=== PATIENT | female | born 1950 | race Caucasian/White ===

== ENCOUNTER → 2016-10-16 | Outpatient (CLI) | payer MEDICARE ==
--- NOTE | 2016-10-16 11:59 | XR ---
EXAMINATION TYPE: XR thoracic spine complete DATE OF EXAM ORDERED: 10/16/2016 HISTORY: C50.11 Breast CA. COMPARISON: None. FINDINGS: There is a left internal jugular catheter in place. Its tip is in the right atrium. Vertebral body height and alignment are maintained. No fractures are seen. 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 There is mild spondylosis deformans in the mid dorsal s pine. The pedicles are intact. IMPRESSION: 1. NO ACUTE OSSEOUS LESION. 2. FORESTIER'S DISEASE. 3. SPONDYLOSIS DEFORMANS.
== END | disposition home or self-care (01) ==
LOC: RADXRMAIN 11:26
PROVIDERS: ATTEND Internal Medicine Hematology & Oncology
DX: M47.814 Spondylosis without myelopathy or radiculopathy, thoracic region (principal); M48.14 Ankylosing hyperostosis [Forestier], thoracic region; C50.111 Malignant neoplasm of central portion of right female breast
CPT/HCPCS: 72072

== ENCOUNTER 2017-07-18 00:53 | Inpatient (IN) | payer MEDICARE, OTHER ==
--- NOTE | 2017-07-18 01:22 | ED ---
General Adult HPI - General Chief complaint: Skin/Abscess/Foreign Body Stated complaint: Dental Pain/Facial Swelling Time Seen by Provider: 07/18/17 01:00 Source: patient, EMS, RN notes reviewed Mode of arrival: EMS Limitations: physical limitation - History of Present Illness Initial comments: This is a 66-year-old female who presents emergency Department with metastatic breast cancer. Patient was seen at [facility] earlier this evening and transferred to our facility. Patient came in because she was having some swelling and redness to the submandibular region on the left. Patient stated started about 3 days ago and has gotten progressively worse. According to the ER doctor at [facility] the CT showed infection of the submandibular gland as well as cellulitis with possible small abscess formations. Started the patient on antibiotics had a lactic acid 4.5 and sent the patient to us. Patient comes in febrile still complaining of swelling in the submandibular region however she's having no difficulty swallowing no difficulty breathing. - Related Data Allergies Allergy/AdvReac Type Severity Reaction Status Date / Time morphine AdvReac Unknown Verified 07/18/17 02:04 Review of Systems ROS Statement: Those systems with pertinent positive or pertinent negative responses have been documented in the HPI. ROS Other: All systems not noted in ROS Statement are negative. Past Medical History Past Medical History: Cancer Additional Past Medical History / Comment(s): breast cancer, bone cancer, History of Any Multi-Drug Resistant Organisms: None Reported Past Surgical History: Orthopedic Surgery Past Psychological History: No Psychological Hx Reported, Anxiety, Depression Smoking Status: Never smoker Past Alcohol Use History: Occasional Past Drug Use History: None Reported General Exam - General Exam Comments Initial Comments: GENERAL: Patient is well-developed and well-nourished. Patient is nontoxic and well- hydrated and is in mild distress. ENT: Neck is soft and supple. No significant lymphadenopathy is noted. Oropharynx is clear. Moist mucous membranes. In the left submandibular area is very swollen tender in the skin overlying that area is very erythematous EYES: The sclera were anicteric and conjunctiva were pink and moist. Extraocular movements were intact and pupils were equal round and reactive to light. Eyelids were unremarkable. PULMONARY: Unlabored respirations. Good breath sounds bilaterally. No audible rales rhonchi or wheezing was noted. CARDIOVASCULAR: There is a regular rate and rhythm without any murmurs gallops or rubs. ABDOMEN: Soft and nontender with normal bowel sounds. SKIN: Skin is clear with no lesions or rashes and otherwise unremarkable. NEUROLOGIC: Patient is alert and oriented x3. Cranial nerves II through XII are grossly intact. Motor and sensory are also intact. Normal speech, volume and content. Symmetrical smile. MUSCULOSKELETAL: Normal extremities with adequate strength and full range of motion. LYMPHATICS: No significant lymphadenopathy is noted PSYCHIATRIC: Normal psychiatric evaluation. Limitations: physical limitation Course Vital Signs 07/18/17 07/18/17 00:58 02:36 Temperature 102.2 F H 100.7 F H Pulse Rate 111 H 107 H Respiratory 16 16 Rate Blood Pressure 101/51 95/53 O2 Sat by Pulse 95 95 Oximetry Medical Decision Making - Medical Decision Making EKG shows sinus tachycardia at 111 bpm NE interval is on a 40 QRS is 80 QT interval 348 QTC is 473. EKG shows no ST segment elevation or depression. Patient received 1 L of fluid prior to arrival I gave the patient about 1.5 L at this point time she did receive 30 miles per KG. I spoke with Dr. Gracia and she agrees to admit the patient I wrote admitting orders I consult Dr. kmi I continued antibiotics. - Lab Data Result diagrams: 07/18/17 01:17 07/18/17 01:17 Lab Results 07/18/17 07/18/17 07/18/17 Range/Units 01:17 01:17 01:17 WBC 1.2 L* (3.8-10.6) k/uL RBC 2.67 L (3.80-5.40) m/uL Hgb 8.3 L (11.4-16.0) gm/dL Hct 25.1 L (34.0-46.0) % MCV 93.9 (80.0-100.0) fL MCH 31.1 (25.0-35.0) pg MCHC 33.1 (31.0-37.0) g/dL RDW 16.8 H (11.5-15.5) % Plt Count 139 L (150-450) k/uL Neutrophils % (Manual) 38 % Lymphocytes % (Manual) 35 % Monocytes % (Manual) 27 % Neutrophils # (Manual) 0.46 L (1.3-7.7) k/uL Lymphocytes # (Manual) 0.42 L (1.0-4.8) k/uL Monocytes # (Manual) 0.32 (0-1.0) k/uL Nucleated RBCs 0 (0-0) /100 WBC Manual Slide Review Performed Reactive Lymphocytes Present Poikilocytosis Slight Anisocytosis Slight PT (9.0-12.0) sec INR (<1.2) APTT (22.0-30.0) sec Sodium 135 L (137-145) mmol/L Potassium 3.7 (3.5-5.1) mmol/L Chloride 102 (98-107) mmol/L Carbon Dioxide 25 (22-30) mmol/L Anion Gap 8 mmol/L BUN 17 (7-17) mg/dL Creatinine 0.60 (0.52-1.04) mg/dL Est GFR (MDRD) Af Amer >60 (>60 ml/min/1.73 sqM) Est GFR (MDRD) Non-Af >60 (>60 ml/min/1.73 sqM) Glucose 90 (74-99) mg/dL Plasma Lactic Acid Lorenzo (0.7-2.0) mmol/L Calcium 8.2 L (8.4-10.2) mg/dL Total Bilirubin 0.9 (0.2-1.3) mg/dL AST 24 (14-36) U/L ALT 25 (9-52) U/L Alkaline Phosphatase 68 (38-126) U/L Total Creatine Kinase 73 (30-135) U/L CK-MB (CK-2) 0.4 (0.0-2.4) ng/mL CK-MB (CK-2) Rel Index 0.5 Troponin I <0.012 (0.000-0.034) ng/mL Total Protein 5.8 L (6.3-8.2) g/dL Albumin 2.8 L (3.5-5.0) g/dL 07/18/17 07/18/17 Range/Units 01:17 01:17 WBC (3.8-10.6) k/uL RBC (3.80-5.40) m/uL Hgb (11.4-16.0) gm/dL Hct (34.0-46.0) % MCV (80.0-100.0) fL MCH (25.0-35.0) pg MCHC (31.0-37.0) g/dL RDW (11.5-15.5) % Plt Count (150-450) k/uL Neutrophils % (Manual) % Lymphocytes % (Manual) % Monocytes % (Manual) % Neutrophils # (Manual) (1.3-7.7) k/uL Lymphocytes # (Manual) (1.0-4.8) k/uL Monocytes # (Manual) (0-1.0) k/uL Nucleated RBCs (0-0) /100 WBC Manual Slide Review Reactive Lymphocytes Poikilocytosis Anisocytosis PT 11.6 (9.0-12.0) sec INR 1.2 H (<1.2) APTT 25.2 (22.0-30.0) sec Sodium (137-145) mmol/L Potassium (3.5-5.1) mmol/L Chloride (98-107) mmol/L Carbon Dioxide (22-30) mmol/L Anion Gap mmol/L BUN (7-17) mg/dL Creatinine (0.52-1.04) mg/dL Est GFR (MDRD) Af Amer (>60 ml/min/1.73 sqM) Est GFR (MDRD) Non-Af (>60 ml/min/1.73 sqM) Glucose (74-99) mg/dL Plasma Lactic Acid Lorenzo 1.4 (0.7-2.0) mmol/L Calcium (8.4-10.2) mg/dL Total Bilirubin (0.2-1.3) mg/dL AST (14-36) U/L ALT (9-52) U/L Alkaline Phosphatase (38-126) U/L Total Creatine Kinase (30-135) U/L CK-MB (CK-2) (0.0-2.4) ng/mL CK-MB (CK-2) Rel Index Troponin I (0.000-0.034) ng/mL Total Protein (6.3-8.2) g/dL Albumin (3.5-5.0) g/dL Disposition Clinical Impression: Abscess or cellulitis of submandibular region Disposition: [facility] Referrals: Dino Valadez MD [Primary Care Provider] - 1-2 days Time of Disposition: 02:56
[2017-07-18 01:39] LABS: ALT 25 U/L (9-52); AST 24 U/L (14-36); Albumin 2.8 g/dL (3.5-5.0); Alkaline Phosphatase 68 U/L (38-126); Anion Gap 8 mmol/L; Blood Urea Nitrogen 17 mg/dL (7-17); Calcium 8.2 mg/dL (8.4-10.2); Carbon Dioxide 25 mmol/L (22-30); Chloride 102 mmol/L (98-107); Glucose 90 mg/dL (74-99); INR 1.2 (<1.2); Partial Thromboplastin Time 25.2 sec (22.0-30.0); Potassium 3.7 mmol/L (3.5-5.1); Prothrombin Time 11.6 sec (9.0-12.0); Sodium 135 mmol/L (137-145); Total Bilirubin 0.9 mg/dL (0.2-1.3); Total Protein 5.8 g/dL (6.3-8.2)
[2017-07-18] MEDS ORDERED: SODIUM CHLORIDE 0.9% 500 ML IV ONE (01:40)
[2017-07-18] MEDS ORDERED: IBUPROFEN IV 600 MG in SODIUM CHLORIDE 0.9% 250 ML IV STA (01:40)
[2017-07-18] MEDS ORDERED: SODIUM CHLORIDE 0.9% 1,000 ML IV ONE ×2 (01:40→02:56)
[2017-07-18] MEDS ORDERED: ACETAMINOPHEN IV (For NPO) 1,000 MG in SALINE 100 100ML.BAG IVPB STA (01:40)
[2017-07-18 01:43] LABS: Anisocytosis Slight; HCT 25.1 % (34.0-46.0); HGB 8.3 gm/dL (11.4-16.0); MCH 31.1 pg (25.0-35.0); MCHC 33.1 g/dL (31.0-37.0); MCV 93.9 fL (80.0-100.0); Mean Platelet Volume 7.8; Platelet Count 139 k/uL (150-450); Poikilocytosis Slight; RBC 2.67 m/uL (3.80-5.40); RDW 16.8 % (11.5-15.5)
[2017-07-18 01:52] LABS: Creatine Kinase 73 U/L (30-135)
[2017-07-18 01:56] LABS: WBC 1.2 k/uL (3.8-10.6)
[2017-07-18 02:04] LABS: Lymphocytes # (M) 0.42 k/uL (1.0-4.8); Monocytes # (M) 0.32 k/uL (0-1.0); Neutrophils # (M) 0.46 k/uL (1.3-7.7); Neutrophils % (M) 38 %; Nucleated Red Blood Cells 0 /100 WBC (0-0); Total Cells Counted 100
[2017-07-18 02:05] LABS: Creatine Kinase MB 0.4 ng/mL (0.0-2.4); Troponin I <0.012 ng/mL (0.000-0.034)
[2017-07-18 02:07] LABS: Reactive Lymphocytes Present
[2017-07-18] MEDS ORDERED: AMPICILLIN-SULBACTAM 3 GM in SODIUM CHLORIDE 0.9% 100 ML IVPB SCH (06:00)
[2017-07-18] MEDS ORDERED: VANCOMYCIN IV PER PHARMACY 1 EACH MISC MISCELLANE PRN (08:30)
[2017-07-18] MEDS: VANCOMYCIN 1,500 MG in SODIUM CHLORIDE 0.9% 250 ML IVPB SCH ×2 (10:32→22:16)
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
[2017-07-18] MEDS: PIPERACILLIN-TAZOBACTAM 3.375 GM in DEXTROSE/WATER 1 50ML.BAG IVPB SCH ×2 (13:01→17:46)
[2017-07-18] MEDS: HYDROcodone/APAP 7.5-325MG 1 EACH TAB PO PRN (13:03)
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
[2017-07-18] MEDS: SODIUM CHLORIDE 0.9% 1,000 ML IV SCH (17:45)
[2017-07-18] MEDS: FILGRASTIM-SNDZ 300 MCG/0.5 ML SYRINGE SQ SCH (17:45)
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
[2017-07-18] MEDS: MELOXICAM 7.5 MG TAB PO SCH (21:26)
[2017-07-18] MEDS: MORPHINE SULFATE ER 60 MG TABLET PO SCH (21:26)
[2017-07-18] MEDS: AMITRIPTYLINE HCL 50 MG TAB PO SCH (21:26)
[2017-07-18] MEDS: LATANOPROST 0.005% OPHTH DROPS 2.5 ML BTL BOTH EYES SCH (21:28)
[2017-07-19 01:01] LABS: Amorphous Sediment,Urine Rare /hpf; Appearance,Urine Cloudy (Clear); Bilirubin,Urine Negative (Negative); Blood,Urine Negative (Negative); Color,Urine Yellow; Glucose,Urine (UA) Negative (Negative); Ketones,Urine Negative (Negative); Leukocyte Esterase,Urine Moderate (Negative); Mucus,Urine Rare /hpf; Nitrite,Urine Negative (Negative); PH, Urine 5.5 (5.0-8.0); Protein,Urine 1+ (Negative); RBC,Urine 5 /hpf (0-5); Specific Gravity,Urine 1.025 (1.001-1.035); Squamous Epithelial Cell,Urine 1 /hpf (0-4); Urobilinogen,Urine <2.0 mg/dL (<2.0); WBC,Urine 24 /hpf (0-5)
[2017-07-19] MEDS: PIPERACILLIN-TAZOBACTAM 3.375 GM in DEXTROSE/WATER 1 50ML.BAG IVPB SCH ×4 (01:01→23:29)
[2017-07-19 06:56] LABS: Anisocytosis Slight; HCT 22.7 % (34.0-46.0); HGB 7.1 gm/dL (11.4-16.0); Hypochromasia Moderate; MCH 31.1 pg (25.0-35.0); MCHC 31.4 g/dL (31.0-37.0); MCV 98.8 fL (80.0-100.0); Macrocytosis Slight; Mean Platelet Volume 8.7; Platelet Count 139 k/uL (150-450); Poikilocytosis Slight; RDW 17.2 % (11.5-15.5)
[2017-07-19 06:57] LABS: WBC 1.8 k/uL (3.8-10.6)
[2017-07-19 07:11] LABS: Anion Gap 8 mmol/L; Blood Urea Nitrogen 11 mg/dL (7-17); Calcium 7.6 mg/dL (8.4-10.2); Carbon Dioxide 26 mmol/L (22-30); Chloride 104 mmol/L (98-107); Glucose 92 mg/dL (74-99); Potassium 3.6 mmol/L (3.5-5.1); Sodium 138 mmol/L (137-145)
[2017-07-19] MEDS: MELOXICAM 7.5 MG TAB PO SCH (08:15)
[2017-07-19] MEDS: CITALOPRAM HYDROBROMIDE 10 MG TAB PO SCH (08:15)
[2017-07-19] MEDS: FAMOTIDINE 20 MG TAB PO SCH (08:15)
[2017-07-19] MEDS: LETROZOLE 2.5 MG TAB PO SCH (08:16)
[2017-07-19] MEDS: MORPHINE SULFATE ER 60 MG TABLET PO SCH ×2 (08:22→21:29)
[2017-07-19] MEDS: VANCOMYCIN 1,500 MG in SODIUM CHLORIDE 0.9% 250 ML IVPB SCH ×2 (12:28→21:29)
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
[2017-07-19] MEDS: ACETAMINOPHEN TAB 325 MG TAB PO PRN ×2 (12:31→21:30)
[2017-07-19] MEDS: SODIUM CHLORIDE 0.9% 1,000 ML IV SCH (12:33)
[2017-07-19] MEDS: NON-FORMULARY DRUG (Linaclotide [Linzess] 145 MCG) PO SCH (12:33)
[2017-07-19] MEDS: FILGRASTIM-SNDZ 300 MCG/0.5 ML SYRINGE SQ SCH (17:07)
[2017-07-19] MEDS: AMITRIPTYLINE HCL 50 MG TAB PO SCH (21:30)
[2017-07-19] MEDS: LATANOPROST 0.005% OPHTH DROPS 2.5 ML BTL BOTH EYES SCH (21:31)
[2017-07-19] MEDS: MELATONIN 5 MG TABLET PO SCH (21:33)
--- NOTE | 2017-07-19 22:55 | PN ---
PROGRESS NOTE DATE OF SERVICE: 07/19/2017. REASON FOR FOLLOWUP VISIT: Sepsis with submandibular abscess. INTERVAL HISTORY: The patient is still running a fever of 101.7 this morning. Afebrile afterward. Also having significant swelling of the submandibular area. Denies any difficulty swallowing. No nausea or vomiting. Denies any chest pain, shortness of breath, or cough. PHYSICAL EXAMINATION: Blood pressure is 100/56, pulse of 106, temperature 98.5, she is 91% on 2 L nasal cannula. GENERAL DESCRIPTION: An elderly female lying in bed in no distress. HEENT EXAMINATION: Slight pallor. No scleral icterus. The submandibular area still has significant swelling, though less redness. The area is tender to touch. Fluctuant but no drainage. Lungs unlabored breathing, clear to auscultation anteriorly. HEART: S1, S2. Regular rate and rhythm. ABDOMEN: Soft, no tenderness. LABS: Hemoglobin 7.1, white count 1.8, BUN of 11, creatinine 0.68. Blood culture so far pending. DIAGNOSTIC IMPRESSION AND PLAN: Patient with sepsis, source is submandibular abscess, likely due to her infected teeth. Cultures are showing gram-positive cocci in chains, could be likely Staph. The patient currently covered with Zosyn and vancomycin. These will be continued waiting for the dental surgery evaluation and drainage of this abscess, at which time deep culture should be obtained. All of her questions were answered. MMODL / IJN: [id number] /
[2017-07-20] MEDS: ACETAMINOPHEN TAB 325 MG TAB PO PRN ×2 (04:50→13:54)
[2017-07-20] MEDS: SODIUM CHLORIDE 0.9% 1,000 ML IV SCH ×3 (05:47→15:44)
[2017-07-20] MEDS ORDERED: VANCOMYCIN TROUGH DUE 1 EACH MISC MISCELLANE ONE (08:00)
[2017-07-20] MEDS: PIPERACILLIN-TAZOBACTAM 3.375 GM in DEXTROSE/WATER 1 50ML.BAG IVPB SCH ×2 (08:43→15:40)
[2017-07-20] MEDS: CITALOPRAM HYDROBROMIDE 10 MG TAB PO SCH (08:48)
[2017-07-20] MEDS: FAMOTIDINE 20 MG TAB PO SCH (08:49)
[2017-07-20] MEDS: NON-FORMULARY DRUG (Linaclotide [Linzess] 145 MCG) PO SCH (08:49)
[2017-07-20] MEDS: LETROZOLE 2.5 MG TAB PO SCH (08:49)
[2017-07-20] MEDS: MORPHINE SULFATE ER 60 MG TABLET PO SCH ×2 (08:50→20:23)
[2017-07-20 09:08] LABS: Anisocytosis Slight; HCT 24.2 % (34.0-46.0); HGB 7.3 gm/dL (11.4-16.0); Hypochromasia Moderate; MCH 30.2 pg (25.0-35.0); MCHC 30.2 g/dL (31.0-37.0); Macrocytosis Slight; Mean Platelet Volume 7.8; Platelet Count 155 k/uL (150-450); Poikilocytosis Slight; RBC 2.42 m/uL (3.80-5.40); RDW 17.2 % (11.5-15.5); WBC 3.5 k/uL (3.8-10.6)
[2017-07-20] MEDS: VANCOMYCIN 1,500 MG in SODIUM CHLORIDE 0.9% 250 ML IVPB SCH (09:10)
[2017-07-20] MEDS ORDERED: SODIUM CHLORIDE 0.9% 500 ML IV ONE (12:36)
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
[2017-07-20] MEDS: FILGRASTIM-SNDZ 300 MCG/0.5 ML SYRINGE SQ SCH (15:40)
[2017-07-20] MEDS ORDERED: BISACODYL 5 MG TABLET.DR PO PRN (16:36)
--- NOTE | 2017-07-20 16:36 | P.PN ---
Subjective Progress Note Date: 07/20/17 Principal diagnosis: submandibular abscess Pt seen today in follow up, she is awaiting Dental surgical evaluation, being followed by ID. She had fever in the last 12 hours, she can tolerate oral intake, no nausea, slight cough but denies feeling like she is inhaling food or fluids, no abd pain, she has not had a BM for 3 days. Objective - Vital Signs Vital signs: Vital Signs Temp 99.2 F 07/20/17 07:00 Pulse 94 07/20/17 07:00 Resp 20 07/20/17 07:00 BP 93/58 07/20/17 07:00 Pulse Ox 97 07/20/17 07:00 Intake & Output 07/19/17 07/20/17 07/20/17 18:59 06:59 18:59 Intake Total 350 1200 750 Output Total 100 Balance 250 1200 750 Weight 78 kg Intake: IV 100 750 750 Piperacillin-Tazobactam 3 100 50 .375 gm In Dextrose/Water 1 50ml.bag @ 12.5 mls/hr IVPB Q8HR [facility] Rx#: [id number] Sodium Chloride 0.9% 1, 450 000 ml @ 50 mls/hr IV . Q20H [facility] Rx#:[id number] Sodium Chloride 0.9% 500 500 ml @ 999 mls/hr IV .Q31M [facility] Rx#:[id number] Vancomycin 1,500 mg In 250 250 Sodium Chloride 0.9% 250 ml @ 125 mls/hr IVPB Q12HR [facility] Rx#:[id number] Intake, IV Titration 250 Amount Vancomycin 1,500 mg In 250 Sodium Chloride 0.9% 250 ml @ 125 mls/hr IVPB Q12HR [facility] Rx#:[id number] Oral 450 Output: Urine 100 Other: Voiding Method Bedside Commode Bedside Commode Bedside Commode Diaper Diaper Incontinent Incontinent # Voids 1 2 # Bowel Movements 1 - Constitutional General appearance: Present: no acute distress, obese - EENT EENT Comment(s): left side of the chin has scabbed area, the whole underside of the chin is red, warm, swollen and hard Eyes: Present: poor dentition - Respiratory Respiratory: bilateral: rhonchi (few scattered) - Cardiovascular Heart sounds: normal: S1, S2 - Gastrointestinal General gastrointestinal: Present: normal bowel sounds - Neurologic Neurologic: Present: CNII-XII intact - Musculoskeletal Musculoskeletal: Present: strength equal bilaterally - Psychiatric Psychiatric: Present: A&O x's 3, appropriate affect, intact judgment & insight - Labs CBC & Chem 7: 07/20/17 08:45 07/20/17 08:45 Labs: Abnormal Lab Results - Last 24 Hours (Table) 07/20/17 07/20/17 07/20/17 Range/Units 08:45 08:45 08:45 WBC 3.5 L (3.8-10.6) k/uL RBC 2.42 L (3.80-5.40) m/uL Hgb 7.3 L (11.4-16.0) gm/dL Hct 24.2 L (34.0-46.0) % MCHC 30.2 L (31.0-37.0) g/dL RDW 17.2 H (11.5-15.5) % Creatinine 2.13 H (0.52-1.04) mg/dL Vancomycin Trough 34.9 H* ug/mL Microbiology - Last 24 Hours (Table) 07/19/17 10:49 Blood Culture - Preliminary Blood No Growth after 24 hours 07/18/17 09:19 Blood Culture - Preliminary Blood No Growth after 48 hours 07/19/17 00:50 Urine Culture - Final Urine,Voided 07/18/17 01:17 Blood Culture Gram Stain - Preliminary Blood Blood Culture - Preliminary Alpha Hemolytic Streptococcus 07/19/17 14:35 Gram Stain - Preliminary Mandible - Left Wound Culture - Preliminary 07/19/17 14:45 Anaerobic Culture - Preliminary Mandible - Left Assessment and Plan (1) Metastatic breast cancer Narrative/Plan: Pt has had 3 cycles of eribulin with decent tolerance until this infection. Pt states this infection has been going on for nearly 3 years as she has not had the money to take care of it. Pt treatment will be held until her abscess and dental infection has been treated. She verbalized understanding Current Visit: Yes Status: Acute Priority: High Code(s): C50.919 - MALIGNANT NEOPLASM OF UNSP SITE OF UNSPECIFIED FEMALE BREAST SNOMED Code(s): 601964099
[2017-07-20] MEDS: HYDROcodone/APAP 7.5-325MG 1 EACH TAB PO PRN (18:33)
--- NOTE | 2017-07-20 18:53 | P.CON ---
Consult Note - . Consult date: 07/20/17 Assessment/Plan:: Chief complaint history of present illness. A 66-year-old female patient known to my service presents to the hospital with increased swelling of her jaw. She was admitted placed on IV antibiotics in an effort to control this. She concomitantly has end-stage metastatic breast cancer. The treatment for this is complicating her open wound inside of her mouth.. 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 We had been working with her to hold this medication and an effort to get t the jaw to heal. Plan was now to extract some broken teeth in the area effort to decrease the bacterial load in the jaw. With this increased swelling and spontaneous drainage. This may represent a osteomyelitis of the jaw. Past medical history reviewed. Medications reviewed. ALLERGIES morphine. Limited physical exam. Patient's resting in bed comfortably head of her bed elevated. Noted to have some erythema starting at the mid for border the mandible in her neck down to about the level of the hyoid bone. Some 1-2 cm swelling on the left side is fluctuant with scabbing which may indicate previous area of spontaneous drainage. The remaining swelling the left side with its crosses the midline to the right side is firm but nontender. Patient' s able open her mouth within normal limits and the 1 cm x 2 cm exposed area of bone inside the mouth is noted it's not loose and is nonpurulent. Palpation and manipulation of the right side of the mandible does not cause pain in the left. Multiple broken teeth are noted in the lower jaw but nontender. Vital signs today are 98.4, 94 bpm, 20 respirations per minute, 91% oxygen saturation on room air The CAT scan report was reviewed but the CAT scan itself was not available. Assessment. 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 Her concurrent cancer treatment and metastatic disease is contributing to the inability to fight off this infection. The possibility of metastatic jaw disease cannot be ruled out without biopsy. Plan. Patient does require a debridement and biopsy of the exposed bone and her mouth understanding the risk of medication related osteonecrosis that this may get worse instead of improving the situation. The lower teeth in the area should also be removed due to their nonrestorable status. Any extraoral drainage may also be performed if spontaneous drainage has not occurred at this point.
[2017-07-20] MEDS: AMITRIPTYLINE HCL 50 MG TAB PO SCH (20:24)
[2017-07-20] MEDS: LATANOPROST 0.005% OPHTH DROPS 2.5 ML BTL BOTH EYES SCH (20:24)
[2017-07-20] MEDS: MELATONIN 5 MG TABLET PO SCH (20:24)
--- NOTE | 2017-07-20 23:14 | PN ---
PROGRESS NOTE DATE OF SERVICE: 07/20/2017. REASON FOR FOLLOWUP: Sepsis with submandibular abscess. INTERVAL HISTORY: The patient is afebrile. She did have significant swelling and redness of the neck area. Still waiting for the oral surgery evaluation and drainage of this abscess. Denies having any difficulty swallowing. No abdominal pain, no diarrhea. EXAMINATION: Blood pressure 98/55 with a pulse of 94, temperature 98.4, saturating 91% on room air. GENERAL DESCRIPTION: An elderly female, lying in bed in no distress. RESPIRATORY SYSTEM: Unlabored breathing. Clear to auscultation anteriorly. HEART: S1, S2. Regular rate and rhythm. LABS: Hemoglobin 7.8, white count 3.5, creatinine was up to 2.13. DIAGNOSTIC IMPRESSION AND PLAN: Patient with submandibular abscess, more likely due to her infected teeth, with surgical drainage of this abscess and deep cultures. She will continue Zosyn. Culture showing predominantly yeast, predominantly Staphyloncus species. No MRSA. Vanc will be discontinued. Continue to monitor closely. Continue supportive care. MMODL / IJN: [id number] /
[2017-07-21] MEDS: PIPERACILLIN-TAZOBACTAM 3.375 GM in DEXTROSE/WATER 1 50ML.BAG IVPB SCH ×2 (00:03→07:55)
[2017-07-21] MEDS: HYDROcodone/APAP 7.5-325MG 1 EACH TAB PO PRN (06:05)
[2017-07-21] MEDS: SODIUM CHLORIDE 0.9% 1,000 ML IV SCH ×3 (06:11→21:59)
[2017-07-21 06:49] LABS: Anisocytosis Slight; HCT 23.4 % (34.0-46.0); HGB 7.4 gm/dL (11.4-16.0); Hypochromasia Moderate; MCH 30.7 pg (25.0-35.0); MCHC 31.7 g/dL (31.0-37.0); MCV 96.7 fL (80.0-100.0); Mean Platelet Volume 8.8; Platelet Count 175 k/uL (150-450); Poikilocytosis Slight; RBC 2.42 m/uL (3.80-5.40); WBC 7.5 k/uL (3.8-10.6)
[2017-07-21 07:11] LABS: Calcium 6.8 mg/dL (8.4-10.2); Potassium 3.7 mmol/L (3.5-5.1)
[2017-07-21 07:21] LABS: Glucose,Whole Blood 113 mg/dL (75-99)
[2017-07-21] MEDS: CITALOPRAM HYDROBROMIDE 10 MG TAB PO SCH (07:55)
[2017-07-21] MEDS: FAMOTIDINE 20 MG TAB PO SCH (07:55)
[2017-07-21] MEDS: MORPHINE SULFATE ER 60 MG TABLET PO SCH ×2 (07:56→21:59)
[2017-07-21] MEDS: NON-FORMULARY DRUG (Linaclotide [Linzess] 145 MCG) PO SCH (10:44)
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
--- NOTE | 2017-07-21 14:48 | P.PN ---
Subjective Progress Note Date: 07/21/17 Principal diagnosis: submandibular abscess Currently in treatment for metastatic breast cancer Pt seen in follow up, she is awaiting dental surgical evaluation. She denies fever, her abscess is still painful but she can tolerate oral intake, no nausea or vomiting, she did have a BM. Objective - Vital Signs Vital signs: Vital Signs Temp 99.0 F 07/21/17 07:00 Pulse 97 07/21/17 08:00 Resp 18 07/21/17 07:00 BP 99/56 07/21/17 07:00 Pulse Ox 97 07/21/17 07:00 Intake & Output 07/20/17 07/21/17 07/21/17 18:59 06:59 18:59 Intake Total 750 1825 Balance 750 1825 Intake: IV 750 550 Piperacillin-Tazobactam 3 50 .375 gm In Dextrose/Water 1 50ml.bag @ 12.5 mls/hr IVPB Q8HR [facility] Rx#: [id number] Sodium Chloride 0.9% 1, 500 000 ml @ 50 mls/hr IV . Q20H [facility] Rx#:[id number] Sodium Chloride 0.9% 500 500 ml @ 999 mls/hr IV .Q31M [facility] Rx#:[id number] Vancomycin 1,500 mg In 250 Sodium Chloride 0.9% 250 ml @ 125 mls/hr IVPB Q12HR [facility] Rx#:[id number] Intake, IV Titration 625 Amount Piperacillin-Tazobactam 3 50 .375 gm In Dextrose/Water 1 50ml.bag @ 12.5 mls/hr IVPB Q8HR [facility] Rx#: [id number] Sodium Chloride 0.9% 1, 575 000 ml @ 125 mls/hr IV . Q8H [facility] Rx#:[id number] Oral 650 Other: Voiding Method Bedside Commode Bedside Commode Bedside Commode Diaper Diaper Diaper Incontinent Incontinent Incontinent # Voids 2 - Constitutional General appearance: Present: cooperative, obese - EENT EENT Comment(s): left chin abscess appears larger but the swelling and redness of the entire chin in general seems to be a little better Eyes: Present: anicteric sclerae - Respiratory Respiratory: bilateral: CTA - Cardiovascular Heart sounds: normal: S1, S2 - Gastrointestinal General gastrointestinal: Present: normal bowel sounds, soft - Integumentary Integumentary: Present: pale - Neurologic Neurologic: Present: CNII-XII intact - Musculoskeletal Musculoskeletal: Present: generalized weakness - Psychiatric Psychiatric: Present: A&O x's 3, appropriate affect, intact judgment & insight - Labs CBC & Chem 7: 07/21/17 06:21 07/21/17 06:21 Labs: Abnormal Lab Results - Last 24 Hours (Table) 07/21/17 07/21/17 07/21/17 Range/Units 06:21 06:21 07:14 RBC 2.42 L (3.80-5.40) m/uL Hgb 7.4 L (11.4-16.0) gm/dL Hct 23.4 L (34.0-46.0) % RDW 17.0 H (11.5-15.5) % Carbon Dioxide 21 L (22-30) mmol/L BUN 23 H (7-17) mg/dL Creatinine 3.41 H (0.52-1.04) mg/dL POC Glucose (mg/dL) 113 H (75-99) mg/dL Calcium 6.8 L (8.4-10.2) mg/dL Microbiology - Last 24 Hours (Table) 07/19/17 10:49 Blood Culture - Preliminary Blood No Growth after 48 hours 07/18/17 09:19 Blood Culture - Preliminary Blood No Growth after 72 hours 07/18/17 01:17 Blood Culture Gram Stain - Final Blood Blood Culture - Final Alpha Hemolytic Streptococcus Alpha Hemolytic Streptococcus#2 07/19/17 14:35 Gram Stain - Preliminary Mandible - Left Wound Culture - Preliminary Yeast species 07/19/17 00:50 Urine Culture - Final Urine,Voided Assessment and Plan (1) Metastatic breast cancer Narrative/Plan: Cont to hold chemo treatment until her abscess and dental infection has been treated and resolved. Current Visit: Yes Status: Acute Priority: High Code(s): C50.919 - MALIGNANT NEOPLASM OF UNSP SITE OF UNSPECIFIED FEMALE BREAST SNOMED Code(s): 826559537 (2) Chemotherapy induced neutropenia Narrative/Plan: Pt has been receiving GCSF, her WBC/ANC has recovered so this has been discontinued. Cont to monitor CBC Current Visit: Yes Status: Acute Priority: High Code(s): D70.1 - AGRANULOCYTOSIS SECONDARY TO CANCER CHEMOTHERAPY; T45.1X5A - ADVERSE EFFECT OF ANTINEOPLASTIC AND IMMUNOSUP DRUGS, INIT SNOMED Code(s): 193785858 (3) Antineoplastic chemotherapy induced anemia Narrative/Plan: Exacerbated by infection. Conservative transfusions, CBC daily Current Visit: Yes Status: Acute Priority: High Code(s): D64.81 - ANEMIA DUE TO ANTINEOPLASTIC CHEMOTHERAPY; T45.1X5A - ADVERSE EFFECT OF ANTINEOPLASTIC AND IMMUNOSUP DRUGS, INIT SNOMED Code(s): 158528598 Plan: Doctor attests: I performed a history and physical examination of this patient, discussed with dictator. I agree with dictators note, documented as a scribe.
[2017-07-21] MEDS ORDERED: SUCCINYLCHOLINE CHLORIDE 100 MG/5 ML SYR IV ONE (18:11)
[2017-07-21] MEDS ORDERED: fentaNYL (PF) 50 MCG/ML 2 ML AMP ONE (18:11)
[2017-07-21] MEDS ORDERED: PHENYLEPHRINE-0.9% NACL SYG 1 MG/10 ML SYRINGE ONE (18:11)
[2017-07-21] MEDS ORDERED: PROPOFOL 10 MG/ML 20 ML VIAL IV ONE (18:11)
[2017-07-21] MEDS ORDERED: ROCURONIUM BROMIDE 10 MG/ML 10 ML VIAL IV ONE (18:11)
[2017-07-21] MEDS ORDERED: MIDAZOLAM 2 MG/2 ML VIAL ONE (18:11)
[2017-07-21] MEDS ORDERED: NEOSTIGMINE 1 MG/ML 10 ML VIAL ONE (18:11)
[2017-07-21] MEDS ORDERED: GLYCOPYRROLATE 0.2 MG/ML 2 ML VIAL ONE (18:11)
[2017-07-21] MEDS ORDERED: IV FLUID CONTINUATION 1,000 ML IV ONE (18:11)
[2017-07-21] MEDS ORDERED: LACTATED RINGERS 1,000 ML IV ONE (18:11)
[2017-07-21] MEDS ORDERED: LIDOCAINE 2%-EPI 1:100,000 20 ML VIAL SQ ONE (18:44)
[2017-07-21] MEDS ORDERED: GELATIN SPONGE,ABSORB (SMALL) 1 EACH SPONGE MISCELLANE ONE (18:45)
--- NOTE | 2017-07-21 20:21 | P.OP ---
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 Gross tooth decay Dental abcess Procedure(s) Performed: Extra oral Inscion and drange of the abcess left neck with cultures intraoral debridement of the exposed left jaw with Biopsy surgical extraction of 2,4,5,6,12,13,15,21,22,23,24,25,26 Anesthesia: IRISA Surgeon: Michael Pat Estimated Blood Loss (ml): 10 IV fluids (ml): 800 Urine output (ml): 0 Pathology: other (non viable bone from left jaw submitied to RO CA or Metastisis ) Condition: stable Disposition: floor Indications for Procedure: The hospital with pain and swelling of her left jaw had been present for over 2 months and initially responded to Augmentin. Due to her prolonged exposure to Xgevia she has had exposed bone inside of her mouth for many months. This condition is noticed medication related osteonecrosis is well-known with bisphosphonate style of medications. Conservative treatment had been employed up to this point with this increased swelling of the jaw does not combined with fevers and positive blood cultures decision was made to take the patient to the operating room and in apparent attempt to debride the area and extract offending teeth as well as perform an incisional drainage extraorally. I also feel that the bone should be biopsied an effort to rule out metastasis although I feel this is unlikely. The daughter and the patient were presented with options risks benefits alternatives discussed. It was made clear that this Condition could get worse inside the mouth by attempting to debride the bone. Unfortunately all the bone is infected with the medication and so drilling away bone in an effort to find healthy bone is unlikely. Furthermore extracting more teeth can exacerbate the condition. Patient and daughter understood these risks and agreed to proceed with the procedure. Other risks included but not limited to bleeding pain infection and swelling need for additional procedures. Operative Findings: see note Description of Procedure: Patient was seen in the preoperative holding area both daughters are present again risks benefits alternatives discussed patient taken the operating room intubated orally per the anesthesia record prepped and draped in usual fashion for extraoral incision and drainage and intraoral debridement and extraction of teeth. Prior to entering the oral cavity the incision and drainage was performed with a 1 cm incision below the area of necrosis on the skin of the outer neck blunt dissection carried up into the abscess pocket and 2 cm of Williamson drain were secured with 1-0 silk suture. A medium bite block was placed and 10 mL of 2% lidocaine with epinephrine administered in a both a block and infiltrative manner. All the remaining teeth had severe Decay and decision was made to not just extract the lower teeth but take out all of her teeth all she is under anesthesia. The jaw was manipulated and no fracture noted. Throat pack was placed 1 cm x 2 cm lingual cortex of exposed bone was mobile in the posterior area and easily removed with finger pressure up in the anterior though some of of the bone remained attached and had to be removed with the bur. Small incision was reflected on either side of the necrotic bone in an effort to maintain periosteal contact but to smooth the edges of sharp bone off. Copious irrigation was used and some Vicryl sutures were placed in a sling manner to try and keep the soft tissues approximated. This resulted in a 2-3 mm gap where there was still some exposed smooth bone but the decision to not reflect the periosteum was deemed more Cannon. The extractions were undertaken with gentle luxation and small flaps in an effort to keep good blood supply to the bone. After all the extractions were performed the 30 gut suture was placed in approximately effort to keep the tissues well approximated. The patient had the bite block removed and the oral cavity was free of debris throat pack was removed gauze packs were placed and oral airway was placed. The patient was then extubated taken to the recovery room where she is in stable condition awaiting transfer to the floor.
[2017-07-21] MEDS ORDERED: PIPERACILLIN-TAZOBACTAM 3.375 GM in DEXTROSE/WATER 1 50ML.BAG IVPB SCH (21:00)
--- NOTE | 2017-07-21 21:30 | PN ---
PROGRESS NOTE DATE OF SERVICE: 07/21/2017. REASON FOR FOLLOW UP: Neck abscess. INTERVAL HISTORY: The patient is seen on rounds this afternoon. The patient has been waiting for the drainage of this abscess. The patient's pain currently controlled. No nausea, vomiting or any diarrhea. EXAMINATION: Blood pressure is 124/64 with a pulse of 97, temperature 97.6. He is 97% on 4L nasal cannula. General description is an elderly female lying in bed in no distress. HEENT: Pallor. Neck area with significant swelling and tenderness, an patch on the top. LUNGS: Unlabored breathing clear to auscultation anteriorly. HEART: S1, S2. Regular rate and rhythm. AB D: Soft no tenderness. LABS: Hemoglobin 7.4, white count 7.5. BUN of 23, creatinine 3.41. Wound culture showing a alpha-hemolytic Streptococcus. DIAGNOSTIC IMPRESSION AND PLAN: Patient with a neck abscess with a component of osteomyelitis, status post drainage. Deep culture obtained which will be followed as well has been grown. Antibiotic adjusted to Unasyn 3 g q.12. adjusting it further based on clinical response as well as culture. In view of underlying osteomyelitis, she will need to continue her antibiotics for at least 6 weeks with discharge antibiotic depending upon the culture report. Continue supportive care. MMODL / IJN: [id number] /
[2017-07-21] MEDS: AMPICILLIN-SULBACTAM 3 GM in SODIUM CHLORIDE 0.9% 100 ML IVPB SCH (22:00)
[2017-07-21] MEDS: LATANOPROST 0.005% OPHTH DROPS 2.5 ML BTL BOTH EYES SCH (22:00)
[2017-07-21] MEDS: AMITRIPTYLINE HCL 50 MG TAB PO SCH (22:00)
[2017-07-21] MEDS: MELATONIN 5 MG TABLET PO SCH (22:01)
--- NOTE | 2017-07-21 22:45 | CONS ---
CONSULTATION DATE OF CONSULTATION: 07/21/2017. REASON FOR CONSULT: Renal failure. HISTORY OF PRESENT ILLNESS: Patient is a 66-year-old female who was admitted to the hospital with pain and swelling on her left mandibular area. The patient was found to have an abscess. She had significant cellulitis. Patient has a history of breast cancer with recurrence and currently with bone metastasis, maintained on chemotherapy. Her serum creatinine was 0.68 mg/dL on 07/19. It went up to 2.13 yesterday and today it is at 3.41. Vancomycin level was noted to be 34.9. Wound cultures grew yeast and blood cultures grew alpha-hemolytic Streptococcus. The patient is being followed by ID. There is no history of exposure to IV contrast. Blood pressure has been on the lower side with systolic about 81 mmHg on 07/18/2017. Currently, patient is maintained on IV fluids. PAST MEDICAL HISTORY: Breast cancer with recurrence, currently maintained on chemotherapy; history of bone metastasis, atrial flutter, osteoarthritis. PAST SURGICAL HISTORY: Appendectomy, right knee surgery with plate, partial left hip arthroplasty, tubal ligation, pericardial window, history of bilateral mastectomy. SOCIAL HISTORY: Negative for smoking, drug abuse or alcohol abuse. MEDICATIONS AT HOME: Included: 1. Elavil. 2. Celexa. 3. Meloxicam. 4. MS Contin. 5. Fentanyl. ALLERGIES: Include MORPHINE. EXAMINATION: Patient is currently awake, comfortable. She is not in any acute distress. Blood pressure was 103/59, heart rate 90 per minute. She is afebrile. HEART: S1, S2. LUNGS: Bilateral breath sounds are heard. Abdomen is soft, nontender. Lower extremities shows no significant edema. [employer] is grossly intact. Patient moving all 4 extremities. There is an area of erythema in the left mandibular area along with an eschar noted and dry scaling skin noted as well. LABS: Show hemoglobin 7.4 g/dL. Sodium 138, potassium 3.7, serum creatinine 3.4. ASSESSMENT: 1. Acute kidney injury secondary to hypotension, hypoperfusion as well as vancomycin toxicity, currently nonoliguric. Will check a bladder scan to rule out underlying urine retention. 2. History of breast cancer with bony metastasis and recurrence, currently maintained on chemotherapy. Previous history of bilateral mastectomy and chemotherapy previously as well. 3. Anemia, multifactorial. 4. Leukopenia secondary to chemotherapy. 5. Left submandibular abscess with bacteremia. Blood cultures growing alpha-hemolytic Streptococcus and wound culture growing yeast. The patient will be taken to the OR by oral surgeon. PLAN: Continue IV fluids. Repeat labs in a.m. and avoid to avoid any other nephrotoxic agents. Recommend discontinuation of vancomycin and avoid hypotension. Currently patient is not on any antihypertensive medication. Thank you for this consultation. Will continue to follow the patient with you during her hospitalization. MMODL / IJN: [id number] /
[2017-07-22] MEDS: SODIUM CHLORIDE 0.9% 1,000 ML IV SCH (06:10)
[2017-07-22 08:09] LABS: Anisocytosis Slight; HCT 22.7 % (34.0-46.0); HGB 7.1 gm/dL (11.4-16.0); Hypochromasia Marked; MCH 30.9 pg (25.0-35.0); MCHC 31.4 g/dL (31.0-37.0); MCV 98.7 fL (80.0-100.0); Macrocytosis Slight; Mean Platelet Volume 9.2; Platelet Count 179 k/uL (150-450); Poikilocytosis Slight; RDW 17.3 % (11.5-15.5); WBC 11.1 k/uL (3.8-10.6)
[2017-07-22 08:30] LABS: Potassium 3.9 mmol/L (3.5-5.1)
[2017-07-22 08:39] LABS: Calcium 6.3 mg/dL (8.4-10.2)
[2017-07-22] MEDS: AMPICILLIN-SULBACTAM 3 GM in SODIUM CHLORIDE 0.9% 100 ML IVPB SCH (09:02)
[2017-07-22] MEDS: MORPHINE SULFATE ER 60 MG TABLET PO SCH (09:03)
[2017-07-22] MEDS: FAMOTIDINE 20 MG TAB PO SCH (09:03)
[2017-07-22] MEDS: CITALOPRAM HYDROBROMIDE 10 MG TAB PO SCH (09:03)
[2017-07-22] MEDS: NON-FORMULARY DRUG (Linaclotide [Linzess] 145 MCG) PO SCH (09:18)
[2017-07-22] MEDS ORDERED: CALCIUM GLUCONATE 1,000 MG in SODIUM CHLORIDE 0.9% 100 ML IVPB ONE (10:07)
[2017-07-22] MEDS ORDERED: DEXTROSE 5%-0.9% NACL 1,000 ML IV SCH (12:15)
--- NOTE | 2017-07-22 14:43 | P.PN ---
Subjective Progress Note Date: 07/22/17 Principal diagnosis: Medication related osteonecrosis of the Jaw Patient had operation and yesterday afternoon to debride her intraoral wound, remove her remaining teeth and do an incision and drainage of her abscess of the neck. Tolerated the procedure well and has been comfortable overnight. Tolerating oral diet Objective - Vital Signs Vital signs: Vital Signs Temp 99.3 F 07/22/17 07:00 Pulse 102 H 07/22/17 07:00 Resp 18 07/22/17 07:00 BP 100/56 07/22/17 07:00 Pulse Ox 91 L 07/22/17 07:00 Intake & Output 07/21/17 07/22/17 07/22/17 18:59 06:59 18:59 Intake Total 800 1450 Output Total 10 Balance 790 1450 Weight 78 kg Intake: IV 800 50 Intake, IV Titration 1400 Amount Ampicillin-Sulbactam 3 gm 200 In Sodium Chloride 0.9% 100 ml @ 100 mls/hr IVPB Q12HR [facility] Rx#:[id number] Sodium Chloride 0.9% 1, 1200 000 ml @ 125 mls/hr IV . Q8H [facility] Rx#:[id number] Output: Estimated Blood Loss 10 Other: Voiding Method Bedside Commode Bedside Commode Bedside Commode Diaper Diaper Diaper Incontinent Incontinent Incontinent # Voids 1 3 - Exam Patient is asleep in bed easily arousable but not oriented. Extraoral drainage is minimal intraorally no active bleeding. The exposed bone is smooth and sling sutures are in place. Bilateral rales are audible. And patient reports no pain. - Constitutional General appearance: Present: disheveled, no acute distress - Labs CBC & Chem 7: 07/22/17 07:36 07/22/17 07:36 Labs: Abnormal Lab Results - Last 24 Hours (Table) 07/22/17 07/22/17 Range/Units 07:36 07:36 WBC 11.1 H (3.8-10.6) k/uL RBC 2.30 L (3.80-5.40) m/uL Hgb 7.1 L (11.4-16.0) gm/dL Hct 22.7 L (34.0-46.0) % RDW 17.3 H (11.5-15.5) % Carbon Dioxide 18 L (22-30) mmol/L BUN 28 H (7-17) mg/dL Creatinine 4.37 H (0.52-1.04) mg/dL Calcium 6.3 L* (8.4-10.2) mg/dL Microbiology - Last 24 Hours (Table) 07/19/17 10:49 Blood Culture - Preliminary Blood No Growth after 72 hours 07/18/17 09:19 Blood Culture - Preliminary Blood No Growth after 96 hours 07/21/17 19:26 Gram Stain - Preliminary Neck Wound Culture - Preliminary 07/21/17 19:26 Gram Stain - Preliminary Mandible - Left Wound Culture - Preliminary 07/21/17 19:26 Anaerobic Culture - Preliminary Mandible - Left 07/21/17 19:26 Anaerobic Culture - Preliminary Neck 07/19/17 14:35 Gram Stain - Final Mandible - Left Wound Culture - Final Keyana albicans 07/19/17 14:45 Anaerobic Culture - Preliminary Mandible - Left Assessment and Plan Assessment: The intraoral wounds are healing well and the drain will continue to slowly put out fluid. Patient's neck swelling and induration has improved. She seems more disoriented today than yesterday. Bilateral rales most likely represent postop atelectasis. Plan: Recommend continued soft diet. Dressing changes to drain every shift. Evaluate patient's medications and reduce narcotic pain medicine. I ordered a incentive spirometer and an effort to reduce atelectasis. Time with Patient: Less than 30
--- NOTE | 2017-07-22 15:15 | PN ---
PROGRESS NOTE Patient is seen for followup for acute kidney injury secondary to vancomycin toxicity and hypotension. Her serum creatinine continues to rise. Patient is nonoliguric. She has had urine output. She does not have any evidence of urine retention. Patient is maintained on IV fluids at 125 mL an hour. She had surgery yesterday by Dr. Pat and she had incision and drainage of the abscess and extraction of some of her teeth. A biopsy was also obtained of the left jaw. This morning patient is comfortable, awake, not in any acute distress. Blood pressure is 100/56, heart rate 102 per minute. She is afebrile. Examination of the heart, S1, S2. Examination of the lungs, decreased breath sounds at the bases. Abdomen is soft, nontender, obese. Examination of lower extremities shows no significant edema. SECURITY SME exam is grossly intact. LABS: Show sodium of 140, potassium 3.9, CO2 is 18, BUN 28, serum creatinine 4.37, calcium is 6.3, phosphorus 3.6. ASSESSMENT: 1. Acute kidney injury secondary to vancomycin toxicity and hypoperfusion. Continue to maintain patient off of vancomycin. She is not oliguric, but renal function continues to worsen. Will continue with the IV fluids for now. 2. Hypocalcemia. Will maintain patient on calcium supplements. Check 25 hydroxy vitamin D level as well. 3. Abscess in the left submandibular area, status post surgery, maintain on antibiotics with wound culture growing Keyana AND blood cultures initially grew alpha hemolytic strep. Currently, patient is maintained on Unasyn. PLAN: Continue IV fluids and check 25 hydroxy vitamin D and maintain patient on TUMS. Repeat labs in a.m. Continue to avoid nephrotoxic agents. MMODL / IJN: [id number] /
--- NOTE | 2017-07-22 15:23 | XR ---
EXAMINATION TYPE: XR chest 1V portable DATE OF EXAM: 07/22/2017 COMPARISON: NONE INDICATION: Short of breath TECHNIQUE: Single frontal view of the chest is obtained. FINDINGS: The heart size is normal. The pulmonary vasculature is normal. The lungs are clear. Port is present with tip in right atrium. Stomach is on the left appears distended. IMPRESSION: 1. No acute pulmonary process.
[2017-07-22] MEDS: IPRATROPIUM-ALBUTEROL 3 ML NEB INHALATION SCH ×2 (15:43→19:32)
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
[2017-07-22] MEDS: ACETAMINOPHEN TAB 325 MG TAB PO PRN (17:29)
[2017-07-22] MEDS: CALCIUM CARBONATE 500 MG CHEWABLE PO SCH ×2 (17:30→21:37)
[2017-07-22 19:51] LABS: Glucose,Whole Blood 115 mg/dL (75-99)
[2017-07-22 20:22] LABS: Anisocytosis Slight; Basophils % (A) 0 %; Eosinophils % (A) 0 %; HGB 7.3 gm/dL (11.4-16.0); Hypochromasia Marked; Lymphocytes # (A) 0.7 k/uL (1.0-4.8); Lymphocytes % (A) 6 %; MCHC 30.4 g/dL (31.0-37.0); MCV 98.7 fL (80.0-100.0); Macrocytosis Slight; Mean Platelet Volume 8.6; Monocytes # (A) 0.8 k/uL (0-1.0); Monocytes % (A) 7 %; Neutrophils # (A) 9.7 k/uL (1.3-7.7); Neutrophils % (A) 85 %; Platelet Count 185 k/uL (150-450); Poikilocytosis Slight; RBC 2.43 m/uL (3.80-5.40); RDW 17.2 % (11.5-15.5); WBC 11.5 k/uL (3.8-10.6)
[2017-07-22 20:27] LABS: Ionized Calcium 3.8 mg/dL (4.5-5.3)
[2017-07-22 20:42] LABS: Potassium 3.9 mmol/L (3.5-5.1)
[2017-07-22 20:47] LABS: Calcium 6.3 mg/dL (8.4-10.2)
--- NOTE | 2017-07-22 21:32 | CT ---
EXAMINATION TYPE: CT brain wo con DATE OF EXAM: 07/22/2017 HISTORY: Altered mental status. CT DLP: 770.1 mGycm. Automated Exposure Control for Dose Reduction was Utilized. TECHNIQUE: CT scan of the head is performed without contrast. COMPARISON: None. FINDINGS: There is no acute intracranial hemorrhage or midline shift identified. Ventricles and sul ci are within normal limits in size. There is low-attenuation in the periventricular white matter co nsistent with chronic small vessel ischemic change. The globes are intact and the visualized sinuses are clear. IMPRESSION: No acute intracranial hemorrhage or midline shift. There is mild chronic small vessel i schemic change noted.
[2017-07-22] MEDS: MELATONIN 5 MG TABLET PO SCH (21:37)
[2017-07-22] MEDS: LATANOPROST 0.005% OPHTH DROPS 2.5 ML BTL BOTH EYES SCH (21:38)
[2017-07-22] MEDS ORDERED: levETIRAcetam IV 1,000 MG in SALINE 1 100ML.BAG IVPB STA (21:49)
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
--- NOTE | 2017-07-22 22:37 | PN ---
PROGRESS NOTE DATE OF SERVICE: 07/22/2017 REASON FOR FOLLOWUP: Submandibular abscess. INTERVAL HISTORY: The patient is afebrile. She is breathing comfortably. Denies difficulty swallowing. Pain to the neck surgical site is currently controlled with pain medication. No nausea, no vomiting. No abdominal pain, no diarrhea. EXAMINATION: Blood pressure is 111/56 with a pulse of 104, temperature of 98. She is 99% on 2 L nasal cannula. General description is an elderly female lying in bed in no distress. HEENT EXAMINATION: Neck wound is currently dressed. No significant drainage on the dressing. LUNGS: Unlabored breathing, decreased breath sounds at the bases. No wheeze. HEART: S1, S2. Regular rate and rhythm. ABDOMEN: Soft, no tenderness. LABS: Hemoglobin 7.3, white count of 11.5. BUN of 32, creatinine 4.0. The OR cultures currently pending. DIAGNOSTIC IMPRESSION AND PLAN: The patient with a submandibular abscess from her infected teeth, status post extensive surgery and drainage of this abscess. We are waiting for the OR cultures to finalize. Keep the patient on Unasyn. Dose has been adjusted by the pharmacist watching her kidney function closely. In view of extensive infection, she will continue on IV antibiotic in the outpatient setting with upon the culture report. Continue supportive care. MMODL / IJN: [id number] /
[2017-07-22] MEDS: DEXTROSE 5%-0.45% NACL 1,000 ML IV SCH (23:15)
[2017-07-23] MEDS: IPRATROPIUM-ALBUTEROL 3 ML NEB INHALATION SCH ×4 (07:24→19:58)
[2017-07-23 09:02] LABS: Anisocytosis Slight; HCT 23.6 % (34.0-46.0); HGB 7.2 gm/dL (11.4-16.0); Hypochromasia Marked; MCH 30.1 pg (25.0-35.0); MCHC 30.4 g/dL (31.0-37.0); MCV 98.8 fL (80.0-100.0); Macrocytosis Slight; Mean Platelet Volume 8.2; Platelet Count 200 k/uL (150-450); Poikilocytosis Moderate; RBC 2.39 m/uL (3.80-5.40); RDW 17.2 % (11.5-15.5); WBC 12.7 k/uL (3.8-10.6)
[2017-07-23] MEDS ORDERED: FUROSEMIDE 10 MG/ML 10 ML VIAL IV STA (09:18)
[2017-07-23 09:21] LABS: Potassium 4.1 mmol/L (3.5-5.1)
[2017-07-23] MEDS: CITALOPRAM HYDROBROMIDE 10 MG TAB PO SCH (09:23)
[2017-07-23] MEDS: levETIRAcetam IV 500 MG in SODIUM CHLORIDE 0.9% 100 ML IVPB SCH ×2 (09:23→20:06)
[2017-07-23] MEDS: CALCIUM CARBONATE 500 MG CHEWABLE PO SCH ×3 (09:23→20:08)
[2017-07-23] MEDS: FAMOTIDINE 20 MG TAB PO SCH (09:24)
[2017-07-23] MEDS: DEXTROSE 5%-0.45% NACL 1,000 ML IV SCH (09:28)
[2017-07-23 09:37] LABS: Calcium 6.1 mg/dL (8.4-10.2)
--- NOTE | 2017-07-23 09:53 | XR ---
EXAMINATION TYPE: XR chest 1V portable DATE OF EXAM: 07/23/2017 COMPARISON: Prior chest 07/22/2017 HISTORY: Abnormal chest x-ray, possible congestive heart failure TECHNIQUE: Single frontal view of the chest is obtained. FINDINGS: Patient is rotated. Port is present in the left pectoral region, catheter tip at the cavoa trial junction level. Lung volumes are low and the patient is rotated. Suspect old left-sided rib fra ctures. No evident airspace disease, pneumothorax, or pleural effusion. Heart size is stable. Pulmona ry vascularity and marquis not significantly changed. IMPRESSION: Postprocedural findings. Expiratory rotated exam. Follow-up as indicated.
[2017-07-23] MEDS: AMPICILLIN-SULBACTAM 3 GM in SODIUM CHLORIDE 0.9% 100 ML IVPB SCH (10:45)
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
[2017-07-23] MEDS ORDERED: SODIUM CHLORIDE 0.9% 250 ML IV ONE (14:53)
[2017-07-23] MEDS ORDERED: LIDOCAINE 2% INJ 20 MG/ML SQ ONE ×2 (14:53→15:26)
[2017-07-23] MEDS: IODIXANOL 320 MG/ML 100 ML INTRAARTER ONE ×2 (15:35→15:40)
--- NOTE | 2017-07-23 15:44 | PN ---
PROGRESS NOTE Patient is seen for followup for acute kidney injury secondary to vancomycin toxicity and hypotension. She continues to have urine output; however, serum creatinine is significantly elevated today at 5.2. Overnight patient has also been more confused according to her daughter and nursing staff. This morning, patient was also mildly short of breath. She has any IV fluids at 125 mL an hours. EXAMINATION: Blood pressure is 103/65. This morning, heart rate 111 per minute. She is afebrile. The patient is awake, though she is confused. Examination of the heart: S1, S2. Examination lungs: Decreased breath sounds at the bases. Bilateral basal crackles are heard. Abdomen is soft, distended, nontender, obese. Examination lower extremities shows trace edema bilaterally. Site of surgery on the left submandibular area is intact. Eschar is noted. LABS SHOW: Sodium 140, potassium 4.1, chloride 110, CO2 is 18, BUN 34, creatinine 5.4, hemoglobin 7.2 g/dL. Calcium was 6.1. ASSESSMENT: 1. Acute kidney injury, oliguric secondary to vancomycin toxicity and hypotension and hypoperfusion along with the sepsis in view of altered mentation and evidence of volume overload. I will proceed with renal replacement therapy. Her daughters are present at bedside and they are agreeable. 2. Left submandibular abscess status post surgery. 3. Anemia. No active bleeding noted. 4. Sepsis with bacteremia associated with abscess in the submandibular area with wound cultures growing Keyana and blood cultures which grew alpha hemolytic strep initially. The patient is maintained on Unasyn. She is hemodynamically stable. 5. History of breast cancer with bone metastasis with recurrence, maintained on chemotherapy, status post bilateral mastectomies. PLAN: Consult vascular surgery. Proceed with dialysis catheter placement and will arrange for hemodialysis today. Discontinue IV fluids. MMODL / IJN: [id number] /
--- NOTE | 2017-07-23 17:35 | PN ---
PROGRESS NOTE DATE OF SERVICE: 07/23/2017. REASON FOR FOLLOWUP: Submandibular abscess. INTERVAL HISTORY: The patient is afebrile. She is hemodynamically stable. She is noticed to have worsening mental status changes and possible seizure activity. No nausea or vomiting has been noticed or significant diarrhea with worsening of her kidney function as well. EXAMINATION: Blood pressure 103/55 with a pulse of 94, temperature of 98.1. She is 99% on room air. General description is an elderly female lying in bed in no distress. HEENT EXAMINATION: Slight pallor. The neck swelling and redness decreased. No drainage. LUNGS: Unlabored breathing, clear to auscultation anteriorly. HEART: S1, S2. Regular rate and rhythm. ABDOMEN: Soft. No tenderness. LABS: BUN of 34, creatinine 5.4, hemoglobin is 7.2, white count 12.7. DIAGNOSTIC IMPRESSION AND PLAN: Patient with a neck abscess, status post surgical drainage, now with worsening of her mental status, being monitored by the admitting team. Keep the patient on Unasyn at this point. Daughter was present at bedside. Her questions and concerns were answered. MMODL / IJN: [id number] /
[2017-07-23] MEDS: LATANOPROST 0.005% OPHTH DROPS 2.5 ML BTL BOTH EYES SCH (20:07)
[2017-07-23] MEDS: MELATONIN 5 MG TABLET PO SCH (20:08)
--- NOTE | 2017-07-23 22:07 | P.PN ---
Subjective Progress Note Date: 07/23/17 This patient is a 66-year-old female who has a history of stage IV breast cancer with metastatic spread to the bones. The patient was admitted for further treatment of left submandibular abscess. She underwent surgery for this condition and subsequently was noted to show increased confusion and disorientation yesterday. Neurology was consulted. CAT scan of the brain was done which came back negative for any acute changes. She was having frequent myoclonic jerks and was started on Keppra yesterday evening. Patient was able to complete routine EEG today which was reviewed. EEG is revealing moderate slowing with no epileptiform discharges. The patient is noted to have worsening kidney function today. Creatinine is 5.2. Nephrology recommended that she undergo dialysis for further treatment. She had dialysis today and is scheduled to have a repeat dialysis tomorrow. We did review the results of the EEG and CAT scan once again with the patient's daughter who was at bedside. At this time we will continue her on Keppra. Keppra blood level is still pending today. She remains somewhat lethargic today and is being followed closely by infectious disease. We will await their further recommendations. Patient's condition remains very guarded. Primary care physician did discuss possibility of hospice. Family will wait for 24 hours and consider further treatment options at that time. Patient's overall prognosis at this time remains very guarded. Objective - Vital Signs Vital signs: Vital Signs Temp 97.7 F 07/23/17 15:00 Pulse 84 07/23/17 20:04 Resp 18 07/23/17 15:00 BP 113/59 07/23/17 15:00 Pulse Ox 99 07/23/17 07:00 Intake & Output 07/23/17 07/23/17 07/24/17 06:59 18:59 06:59 Intake Total 0 575 Output Total 0 Balance 0 575 Weight 78 kg Intake: IV 50 Intake, IV Titration 525 Amount Ampicillin-Sulbactam 3 gm 100 In Sodium Chloride 0.9% 100 ml @ 100 mls/hr IVPB Q24H [facility] Rx#:[id number] Dextrose 5%-0.45% NaCl 1, 325 000 ml @ 75 mls/hr IV . [id number] [facility] Rx#:[id number] levETIRAcetam IV 500 mg 100 In Sodium Chloride 0.9% 100 ml @ 400 mls/hr IVPB Q12HR [facility] Rx#:[id number] Oral 0 Output: Drainage 0 Left Jaw 0 Other: Voiding Method Diaper Diaper # Voids 0 - Exam Physical examination: PHYSICAL EXAMINATION: Patient is resting comfortably in bed. VITAL SIGNS: Blood pressure is [114/59]. Heart rate is [100]. Respiration is [18 ]. Temperature is [97.7]. HEENT: Head is atraumatic, neck is supple, there were no carotid bruits. CHEST: Lungs are clear to auscultation and percussion. CARDIAC: S1, S2 normal rate and rhythm. There is no murmur. ABDOMEN: Soft and nontender. Bowel sounds are present. EXTREMITIES: There is no pedal edema. Peripheral pulses are present. Neurological examination: Patient is lethargic but arousable. She does not appear to be in any acute pain at this time. She is following only minimal commands. No evidence of any focal motor deficit on exam at this time. Deep tendon reflexes are 1+ and symmetric. Plantar responses flexor bilaterally. - Labs CBC & Chem 7: 07/23/17 08:06 07/23/17 08:06 Labs: Abnormal Lab Results - Last 24 Hours (Table) 07/22/17 07/23/17 07/23/17 Range/Units 07:36 08:06 08:06 WBC 12.7 H (3.8-10.6) k/uL RBC 2.39 L (3.80-5.40) m/uL Hgb 7.2 L (11.4-16.0) gm/dL Hct 23.6 L (34.0-46.0) % MCHC 30.4 L (31.0-37.0) g/dL RDW 17.2 H (11.5-15.5) % Chloride 110 H (98-107) mmol/L Carbon Dioxide 18 L (22-30) mmol/L BUN 34 H (7-17) mg/dL Creatinine 5.24 H* (0.52-1.04) mg/dL Glucose 112 H (74-99) mg/dL Calcium 6.1 L* (8.4-10.2) mg/dL Vitamin D 25-Hydroxy 27.0 L (30.0-100.0) ng/mL Microbiology - Last 24 Hours (Table) 07/21/17 19:26 Gram Stain - Final Mandible - Left Wound Culture - Final Keyana albicans 07/19/17 10:49 Blood Culture - Preliminary Blood No Growth after 96 hours 07/18/17 09:19 Blood Culture - Preliminary Blood No Growth after 120 hours 07/21/17 19:26 Gram Stain - Preliminary Neck Wound Culture - Preliminary Assessment and Plan (1) Acute encephalopathy Current Visit: Yes Status: Acute Code(s): G93.40 - ENCEPHALOPATHY, UNSPECIFIED SNOMED Code(s): 94520734 (2) Myoclonic seizures Current Visit: Yes Status: Acute Code(s): G40.409 - OTH GENERALIZED EPILEPSY , NOT INTRACTABLE, W/O STAT EPI SNOMED Code(s): 42407832 (3) Abscess or cellulitis of submandibular region Current Visit: Yes Status: Acute Code(s): ZRU2365 - SNOMED Code(s): 366587918 (4) Metastatic breast cancer Current Visit: Yes Status: Acute Priority: High Code(s): C50.919 - MALIGNANT NEOPLASM OF UNSP SITE OF UNSPECIFIED FEMALE BREAST SNOMED Code(s): 778169920 (5) Chemotherapy induced neutropenia Current Visit: Yes Status: Acute Priority: High Code(s): D70.1 - AGRANULOCYTOSIS SECONDARY TO CANCER CHEMOTHERAPY; T45.1X5A - ADVERSE EFFECT OF ANTINEOPLASTIC AND IMMUNOSUP DRUGS, INIT SNOMED Code(s): 632727087 Plan: This patient is a 66-year-old female with stage IV breast cancer with metastatic disease. She was evaluated yesterday for myoclonic jerks. She was started on Keppra in any routine EEG was obtained today. Her EEG reveals moderate slowing with no epileptiform discharges. She underwent hemodialysis today due to worsening renal function. Her creatinine was 5.2 today. She did undergo computed tomography scan of the brain yesterday which was negative for any acute changes. We will await further recommendations from multiple specialists who are following this patient. Her overall prognosis at this time remains very guarded. Case was discussed at length with the patient's daughter at bedside. All of her questions were answered. She is aware of her mother's very guarded condition. We will continue close neurological follow-up for this patient.
--- NOTE | 2017-07-23 23:02 | EEG ---
ELECTROENCEPHALOGRAM REPORT DATE OF EE07/23/2017 REFERRING PHYSICIAN: Dr. Gracia. CONSULTING/INTERPRETING PHYSICIAN: Dr. Lorna Flowers. ELECTROENCEPHALOGRAPHIC EXAMINATION REPORT: INDICATION FOR EXAMINATION: This patient has a history of stage IV metastatic breast cancer. The patient now being evaluated for myoclonic jerks and possible seizure disorder following recent surgery. AGE: [age]. EEG FINDINGS: A routine 21 channel awake digital EEG recording was accomplished utilizing the 10-20 international system with bipolar and referential montages. The background activity in the most alert resting state consists of a low to medium amplitude, poorly developed and poorly sustained 4-5 Hz activity over the posterior head regions. This posterior rhythm attenuates minimally to eye opening. There is a small amount of low amplitude 18-20 Hz beta activity seen maximally over the anterior head regions. Muscle and movement artifact was observed on a few occasions during the tracing. Hyperventilation was not performed. Photic stimulation at flash frequencies of 2-30 Hz produced a minimal occipital driving response. No epileptiform discharges were seen. IMPRESSION: This EEG gives evidence of a severe widespread diffuse disturbance in cerebral function. The EEG failed to reveal any focal, lateralized, or epileptiform abnormalities. If clinically indicated, a followup EEG is recommended. Clinical correlation is recommended. MMODL / IJN: [id number] /
[2017-07-24] MEDS ORDERED: LORazepam 2 MG/ML INJ IV STA (05:39)
[2017-07-24] MEDS: IPRATROPIUM-ALBUTEROL 3 ML NEB INHALATION SCH ×4 (07:22→19:33)
[2017-07-24] MEDS: levETIRAcetam IV 500 MG in SODIUM CHLORIDE 0.9% 100 ML IVPB SCH ×2 (07:26→21:03)
[2017-07-24 08:10] LABS: Anisocytosis Slight; HCT 21.2 % (34.0-46.0); Hypochromasia Moderate; MCH 30.4 pg (25.0-35.0); MCHC 31.4 g/dL (31.0-37.0); MCV 96.7 fL (80.0-100.0); Mean Platelet Volume 8.8; Platelet Count 171 k/uL (150-450); Poikilocytosis Moderate; RBC 2.19 m/uL (3.80-5.40); RDW 17.2 % (11.5-15.5); WBC 10.7 k/uL (3.8-10.6)
[2017-07-24 08:20] LABS: HGB 6.7 gm/dL (11.4-16.0)
[2017-07-24] MEDS: AMPICILLIN-SULBACTAM 3 GM in SODIUM CHLORIDE 0.9% 100 ML IVPB SCH (08:20)
[2017-07-24] MEDS: CALCIUM CARBONATE 500 MG CHEWABLE PO SCH ×3 (08:20→22:27)
[2017-07-24] MEDS: FAMOTIDINE 20 MG TAB PO SCH (08:20)
[2017-07-24] MEDS: CITALOPRAM HYDROBROMIDE 10 MG TAB PO SCH (08:20)
--- NOTE | 2017-07-24 08:38 | PN ---
PROGRESS NOTE SUBJECTIVE: The patient is postop day 3 from incision and drainage of abscess on the left neck, debridement of bone and intraorally and extraction of all remaining teeth. The patient has recently deteriorated with diminished mental status and has recently had a dialysis shunt placed and has undergo undergone dialysis. The family feels that this has helped. They reported that she was awake last night but got agitated and required sedation. This morning, the patient is responsive to pain, not responsive to verbal commands, but arousable with verbal commands. The daughter reported that she was able to drink some grape juice last night. The daughter also reports that the neck drain has not been putting out any fluid. OBJECTIVE: Neck drain is in place with bloody crust around it. There is no dressing over it and there is a paper towel under it that appears to have scant amount of serosanguineous discharge. I believe the family has been changing this regularly, but I do not see any drainage today. The erythematous margins around the swelling in the neck have disappeared as the neck swelling is softened and now just has a 0.5 cm margin of swelling around the drain. The drain appears ready to be removed. Intraoral exam was difficult as the patient was noncooperative/anxious with the exam, able to see the anterior tooth sockets, but unable to view the posterior areas with the exposed bone. From what I could see, the mouth is clean with no discharge noted and no active bleeding. ASSESSMENT: The patient's wounds postsurgically are healing very well. The infection appears to be responding to current treatment and the drain requires removal. PLAN: Continue current therapy. The drain was removed at bedside with a suture removal kit with no agitation to the patient. Betadine was ordered to be placed on the wounds. The family is taking an active role in her nursing care and it is fine if the Betadine can be left at the bedside for the daughters to apply p.r.n. With removal of the drain, oral surgery will continue to round periodically while the patient is in the hospital and she is then to follow up in one week upon discharge. This is a progress note for today and the patient was seen today. MMODL / IJN: [id number] /
[2017-07-24 08:46] LABS: Potassium 3.5 mmol/L (3.5-5.1)
[2017-07-24 09:17] LABS: Calcium 6.1 mg/dL (8.4-10.2)
[2017-07-24] MEDS: BACITRACIN 500 UNIT/GM OINT 28.4 GM TUBE TOPICAL SCH ×2 (09:41→21:03)
--- NOTE | 2017-07-24 10:17 | CONS ---
DATE OF CONSULTATION: 07/24/2017 This is a 66-year-old, female. Patient has developed acute chronic renal failure. I was consulted for placement of the dialysis catheter. Patient had breast cancer and patient had chemotherapy. MEDICAL HISTORY: Patient has history of atrial flutter, history of breast cancer, which was diagnosed in . Patient has stage IV with bone mets. PHYSICAL EXAMINATION: On examination, patient was seen. NECK: Supple. No bruit appreciated. Chest is clear to auscultation. ABDOMEN: Soft. Femoral pulses are palpable. PLAN: Placement of the dialysis catheter. MMODL / IJN: [id number] / MTDD
--- NOTE | 2017-07-24 10:48 | PCN ---
PROCEDURE NOTE PREOPERATIVE DIAGNOSIS: Acute chronic renal failure. PROCEDURE: Placement of dialysis catheter, attempted right jugular vein. Then we placed to the right femoral vein. This patient was brought to the [facility]. Her neck was prepped and draped in a sterile manner. Ultrasound-guided micropuncture into the right jugular vein. Micropuncture guide was passed which was checked on the C-Arm, it has good position. After that. 4- Dominican dilator advanced on top of the guidewire. After that, we passed a regular guidewire, which was parked in the inferior vena cava. Then incision was made to the chest and and brought to the neck site where patient had a small incision. When we passed hematoma, we noticed there was some bleeding noted mostly from external jugular vein. Pressure was held and this vein was suture ligated. At this point, we decided to go to the right groin. Incision was closed with 5-0 nylon. The guidewire was removed from the right IJ; 1% lidocaine infiltrated to the right groin, micropuncture introduced to the right common femoral vein and micropuncture guide was passed which was checked with the C-arm which with good position. A 4 Dominican dilator was passed and then we passed a regular guidewire, then dilator was advanced on the top of the guidewire. Then we placed a 30 cm long dialysis catheter on the top of the guidewire. Flushed with heparin saline and hep-locked, secured with 3-0 Vicryl and nylon dressing applied. Patient tolerated the procedure well. MMODL / IJN: [id number] /
--- NOTE | 2017-07-24 11:45 | IR ---
Fluoroscopy HISTORY: Central venous catheter placement 2.3 minutes fluoroscopy time supplied to the referring clinician. 765 intraoperative C-arm images do cument the procedure. See dictated report from vascular surgery.
--- NOTE | 2017-07-24 12:47 | XR ---
EXAMINATION TYPE: XR chest 1V DATE OF EXAM: 07/24/2017 COMPARISON: 07/23/2017 HISTORY: Hypoxia TECHNIQUE: Single frontal view of the chest is obtained. FINDINGS: Left-sided central venous catheter has its distal tip in the right atrium, unchanged from the prior. New multifocal left-sided patchy opacities and right basilar linear opacity are seen in co mbination with low lung volumes. Cardiac size is enlarged. Osseous structures are grossly intact with moderate degenerative changes of the left glenohumeral joint, chromic clavicular joint and thoracic spine. Lobulated density in the left upper lung could represent overlapping structures or pulmonary n odule this patient with a history of breast cancer. IMPRESSION: New multifocal bilateral patchy opacities that could represent multifocal atelectasis or pneumonia given the patient's new hypoxia. Additional lobulated left upper lung density may represen t an overlying rib shadow, however surveillance is recommended in this patient with a history of [address] carcinoma
--- NOTE | 2017-07-24 15:15 | PN ---
PROGRESS NOTE Patient is seen for followup for acute kidney injury secondary to vancomycin toxicity and hypotension and hypoperfusion. Patient was started on dialysis yesterday secondary to worsening renal failure and altered mentation and fluid overload. She did better after dialysis. However, this morning she was confused again. The patient is scheduled for her second treatment of hemodialysis today. She does have underlying breast cancer with metastasis and recurrence, maintained on chemotherapy. This admission was for a submandibular abscess which is status post surgery and maintained on antibiotics. On examination today, patient is sleeping. She is comfortable. She has periods of sleep apnea, but that is not new according to her daughter. Blood pressure is 121/69, heart rate 104 per minute. She is afebrile. EXAMINATION OF THE HEART: S1, S2. EXAMINATION OF LUNGS: Decreased breath sounds at the bases. ABDOMEN: Soft, distended, obese, non-tender. Examination of lower extremities shows edema 1+ bilaterally. Her left mandibular area is currently dressed. Labs show sodium 140, potassium 3.5, chloride 105, BUN 27, serum creatinine 4.5, hemoglobin 6.7 g/dL. Calcium was 6.1. ASSESSMENT: 1. Acute kidney injury secondary to vancomycin toxicity and hypotension and hypoperfusion, currently nonoliguric with indwelling Kelly catheter. Patient will receive her second treatment of hemodialysis today. We will possibly dialyze her again tomorrow as well. 2. Altered mentation, most likely from uremia, improved post dialysis yesterday. Expect further improvement with continued renal replacement therapy. 3. Anemia. No active bleeding noted. Patient will be transfused one unit packed RBCs today for hemoglobin of 6.7. 4. Fluid overload, currently off of IV fluids. I will maintain patient on IV Lasix as well. 5. Submandibular abscess, status post surgery, debridement and extraction of teeth. PLAN: Start IV Lasix. Hemodialysis today as well as in a.m. Continue with the antibiotics. Continue off of vancomycin. MMODL / IJN: [id number] /
--- NOTE | 2017-07-24 16:21 | PN ---
PROGRESS NOTE DATE OF SERVICE: 07/24/2017. REASON FOR FOLLOWUP: Submandibular abscess. INTERVAL HISTORY: The patient is afebrile. She remains to be having mental status changes, not responsive or providing any history. Hemodynamically stable not on pressor support. She did get a right groin Viral catheter for dialysis. No nausea, vomiting, or any diarrhea reported. EXAMINATION: Blood pressure is 124/72 with a pulse of 94, temperature of 98.3. General description is an elderly female lying in bed in no distress. HEENT EXAMINATION: The neck area swelling has improved in spine/neck area but no drainage. LUNGS: Unlabored breathing. Clear to auscultation anteriorly. HEART: S1, S2. Regular rate and rhythm. ABDOMEN: Soft, no tenderness. LABS: Hemoglobin 6.7, white count 10.7 with a BUN of 27, creatinine 4.50. The cultures done in the OR showing a Keyana albicans. DIAGNOSTIC IMPRESSION AND PLAN: Patient with submandibular abscess with sinus infection of the floor of the oral cavity, status post debridement with culture showing Keyana albicans. We will add antifungal coverage. The Diflucan could not be added because of the Celexa the patient is on on. Micafungin will be added and continue patient on Unasyn and watch the kidney function and clinical course closely. Continue supportive care. MMODL / IJN: [id number] /
[2017-07-24] MEDS: MICAFUNGIN 100 MG in SODIUM CHLORIDE 0.9% 100 ML IVPB SCH (16:42)
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
[2017-07-24] MEDS: LORazepam 2 MG/ML INJ IV PRN (19:11)
[2017-07-24] MEDS: LATANOPROST 0.005% OPHTH DROPS 2.5 ML BTL BOTH EYES SCH ×2 (21:03→21:16)
[2017-07-24] MEDS: FUROSEMIDE 10 MG/ML 10 ML VIAL IV SCH (21:03)
[2017-07-24] MEDS: MELATONIN 5 MG TABLET PO SCH (21:16)
--- NOTE | 2017-07-24 21:52 | P.PN ---
Subjective Progress Note Date: 07/24/17 This patient is a 66-year-old female who has a history of stage IV breast cancer with metastatic spread to the bones. The patient was admitted for further treatment of left submandibular abscess. She underwent surgery for this condition and subsequently was noted to show increased confusion and disorientation yesterday. Neurology was consulted. CAT scan of the brain was done which came back negative for any acute changes. She was having frequent myoclonic jerks and was started on Keppra yesterday evening. Patient was able to complete routine EEG today which was reviewed. EEG is revealing moderate slowing with no epileptiform discharges. The patient is noted to have worsening kidney function today. Creatinine is 5.2. Nephrology recommended that she undergo dialysis for further treatment. She had dialysis today and is scheduled to have a repeat dialysis tomorrow. We did review the results of the EEG and CAT scan once again with the patient's daughter who was at bedside. At this time we will continue her on Keppra. Keppra level was completed today and came back therapeutic at 17.1. She remains somewhat lethargic today and is being followed closely by infectious disease. We will await their further recommendations. Patient did undergo hemodialysis today and her creatinine still remains very elevated at 4.50. She has evidence of a metabolic encephalopathy secondary to uremia. She may require further hemodialysis given her poor response thus far. She also showed a drop in her hemoglobin today to 6.7. She did require one unit of blood transfusion. Patient remains very lethargic this evening and is arousable but not following commands. According to her daughter who was at bedside she was much better this morning soon after her dialysis. Patient's condition remains very guarded. Primary care physician did discuss possibility of hospice. Family will wait for 24 hours and consider further treatment options at that time. Patient's overall prognosis at this time remains very guarded. Objective - Vital Signs Vital signs: Vital Signs Temp 98.1 F 07/24/17 15:05 Pulse 90 07/24/17 15:24 Resp 16 07/24/17 15:24 BP 125/68 07/24/17 15:05 Pulse Ox 98 07/24/17 14:51 Intake & Output 07/23/17 07/24/17 07/24/17 18:59 06:59 18:59 Intake Total 575 460 510 Output Total 0 401 0 Balance 575 59 510 Weight 78 kg 78 kg Intake: IV 50 Intake, IV Titration 525 100 200 Amount Ampicillin-Sulbactam 3 gm 100 100 In Sodium Chloride 0.9% 100 ml @ 100 mls/hr IVPB Q24H [facility] Rx#:[id number] Dextrose 5%-0.45% NaCl 1, 325 000 ml @ 75 mls/hr IV . [id number] [facility] Rx#:[id number] levETIRAcetam IV 500 mg 100 100 100 In Sodium Chloride 0.9% 100 ml @ 400 mls/hr IVPB Q12HR [facility] Rx#:[id number] Oral 360 Blood Product 310 Rc Pheresis 2 As3 Unit 310 [id number] Output: Drainage 0 1 0 Left Jaw 0 1 0 Urine 400 Other: Voiding Method Diaper Indwelling Catheter Indwelling Catheter - Exam Physical examination: PHYSICAL EXAMINATION: Patient is resting comfortably in bed. VITAL SIGNS: Blood pressure is [125/68]. Heart rate is [104]. Respiration is [12 ]. Temperature is [98.1]. HEENT: Head is atraumatic, neck is supple, there were no carotid bruits. CHEST: Lungs are clear to auscultation and percussion. CARDIAC: S1, S2 normal rate and rhythm. There is no murmur. ABDOMEN: Soft and nontender. Bowel sounds are present. EXTREMITIES: There is no pedal edema. Peripheral pulses are present. Neurological examination: Patient is lethargic but arousable. She does not appear to be in any acute pain at this time. She is following only minimal commands. No evidence of any focal motor deficit on exam at this time. Deep tendon reflexes are 1+ and symmetric. Plantar responses flexor bilaterally. Patient did undergo hemodialysis earlier today. - Labs CBC & Chem 7: 07/24/17 07:30 07/24/17 06:00 Labs: Abnormal Lab Results - Last 24 Hours (Table) 07/24/17 07/24/17 07/24/17 Range/Units 06:00 07:30 09:50 WBC 10.7 H (3.8-10.6) k/uL RBC 2.19 L (3.80-5.40) m/uL Hgb 6.7 L* (11.4-16.0) gm/dL Hct 21.2 L (34.0-46.0) % RDW 17.2 H (11.5-15.5) % BUN 27 H (7-17) mg/dL Creatinine 4.50 H (0.52-1.04) mg/dL Glucose 105 H (74-99) mg/dL Calcium 6.1 L* (8.4-10.2) mg/dL Crossmatch See Detail Microbiology - Last 24 Hours (Table) 07/19/17 10:49 Blood Culture - Preliminary Blood No Growth after 120 hours 07/18/17 09:19 Blood Culture - Final Blood No Growth after 144 hours 07/21/17 19:26 Anaerobic Culture - Preliminary Mandible - Left 07/21/17 19:26 Gram Stain - Final Neck Wound Culture - Final Keyana albicans 07/19/17 14:45 Anaerobic Culture - Final Mandible - Left 07/21/17 19:26 Gram Stain - Final Mandible - Left Wound Culture - Final Keyana albicans Assessment and Plan (1) Acute encephalopathy Current Visit: Yes Status: Acute Code(s): G93.40 - ENCEPHALOPATHY, UNSPECIFIED SNOMED Code(s): 24098545 (2) Myoclonic seizures Current Visit: Yes Status: Acute Code(s): G40.409 - OTH GENERALIZED EPILEPSY , NOT INTRACTABLE, W/O STAT EPI SNOMED Code(s): 46911673 (3) Abscess or cellulitis of submandibular region Current Visit: Yes Status: Acute Code(s): LTP8849 - SNOMED Code(s): 083760572 (4) Metastatic breast cancer Current Visit: Yes Status: Acute Priority: High Code(s): C50.919 - MALIGNANT NEOPLASM OF UNSP SITE OF UNSPECIFIED FEMALE BREAST SNOMED Code(s): 323229277 (5) Chemotherapy induced neutropenia Current Visit: Yes Status: Acute Priority: High Code(s): D70.1 - AGRANULOCYTOSIS SECONDARY TO CANCER CHEMOTHERAPY; T45.1X5A - ADVERSE EFFECT OF ANTINEOPLASTIC AND IMMUNOSUP DRUGS, INIT SNOMED Code(s): 975446318 Plan: This patient is a 66-year-old female with stage IV breast cancer with metastatic disease. She was evaluated for myoclonic jerks. She was started on Keppra in any routine EEG was obtained today. Her EEG reveals moderate slowing with no epileptiform discharges. She underwent hemodialysis today due to worsening renal function. Her creatinine was 5.2 yesterday. She underwent hemodialysis today and her creatinine is 4.50. Patient remains very much encephalopathic. She did undergo computed tomography scan of the brain yesterday which was negative for any acute changes. We will await further recommendations from multiple specialists who are following this patient. Her overall prognosis at this time remains very guarded. Case was discussed at length with the patient's daughter at bedside. All of her questions were answered. She is aware of her mother's very guarded condition. Patient's overall prognosis at this time is very poor. We will await further recommendations from nephrology as to whether she will require ongoing hemodialysis. She has evidence of a metabolic encephalopathy which is showing very little improvement. Dr. Gracia as discussed these findings with the patient's family. The family may consider comfort care versus hospice for further management. We will continue close neurological follow-up for this patient. As noted her prognosis remains very guarded.
[2017-07-25] MEDS: levETIRAcetam IV 500 MG in SODIUM CHLORIDE 0.9% 100 ML IVPB SCH ×2 (07:44→21:29)
[2017-07-25] MEDS: CALCIUM CARBONATE 500 MG CHEWABLE PO SCH ×3 (07:45→23:07)
[2017-07-25] MEDS: FUROSEMIDE 10 MG/ML 10 ML VIAL IV SCH ×2 (07:45→21:29)
[2017-07-25] MEDS: CITALOPRAM HYDROBROMIDE 10 MG TAB PO SCH (07:45)
[2017-07-25] MEDS: BACITRACIN 500 UNIT/GM OINT 28.4 GM TUBE TOPICAL SCH ×2 (07:45→21:29)
[2017-07-25] MEDS: FAMOTIDINE 20 MG TAB PO SCH (07:45)
[2017-07-25] MEDS: IPRATROPIUM-ALBUTEROL 3 ML NEB INHALATION SCH ×5 (07:54→19:47)
[2017-07-25] MEDS: AMPICILLIN-SULBACTAM 3 GM in SODIUM CHLORIDE 0.9% 100 ML IVPB SCH (08:25)
[2017-07-25] MEDS: MICAFUNGIN 100 MG in SODIUM CHLORIDE 0.9% 100 ML IVPB SCH (09:43)
[2017-07-25 10:30] LABS: Anisocytosis Slight; Basophils % (A) 0 %; Eosinophils % (A) 0 %; HGB 7.9 gm/dL (11.4-16.0); Hypochromasia Slight; Lymphocytes # (A) 0.6 k/uL (1.0-4.8); Lymphocytes % (A) 6 %; MCH 30.5 pg (25.0-35.0); MCHC 32.8 g/dL (31.0-37.0); Mean Platelet Volume 9.1; Monocytes # (A) 0.6 k/uL (0-1.0); Monocytes % (A) 5 %; Neutrophils # (A) 8.9 k/uL (1.3-7.7); Neutrophils % (A) 87 %; Platelet Count 140 k/uL (150-450); Poikilocytosis Moderate; RBC 2.58 m/uL (3.80-5.40); RDW 17.3 % (11.5-15.5); WBC 10.2 k/uL (3.8-10.6)
[2017-07-25 10:51] LABS: Potassium 3.1 mmol/L (3.5-5.1)
[2017-07-25 10:59] LABS: Calcium 6.4 mg/dL (8.4-10.2)
--- NOTE | 2017-07-25 11:34 | P.PN ---
Subjective Progress Note Date: 07/25/17 Seen and examined for the follow-up of acute kidney injury. Lying comfortable in the bed awaiting dialysis. Objective - Vital Signs Vital signs: Vital Signs Temp 98.9 F 07/25/17 07:00 Pulse 98 07/25/17 07:00 Resp 18 07/25/17 07:00 BP 121/71 07/25/17 07:00 Pulse Ox 99 07/25/17 07:00 Intake & Output 07/24/17 07/25/17 07/25/17 18:59 06:59 18:59 Intake Total 510 100 Output Total 0 700 Balance 510 -600 Weight 78 kg Intake: Intake, IV Titration 200 100 Amount Ampicillin-Sulbactam 3 gm 100 In Sodium Chloride 0.9% 100 ml @ 100 mls/hr IVPB Q24H [facility] Rx#:[id number] levETIRAcetam IV 500 mg 100 100 In Sodium Chloride 0.9% 100 ml @ 400 mls/hr IVPB Q12HR [facility] Rx#:[id number] Blood Product 310 Rc Pheresis 2 As3 Unit 310 [id number] Output: Drainage 0 Left Jaw 0 Urine 700 Other: Voiding Method Indwelling Catheter Indwelling Catheter Indwelling Catheter - Exam No acute distress S1-S2 heard Lungs clear Kelly catheter draining urine Trace edema, right groin Viral catheter - Labs CBC & Chem 7: 07/25/17 10:15 07/25/17 10:15 Labs: Abnormal Lab Results - Last 24 Hours (Table) 07/24/17 07/25/17 07/25/17 Range/Units 09:50 10:15 10:15 RBC 2.58 L (3.80-5.40) m/uL Hgb 7.9 L (11.4-16.0) gm/dL Hct 24.0 L (34.0-46.0) % RDW 17.3 H (11.5-15.5) % Plt Count 140 L (150-450) k/uL Neutrophils # 8.9 H (1.3-7.7) k/uL Lymphocytes # 0.6 L (1.0-4.8) k/uL Potassium 3.1 L (3.5-5.1) mmol/L BUN 20 H (7-17) mg/dL Creatinine 3.44 H (0.52-1.04) mg/dL Glucose 115 H (74-99) mg/dL Calcium 6.4 L* (8.4-10.2) mg/dL Crossmatch See Detail Microbiology - Last 24 Hours (Table) 07/21/17 19:26 Anaerobic Culture - Preliminary Neck Streptococcus species 07/19/17 10:49 Blood Culture - Preliminary Blood No Growth after 120 hours 07/18/17 09:19 Blood Culture - Final Blood No Growth after 144 hours Assessment and Plan Assessment: Impression: #1 nonoliguric acute kidney injury secondary to toxic ATN from vancomycin currently HD dependent #2 uremic encephalopathy improved status post dialysis #3 anemia #4 volume overload #5 submandibular abscess status post surgery on antibiotics. #5 hypocalcemia with hypokalemia Recommendations: #1 hemodialysis today. Plan next treatment on Thursday. #2 monitor for renal recovery. #3 continue with Lasix for now. #4 Tums for hypocalcemia.
[2017-07-25] MEDS: ONDANSETRON 4 MG/2 ML VIAL IVP PRN (12:14)
--- NOTE | 2017-07-25 15:39 | P.PN ---
Subjective Progress Note Date: 07/25/17 This patient is a 66-year-old female who has a history of stage IV breast cancer with metastatic spread to the bones. The patient was admitted for further treatment of left submandibular abscess. She underwent surgery for this condition and subsequently was noted to show increased confusion and disorientation following this surgery. Neurology was consulted. CAT scan of the brain was done which came back negative for any acute changes. She was having frequent myoclonic jerks and was started on Keppra yesterday evening. Patient was able to complete routine EEG today which was reviewed. EEG is revealing moderate slowing with no epileptiform discharges. The patient is noted to have worsening kidney function today. Nephrology recommended that she undergo dialysis for further treatment. She had dialysis today and is scheduled to have a repeat dialysis tomorrow. We did review the results of the EEG and CAT scan once again with the patient's daughter who was at bedside. At this time we will continue her on Keppra. Keppra level was completed today and came back therapeutic at 17.1. She remains somewhat lethargic today and is being followed closely by infectious disease. We will await their further recommendations. Patient did undergo hemodialysis today and her creatinine still remains very elevated at 3.44. She has evidence of a metabolic encephalopathy secondary to uremia. She may require further hemodialysis given her poor response thus far. She also showed a drop in her hemoglobin today to 6.7. She did require one unit of blood transfusion. Patient remains very lethargic last evening and was arousable but not following commands. According to her daughter who was at bedside she was much better yesterday soon after her dialysis. Today the patient is more awake and alert. As noted her creatinine is come down to 3.44 today. Daughter is at bedside and she is also noted improvement. She has not demonstrated any further myoclonus or tremors and she is to continue on her current dose of Keppra. Patient's condition remains very guarded. Primary care physician did discuss possibility of hospice. Family will wait for 24 hours and consider further treatment options at that time. Patient's overall prognosis at this time remains very guarded. Objective - Vital Signs Vital signs: Vital Signs Temp 98 F 07/25/17 15:00 Pulse 89 07/25/17 15:00 Resp 20 07/25/17 15:00 BP 128/76 07/25/17 15:00 Pulse Ox 99 07/25/17 15:00 Intake & Output 07/24/17 07/25/17 07/25/17 18:59 06:59 18:59 Intake Total 510 100 Output Total 0 700 Balance 510 -600 Weight 78 kg Intake: Intake, IV Titration 200 100 Amount Ampicillin-Sulbactam 3 gm 100 In Sodium Chloride 0.9% 100 ml @ 100 mls/hr IVPB Q24H [facility] Rx#:[id number] levETIRAcetam IV 500 mg 100 100 In Sodium Chloride 0.9% 100 ml @ 400 mls/hr IVPB Q12HR [facility] Rx#:[id number] Blood Product 310 Rc Pheresis 2 As3 Unit 310 [id number] Output: Drainage 0 Left Jaw 0 Urine 700 Other: Voiding Method Indwelling Catheter Indwelling Catheter Indwelling Catheter # Bowel Movements 3 - Exam Physical examination: PHYSICAL EXAMINATION: Patient is resting comfortably in bed. VITAL SIGNS: Blood pressure is [121/71]. Heart rate is [98]. Respiration is [18] . Temperature is [98.9]. HEENT: Head is atraumatic, neck is supple, there were no carotid bruits. CHEST: Lungs are clear to auscultation and percussion. CARDIAC: S1, S2 normal rate and rhythm. There is no murmur. ABDOMEN: Soft and nontender. Bowel sounds are present. EXTREMITIES: There is no pedal edema. Peripheral pulses are present. Neurological examination: Patient is awake and alert and is laying in bed comfortably. She does not appear to be in any acute pain at this time. She is following some commands. No evidence of any focal motor deficit on exam at this time. Deep tendon reflexes are 1+ and symmetric. Plantar responses flexor bilaterally. Patient did undergo hemodialysis earlier today. - Labs CBC & Chem 7: 07/25/17 10:15 07/25/17 10:15 Labs: Abnormal Lab Results - Last 24 Hours (Table) 07/24/17 07/25/17 07/25/17 Range/Units 09:50 10:15 10:15 RBC 2.58 L (3.80-5.40) m/uL Hgb 7.9 L (11.4-16.0) gm/dL Hct 24.0 L (34.0-46.0) % RDW 17.3 H (11.5-15.5) % Plt Count 140 L (150-450) k/uL Neutrophils # 8.9 H (1.3-7.7) k/uL Lymphocytes # 0.6 L (1.0-4.8) k/uL Potassium 3.1 L (3.5-5.1) mmol/L BUN 20 H (7-17) mg/dL Creatinine 3.44 H (0.52-1.04) mg/dL Glucose 115 H (74-99) mg/dL Calcium 6.4 L* (8.4-10.2) mg/dL Crossmatch See Detail Microbiology - Last 24 Hours (Table) 07/19/17 10:49 Blood Culture - Final Blood No Growth after 144 hours 07/21/17 19:26 Anaerobic Culture - Preliminary Neck Streptococcus species 07/18/17 09:19 Blood Culture - Final Blood No Growth after 144 hours Assessment and Plan (1) Acute encephalopathy Current Visit: Yes Status: Acute Code(s): G93.40 - ENCEPHALOPATHY, UNSPECIFIED SNOMED Code(s): 73078255 (2) Myoclonic seizures Current Visit: Yes Status: Acute Code(s): G40.409 - OTH GENERALIZED EPILEPSY , NOT INTRACTABLE, W/O STAT EPI SNOMED Code(s): 78644469 (3) Abscess or cellulitis of submandibular region Current Visit: Yes Status: Acute Code(s): ZOI1145 - SNOMED Code(s): 261358922 (4) Metastatic breast cancer Current Visit: Yes Status: Acute Priority: High Code(s): C50.919 - MALIGNANT NEOPLASM OF UNSP SITE OF UNSPECIFIED FEMALE BREAST SNOMED Code(s): 547331900 (5) Chemotherapy induced neutropenia Current Visit: Yes Status: Acute Priority: High Code(s): D70.1 - AGRANULOCYTOSIS SECONDARY TO CANCER CHEMOTHERAPY; T45.1X5A - ADVERSE EFFECT OF ANTINEOPLASTIC AND IMMUNOSUP DRUGS, INIT SNOMED Code(s): 957578200 Plan: This patient is a 66-year-old female with stage IV breast cancer with metastatic disease. She was evaluated for myoclonic jerks. She was started on Keppra in any routine EEG was obtained today. Her EEG reveals moderate slowing with no epileptiform discharges. She underwent hemodialysis today due to worsening renal function. Her creatinine was 4.50 yesterday. She underwent hemodialysis today and her creatinine is 3.44. Patient remains very much encephalopathic. She did undergo computed tomography scan of the brain yesterday which was negative for any acute changes. We will await further recommendations from multiple specialists who are following this patient. Her overall prognosis at this time remains very guarded. Case was discussed at length with the patient's daughter at bedside. All of her questions were answered. She is aware of her mother's very guarded condition. Patient's overall prognosis at this time is very guarded. We will await further recommendations from nephrology as to whether she will require ongoing hemodialysis. She has evidence of a metabolic encephalopathy which is showing very little improvement. Patient is more awake and alert today. According to the daughter she has noted some improvement in her condition as compared to the last few days. As noted her kidney function is improving with the hemodialysis. Will await further recommendations from nephrology. Dr. Gracia as discussed these findings with the patient's family. The family may consider comfort care versus hospice for further management. We will continue close neurological follow-up for this patient. As noted her prognosis remains very guarded.
[2017-07-25 17:15] LABS: Iron Saturation 15.43 (12.00-45.00)
[2017-07-25] MEDS: LORazepam 2 MG/ML INJ IV PRN (17:48)
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
[2017-07-25] MEDS: LATANOPROST 0.005% OPHTH DROPS 2.5 ML BTL BOTH EYES SCH (21:30)
[2017-07-25] MEDS: MELATONIN 5 MG TABLET PO SCH (21:41)
[2017-07-26] MEDS: ONDANSETRON 4 MG/2 ML VIAL IVP PRN (01:28)
[2017-07-26] MEDS: HYDROcodone/APAP 5-325MG 1 EACH TAB PO PRN ×3 (04:01→20:59)
[2017-07-26 07:35] LABS: Anisocytosis Slight; Basophils % (A) 0 %; Eosinophils % (A) 0 %; HCT 24.1 % (34.0-46.0); HGB 7.7 gm/dL (11.4-16.0); Hypochromasia Slight; Lymphocytes # (A) 0.5 k/uL (1.0-4.8); Lymphocytes % (A) 5 %; MCH 29.8 pg (25.0-35.0); MCHC 32.1 g/dL (31.0-37.0); MCV 92.8 fL (80.0-100.0); Mean Platelet Volume 9.9; Monocytes # (A) 0.6 k/uL (0-1.0); Monocytes % (A) 6 %; Neutrophils # (A) 8.5 k/uL (1.3-7.7); Neutrophils % (A) 87 %; Platelet Count 151 k/uL (150-450); Poikilocytosis Slight; RBC 2.59 m/uL (3.80-5.40); RDW 17.5 % (11.5-15.5); WBC 9.9 k/uL (3.8-10.6)
[2017-07-26 08:02] LABS: Albumin 2.4 g/dL (3.5-5.0); Bilirubin, Delta 0.4 mg/dL (0.0-0.2); Calcium 7.3 mg/dL (8.4-10.2); Total Bilirubin 0.4 mg/dL (0.2-1.3); Total Protein 5.2 g/dL (6.3-8.2)
[2017-07-26 08:10] LABS: Potassium 2.8 mmol/L (3.5-5.1)
[2017-07-26] MEDS: CITALOPRAM HYDROBROMIDE 10 MG TAB PO SCH (08:40)
[2017-07-26] MEDS: IPRATROPIUM-ALBUTEROL 3 ML NEB INHALATION SCH ×4 (08:40→21:39)
[2017-07-26] MEDS: FAMOTIDINE 20 MG TAB PO SCH (08:40)
[2017-07-26] MEDS: levETIRAcetam IV 500 MG in SODIUM CHLORIDE 0.9% 100 ML IVPB SCH ×2 (08:40→21:00)
[2017-07-26] MEDS: ACETAMINOPHEN TAB 325 MG TAB PO SCH ×3 (08:41→23:46)
[2017-07-26] MEDS: CALCIUM CARBONATE 500 MG CHEWABLE PO SCH ×3 (08:41→21:00)
[2017-07-26] MEDS: BACITRACIN 500 UNIT/GM OINT 28.4 GM TUBE TOPICAL SCH ×2 (08:41→21:01)
[2017-07-26] MEDS: AMPICILLIN-SULBACTAM 3 GM in SODIUM CHLORIDE 0.9% 100 ML IVPB SCH (09:10)
[2017-07-26] MEDS: FUROSEMIDE 10 MG/ML 10 ML VIAL IV SCH ×2 (09:10→21:00)
[2017-07-26] MEDS ORDERED: POTASSIUM CHLORIDE ER 20 MEQ TAB.ER PO STA (10:28)
[2017-07-26] MEDS: MICAFUNGIN 100 MG in SODIUM CHLORIDE 0.9% 100 ML IVPB SCH (10:52)
--- NOTE | 2017-07-26 11:09 | P.PN ---
Subjective Progress Note Date: 07/26/17 Seen and examined for the follow-up of acute kidney injury. Lying comfortable in the bed family at bedside. Objective - Vital Signs Vital signs: Vital Signs Temp 99.3 F 07/26/17 07:00 Pulse 88 07/26/17 08:53 Resp 18 07/26/17 07:00 BP 129/74 07/26/17 07:00 Pulse Ox 95 07/26/17 07:00 Intake & Output 07/25/17 07/26/17 07/26/17 17:59 06:59 18:59 Intake Total Output Total Balance Intake: Intake, IV Titration Amount levETIRAcetam IV 500 mg In Sodium Chloride 0.9% 100 ml @ 400 mls/hr IVPB Q12HR [facility] Rx#:[id number] Output: Urine Other: Voiding Method Indwelling Catheter # Voids # Bowel Movements 1 - Exam No acute distress S1-S2 heard Lungs clear Kelly catheter draining urine Trace edema, right groin Viral catheter - Labs CBC & Chem 7: 07/26/17 07:30 07/26/17 07:30 Labs: Abnormal Lab Results - Last 24 Hours (Table) 07/24/17 07/25/17 07/25/17 Range/Units 09:50 10:15 10:15 RBC (3.80-5.40) m/uL Hgb (11.4-16.0) gm/dL Hct (34.0-46.0) % RDW (11.5-15.5) % Plt Count (150-450) k/uL Neutrophils # (1.3-7.7) k/uL Lymphocytes # (1.0-4.8) k/uL Potassium (3.5-5.1) mmol/L Carbon Dioxide (22-30) mmol/L BUN (7-17) mg/dL Creatinine (0.52-1.04) mg/dL Glucose (74-99) mg/dL Calcium (8.4-10.2) mg/dL Iron 27 L (50-170) ug/dL TIBC 175 L (228-460) ug/dL Delta Bilirubin (0.0-0.2) mg/dL Total Protein (6.3-8.2) g/dL Albumin (3.5-5.0) g/dL Vitamin B12 3546.0 H (200.0-944.0) pg/mL Crossmatch See Detail 07/25/17 07/25/17 07/26/17 Range/Units 10:15 10:15 07:30 RBC 2.58 L 2.59 L (3.80-5.40) m/uL Hgb 7.9 L 7.7 L (11.4-16.0) gm/dL Hct 24.0 L 24.1 L (34.0-46.0) % RDW 17.3 H 17.5 H (11.5-15.5) % Plt Count 140 L (150-450) k/uL Neutrophils # 8.9 H 8.5 H (1.3-7.7) k/uL Lymphocytes # 0.6 L 0.5 L (1.0-4.8) k/uL Potassium 3.1 L (3.5-5.1) mmol/L Carbon Dioxide (22-30) mmol/L BUN 20 H (7-17) mg/dL Creatinine 3.44 H (0.52-1.04) mg/dL Glucose 115 H (74-99) mg/dL Calcium 6.4 L* (8.4-10.2) mg/dL Iron (50-170) ug/dL TIBC (228-460) ug/dL Delta Bilirubin (0.0-0.2) mg/dL Total Protein (6.3-8.2) g/dL Albumin (3.5-5.0) g/dL Vitamin B12 (200.0-944.0) pg/mL Crossmatch 07/26/17 Range/Units 07:30 RBC (3.80-5.40) m/uL Hgb (11.4-16.0) gm/dL Hct (34.0-46.0) % RDW (11.5-15.5) % Plt Count (150-450) k/uL Neutrophils # (1.3-7.7) k/uL Lymphocytes # (1.0-4.8) k/uL Potassium 2.8 L* (3.5-5.1) mmol/L Carbon Dioxide 31 H (22-30) mmol/L BUN (7-17) mg/dL Creatinine 2.56 H (0.52-1.04) mg/dL Glucose (74-99) mg/dL Calcium 7.3 L (8.4-10.2) mg/dL Iron (50-170) ug/dL TIBC (228-460) ug/dL Delta Bilirubin 0.4 H (0.0-0.2) mg/dL Total Protein 5.2 L (6.3-8.2) g/dL Albumin 2.4 L (3.5-5.0) g/dL Vitamin B12 (200.0-944.0) pg/mL Crossmatch Microbiology - Last 24 Hours (Table) 07/21/17 19:26 Anaerobic Culture - Final Mandible - Left 07/21/17 19:26 Anaerobic Culture - Preliminary Neck Alpha Hemolytic Streptococcus 07/19/17 10:49 Blood Culture - Final Blood No Growth after 144 hours Assessment and Plan Assessment: Impression: #1 nonoliguric acute kidney injury secondary to toxic ATN from vancomycin currently HD dependent #2 uremic encephalopathy improved status post dialysis #3 anemia #4 volume overload #5 submandibular abscess status post surgery on antibiotics. #5 hypocalcemia with hypokalemia Recommendations: #1 hemodialysis was yesterday. Plan next treatment on Thursday based on renal function. #2 monitor for renal recovery. #3 continue with Lasix for now. #4 Tums for hypocalcemia.
[2017-07-26] MEDS ORDERED: HYDROcodone/APAP 5-325MG 1 EACH TAB PO ONE (14:24)
--- NOTE | 2017-07-26 14:41 | P.PN ---
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 Patient had a debridement of her mandible and incision and drainage of her neck on Thursday. She has continued to improve from an infection standpoint and the swelling and discharge in the neck as gone down. Tolerating oral diet. Patient is alert and oriented. Lying in bed with 2 daughters present mental status is markedly improved from my last rounding. Objective - Vital Signs Vital signs: Vital Signs Temp 99.3 F 07/26/17 07:00 Pulse 88 07/26/17 08:53 Resp 18 07/26/17 07:00 BP 129/74 07/26/17 07:00 Pulse Ox 95 07/26/17 07:00 Intake & Output 07/25/17 07/26/17 07/26/17 17:59 06:59 18:59 Intake Total Output Total Balance Intake: Intake, IV Titration Amount levETIRAcetam IV 500 mg In Sodium Chloride 0.9% 100 ml @ 400 mls/hr IVPB Q12HR [facility] Rx#:[id number] Output: Urine Other: Voiding Method Indwelling Catheter # Voids # Bowel Movements 1 - Constitutional General appearance: Present: no acute distress - EENT EENT Comment(s): The OpSite dressing over the neck was removed and her neck wound has very little erythema left with 2 spontaneously draining holes in the area of the old abscess. This had been dressed with bacitracin and appeared to be healing well. The inscion from the drain site was closing.. Intraorally the exposed bone and the jaw appears unchanged with 1/2 cm by fours millimeter approximate size. Sling sutures are intact. Extraction sites healing well - Labs CBC & Chem 7: 07/26/17 07:30 07/26/17 07:30 Labs: Abnormal Lab Results - Last 24 Hours (Table) 07/25/17 07/25/17 07/26/17 Range/Units 10:15 10:15 07:30 RBC 2.59 L (3.80-5.40) m/uL Hgb 7.7 L (11.4-16.0) gm/dL Hct 24.1 L (34.0-46.0) % RDW 17.5 H (11.5-15.5) % Neutrophils # 8.5 H (1.3-7.7) k/uL Lymphocytes # 0.5 L (1.0-4.8) k/uL Potassium (3.5-5.1) mmol/L Carbon Dioxide (22-30) mmol/L Creatinine (0.52-1.04) mg/dL Calcium (8.4-10.2) mg/dL Iron 27 L (50-170) ug/dL TIBC 175 L (228-460) ug/dL Delta Bilirubin (0.0-0.2) mg/dL Total Protein (6.3-8.2) g/dL Albumin (3.5-5.0) g/dL Vitamin B12 3546.0 H (200.0-944.0) pg/mL 07/26/17 Range/Units 07:30 RBC (3.80-5.40) m/uL Hgb (11.4-16.0) gm/dL Hct (34.0-46.0) % RDW (11.5-15.5) % Neutrophils # (1.3-7.7) k/uL Lymphocytes # (1.0-4.8) k/uL Potassium 2.8 L* (3.5-5.1) mmol/L Carbon Dioxide 31 H (22-30) mmol/L Creatinine 2.56 H (0.52-1.04) mg/dL Calcium 7.3 L (8.4-10.2) mg/dL Iron (50-170) ug/dL TIBC (228-460) ug/dL Delta Bilirubin 0.4 H (0.0-0.2) mg/dL Total Protein 5.2 L (6.3-8.2) g/dL Albumin 2.4 L (3.5-5.0) g/dL Vitamin B12 (200.0-944.0) pg/mL Microbiology - Last 24 Hours (Table) 07/21/17 19:26 Anaerobic Culture - Final Mandible - Left 07/21/17 19:26 Anaerobic Culture - Preliminary Neck Alpha Hemolytic Streptococcus 07/19/17 10:49 Blood Culture - Final Blood No Growth after 144 hours Assessment and Plan Assessment: The intraoral wounds are healing well and the drain will continue to slowly put out fluid. Patient's neck swelling and induration has improved. Disorientation is much improved and the patient appears to be back at her baseline. The rails are no longer are audiable without stethoscope. Plan: Recommend continued soft diet. Dressing changes to drain every shift. Continue current antibiotic therapy. Peridex oral mouthwash 4 times a day an effort to keep exposed bone and extraction sites in the mouth healing well. If the patient is discharged recommend a 1 week follow-up from the time of discharge in my office. Time with Patient: Less than 30
[2017-07-26] MEDS: CHLORHEXIDINE GLUCONATE 15 ML CUP MUCOUS MEM SCH ×3 (16:35→21:00)
[2017-07-26] MEDS: MELATONIN 5 MG TABLET PO SCH (21:01)
[2017-07-26] MEDS: LATANOPROST 0.005% OPHTH DROPS 2.5 ML BTL BOTH EYES SCH (21:01)
[2017-07-26] MEDS: POTASSIUM CHLORIDE ER 20 MEQ TAB.ER PO SCH (21:01)
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
[2017-07-27] MEDS: HYDROcodone/APAP 5-325MG 1 EACH TAB PO PRN ×3 (02:39→17:34)
--- NOTE | 2017-07-27 05:29 | PN ---
PROGRESS NOTE DATE OF SURGERY: 07/26/2017. REASON FOR FOLLOW UP: Submandibular abscess. INTERVAL HISTORY: The patient is afebrile. She is more awake and alert today. Breathing comfortably. Denies having any worsening pain in the neck area. No nausea, no vomiting. No difficulty swallowing. No diarrhea. EXAMINATION: Blood pressure 122/71 with a pulse of 83, temperature of 98.2. She is 97% on room air. General description is a middle-aged female lying in bed in no distress. HEENT examination: The neck area swelling and redness improved. LUNGS: Unlabored breathing. Clear to auscultation anteriorly. Heart S1, S2. Regular rate and rhythm. Abdomen soft, no tenderness. LABS: Hemoglobin 7.7, white count 10.8 with a BUN of 13, creatinine 2.56. The neck culture positive for Streptococcus viridans and Keyana albicans. DIAGNOSTIC IMPRESSION AND PLAN: Patient with submandibular abscess related to jaw, status post surgical drainage. Patient continue Unasyn dose to be adjusted to her kidney function along with inability to use the because of she is on. Daughter was present at bedside. Their questions and concerns were answered. MMODL / IJN: [id number] /
[2017-07-27] MEDS: IPRATROPIUM-ALBUTEROL 3 ML NEB INHALATION SCH ×4 (07:16→21:25)
[2017-07-27 08:23] LABS: Anisocytosis Slight; Basophils # (A) 0.1 k/uL (0-0.2); Basophils % (A) 0 %; Eosinophils % (A) 0 %; HCT 24.9 % (34.0-46.0); HGB 8.3 gm/dL (11.4-16.0); Hypochromasia Slight; Lymphocytes # (A) 0.9 k/uL (1.0-4.8); Lymphocytes % (A) 8 %; MCH 30.7 pg (25.0-35.0); MCHC 33.2 g/dL (31.0-37.0); MCV 92.7 fL (80.0-100.0); Mean Platelet Volume 8.7; Monocytes # (A) 0.5 k/uL (0-1.0); Monocytes % (A) 5 %; Neutrophils # (A) 9.1 k/uL (1.3-7.7); Neutrophils % (A) 85 %; Platelet Count 155 k/uL (150-450); Poikilocytosis Moderate; RBC 2.69 m/uL (3.80-5.40); RDW 17.1 % (11.5-15.5); WBC 10.6 k/uL (3.8-10.6)
[2017-07-27] MEDS: FAMOTIDINE 20 MG TAB PO SCH (08:24)
[2017-07-27] MEDS: CITALOPRAM HYDROBROMIDE 10 MG TAB PO SCH (08:24)
[2017-07-27] MEDS: levETIRAcetam IV 500 MG in SODIUM CHLORIDE 0.9% 100 ML IVPB SCH ×2 (08:24→20:05)
[2017-07-27] MEDS: FUROSEMIDE 10 MG/ML 10 ML VIAL IV SCH (08:25)
[2017-07-27] MEDS: CALCIUM CARBONATE 500 MG CHEWABLE PO SCH ×3 (08:25→20:06)
[2017-07-27] MEDS: BACITRACIN 500 UNIT/GM OINT 28.4 GM TUBE TOPICAL SCH ×2 (08:25→20:07)
[2017-07-27] MEDS: ACETAMINOPHEN TAB 325 MG TAB PO SCH ×3 (08:25→23:48)
[2017-07-27] MEDS: CHLORHEXIDINE GLUCONATE 15 ML CUP MUCOUS MEM SCH ×4 (08:25→20:07)
[2017-07-27 08:30] LABS: Calcium 7.3 mg/dL (8.4-10.2); Potassium 3.3 mmol/L (3.5-5.1)
[2017-07-27] MEDS: AMPICILLIN-SULBACTAM 3 GM in SODIUM CHLORIDE 0.9% 100 ML IVPB SCH (08:57)
[2017-07-27] MEDS: POTASSIUM CHLORIDE ER 20 MEQ TAB.ER PO SCH ×2 (08:59→20:06)
[2017-07-27] MEDS: MICAFUNGIN 100 MG in SODIUM CHLORIDE 0.9% 100 ML IVPB SCH (10:06)
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
[2017-07-27] MEDS: MELATONIN 5 MG TABLET PO SCH (20:06)
[2017-07-27] MEDS: LATANOPROST 0.005% OPHTH DROPS 2.5 ML BTL BOTH EYES SCH (20:06)
[2017-07-27] MEDS: ONDANSETRON 4 MG/2 ML VIAL IVP PRN (20:08)
--- NOTE | 2017-07-27 22:54 | PN ---
PROGRESS NOTE Patient is seen for followup for acute kidney injury. She is currently nonoliguric with good urine output. Patient has an indwelling Kelly catheter. Her mentation is back to normal. Serum creatinine is at 3.4 today. She was at 2.56 yesterday. Hemodialysis is on hold for today. Her last dialysis was on 07/25/2017. EXAMINATION: Blood pressure is 122/68, heart rate 90 per minute. Patient is afebrile. Examination of the heart S1, S2. Examination of the lungs bilateral breath sounds are heard. Abdomen is soft, non-tender, obese. Examination of the lower extremities shows no significant edema. LAB: Show sodium 142, potassium 3.3, chloride 104, BUN 22, serum creatinine 3.4, hemoglobin 8.3 g/dL. ASSESSMENT: 1. Acute kidney injury, acute tubular necrosis secondary to hypotension as well as secondary to vancomycin toxicity, status post 3 treatments of hemodialysis. Currently, dialysis is on hold. I will decrease the diuretics and repeat labs in a.m. 2. Hypokalemia secondary to diuretics. Will replace. 3. Metastatic breast cancer, maintained on chemotherapy. 4. Anemia, multifactorial. 5. Submandibular abscess status post surgery. PLAN: Hold hemodialysis for today and tomorrow. Hold Lasix. Repeat labs in a.m. continue the Kelly catheter for now to assess urine output without IV Lasix. Will most likely discontinue the Kelly catheter tomorrow. MMODL / IJN: [id number] /
--- NOTE | 2017-07-27 23:04 | P.PN ---
Subjective Progress Note Date: 07/27/17 This patient is a 66-year-old female who has a history of stage IV breast cancer with metastatic spread to the bones. The patient was admitted for further treatment of left submandibular abscess. She underwent surgery for this condition and subsequently was noted to show increased confusion and disorientation following this surgery. Neurology was consulted. CAT scan of the brain was done which came back negative for any acute changes. She was having frequent myoclonic jerks and was started on Keppra yesterday evening. Patient was able to complete routine EEG today which was reviewed. EEG is revealing moderate slowing with no epileptiform discharges. The patient is noted to have worsening kidney function today. Nephrology recommended that she undergo dialysis for further treatment. She had dialysis today and is scheduled to have a repeat dialysis tomorrow. We did review the results of the EEG and CAT scan once again with the patient's daughter who was at bedside. At this time we will continue her on Keppra. Keppra level was completed today and came back therapeutic at 17.1. She remains somewhat lethargic today and is being followed closely by infectious disease. We will await their further recommendations. Patient did undergo hemodialysis today and her creatinine still remains very elevated at 3.44. She has evidence of a metabolic encephalopathy secondary to uremia. She may require further hemodialysis given her poor response thus far. She also showed a drop in her hemoglobin today to 6.7. She did require one unit of blood transfusion. Patient remains very lethargic last evening and was arousable but not following commands. According to her daughter who was at bedside she was much better yesterday soon after her dialysis. Today the patient is more awake and alert. As noted her creatinine is come down to 3.44 today. Daughter is at bedside and she is also noted improvement. She has not demonstrated any further myoclonus or tremors and she is to continue on her current dose of Keppra. Patient is much more awake and alert today. She was being considered for repeat hemodialysis today but this was placed on hold as there was improvement in her labs and in her creatinine. Patient is being considered for possible discharge home tomorrow. Patient and family had declined ECF for rehab at this time. We will continue close neurological follow-up for the patient during this admission. Objective - Vital Signs Vital signs: Vital Signs Temp 98.2 F 07/27/17 15:00 Pulse 70 07/27/17 21:35 Resp 16 07/27/17 15:00 BP 122/68 07/27/17 15:00 Pulse Ox 99 07/27/17 17:23 Intake & Output 07/27/17 07/27/17 07/28/17 06:59 18:59 06:59 Intake Total 100 350 Output Total 900 1850 Balance -800 -1850 350 Weight 78 kg Intake: Intake, IV Titration 100 100 Amount levETIRAcetam IV 500 mg 100 100 In Sodium Chloride 0.9% 100 ml @ 400 mls/hr IVPB Q12HR [facility] Rx#:[id number] Oral 250 Output: Urine 900 1850 Uretheral (Kelly) 900 1850 Other: Voiding Method Indwelling Catheter Indwelling Catheter # Voids 0 - Exam Physical examination: PHYSICAL EXAMINATION: Patient is resting comfortably in bed. VITAL SIGNS: Blood pressure is [122/68]. Heart rate is [90]. Respiration is [16] . Temperature is [98.2]. HEENT: Head is atraumatic, neck is supple, there were no carotid bruits. CHEST: Lungs are clear to auscultation and percussion. CARDIAC: S1, S2 normal rate and rhythm. There is no murmur. ABDOMEN: Soft and nontender. Bowel sounds are present. EXTREMITIES: There is no pedal edema. Peripheral pulses are present. Neurological examination: Patient is awake and alert and is laying in bed comfortably. Her mental status is much improved today. She does not appear to be in any acute pain at this time. She is following some commands. No evidence of any focal motor deficit on exam at this time. Deep tendon reflexes are 1+ and symmetric. Plantar responses flexor bilaterally. Patient did undergo hemodialysis earlier today. - Labs CBC & Chem 7: 07/27/17 07:45 07/27/17 07:45 Labs: Abnormal Lab Results - Last 24 Hours (Table) 07/24/17 07/27/17 07/27/17 Range/Units 09:50 07:45 07:45 RBC 2.69 L (3.80-5.40) m/uL Hgb 8.3 L (11.4-16.0) gm/dL Hct 24.9 L (34.0-46.0) % RDW 17.1 H (11.5-15.5) % Neutrophils # 9.1 H (1.3-7.7) k/uL Lymphocytes # 0.9 L (1.0-4.8) k/uL Potassium 3.3 L (3.5-5.1) mmol/L BUN 22 H (7-17) mg/dL Creatinine 3.44 H (0.52-1.04) mg/dL Calcium 7.3 L (8.4-10.2) mg/dL Crossmatch See Detail Microbiology - Last 24 Hours (Table) 07/21/17 19:26 Anaerobic Culture - Final Neck Viridans streptococcus group Assessment and Plan (1) Acute encephalopathy Current Visit: Yes Status: Acute Code(s): G93.40 - ENCEPHALOPATHY, UNSPECIFIED SNOMED Code(s): 27878618 (2) Myoclonic seizures Current Visit: Yes Status: Acute Code(s): G40.409 - OTH GENERALIZED EPILEPSY , NOT INTRACTABLE, W/O STAT EPI SNOMED Code(s): 62241990 (3) Abscess or cellulitis of submandibular region Current Visit: Yes Status: Acute Code(s): UVA6492 - SNOMED Code(s): 028365952 (4) Metastatic breast cancer Current Visit: Yes Status: Acute Priority: High Code(s): C50.919 - MALIGNANT NEOPLASM OF UNSP SITE OF UNSPECIFIED FEMALE BREAST SNOMED Code(s): 988071639 (5) Chemotherapy induced neutropenia Current Visit: Yes Status: Acute Priority: High Code(s): D70.1 - AGRANULOCYTOSIS SECONDARY TO CANCER CHEMOTHERAPY; T45.1X5A - ADVERSE EFFECT OF ANTINEOPLASTIC AND IMMUNOSUP DRUGS, INIT SNOMED Code(s): 132781789 Plan: This patient is a 66-year-old female who is being evaluated for altered mental status and myoclonus. Patient is been doing much better today in terms of her renal function. She did not require dialysis today. She has been placed on Keppra for further management of her mild clonus and her levels have been therapeutic. Patient is being considered for possible discharge home tomorrow. Neurologically she shows significant improvement in her mental status today. This is likely improve due to the improved renal function. We will continue close neurological follow-up for the patient. Overall prognosis at this time remains guarded.
--- NOTE | 2017-07-27 23:24 | PN ---
PROGRESS NOTE DATE OF SERVICE: 07/27/2017 REASON FOR FOLLOWUP: with likely osteomyelitis and submandibular abscess. INTERVAL HISTORY: The patient is afebrile. She is awake and alert. She is breathing comfortably. Denies any difficulty swallowing. Denies having any chest pain. Breathing has improved. No abdominal pain and no diarrhea. PHYSICAL EXAMINATION: Blood pressure is 122/68 with a pulse of 90, temperature of 98.2. She is 98% on room air. General description is an elderly female lying in bed in no distress. HEENT EXAMINATION: Overall swelling and redness of the neck area have improved. LUNGS: Unlabored breathing. Clear to auscultation anteriorly. HEART: S1, S2. Regular rate and rhythm. ABDOMEN: Soft. No tenderness. LABS: Hemoglobin 8.3, white count 10.6 with a BUN of 22, creatinine 3.44. The culture with Streptococcus viridans group and Keyana albicans. 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 Culture positive for Strep viridans that is Unasyn-sensitive in addition to Keyana albicans. The patient is currently on Unasyn. That will be continued. In view of the underlying osteomyelitis, a total of 6 weeks of antibiotic will be recommended that she can get through her Mediport and continue with the micafungin because of the Keyana albicans and inability to use Diflucan because of urinary tract infection and cellulitis. Her daughter was present at bedside. Questions were answered. MMODL / IJN: [id number] /
[2017-07-28] MEDS: HYDROcodone/APAP 5-325MG 1 EACH TAB PO PRN ×2 (01:04→13:26)
[2017-07-28] MEDS: ONDANSETRON 4 MG/2 ML VIAL IVP PRN ×2 (07:29→22:11)
[2017-07-28] MEDS: MICAFUNGIN 100 MG in SODIUM CHLORIDE 0.9% 100 ML IVPB SCH (08:15)
[2017-07-28] MEDS: ACETAMINOPHEN TAB 325 MG TAB PO SCH ×3 (08:18→22:24)
[2017-07-28] MEDS: CALCIUM CARBONATE 500 MG CHEWABLE PO SCH ×3 (08:19→22:12)
[2017-07-28] MEDS: CITALOPRAM HYDROBROMIDE 10 MG TAB PO SCH (08:20)
[2017-07-28] MEDS: FAMOTIDINE 20 MG TAB PO SCH (08:20)
[2017-07-28] MEDS: POTASSIUM CHLORIDE ER 20 MEQ TAB.ER PO SCH ×2 (08:22→22:13)
[2017-07-28] MEDS: BACITRACIN 500 UNIT/GM OINT 28.4 GM TUBE TOPICAL SCH ×2 (08:23→22:13)
[2017-07-28] MEDS: CHLORHEXIDINE GLUCONATE 15 ML CUP MUCOUS MEM SCH ×4 (08:24→22:11)
[2017-07-28] MEDS: AMPICILLIN-SULBACTAM 3 GM in SODIUM CHLORIDE 0.9% 100 ML IVPB SCH (08:26)
[2017-07-28 08:34] LABS: Calcium 7.1 mg/dL (8.4-10.2); Potassium 3.3 mmol/L (3.5-5.1)
[2017-07-28] MEDS: IPRATROPIUM-ALBUTEROL 3 ML NEB INHALATION SCH ×4 (09:05→19:56)
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
[2017-07-28] MEDS: levETIRAcetam IV 500 MG in SODIUM CHLORIDE 0.9% 100 ML IVPB SCH ×2 (12:23→22:11)
--- NOTE | 2017-07-28 12:24 | P.PN ---
Subjective Progress Note Date: 07/28/17 Principal diagnosis: submandibular abscess Currently in treatment for metastatic breast cancer Pt seen today in f/u, she looks much better, she is tolerating some oral intake , she denies drainage from the mouth, her mouth is not terribly sore, he neck feels less swollen, no dysphagia or odynophagia, nausea, she has had loose stool , no incontinence. Objective - Vital Signs Vital signs: Vital Signs Temp 98.9 F 07/28/17 07:00 Pulse 72 07/28/17 10:00 Resp 16 07/28/17 10:00 BP 152/81 07/28/17 07:00 Pulse Ox 97 07/28/17 07:00 Intake & Output 07/27/17 07/28/17 07/28/17 18:59 06:59 18:59 Intake Total 800 Output Total 1850 1000 Balance -1850 800 -1000 Weight 78 kg Intake: Intake, IV Titration 200 Amount levETIRAcetam IV 500 mg 200 In Sodium Chloride 0.9% 100 ml @ 400 mls/hr IVPB Q12HR [facility] Rx#:[id number] Oral 600 Output: Urine 1850 1000 Uretheral (Kelly) 1850 Other: Voiding Method Indwelling Catheter Indwelling Catheter Indwelling Catheter # Bowel Movements 2 - Constitutional General appearance: Present: cooperative, no acute distress, obese - EENT Eyes: Present: anicteric sclerae, edentulous ENT: Present: normal oropharynx - Neck Details: neck is significantly less red, swollen, not warm to touch, only one small dressing on the lower left chin and it is C/D/I. - Respiratory Details: respirations are even and unlabored, no audible breath sounds - Integumentary Integumentary: Present: pale - Neurologic Neurologic: Present: CNII-XII intact - Musculoskeletal Musculoskeletal: Present: generalized weakness - Psychiatric Psychiatric Comment(s): mproved Psychiatric: Present: A&O x's 3 - Labs CBC & Chem 7: 07/27/17 07:45 07/28/17 07:56 Labs: Abnormal Lab Results - Last 24 Hours (Table) 07/28/17 Range/Units 07:56 Potassium 3.3 L (3.5-5.1) mmol/L BUN 31 H (7-17) mg/dL Creatinine 3.80 H (0.52-1.04) mg/dL Calcium 7.1 L (8.4-10.2) mg/dL Assessment and Plan (1) Metastatic breast cancer Narrative/Plan: Pt is recovering nicely from massive oral infection. We reviewed the path report from procedure and that is was negative for malignancy. I assured her that her breast cancer treatment is just being delayed at this time. Once she fully recovers from infection she will physically be in a much better position to tolerate her treatment. Current Visit: Yes Status: Acute Priority: High Code(s): C50.919 - MALIGNANT NEOPLASM OF UNSP SITE OF UNSPECIFIED FEMALE BREAST SNOMED Code(s): 953873953 (2) Chemotherapy induced neutropenia Current Visit: Yes Status: Resolved Priority: High Code(s): D70.1 - AGRANULOCYTOSIS SECONDARY TO CANCER CHEMOTHERAPY; T45.1X5A - ADVERSE EFFECT OF ANTINEOPLASTIC AND IMMUNOSUP DRUGS, INIT SNOMED Code(s): 590971384 (3) Antineoplastic chemotherapy induced anemia Narrative/Plan: Hgb has stabilized Current Visit: Yes Status: Acute Priority: High Code(s): D64.81 - ANEMIA DUE TO ANTINEOPLASTIC CHEMOTHERAPY; T45.1X5A - ADVERSE EFFECT OF ANTINEOPLASTIC AND IMMUNOSUP DRUGS, INIT SNOMED Code(s): 358151298 Plan: Pt is currently on RECEPTIONIST DOCTOR'S OFFICE
[2017-07-28 13:28] LABS: Anisocytosis Slight; Basophils % (A) 0 %; Eosinophils % (A) 0 %; Hypochromasia Moderate; Lymphocytes # (A) 0.5 k/uL (1.0-4.8); Lymphocytes % (A) 5 %; MCH 29.7 pg (25.0-35.0); MCHC 30.9 g/dL (31.0-37.0); MCV 96.1 fL (80.0-100.0); Macrocytosis Slight; Monocytes # (A) 0.5 k/uL (0-1.0); Monocytes % (A) 5 %; Neutrophils # (A) 8.4 k/uL (1.3-7.7); Neutrophils % (A) 88 %; Platelet Count 160 k/uL (150-450); Poikilocytosis Slight; RDW 17.7 % (11.5-15.5); WBC 9.6 k/uL (3.8-10.6)
--- NOTE | 2017-07-28 15:49 | PN ---
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 INTERVAL HISTORY: The patient is afebrile. Apparently she is slightly upset that she did not get a good night's sleep last night but denies having any difficulty swallowing or any pain in her neck area. No chest pain, shortness of breath or cough. PHYSICAL EXAMINATION: Her blood pressure is 152/81 with a pulse of 72, temperature of 98.9. She is 97% on room air. General description is an elderly female, lying in bed in no distress. HEENT EXAMINATION: The neck area swelling and redness have improved. LUNGS: Unlabored breathing. Clear to auscultation anteriorly. HEART: S1, S2. Regular rate and rhythm. ABDOMEN: Soft. No tenderness. LABS: Hemoglobin 8, white count 9.6, BUN of 31, creatinine of 3.80. 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 Culture with Strep viridans and [place] albicans. She is currently on Unasyn and micafungin. That will be continued. She will continue with antibiotics for at least 6 weeks total to finish a course of therapy. Family were present at the bedside. Their questions were answered. MMODL / IJN: [id number] /
--- NOTE | 2017-07-28 21:01 | PN ---
PROGRESS NOTE The patient is seen for followup for followup for acute kidney injury. The Lasix has been on hold. Patient continues to have good urine output. She has indwelling Kelly catheter. This morning, patient is awake. She is comfortable, not in any acute distress. Blood pressure is 120/69, heart rate is 72 per minute. Patient is afebrile. Examination of the heart S1, S2. Examination of the lungs bilateral breath sounds are heard. Abdomen is soft, obese, nontender. Examination of the lower extremity shows no significant edema. 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 LAB: Show sodium 140, potassium 3.3, serum creatinine 3.8, BUN 31, hemoglobin 8.0 g/dL. ASSESSMENT: 1. Acute kidney injury, acute tubular necrosis and secondary to vancomycin toxicity, currently nonoliguric. Dialysis has been on hold. Diuretics are on hold as well. We can discontinue the Kelly catheter and repeat labs in a.m. The patient is encouraged to increase her oral intake. 2. Hyperkalemia currently improved. 3. Left submandibular abscess status post surgery with Streptococcus very dense mandibular osteomyelitis and osteonecrosis. 4. Metastatic breast cancer. 5. Volume overload, currently improved. 6. Hypokalemia. We will replace. PLAN: Continue to hold off on diuretics. May DC Kelly catheter today. Repeat labs in a.m. and continue to hold off on dialysis and diuretics. MMODL / IJN: [id number] /
[2017-07-28] MEDS: MELATONIN 5 MG TABLET PO SCH (22:12)
[2017-07-28] MEDS: LATANOPROST 0.005% OPHTH DROPS 2.5 ML BTL BOTH EYES SCH (22:13)
--- NOTE | 2017-07-28 22:20 | P.PN ---
Subjective Progress Note Date: 07/28/17 This patient is a 66-year-old female who has a history of stage IV breast cancer with metastatic spread to the bones. The patient was admitted for further treatment of left submandibular abscess. She underwent surgery for this condition and subsequently was noted to show increased confusion and disorientation following this surgery. Neurology was consulted. CAT scan of the brain was done which came back negative for any acute changes. She was having frequent myoclonic jerks and was started on Keppra yesterday evening. Patient was able to complete routine EEG today which was reviewed. EEG is revealing moderate slowing with no epileptiform discharges. The patient is noted to have worsening kidney function today. Nephrology recommended that she undergo dialysis for further treatment. She had dialysis today and is scheduled to have a repeat dialysis tomorrow. We did review the results of the EEG and CAT scan once again with the patient's daughter who was at bedside. At this time we will continue her on Keppra. Keppra level was completed today and came back therapeutic at 17.1. She remains somewhat lethargic today and is being followed closely by infectious disease. We will await their further recommendations. Patient did undergo hemodialysis today and her creatinine still remains very elevated at 3.44. She has evidence of a metabolic encephalopathy secondary to uremia. She may require further hemodialysis given her poor response thus far. She also showed a drop in her hemoglobin today to 6.7. She did require one unit of blood transfusion. Patient remains very lethargic last evening and was arousable but not following commands. According to her daughter who was at bedside she was much better yesterday soon after her dialysis. Today the patient is more awake and alert. As noted her creatinine is come down to 3.44 today. Daughter is at bedside and she is also noted improvement. She has not demonstrated any further myoclonus or tremors and she is to continue on her current dose of Keppra. Patient is much more awake and alert today. She was being considered for repeat hemodialysis today but this was placed on hold as there was improvement in her labs and in her creatinine. We're waiting clearance from nephrology for possible discharge for the patient tomorrow. Neurologically she remains very stable and is shown no further seizure-like activity since being treated. Patient and family had declined ECF for rehab at this time. We will continue close neurological follow-up for the patient during this admission. Objective - Vital Signs Vital signs: Vital Signs Temp 99.1 F 07/28/17 15:00 Pulse 72 07/28/17 15:23 Resp 16 07/28/17 15:02 BP 120/69 07/28/17 15:00 Pulse Ox 96 07/28/17 15:00 Intake & Output 07/27/17 07/28/17 07/28/17 18:59 06:59 18:59 Intake Total 800 240 Output Total 1850 4000 Balance -1850 800 -3760 Weight 78 kg Intake: Intake, IV Titration 200 Amount levETIRAcetam IV 500 mg 200 In Sodium Chloride 0.9% 100 ml @ 400 mls/hr IVPB Q12HR [facility] Rx#:[id number] Oral 600 240 Output: Urine 1850 4000 Uretheral (Kelly) 1850 3000 Other: Voiding Method Indwelling Catheter Indwelling Catheter Indwelling Catheter # Bowel Movements 2 - Exam Physical examination: PHYSICAL EXAMINATION: Patient is resting comfortably in bed. VITAL SIGNS: Blood pressure is [120/69]. Heart rate is [89]. Respiration is [18] . Temperature is [99.1]. HEENT: Head is atraumatic, neck is supple, there were no carotid bruits. CHEST: Lungs are clear to auscultation and percussion. CARDIAC: S1, S2 normal rate and rhythm. There is no murmur. ABDOMEN: Soft and nontender. Bowel sounds are present. EXTREMITIES: There is no pedal edema. Peripheral pulses are present. Neurological examination: Patient is awake and alert and is laying in bed comfortably. Her mental status is much improved today. She does not appear to be in any acute pain at this time. She is following some commands. No evidence of any focal motor deficit on exam at this time. Deep tendon reflexes are 1+ and symmetric. Plantar responses flexor bilaterally. - Labs CBC & Chem 7: 07/28/17 07:56 07/28/17 07:56 Labs: Abnormal Lab Results - Last 24 Hours (Table) 07/28/17 07/28/17 Range/Units 07:56 07:56 RBC 2.70 L (3.80-5.40) m/uL Hgb 8.0 L (11.4-16.0) gm/dL Hct 26.0 L (34.0-46.0) % MCHC 30.9 L (31.0-37.0) g/dL RDW 17.7 H (11.5-15.5) % Neutrophils # 8.4 H (1.3-7.7) k/uL Lymphocytes # 0.5 L (1.0-4.8) k/uL Potassium 3.3 L (3.5-5.1) mmol/L BUN 31 H (7-17) mg/dL Creatinine 3.80 H (0.52-1.04) mg/dL Calcium 7.1 L (8.4-10.2) mg/dL Assessment and Plan (1) Acute encephalopathy Current Visit: Yes Status: Acute Code(s): G93.40 - ENCEPHALOPATHY, UNSPECIFIED SNOMED Code(s): 10297642 (2) Myoclonic seizures Current Visit: Yes Status: Acute Code(s): G40.409 - OTH GENERALIZED EPILEPSY , NOT INTRACTABLE, W/O STAT EPI SNOMED Code(s): 05496647 (3) Abscess or cellulitis of submandibular region Current Visit: Yes Status: Acute Code(s): ULH6566 - SNOMED Code(s): 581039721 (4) Metastatic breast cancer Current Visit: Yes Status: Acute Priority: High Code(s): C50.919 - MALIGNANT NEOPLASM OF UNSP SITE OF UNSPECIFIED FEMALE BREAST SNOMED Code(s): 905382804 (5) Chemotherapy induced neutropenia Current Visit: Yes Status: Resolved Priority: High Code(s): D70.1 - AGRANULOCYTOSIS SECONDARY TO CANCER CHEMOTHERAPY; T45.1X5A - ADVERSE EFFECT OF ANTINEOPLASTIC AND IMMUNOSUP DRUGS, INIT SNOMED Code(s): 688724993 Plan: This patient is a 66-year-old female who was admitted to hospital for mandibular osteomyelitis and abscess treatment. She developed increased confusion and lethargy followed by seizure-like events. She was started on Keppra for possibility of seizure disorder. Her routine EEG which was reviewed previously. She has been doing much better and has had no further myoclonic or seizure-like movements. She is being considered for possible discharge one she has been cleared by nephrology. She did require hemodialysis recently and question is whether she will require outpatient hemodialysis as well. Neurologically she is showing much improvement in her mental status. She is following all commands today. She has no focal weakness on neuro exam. We would recommend continue current treatment and to maintain her on her current dose of Keppra. We will continue to follow her progress closely during this admission.
[2017-07-29] MEDS: ACETAMINOPHEN TAB 325 MG TAB PO SCH ×3 (08:32→23:34)
[2017-07-29] MEDS: AMPICILLIN-SULBACTAM 3 GM in SODIUM CHLORIDE 0.9% 100 ML IVPB SCH (08:33)
[2017-07-29] MEDS: CHLORHEXIDINE GLUCONATE 15 ML CUP MUCOUS MEM SCH ×4 (09:24→23:35)
[2017-07-29] MEDS: FAMOTIDINE 20 MG TAB PO SCH (09:24)
[2017-07-29] MEDS: CITALOPRAM HYDROBROMIDE 10 MG TAB PO SCH (09:24)
[2017-07-29] MEDS: CALCIUM CARBONATE 500 MG CHEWABLE PO SCH ×3 (09:24→23:35)
[2017-07-29] MEDS: BACITRACIN 500 UNIT/GM OINT 28.4 GM TUBE TOPICAL SCH ×2 (09:24→23:36)
[2017-07-29] MEDS: MICAFUNGIN 100 MG in SODIUM CHLORIDE 0.9% 100 ML IVPB SCH (09:25)
[2017-07-29] MEDS: POTASSIUM CHLORIDE ER 20 MEQ TAB.ER PO SCH ×2 (09:36→23:35)
[2017-07-29] MEDS: IPRATROPIUM-ALBUTEROL 3 ML NEB INHALATION SCH ×4 (11:14→21:44)
[2017-07-29 11:57] LABS: Calcium 6.9 mg/dL (8.4-10.2); Potassium 3.8 mmol/L (3.5-5.1)
[2017-07-29 12:02] LABS: Anisocytosis Slight; Basophils # (A) 0.1 k/uL (0-0.2); Basophils % (A) 0 %; Eosinophils % (A) 0 %; HCT 26.3 % (34.0-46.0); HGB 8.5 gm/dL (11.4-16.0); Hypochromasia Slight; Lymphocytes # (A) 0.7 k/uL (1.0-4.8); Lymphocytes % (A) 6 %; MCH 30.3 pg (25.0-35.0); MCHC 32.3 g/dL (31.0-37.0); MCV 93.7 fL (80.0-100.0); Mean Platelet Volume 8.2; Monocytes # (A) 0.5 k/uL (0-1.0); Monocytes % (A) 4 %; Neutrophils # (A) 10.3 k/uL (1.3-7.7); Neutrophils % (A) 88 %; Platelet Count 194 k/uL (150-450); Poikilocytosis Slight; RDW 17.5 % (11.5-15.5); WBC 11.8 k/uL (3.8-10.6)
[2017-07-29] MEDS: levETIRAcetam IV 500 MG in SODIUM CHLORIDE 0.9% 100 ML IVPB SCH ×2 (13:19→23:38)
[2017-07-29] MEDS: HYDROcodone/APAP 5-325MG 1 EACH TAB PO PRN (19:31)
--- NOTE | 2017-07-29 21:23 | PN ---
PROGRESS NOTE Patient is seen for followup for the acute kidney injury. Currently, she is sitting up in a bedside chair. Patient is comfortable. She denies any significant complaints. She is alert and oriented x3. On examination blood pressure is 160/74, heart rate 71 per minute. She is afebrile. Examination of the heart S1, S2. Examination of the lungs bilateral breath sounds are heard. Abdomen is soft, nontender. Examination of the lower extremities shows no evidence of edema. SURFACE [employer] exam is grossly intact. Patient moving all 4 extremities. The site of surgery at the left submandibular abscess area is quite healed with a scab noted. LABS: Sodium 142, potassium 3.8, BUN 36, serum creatinine 3.7, hemoglobin 8.5 g/dL. ASSESSMENT: 1. Acute kidney injury secondary to hypotension hypoperfusion and vancomycin toxicity. Currently off of dialysis with good urine output. Continue to monitor without any diuretics. Encourage increased oral intake and continue to avoid any nephrotoxic and agents. 2. Left submandibular abscess with osteonecrosis, status post I and D and extraction of teeth, maintained on antibiotics. 3. Hypokalemia, status post replacement. 4. Bacteremia with alpha hemolytic strep and wound culture growing very dense Streptococcus, being followed by ID. 5. Volume overload currently significantly improved. PLAN: We will discontinue the femoral catheter tomorrow. The patient does not need any further hemodialysis and she could be discharged tomorrow from Nephrology standpoint with close monitoring as outpatient. MMODL / IJN: [id number] /
--- NOTE | 2017-07-29 21:41 | PN ---
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 INTERVAL HISTORY: The patient is afebrile. She is breathing comfortably. Denies having any chest pain or cough. No difficulty swallowing. No abdominal pain. No diarrhea. PHYSICAL EXAMINATION: Blood pressure is 160/74 with a pulse of 71, temperature 98.5. She is 98% on room air. General description is an elderly female lying in bed in no distress. HEENT EXAMINATION: Overall swelling and redness have improved. No drainage. LUNGS: Unlabored breathing. Clear to auscultation anteriorly. HEART: S1, S2. Regular rate and rhythm. ABDOMEN: Soft. No tenderness. LABS: Hemoglobin 8.5, white count 11.8. Creatinine 3.70. DIAGNOSTIC IMPRESSION AND PLAN: Patient with submandibular abscess with osteoporosis and possible osteomyelitis of the jaw, status post extended debridement. Patient at this time will continue on Unasyn in view of the headache, concerns about significant deep infection and concern about underlying osteomyelitis. She will continue with Unasyn with the dose suitable for her kidney function for a total of 6 weeks. Continue with the micafungin at this point. Daughters were present at bedside. Their questions were answered. MMODL / IJN: [id number] /
[2017-07-29] MEDS: LATANOPROST 0.005% OPHTH DROPS 2.5 ML BTL BOTH EYES SCH (23:35)
[2017-07-29] MEDS: MELATONIN 5 MG TABLET PO SCH (23:35)
[2017-07-30] MEDS: HYDROcodone/APAP 5-325MG 1 EACH TAB PO PRN ×2 (06:00→23:16)
[2017-07-30] MEDS: IPRATROPIUM-ALBUTEROL 3 ML NEB INHALATION SCH ×4 (07:00→19:29)
[2017-07-30] MEDS: ACETAMINOPHEN TAB 325 MG TAB PO SCH ×2 (10:04→16:32)
[2017-07-30] MEDS: AMPICILLIN-SULBACTAM 3 GM in SODIUM CHLORIDE 0.9% 100 ML IVPB SCH (10:04)
[2017-07-30] MEDS: CALCIUM CARBONATE 500 MG CHEWABLE PO SCH ×3 (10:05→21:36)
[2017-07-30] MEDS: CHLORHEXIDINE GLUCONATE 15 ML CUP MUCOUS MEM SCH ×4 (10:05→21:36)
[2017-07-30] MEDS: CITALOPRAM HYDROBROMIDE 10 MG TAB PO SCH (10:05)
[2017-07-30] MEDS: POTASSIUM CHLORIDE ER 20 MEQ TAB.ER PO SCH ×2 (10:06→21:36)
[2017-07-30] MEDS: FAMOTIDINE 20 MG TAB PO SCH (10:06)
[2017-07-30] MEDS: BACITRACIN 500 UNIT/GM OINT 28.4 GM TUBE TOPICAL SCH ×2 (10:09→21:36)
[2017-07-30] MEDS: MICAFUNGIN 100 MG in SODIUM CHLORIDE 0.9% 100 ML IVPB SCH (11:21)
[2017-07-30 11:45] VITALS: BMI 29.7
[2017-07-30] MEDS: levETIRAcetam IV 500 MG in SODIUM CHLORIDE 0.9% 100 ML IVPB SCH (12:46)
[2017-07-30 14:54] LABS: Anisocytosis Slight; HCT 26.1 % (34.0-46.0); HGB 8.3 gm/dL (11.4-16.0); Hypochromasia Slight; MCH 30.4 pg (25.0-35.0); Mean Platelet Volume 8.6; Platelet Count 179 k/uL (150-450); RBC 2.74 m/uL (3.80-5.40); RDW 17.8 % (11.5-15.5)
[2017-07-30 15:02] LABS: Calcium 7.1 mg/dL (8.4-10.2); Potassium 3.8 mmol/L (3.5-5.1)
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
--- NOTE | 2017-07-30 16:45 | PN ---
PROGRESS NOTE The patient is seen for followup for acute kidney injury secondary to vancomycin toxicity, hypotension, hypoperfusion. Renal function has improved to some degree. However, creatinine is about the same since yesterday. The patient is currently off of diuretics. Her Kelly catheter was removed as well and she has not required any further dialysis. She is awaiting discharge and final decision regarding renal replacement therapy. At this time, it does not look like the patient will need to continue dialysis. We can DC the dialysis catheter and she can be discharged with close followup as outpatient. EXAMINATION: Blood pressure is 108/66, heart rate 68 per minute. She is afebrile. Examination of the heart: S1, S2. Examination lungs: Bilateral breath sounds are heard. Abdomen is soft, nontender. Examination lower extremities shows no evidence of edema. [employer] exam is grossly intact. LABS SHOW: Sodium 142, potassium 3.8, BUN 36, serum creatinine 3.4, hemoglobin 8.3 g/dL. ASSESSMENT: 1. Acute kidney injury secondary to vancomycin toxicity and ischemic acute tubular necrosis, currently improving. Will remove dialysis catheter and patient can be discharged from nephrology standpoint with close followup as outpatient. 2. Left mandibular submandibular abscess status post surgery with debridement. The patient also had osteonecrosis. 3. Metastatic breast cancer, on chemotherapy. PLAN: The patient is stable for discharge, DC femoral Viral catheter and follow up as outpatient in about 4-5 days time. RAYMONDL / IJN: [id number] /
--- NOTE | 2017-07-30 19:33 | PN ---
PROGRESS NOTE DATE OF SERVICE: 07/30/2017 REASON FOR FOLLOWUP: Submandibular abscess with mandible osteomyelitis. INTERVAL HISTORY: The patient is afebrile. She is breathing comfortably. Denies having any chest pain, shortness of breath or cough. No difficulty swallowing. No abdominal pain or diarrhea. PHYSICAL EXAMINATION: Blood pressure is 138/70 with a pulse of 80, temperature of 98. She is 96% on room air. General description is an elderly female up in the bed in no distress. HEENT EXAMINATION: Overall neck area swelling and redness have decreased. No drainage was noticed. LUNGS: Unlabored breathing. Clear to auscultation anteriorly. HEART: S1, S2. Regular rate and rhythm. ABDOMEN: Soft. No tenderness. LABS: Hemoglobin 8.3, white count 8.0, BUN of 36, creatinine 3.40. DIAGNOSTIC IMPRESSION AND PLAN: Patient with a submandibular abscess with osteonecrosis of the jaw and possible osteomyelitis of the mandible. Culture has been positive for Strep viridans sensitive to penicillin. Recommending keeping the patient on Unasyn 3 grams q.6 for a total of 6 weeks. The dose should be adjusted up once her kidney function has improved. Weekly CBC and BMP and sed rate. Family present at the bedside. Their questions were answered. MMODL / IJN: [id number] /
--- NOTE | 2017-07-30 20:22 | P.PN ---
Subjective Progress Note Date: 07/30/17 This patient is a 66-year-old female who has a history of stage IV breast cancer with metastatic spread to the bones. The patient was admitted for further treatment of left submandibular abscess. She underwent surgery for this condition and subsequently was noted to show increased confusion and disorientation following this surgery. Neurology was consulted. CAT scan of the brain was done which came back negative for any acute changes. She was having frequent myoclonic jerks and was started on Keppra yesterday evening. Patient was able to complete routine EEG today which was reviewed. EEG is revealing moderate slowing with no epileptiform discharges. The patient is noted to have worsening kidney function today. Nephrology recommended that she undergo dialysis for further treatment. She had dialysis today and is scheduled to have a repeat dialysis tomorrow. We did review the results of the EEG and CAT scan once again with the patient's daughter who was at bedside. At this time we will continue her on Keppra. Keppra level was completed today and came back therapeutic at 17.1. She remains somewhat lethargic today and is being followed closely by infectious disease. We will await their further recommendations. Patient did undergo hemodialysis today and her creatinine still remains very elevated at 3.44. She has evidence of a metabolic encephalopathy secondary to uremia. She may require further hemodialysis given her poor response thus far. She also showed a drop in her hemoglobin today to 6.7. She did require one unit of blood transfusion. Patient remains very lethargic last evening and was arousable but not following commands. According to her daughter who was at bedside she was much better yesterday soon after her dialysis. Today the patient is more awake and alert. As noted her creatinine is come down to 3.44 today. Daughter is at bedside and she is also noted improvement. She has not demonstrated any further myoclonus or tremors and she is to continue on her current dose of Keppra. Patient is much more awake and alert today. She was being considered for repeat hemodialysis today but this was placed on hold as there was improvement in her labs and in her creatinine. We're waiting clearance from nephrology for possible discharge for the patient tomorrow. Nephrology has cleared the patient for discharge home tomorrow. Her dialysis catheter will be removed tomorrow morning. We recommend the patient to be switched to oral dose of Keppra 500 mg by mouth twice a day. She may follow-up in the outpatient neurology clinic in 3-4 weeks. Neurologically she remains very stable and is shown no further seizure-like activity since being treated. Patient and family had declined ECF for rehab at this time. We will continue close neurological follow-up for the patient during this admission. Objective - Vital Signs Vital signs: Vital Signs Temp 98 F 07/30/17 15:00 Pulse 84 07/30/17 19:38 Resp 18 07/30/17 15:00 BP 138/70 07/30/17 15:00 Pulse Ox 96 07/30/17 15:00 Intake & Output 07/30/17 07/30/17 07/31/17 06:59 18:59 06:59 Intake Total 790 300 Output Total 300 Balance 490 300 Weight 81 kg 81 kg Intake: Intake, IV Titration 300 Amount Ampicillin-Sulbactam 3 gm 100 In Sodium Chloride 0.9% 100 ml @ 100 mls/hr IVPB Q24H [facility] Rx#:[id number] Micafungin 100 mg In 100 Sodium Chloride 0.9% 100 ml @ 100 mls/hr IVPB DAILY [facility] Rx#:[id number] levETIRAcetam IV 500 mg 100 In Sodium Chloride 0.9% 100 ml @ 400 mls/hr IVPB Q12HR [facility] Rx#:[id number] Oral 790 Output: Urine 300 Other: Voiding Method Bedpan Bedside Commode # Voids 2 - Exam Physical examination: PHYSICAL EXAMINATION: Patient is resting comfortably in bed. VITAL SIGNS: Blood pressure is [138/70]. Heart rate is [85]. Respiration is [18] . Temperature is [98.0]. HEENT: Head is atraumatic, neck is supple, there were no carotid bruits. CHEST: Lungs are clear to auscultation and percussion. CARDIAC: S1, S2 normal rate and rhythm. There is no murmur. ABDOMEN: Soft and nontender. Bowel sounds are present. EXTREMITIES: There is no pedal edema. Peripheral pulses are present. Neurological examination: Patient is awake and alert and is laying in bed comfortably. Her mental status is much improved today. She does not appear to be in any acute pain at this time. She is following some commands. No evidence of any focal motor deficit on exam at this time. Deep tendon reflexes are 1+ and symmetric. Plantar responses flexor bilaterally. - Labs CBC & Chem 7: 07/30/17 14:40 07/30/17 14:40 Labs: Abnormal Lab Results - Last 24 Hours (Table) 07/30/17 07/30/17 Range/Units 14:40 14:40 RBC 2.74 L (3.80-5.40) m/uL Hgb 8.3 L (11.4-16.0) gm/dL Hct 26.1 L (34.0-46.0) % RDW 17.8 H (11.5-15.5) % BUN 36 H (7-17) mg/dL Creatinine 3.40 H (0.52-1.04) mg/dL Calcium 7.1 L (8.4-10.2) mg/dL Assessment and Plan (1) Acute encephalopathy Current Visit: Yes Status: Acute Code(s): G93.40 - ENCEPHALOPATHY, UNSPECIFIED SNOMED Code(s): 75595973 (2) Myoclonic seizures Current Visit: Yes Status: Acute Code(s): G40.409 - OTH GENERALIZED EPILEPSY , NOT INTRACTABLE, W/O STAT EPI SNOMED Code(s): 78137223 (3) Abscess or cellulitis of submandibular region Current Visit: Yes Status: Acute Code(s): VIY9712 - SNOMED Code(s): 170113338 (4) Metastatic breast cancer Current Visit: Yes Status: Acute Priority: High Code(s): C50.919 - MALIGNANT NEOPLASM OF UNSP SITE OF UNSPECIFIED FEMALE BREAST SNOMED Code(s): 265291524 (5) Chemotherapy induced neutropenia Current Visit: Yes Status: Resolved Priority: High Code(s): D70.1 - AGRANULOCYTOSIS SECONDARY TO CANCER CHEMOTHERAPY; T45.1X5A - ADVERSE EFFECT OF ANTINEOPLASTIC AND IMMUNOSUP DRUGS, INIT SNOMED Code(s): 213075249 Plan: This patient is a 66-year-old female who was initially evaluated for myoclonus and seizure-like activity following abscess surgery of the mandible. She was treated with levetiracetam for seizure prophylaxis and has done very well. Patient did require dialysis but has now been cleared by nephrology for discharge home tomorrow. Her dialysis catheter will be removed tomorrow morning. We are recommending to switch the patient today to oral dose of Keppra 500 mg by mouth twice a day. She may schedule follow-up in the outpatient neurology clinic in 3-4 weeks. Her overall prognosis at this time remains guarded. Case was discussed at length with the patient and her daughter at bedside. All of their questions were answered. We will continue close neurological follow-up for the patient during this admission.
[2017-07-30] MEDS: MELATONIN 5 MG TABLET PO SCH (21:36)
[2017-07-30] MEDS: levETIRAcetam 500 MG TAB PO SCH (21:36)
[2017-07-30] MEDS: LATANOPROST 0.005% OPHTH DROPS 2.5 ML BTL BOTH EYES SCH (21:37)
[2017-07-30] MEDS: ONDANSETRON 4 MG/2 ML VIAL IVP PRN (22:05)
[2017-07-31] MEDS: ACETAMINOPHEN TAB 325 MG TAB PO SCH ×3 (02:39→16:55)
[2017-07-31] MEDS: HYDROcodone/APAP 5-325MG 1 EACH TAB PO PRN ×2 (06:37→11:08)
[2017-07-31 07:23] LABS: Anisocytosis Slight; HCT 25.9 % (34.0-46.0); HGB 8.6 gm/dL (11.4-16.0); MCH 30.9 pg (25.0-35.0); MCV 93.4 fL (80.0-100.0); Mean Platelet Volume 8.2; Platelet Count 190 k/uL (150-450); Poikilocytosis Slight; RBC 2.78 m/uL (3.80-5.40); RDW 17.6 % (11.5-15.5); WBC 7.6 k/uL (3.8-10.6)
[2017-07-31 07:45] LABS: Calcium 6.9 mg/dL (8.4-10.2); Potassium 3.8 mmol/L (3.5-5.1)
[2017-07-31 08:29] VITALS: BP 138/77; PULSE 63; RESP 18; TEMP 99.2
[2017-07-31] MEDS: AMPICILLIN-SULBACTAM 3 GM in SODIUM CHLORIDE 0.9% 100 ML IVPB SCH (08:31)
[2017-07-31 08:33] LABS: C Reactive Protein 24.3 mg/L (<10.0)
[2017-07-31] MEDS: CHLORHEXIDINE GLUCONATE 15 ML CUP MUCOUS MEM SCH ×2 (08:34→13:36)
[2017-07-31] MEDS: CALCIUM CARBONATE 500 MG CHEWABLE PO SCH (08:34)
[2017-07-31] MEDS: BACITRACIN 500 UNIT/GM OINT 28.4 GM TUBE TOPICAL SCH (08:34)
[2017-07-31] MEDS: POTASSIUM CHLORIDE ER 20 MEQ TAB.ER PO SCH (08:34)
[2017-07-31] MEDS: ONDANSETRON 4 MG/2 ML VIAL IVP PRN ×2 (08:41→13:35)
[2017-07-31] MEDS: IPRATROPIUM-ALBUTEROL 3 ML NEB INHALATION SCH ×3 (09:20→16:49)
[2017-07-31 09:55] LABS: Erythrocyte Sedimentation Rate 94 mm/hr (0-20)
[2017-07-31] MEDS: levETIRAcetam 500 MG TAB PO SCH (11:12)
[2017-07-31] MEDS: FAMOTIDINE 20 MG TAB PO SCH (11:12)
[2017-07-31] MEDS: CITALOPRAM HYDROBROMIDE 10 MG TAB PO SCH (11:12)
[2017-07-31] MEDS: MICAFUNGIN 100 MG in SODIUM CHLORIDE 0.9% 100 ML IVPB SCH (13:11)
--- NOTE | 2017-07-31 13:52 | PN ---
PROGRESS NOTE DATE OF SERVICE: 07/31/2017 REASON FOR FOLLOWUP: Submandibular abscess with jaw osteomyelitis. INTERVAL HISTORY: The patient is afebrile. She is breathing comfortably. Denies having any chest pain, cough. No difficulty swallowing. No abdominal pain, no diarrhea. PHYSICAL EXAMINATION: Blood pressure 138/77 with a pulse of 63, temperature 99.2. She is 98% on room air. General description is an elderly female, lying in bed, in no distress. HEENT EXAMINATION: The submandibular swelling and redness is much improved, no drainage. LUNGS: Unlabored breathing, clear to auscultation anteriorly. HEART: S1, S2. Regular rate and rhythm. ABDOMEN: Soft, no tenderness. LABS: Hemoglobin 8.6, white count 7.6. BUN of 36, creatinine 3.06. DIAGNOSTIC IMPRESSION AND PLAN: Patient with a submandibular abscess and jaw osteomyelitis, status post extensive debridement. Culture positive which grew Streptococcus, penicillin sensitive. She is currently on Unasyn 3 g, dose has been adjusted up to q.12 per the pharmacy and the dose should be adjusted . Patient discharged as well with weekly monitoring of CBC, BMP and sed rate and continue supportive care. MMODL / IJN: [id number] /
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
--- NOTE | 2017-07-31 19:28 | PN ---
PROGRESS NOTE Patient is seen for followup for acute kidney injury. She is currently doing very well. There are plans for discharge. Patient's renal function continues to improve. She has had good urine output. On examination, blood pressure is 138/77, heart rate 63 per minute. Patient is afebrile. EXAMINATION OF THE HEART: S1, S2. EXAMINATION OF LUNGS: Bilateral breath sounds are heard. ABDOMEN: Soft, non-tender. Examination of lower extremities shows no evidence of edema. HEARING AID ASSISTANT exam is grossly intact. Patient is moving all 4 extremities. Labs show sodium 143, potassium 3.8, chloride 102, BUN 36, serum creatinine 3.06, hemoglobin 8.6 g/dL. ASSESSMENT: 1. Acute kidney injury, acute tubular necrosis, secondary to hypotension and hypoperfusion as well as secondary to vancomycin toxicity, currently significantly improved. Patient did receive about 3 to 4 treatments of hemodialysis. She is currently off of dialysis and doing very well. The dialysis catheter was discontinued yesterday. 2. Left submandibular abscess, status post surgery, maintained on antibiotics. 3. Encephalopathy, mainly uremic, currently resolved. 4. Anemia with iron deficiency, status post IV iron and packed RBC transfusion. PLAN: Patient is stable for discharge from nephrology standpoint. She will need to follow up as outpatient in about one week's time. She is advised to avoid all kinds of nonsteroidal anti-inflammatory agents post discharge. MMODL / IJN: [id number] /
[2017-07-31] MEDS ORDERED: AMPICILLIN-SULBACTAM 3 GM in SODIUM CHLORIDE 0.9% 100 ML IVPB SCH (21:00)
== END 2017-07-31 17:30 | disposition home health service (06) | DRG 853 ==
LOC: EC 00:53 → 5ONC 02:57
PROVIDERS: ADMIT Internal Medicine; ATTEND Internal Medicine
PROC: 0CT Mouth and Throat, Resection (ICD-10-PCS; 2017-07-21)
PROC: 0CT Mouth and Throat, Resection (ICD-10-PCS; 2017-07-21)
PROC: 0W9500Z Drainage of Lower Jaw with Drainage Device, Open Approach (ICD-10-PCS; principal; 2017-07-21 11:45)
PROC: 0ND Head and Facial Bones, Extraction (ICD-10-PCS; 2017-07-21 11:45)
PROC: 0JHL3XZ Insertion of Tunneled Vascular Access Device into Right Upper Leg Subcutaneous Tissue and Fascia, Percutaneous Approach (ICD-10-PCS; 2017-07-23)
PROC: 06HM33Z Insertion of Infusion Device into Right Femoral Vein, Percutaneous Approach (ICD-10-PCS; 2017-07-23)
PROC: 5A1D70Z Performance of Urinary Filtration, Intermittent, Less than 6 Hours Per Day (ICD-10-PCS; 2017-07-23)
PROC: 30233N1 Transfusion of Nonautologous Red Blood Cells into Peripheral Vein, Percutaneous Approach (ICD-10-PCS; 2017-07-24)
PROC: 5A1D70Z Performance of Urinary Filtration, Intermittent, Less than 6 Hours Per Day (ICD-10-PCS; 2017-07-24)
PROC: 5A1D70Z Performance of Urinary Filtration, Intermittent, Less than 6 Hours Per Day (ICD-10-PCS; 2017-07-25)
DX: A41.9 Sepsis, unspecified organism (principal); N17.0 Acute kidney failure with tubular necrosis; G93.41 Metabolic encephalopathy; B37.89 Other sites of candidiasis; D70.1 Agranulocytosis secondary to cancer chemotherapy; C79.51 Secondary malignant neoplasm of bone; D69.59 Other secondary thrombocytopenia; I48.0 Paroxysmal atrial fibrillation; N18.4 Chronic kidney disease, stage 4 (severe); M84.58XA Pathological fracture in neoplastic disease, other specified site, initial encounter for fracture; K12.2 Cellulitis and abscess of mouth; F33.9 Major depressive disorder, recurrent, unspecified; M87.180 Osteonecrosis due to drugs, jaw; L02.11 Cutaneous abscess of neck; J98.11 Atelectasis; N39.0 Urinary tract infection, site not specified; D70.3 Neutropenia due to infection; E83.51 Hypocalcemia; Z66 Do not resuscitate; B95.4 Other streptococcus as the cause of diseases classified elsewhere; G89.3 Neoplasm related pain (acute) (chronic); E87.70 Fluid overload, unspecified; M27.2 Inflammatory conditions of jaws; G40.909 Epilepsy, unspecified, not intractable, without status epilepticus; T45.8X5A Adverse effect of other primarily systemic and hematological agents, initial encounter; T45.1X5A Adverse effect of antineoplastic and immunosuppressive drugs, initial encounter; M21.372 Foot drop, left foot; F41.9 Anxiety disorder, unspecified; K59.09 Other constipation; K04.7 Periapical abscess without sinus; K02.9 Dental caries, unspecified; G47.30 Sleep apnea, unspecified; E87.6 Hypokalemia; D50.9 Iron deficiency anemia, unspecified; M81.0 Age-related osteoporosis without current pathological fracture; T36.8X5A Adverse effect of other systemic antibiotics, initial encounter; T50.2X5A Adverse effect of carbonic-anhydrase inhibitors, benzothiadiazides and other diuretics, initial encounter; Z99.2 Dependence on renal dialysis; S02.5XXA Fracture of tooth (traumatic), initial encounter for closed fracture; R50.81 Fever presenting with conditions classified elsewhere; M19.91 Primary osteoarthritis, unspecified site; Z79.1 Long term (current) use of non-steroidal anti-inflammatories (NSAID); Z79.82 Long term (current) use of aspirin; Z79.891 Long term (current) use of opiate analgesic; Z79.899 Other long term (current) drug therapy; Z85.3 Personal history of malignant neoplasm of breast; Z86.79 Personal history of other diseases of the circulatory system; Z96.642 Presence of left artificial hip joint; Z90.13 Acquired absence of bilateral breasts and nipples; Z90.49 Acquired absence of other specified parts of digestive tract; Z88.5 Allergy status to narcotic agent
CPT/HCPCS: 36415; 36556; 70450; 71045; 76937; 77001; 80048; 80053; 80076; 80177; 80202; 81001; 82306; 82330; 82550; 82553; 82565; 82607; 82728; 83540; 83550; 83605; 84100; 84484; 85025; 85027; 85610; 85652; 85730; 86140; 86850; 86900; 86901; 86920; 87040; 87070; 87075; 87077; 87086; 87186; 87205; 87340; 88307; 88311; 88312; 90935; 93005; 94640; 94760; 95819; 96365; 96368; 99285

== ENCOUNTER → 2018-04-22 | Outpatient (CLI) | payer MEDICARE, OTHER ==
--- NOTE | 2018-04-22 11:30 | US ---
EXAMINATION TYPE: US venous doppler duplex LE BI DATE OF EXAM: 04/22/2018 11:08 AM COMPARISON: NONE CLINICAL HISTORY: 67-year-old female M81 Osteoporosis without current pathological fracture. SIDE PERFORMED: Bilateral TECHNIQUE: The lower extremity deep venous system is examined utilizing real time linear array sonog jigar with graded compression, doppler sonography and color-flow sonography. VESSELS IMAGED: External Iliac Vein (EIV) Common Femoral Vein Deep Femoral Vein Greater Saphenous Vein * Femoral Vein Popliteal Vein Small Saphenous Vein * Proximal Calf Veins (* superficial vessels) Right Leg: Negative for DVT Left Leg: Negative for DVT Preliminary results left with Darcy CRAWFORD; patient sent home. IMPRESSION: No evidence for DVT within the bilateral lower extremities imaged from the groin to the knees.
== END | disposition home or self-care (01) ==
LOC: RADUSWWP 10:09 → EEVIPCON 10:09
PROVIDERS: ATTEND Internal Medicine Hematology & Oncology
DX: M79.662 Pain in left lower leg (principal); M79.661 Pain in right lower leg; L81.4 Other melanin hyperpigmentation
CPT/HCPCS: 93970

== ENCOUNTER → 2018-04-23 | Outpatient (CLI) | payer MEDICARE, OTHER ==
--- NOTE | 2018-04-28 10:19 | P.ARTDOP ---
Arterial Doppler LOWER EXTREMITY ARTERIAL DOPPLER: DATE OF SERVICE: 04/23/2018 Reason for study: Bilateral leg pain. Doppler waveforms: Multiphasic bilaterally throughout. Pulse volume recording: Normal configuration. Pressure gradients: None. Ankle-brachial indices: Greater than 1 bilaterally. Toe pressures: [] on the right, [] on the left Impression: Normal study.
== END | disposition home or self-care (01) ==
LOC: RADUSWWP 12:26
PROVIDERS: ATTEND Internal Medicine Hematology & Oncology
DX: C79.81 Secondary malignant neoplasm of breast (principal); C79.89 Secondary malignant neoplasm of other specified sites; M79.662 Pain in left lower leg
CPT/HCPCS: 93923

== ENCOUNTER 2018-08-31 07:36 | Inpatient (IN) | payer MEDICARE, OTHER ==
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
[2018-08-31 08:42] LABS: Anisocytosis Slight; Basophils % (A) 0 %; Eosinophils # (A) 0.1 k/uL (0-0.7); Eosinophils % (A) 3 %; HCT 25.2 % (34.0-46.0); HGB 8.1 gm/dL (11.4-16.0); Hypochromasia Slight; Lymphocytes # (A) 0.5 k/uL (1.0-4.8); Lymphocytes % (A) 12 %; MCH 29.5 pg (25.0-35.0); MCHC 32.1 g/dL (31.0-37.0); Mean Platelet Volume 7.2; Monocytes # (A) 0.2 k/uL (0-1.0); Monocytes % (A) 5 %; Neutrophils # (A) 3.6 k/uL (1.3-7.7); Neutrophils % (A) 79 %; Platelet Count 193 k/uL (150-450); Poikilocytosis Slight; RBC 2.74 m/uL (3.80-5.40); WBC 4.5 k/uL (3.8-10.6)
[2018-08-31] MEDS ORDERED: AMPICILLIN-SULBACTAM 3 GM in SODIUM CHLORIDE 0.9% 100 ML IVPB STA (08:46)
[2018-08-31 08:51] LABS: Albumin 3.8 g/dL (3.5-5.0); Calcium 9.6 mg/dL (8.4-10.2); Potassium 3.9 mmol/L (3.5-5.1); Total Bilirubin 0.4 mg/dL (0.2-1.3); Total Protein 6.9 g/dL (6.3-8.2)
[2018-08-31] MEDS ORDERED: SODIUM CHLORIDE 0.9% 1,000 ML IV ONE (08:57)
[2018-08-31 09:07] LABS: INR 0.9 (<1.2); Prothrombin Time 10.1 sec (9.0-12.0)
[2018-08-31 09:10] LABS: Partial Thromboplastin Time 21.6 sec (22.0-30.0)
--- NOTE | 2018-08-31 09:52 | CT ---
EXAMINATION TYPE: CT soft tissue neck w con DATE OF EXAM: 08/31/2018 HISTORY: Left lower jaw swelling/mass COMPARISON: NONE CT DLP: 211.6 mGycm. Automated Exposure Control for Dose Reduction was Utilized. TECHNIQUE: CT scan of the neck is performed with IV Contrast, patient injected with 100 ml mL of Iso henna 300, axial images are obtained, coronal and sagittal reformatted images are reviewed. FINDINGS: There is left mandibular cortical thickening up to 5 mm at the buccal surface with periosteal reactio n of the oral surface marked on image 36. This predominates at the angle of mandible. Superficial to this there is deep fat plane and superficial fat plane subcutaneous fat stranding such as on image 31 . These findings are just above the palpable marker. No discrete portal breakthrough or abscess is se en. Within the remainder of the osseous structures there is diffuse osteoblastic metastasis. This inc ludes the visualized calvarium, cervical spine, clavicles, thoracic spine, ribs, and shoulders. Lung apices are unremarkable. Carotid and vertebral arteries appear patent within the neck. IMPRESSION: Marked left mandibular cortical thickening and periosteal reaction without cortical breakthrough. Con sidering the diffuse osseous metastasis throughout the visualized osseous structures differential inc ludes metastasis, repair phase of osteonecrosis, and osteomyelitis. Superimposed cellulitis is seen w ithout well-formed abscess.
[2018-08-31] MEDS ORDERED: HYDROmorphone 0.5 MG/0.5 ML SYRINGE IVP STA (10:03)
[2018-08-31] MEDS ORDERED: ONDANSETRON 4 MG/2 ML VIAL IVP STA (10:03)
[2018-08-31] MEDS ORDERED: NALOXONE 0.4 MG/ML 1 ML VIAL IV PRN (10:12)
[2018-08-31] MEDS ORDERED: ACETAMINOPHEN TAB 325 MG TAB PO PRN (10:12)
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
[2018-08-31] MEDS: SODIUM CHLORIDE 0.9% 1,000 ML IV SCH (13:14)
[2018-08-31] MEDS: HYDROmorphone 0.5 MG/0.5 ML SYRINGE IVP PRN ×2 (13:16→19:50)
[2018-08-31] MEDS ORDERED: AMPICILLIN-SULBACTAM 3 GM in SODIUM CHLORIDE 0.9% 100 ML IVPB SCH (16:00)
[2018-08-31] MEDS: HYDROcodone/APAP 7.5-325MG 1 EACH TAB PO PRN ×2 (16:35→23:34)
--- NOTE | 2018-08-31 16:54 | XR ---
PROCEDURE: XR mandible complete - 5V DATE AND TIME: 08/31/2018 4:23 PM CLINICAL INDICATION: PHH; left jaw cellulitis; large lump under chin TECHNIQUE: Department protocol COMPARISON: None FINDINGS: There is no fracture or malalignment, and no focal skeletal findings. The soft tissues are unremarkable. IMPRESSION: Negative examination.
[2018-08-31] MEDS: ALPRAZolam 0.25 MG TAB PO SCH (21:39)
[2018-08-31] MEDS: HEPARIN SODIUM,PORCINE 5,000 UNIT/ML 1 ML VIAL SQ SCH (21:39)
[2018-08-31] MEDS: AMITRIPTYLINE HCL 50 MG TAB PO SCH (21:39)
[2018-08-31] MEDS: LATANOPROST 0.005% OPHTH DROPS 2.5 ML BTL BOTH EYES SCH (21:39)
[2018-08-31] MEDS: MELATONIN 3 MG TABLET PO SCH (21:40)
[2018-08-31] MEDS: METOPROLOL TARTRATE 25 MG TAB PO SCH (21:40)
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
[2018-09-01] MEDS: AMPICILLIN-SULBACTAM 3 GM in SODIUM CHLORIDE 0.9% 100 ML IVPB SCH ×5 (00:45→23:24)
[2018-09-01] MEDS: SODIUM CHLORIDE 0.9% 1,000 ML IV SCH ×2 (00:46→13:19)
[2018-09-01] MEDS: HYDROmorphone 0.5 MG/0.5 ML SYRINGE IVP PRN ×3 (02:42→23:24)
[2018-09-01 05:16] VITALS: RESP 16
[2018-09-01] MEDS: CALCIUM CARB-VIT D 500MG-200UN 1 EACH TAB PO SCH (07:21)
[2018-09-01] MEDS: ALPRAZolam 0.25 MG TAB PO SCH ×2 (07:21→20:06)
[2018-09-01] MEDS: CITALOPRAM HYDROBROMIDE 10 MG TAB PO SCH (07:21)
[2018-09-01] MEDS: HEPARIN SODIUM,PORCINE 5,000 UNIT/ML 1 ML VIAL SQ SCH ×2 (07:21→20:06)
[2018-09-01] MEDS: FAMOTIDINE 20 MG TAB PO SCH (07:21)
[2018-09-01] MEDS: METOPROLOL TARTRATE 25 MG TAB PO SCH ×2 (07:21→20:06)
[2018-09-01] MEDS: HYDROcodone/APAP 7.5-325MG 1 EACH TAB PO PRN ×2 (08:24→17:13)
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
[2018-09-01] MEDS: ONDANSETRON 4 MG/2 ML VIAL IVP PRN (17:20)
--- NOTE | 2018-09-01 17:49 | PN ---
PROGRESS NOTE DATE OF SERVICE: 09/01/2018. REASON FOR FOLLOW UP: Left neck cellulitis and a question of osteomyelitis. INTERVAL HISTORY: The patient is currently afebrile. Patient denies significant pain into her left side of the neck area. The patient denies having any chest pain. No shortness of breath or cough. No abdominal pain. No diarrhea. PHYSICAL EXAMINATION: Her blood pressure is 105/67 with a pulse of 81, temperature 98. She is 93% on room air. General description is an elderly female lying in bed in no distress. HEENT examination: Left side of neck area with minimal induration and erythema and redness has decreased. There is no drainage. On examination blood pressure is 107/59 with a pulse of 100, temperature of 98. She is 93% on room air. General description is an elderly female lying in bed in no distress. HEENT examination: No pallor or scleral icterus. Oral mucosa membranes are moist. Left side of the neck with a slight area of swelling. The redness has decreased. No fluctuation or induration. LUNGS: Unlabored breathing. Clear to auscultation. Heart S1, S2. Regular rate and rhythm. Abdomen soft. No tenderness. LABS: No new labs have been obtained today. Blood cultures have been negative so far. DIAGNOSTIC IMPRESSION AND PLAN: Patient with left-sided neck cellulitis with possible left submandibular clinical doubt abscess or any evidence of the joint osteomyelitis, possible osteonecrosis. Patient is currently covered with Unasyn to continue for now while waiting for the culture to finalize. Continue supportive care. MMODL / IJN: [id number] /
[2018-09-01] MEDS: MELATONIN 3 MG TABLET PO SCH (20:06)
[2018-09-01] MEDS: AMITRIPTYLINE HCL 50 MG TAB PO SCH (20:06)
[2018-09-01] MEDS: LATANOPROST 0.005% OPHTH DROPS 2.5 ML BTL BOTH EYES SCH (20:06)
[2018-09-02] MEDS: SODIUM CHLORIDE 0.9% 1,000 ML IV SCH (02:28)
[2018-09-02] MEDS: AMPICILLIN-SULBACTAM 3 GM in SODIUM CHLORIDE 0.9% 100 ML IVPB SCH ×2 (05:42→11:27)
[2018-09-02 08:18] LABS: Anisocytosis Slight; Basophils % (A) 0 %; Eosinophils # (A) 0.2 k/uL (0-0.7); Eosinophils % (A) 7 %; HCT 20.8 % (34.0-46.0); HGB 7.1 gm/dL (11.4-16.0); Hypochromasia Moderate; Lymphocytes # (A) 0.7 k/uL (1.0-4.8); Lymphocytes % (A) 21 %; MCH 31.3 pg (25.0-35.0); MCHC 34.1 g/dL (31.0-37.0); MCV 91.9 fL (80.0-100.0); Mean Platelet Volume 7.9; Monocytes # (A) 0.3 k/uL (0-1.0); Monocytes % (A) 9 %; Neutrophils # (A) 1.8 k/uL (1.3-7.7); Neutrophils % (A) 59 %; Platelet Count 178 k/uL (150-450); Poikilocytosis Moderate; RBC 2.27 m/uL (3.80-5.40); RDW 18.2 % (11.5-15.5)
[2018-09-02 08:20] VITALS: BP 109/55; PULSE 77; TEMP 98.6
[2018-09-02] MEDS: ONDANSETRON 4 MG/2 ML VIAL IVP PRN (08:26)
[2018-09-02] MEDS: HEPARIN SODIUM,PORCINE 5,000 UNIT/ML 1 ML VIAL SQ SCH (08:28)
[2018-09-02] MEDS: FAMOTIDINE 20 MG TAB PO SCH (08:28)
[2018-09-02] MEDS: CITALOPRAM HYDROBROMIDE 10 MG TAB PO SCH (08:28)
[2018-09-02] MEDS: ALPRAZolam 0.25 MG TAB PO SCH (08:28)
[2018-09-02] MEDS: METOPROLOL TARTRATE 25 MG TAB PO SCH (08:28)
[2018-09-02] MEDS: CALCIUM CARB-VIT D 500MG-200UN 1 EACH TAB PO SCH (08:28)
[2018-09-02] MEDS: HYDROcodone/APAP 7.5-325MG 1 EACH TAB PO PRN (10:10)
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
== END 2018-09-02 10:50 | disposition home or self-care (01) | DRG 158 ==
LOC: EC 07:36 → 3NMEDONC 11:11
PROVIDERS: ADMIT Internal Medicine; ATTEND Internal Medicine
DX: K12.2 Cellulitis and abscess of mouth (principal); C79.51 Secondary malignant neoplasm of bone; F33.9 Major depressive disorder, recurrent, unspecified; L03.211 Cellulitis of face; N18.4 Chronic kidney disease, stage 4 (severe); M86.9 Osteomyelitis, unspecified; D63.8 Anemia in other chronic diseases classified elsewhere; D64.81 Anemia due to antineoplastic chemotherapy; F41.9 Anxiety disorder, unspecified; G62.9 Polyneuropathy, unspecified; G89.3 Neoplasm related pain (acute) (chronic); G89.4 Chronic pain syndrome; I48.0 Paroxysmal atrial fibrillation; M21.372 Foot drop, left foot; T45.1X5A Adverse effect of antineoplastic and immunosuppressive drugs, initial encounter; Z17.0 Estrogen receptor positive status [ER+]; Z79.810 Long term (current) use of selective estrogen receptor modulators (SERMs); Z79.811 Long term (current) use of aromatase inhibitors; Z79.82 Long term (current) use of aspirin; Z79.899 Other long term (current) drug therapy; Z82.49 Family history of ischemic heart disease and other diseases of the circulatory system; Z85.3 Personal history of malignant neoplasm of breast; Z90.13 Acquired absence of bilateral breasts and nipples; Z92.3 Personal history of irradiation; Z96.642 Presence of left artificial hip joint; Z88.5 Allergy status to narcotic agent
CPT/HCPCS: 36415; 70110; 70491; 80053; 83605; 85025; 85610; 85730; 87040; 96361; 96365; 96375; 96376; 99284

== ENCOUNTER → 2018-11-11 | Outpatient (CLI) | payer MEDICARE, OTHER | LOC: PROCWHC3 10:00 | PROVIDERS: ATTEND Internal Medicine Hematology & Oncology | DX: D64.81 Anemia due to antineoplastic chemotherapy (principal) | CPT/HCPCS: 86850; 86900; 86901; 86920 ==

== ENCOUNTER 2018-11-12 13:53 | Inpatient (IN) | payer MEDICARE, OTHER ==
[2018-11-12] MEDS: SODIUM CHLORIDE 0.9% 500 ML 500 ML in EMPTY BAG 1 BAG IV PRN (11:09)
[2018-11-12] MEDS ORDERED: SODIUM CHLORIDE 0.9% 1,000 ML IV STA ×2 (14:52)
[2018-11-12] MEDS ORDERED: ONDANSETRON 4 MG/2 ML VIAL IVP STA (14:52)
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
[2018-11-12 15:09] LABS: Glucose,Whole Blood 139 mg/dL (75-99)
--- NOTE | 2018-11-12 15:30 | CT ---
EXAMINATION TYPE: CT brain wo con DATE OF EXAM: 11/12/2018 COMPARISON: 07/22/2017 HISTORY: Neurologic deficits. Unenhanced CT of the brain was performed. The ventricles, basal cisterns and sulci overlying the cerebral convexities demonstrate mild enlargem ent. There is no evidence for intracranial hemorrhage or sulcal effacement. There is decreased attenuation about the periventricular white matter and deep white matter of both c erebral hemispheres, compatible with chronic small vessel ischemia. Differential diagnosis does inclu de demyelination. No mass effects are seen.No midline shift. Osseous calvarium is intact. If symptoms persist consider MRI. IMPRESSION: 1. Age related atrophic and chronic small vessel ischemic change without acute intracranial process s een at this time.
[2018-11-12] MEDS ORDERED: HYDROmorphone 0.5 MG/0.5 ML SYRINGE IVP STA ×2 (15:40→20:13)
--- NOTE | 2018-11-12 15:40 | XR ---
EXAMINATION TYPE: XR chest 2V DATE OF EXAM: 11/12/2018 COMPARISON: 07/24/2014 HISTORY: 68-year-old female confusion, altered mental status TECHNIQUE: AP and lateral views FINDINGS: Left anterior chest wall injection port catheter tip in the right atrium. Low lung volumes with crowd ed vascular markings. Heart normal size. There is patchy left basilar opacity. Peripheral left basila r nodular density was present on 07/24/2017 and may relate to bony density. IMPRESSION: Hypoventilatory changes. Left basilar atelectasis and/or infiltrate. Stable nodular density periphera l left upper lobe could be bony in etiology relating to the rib end.
[2018-11-12 16:41] LABS: Anisocytosis Slight; Basophils % (A) 0 %; Eosinophils % (A) 0 %; HCT 32.3 % (34.0-46.0); HGB 10.6 gm/dL (11.4-16.0); Lymphocytes # (A) 0.5 k/uL (1.0-4.8); Lymphocytes % (A) 8 %; MCH 30.1 pg (25.0-35.0); MCHC 32.8 g/dL (31.0-37.0); MCV 91.9 fL (80.0-100.0); Mean Platelet Volume 7.5; Monocytes # (A) 0.3 k/uL (0-1.0); Monocytes % (A) 4 %; Neutrophils % (A) 86 %; Platelet Count 148 k/uL (150-450); Poikilocytosis Slight; RBC 3.51 m/uL (3.80-5.40); RDW 17.7 % (11.5-15.5); WBC 5.9 k/uL (3.8-10.6)
[2018-11-12 16:49] LABS: Partial Thromboplastin Time 31.5 sec (22.0-30.0); Prothrombin Time 10.6 sec (9.0-12.0)
[2018-11-12 16:51] LABS: Albumin 3.8 g/dL (3.5-5.0); Calcium 9.2 mg/dL (8.4-10.2); Potassium 3.7 mmol/L (3.5-5.1); Total Bilirubin 0.9 mg/dL (0.2-1.3); Total Protein 6.7 g/dL (6.3-8.2)
[2018-11-12] MEDS ORDERED: diphenhydrAMINE 50 MG/ML 1 ML VIAL IVP STA (17:01)
[2018-11-12] MEDS ORDERED: METOCLOPRAMIDE 5 MG/ML 2 ML VIAL IVP STA (17:01)
--- NOTE | 2018-11-12 19:49 | CT ---
EXAMINATION TYPE: CT abdomen pelvis w con DATE OF EXAM: 11/12/2018 COMPARISON: None HISTORY: Nausea and vomiting. History of bone mets. CT DLP: 962.6 mGycm Automated exposure control for dose reduction was used. TECHNIQUE: Helical acquisition of images was performed from the lung bases through the pelvis. CONTRAST: Performed without Oral Contrast and with IV Contrast, patient injected with 80ml mL of Isovue 300. FINDINGS: LUNG BASES: No acute findings, but mild pleural thickening and right lung base 2 cm subpleural rounde d soft tissue density, having the appearance of rounded atelectasis. Further characterization of this finding and the remainder of the chest can be provided with nonurgent chest CT with contrast if kiara cated clinically. Coronary calcifications documented. LIVER/GB: No significant abnormality is appreciated. PANCREAS: No significant abnormality is seen. SPLEEN: No significant abnormality is seen. ADRENALS: No significant abnormality is seen. KIDNEYS: No significant abnormality is seen. FREE AIR: No free air is visualized. RETROPERITONEAL ADENOPATHY: None visualized REPRODUCTIVE ORGANS: No significant abnormality is seen URINARY BLADDER: No significant abnormality is seen. PELVIC ADENOPATHY: None visualized. OSSEOUS STRUCTURES: The entire skeletal system shows a marked pattern of severe heterogeneity with i nnumerable sclerotic ill-defined foci and with lytic foci also noted. The pattern is consistent with the clinically submitted history of bone metastatic disease. There is no fracture or malalignment. BOWEL: The bowel gas pattern is abnormal, with dilated fluid-filled loops of ileum and jejunum down to the distal ileum where the transition point fails to demonstrate an etiology. Therefore, the etiol ogy is most likely adhesions. There is no bowel wall thickening or mesenteric edematous change. No pn eumatosis or pneumoperitoneum. The colon is not dilated. OTHER: No acute vascular findings. IMPRESSION: 1. MODERATE SMALL BOWEL OBSTRUCTION. 2. Widespread skeletal metastatic disease. 3. Incidental supradiaphragmatic findings.
[2018-11-12] MEDS ORDERED: DIAZEPAM 5 MG/ML 2 ML INJ IVP STA (20:13)
[2018-11-12] MEDS ORDERED: NALOXONE 0.4 MG/ML 1 ML VIAL IV PRN (20:22)
[2018-11-12] MEDS ORDERED: MORPHINE SULFATE 4 MG/ML SYRINGE IV PRN (20:22)
[2018-11-12 22:29] LABS: Appearance,Urine Clear (Clear); Bilirubin,Urine Negative (Negative); Blood,Urine Negative (Negative); Color,Urine Yellow; Glucose,Urine (UA) Negative (Negative); Ketones,Urine Negative (Negative); Leukocyte Esterase,Urine Negative (Negative); Nitrite,Urine Negative (Negative); PH, Urine 5.5 (5.0-8.0); Protein,Urine Trace (Negative); Urobilinogen,Urine <2.0 mg/dL (<2.0)
[2018-11-12 22:32] LABS: Specific Gravity,Urine >1.050 (1.001-1.035)
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
[2018-11-13] MEDS: HYDROmorphone 0.5 MG/0.5 ML SYRINGE IVP PRN ×3 (08:48→16:49)
[2018-11-13] MEDS: ONDANSETRON 4 MG/2 ML VIAL IVP PRN (08:48)
[2018-11-13] MEDS: SODIUM CHLORIDE 0.9% 500 ML 500 ML in EMPTY BAG 1 BAG IV PRN (10:08)
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
[2018-11-13] MEDS: PANTOPRAZOLE 40 MG/10 ML VIAL IVP SCH (17:40)
[2018-11-13] MEDS: MELATONIN 3 MG TABLET PO SCH (20:40)
[2018-11-13] MEDS: LATANOPROST 0.005% OPHTH DROPS 2.5 ML BTL BOTH EYES SCH (20:40)
[2018-11-13] MEDS: METOPROLOL TARTRATE 25 MG TAB PO SCH (20:40)
[2018-11-13] MEDS: NEOMYCIN-BACITRACIN-POLY OINT 14 GM TUBE TOPICAL SCH (20:40)
[2018-11-13] MEDS: HEPARIN SODIUM,PORCINE 5,000 UNIT/ML 1 ML VIAL SQ SCH (20:40)
[2018-11-13] MEDS ORDERED: ALPRAZolam 0.25 MG TAB PO PRN (21:00)
[2018-11-14] MEDS: HYDROmorphone 0.5 MG/0.5 ML SYRINGE IVP PRN ×4 (00:16→16:34)
[2018-11-14] MEDS: METOPROLOL TARTRATE 25 MG TAB PO SCH ×2 (07:59→21:09)
[2018-11-14] MEDS: HEPARIN SODIUM,PORCINE 5,000 UNIT/ML 1 ML VIAL SQ SCH ×2 (07:59→21:09)
[2018-11-14] MEDS: PANTOPRAZOLE 40 MG/10 ML VIAL IVP SCH (07:59)
[2018-11-14] MEDS: CITALOPRAM HYDROBROMIDE 10 MG TAB PO SCH (07:59)
[2018-11-14] MEDS: NEOMYCIN-BACITRACIN-POLY OINT 14 GM TUBE TOPICAL SCH ×2 (08:01→21:10)
[2018-11-14 08:06] LABS: Albumin 3.5 g/dL (3.5-5.0); Calcium 8.3 mg/dL (8.4-10.2); Potassium 3.3 mmol/L (3.5-5.1); Total Bilirubin 0.7 mg/dL (0.2-1.3); Total Protein 6.5 g/dL (6.3-8.2)
[2018-11-14] MEDS ORDERED: Potassium Replacement Protocol 1 EACH MISC MISCELLANE PRN (08:13)
[2018-11-14 08:20] LABS: Anisocytosis Slight; Basophils % (A) 0 %; Eosinophils # (A) 0.1 k/uL (0-0.7); Eosinophils % (A) 1 %; HCT 28.3 % (34.0-46.0); HGB 9.7 gm/dL (11.4-16.0); Hypochromasia Slight; Lymphocytes # (A) 0.8 k/uL (1.0-4.8); Lymphocytes % (A) 21 %; MCH 30.8 pg (25.0-35.0); MCHC 34.2 g/dL (31.0-37.0); MCV 90.1 fL (80.0-100.0); Mean Platelet Volume 8.7; Monocytes # (A) 0.3 k/uL (0-1.0); Monocytes % (A) 7 %; Neutrophils # (A) 2.7 k/uL (1.3-7.7); Neutrophils % (A) 70 %; Platelet Count 114 k/uL (150-450); Poikilocytosis Moderate; RBC 3.15 m/uL (3.80-5.40); RDW 18.8 % (11.5-15.5); WBC 3.9 k/uL (3.8-10.6)
[2018-11-14] MEDS: POTASSIUM CHLORIDE ER 20 MEQ TAB.ER PO SCH ×2 (09:21→10:59)
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
--- NOTE | 2018-11-14 10:44 | P.PN ---
Subjective Progress Note Date: 11/14/18 CHIEF COMPLAINT: Abdominal pain HISTORY OF PRESENT ILLNESS: The patient is a 68 year old with history of metastatic breast cancer to the bones. She presented with small bowel obstruction now resolved. She reports moderate passage of flatus. She denies any bowel movements yesterday although documented in her chart. Family at bedside also confirms last bowel movement was 2 days ago that they witnessed. She reports resolution of abdominal pain. PHYSICAL EXAM: VITALS: Reviewed CONSTITUTIONAL: Well developed and in no acute distress. EYES: Conjuctivae without sclera icterus. Pupils are equally round and reactive to light. Extraocular movements grossly intact. HEAD, EARS, NOSE, THROAT: Moist buccal mucosa. Head is atraumatic, normocephalic. Hears conversational speech. No nasal drainage. NECK: Supple. No JV distention. No thyroidomegaly. RESPIRATORY: Non-labored respirations and equal bilateral excursions. No gross wheezes. CARDIOVASCULAR: Regular rate and rhythm. Palpable 2+ radial pulses. ABDOMEN: Soft, nontender, obese. No peritonitis. Minimal distention MUSCULOSKELETAL: Nail and fingers with good capillary refill. SKIN: Warm and well perfused with good skin turgor. NEUROLOGIC: Cranial nerves I through XII grossly intact. Sensation upper and extremities intact. No focal or lateralizing signs. PSYCH: Appropriate affect. Alert and oriented to person, place and time. Di splays appropriate insight. CLINCAL LABS: Reviewed. WBC count normal ASSESSMENT: 1. Small bowel obstruction, acute 2. History of metastatic breast cancer to bone. 3. Chemotherapy with anemia PLAN: 1. May advance diet as tolerated. 2. No surgical intervention needed. Objective - Vital Signs Vital signs: Vital Signs Temp 97.5 F L 11/14/18 05:25 Pulse 72 11/14/18 05:25 Resp 16 11/14/18 05:25 BP 103/55 11/14/18 05:25 Pulse Ox 98 11/14/18 05:25 Intake & Output 11/13/18 11/14/18 11/14/18 18:59 06:59 18:59 Intake Total 1219.667 360 Balance 1219.667 360 Intake: IV 240 ns@20 240 Intake, IV Titration 459.667 Amount Sodium Chloride 0.9% 500 459.667 ml 500 ml In Empty Bag 1 bag @ 20 mls/hr IV .Q24H PRN Rx#:[id number] Oral 760 120 Other: Voiding Method Diaper Diaper Toilet Incontinent # Voids 2 2 # Bowel Movements 1 - Labs CBC & Chem 7: 11/14/18 06:40 11/14/18 06:40 Labs: Abnormal Lab Results - Last 24 Hours (Table) 11/14/18 11/14/18 Range/Units 06:40 06:40 RBC 3.15 L (3.80-5.40) m/uL Hgb 9.7 L (11.4-16.0) gm/dL Hct 28.3 L (34.0-46.0) % RDW 18.8 H (11.5-15.5) % Plt Count 114 L (150-450) k/uL Lymphocytes # 0.8 L (1.0-4.8) k/uL Potassium 3.3 L (3.5-5.1) mmol/L Chloride 109 H (98-107) mmol/L Carbon Dioxide 20 L (22-30) mmol/L Calcium 8.3 L (8.4-10.2) mg/dL Assessment and Plan (1) History of appendectomy Current Visit: Yes Status: Acute Code(s): Z90.49 - ACQUIRED ABSENCE OF OTHER SPECIFIED PARTS OF DIGESTIVE TRACT SNOMED Code(s): 183605925 (2) Bowel obstruction Current Visit: Yes Status: Acute Code(s): K56.609 - UNSP INTESTNL OBST, UNSP TO PARTIAL VERSUS COMPLETE OBST SNOMED Code(s): 72928775 (3) Dehydration Current Visit: Yes Status: Acute Code(s): E86.0 - DEHYDRATION SNOMED Code(s): 76489998 (4) Metastatic breast cancer Current Visit: Yes Status: Acute Priority: High Code(s): C50.919 - MALIGNANT NEOPLASM OF UNSP SITE OF UNSPECIFIED FEMALE BREAST SNOMED Code(s): 116150712 (5) Antineoplastic chemotherapy induced anemia Current Visit: No Status: Acute Priority: High Code(s): D64.81 - ANEMIA DUE TO ANTINEOPLASTIC CHEMOTHERAPY; T45.1X5A - ADVERSE EFFECT OF ANTINEOPLASTIC AND IMMUNOSUP DRUGS, INIT SNOMED Code(s): 822966336
[2018-11-14] MEDS ORDERED: POTASSIUM CHLORIDE ER 20 MEQ TAB.ER PO STA (16:50)
--- NOTE | 2018-11-14 16:57 | P.PN ---
Subjective Progress Note Date: 11/14/18 this is a [id number] old lady patient of Dr. Valadez. She has underlying history of breast cancer, with metastases to the bone, receiving chemotherapy, was diagnosed to have breast cancer in 1984. She also has history of atrial fibrillation, chronic constipation, and is not on any anticoagulation long-term. Presented to the ER secondary to increasing abdominal distention, with nausea and vomiting 3 days to 4 days prior to admission. she is on chronic or pH, and is on Taxol for breast cancer, no brain metastases. Patient has liquid stools, without any fever and chills. Patient's abdominal distention has gotten worse, and was subsequently seen in the emergency room in the emergency room, CAT scan of the abdomen and pelvis was done,lung bases shows mild pleural thickening, atelectasis,coronary calcifications, bowel gas pattern is abnormal with dilated fluid filled loops of ileum and jejunum down to the distal ileum, were the transition point fails to demonstrate any etiology. Therefore etiology most likely are related to adhesions, no bowel wall thickening or mesenteric adenomatous change, no pneumatosis or pneumoperitoneum, colon is not dilated. Small bowel obstruction in moderate degree, is suspected with widespread skeletal metastatic disease, consult was made with general surgery, Dr. Butt. Patient is not on any NG tube, clear liquid diet has been initiated, no laxatives were ordered from general surgery, medical management is expected, no surgical plans at this time 11/14, patient still has abdominal distention, and abnormal masses in the abdomen, no flatus yet, patient has abdominal pain, I attest been increased, the soft diet, however patient would not tolerate these as the patient has more abdominal pain, we'll going to still stay on full liquid diet, patient would have repeat x-ray abdomen today. Request ambulation, unable to restart linzess secondary to obstructive processes, mainly in the small bowel area x-ray requested today cardiac function tests normal potassium replacement today Objective - Vital Signs Vital signs: Vital Signs Temp 97.6 F 11/14/18 12:58 Pulse 60 11/14/18 14:40 Resp 17 11/14/18 14:40 BP 112/56 11/14/18 12:58 Pulse Ox 96 11/14/18 12:58 Intake & Output 11/13/18 11/14/18 11/14/18 18:59 06:59 18:59 Intake Total 1219.964 542 2758 Balance 1219.712 899 1470 Intake: IV 240 ns@20 240 Intake, IV Titration 459.667 Amount Sodium Chloride 0.9% 500 459.667 ml 500 ml In Empty Bag 1 bag @ 20 mls/hr IV .Q24H PRN Rx#:[id number] Oral [id number] [id number] Other: Voiding Method Diaper Diaper Toilet Incontinent # Voids 2 2 # Bowel Movements 1 - Constitutional General appearance: Present: cooperative, no acute distress - EENT Eyes: Present: anicteric sclerae, EOMI, PERRLA, dentition normal, normal appearance ENT: Present: NA/AT, normal oropharynx - Neck Neck: Present: normal ROM - Respiratory Respiratory: bilateral: CTA, negative: diminished, dullness, rales - Cardiovascular Rhythm: regular Heart sounds: normal: S1, S2 Abnormal Heart Sounds: Absent: systolic murmur, diastolic murmur, rub, S3 Gallop, S4 Gallop, click, other - Gastrointestinal General gastrointestinal: Present: decreased bowel sounds (Abdomen hard masses multi-areas of the abdomen), soft - Integumentary Integumentary: Present: decreased turgor, normal - Neurologic Neurologic: Present: CNII-XII intact - Musculoskeletal Musculoskeletal: Present: gait normal, strength equal bilaterally - Labs CBC & Chem 7: 11/14/18 06:40 11/14/18 06:40 Labs: Abnormal Lab Results - Last 24 Hours (Table) 11/14/18 11/14/18 Range/Units 06:40 06:40 RBC 3.15 L (3.80-5.40) m/uL Hgb 9.7 L (11.4-16.0) gm/dL Hct 28.3 L (34.0-46.0) % RDW 18.8 H (11.5-15.5) % Plt Count 114 L (150-450) k/uL Lymphocytes # 0.8 L (1.0-4.8) k/uL Potassium 3.3 L (3.5-5.1) mmol/L Chloride 109 H (98-107) mmol/L Carbon Dioxide 20 L (22-30) mmol/L Calcium 8.3 L (8.4-10.2) mg/dL Assessment and Plan Plan: 1. Small bowel obstruction, from distal ileum to jejunum without any significant transition point, adhesions are suspected, patient was seen by general surgery, clear liquid diet has been recommended, patient does not require an NG tube at this time, no laxatives or enemas were prescribed for the patient at this time, colon is not dilated. No bowel perforation noted. Full liquid diet today, x-rays to be done today 6:30 2. Stage IV breast cancer metastasis to the bone currently undergoing chemotherapy. Consult with Dr. Vega. 3. Anemia of chronic disease. Recheck CBC. 4. History of atrial fibrillation off anticoagulation. Patient is on aspirin only which will be placed on hold. restart Lopressor 25 mg twice daily. 5. Chronic pain secondary to metastatic cancer. Continue fentanyl patch, Robert, Elavil, Robert. 6. Chronic constipation, was on linzess, we'll going to hold it as a small bowel obstruction, hold Elavil secondary to constipation checked TSH normal 6. Recurrent depression. Continue Celexa 10 mg daily.continue Xanax 7. DVT prophylaxis. Heparin subcu 8. GI prophylaxis. Pepcid
--- NOTE | 2018-11-14 20:17 | XR ---
EXAMINATION TYPE: XR abdomen 2V DATE OF EXAM: 11/14/2018 CLINICAL DATA: 68 year-old female abdominal pain and distention, small bowel obstruction, PHH COMPARISON: CT 11/12/2018 FINDINGS: Surgical clips in the right mid to lower abdomen. Scattered colon gas is present throughout extending distally to the rectum where mild stool is present. No evidence for free intraperitoneal air. Scattered small colonic air-fluid levels are demonstrated. No dilated small bowel loops. Some small air-fluid levels in the small bowel as well. Bipolar left hip hemiarthroplasty. Degenerative changes of the right hip. IMPRESSION: 1. Nonobstructive bowel gas pattern. Scattered air-fluid levels throughout air-filled colon and withi n some central small bowel loops. Correlate for a generalized ileus or findings of resolving small [place] wel obstruction. 2. No free air
[2018-11-14] MEDS: MELATONIN 3 MG TABLET PO SCH (21:09)
[2018-11-14] MEDS: LATANOPROST 0.005% OPHTH DROPS 2.5 ML BTL BOTH EYES SCH (21:10)
[2018-11-15] MEDS: HYDROmorphone 0.5 MG/0.5 ML SYRINGE IVP PRN ×6 (01:13→23:08)
[2018-11-15 07:56] LABS: Anisocytosis Slight; Basophils % (A) 0 %; Eosinophils # (A) 0.1 k/uL (0-0.7); Eosinophils % (A) 1 %; HCT 28.5 % (34.0-46.0); HGB 9.4 gm/dL (11.4-16.0); Hypochromasia Slight; Lymphocytes # (A) 0.5 k/uL (1.0-4.8); Lymphocytes % (A) 15 %; MCH 30.5 pg (25.0-35.0); MCV 92.3 fL (80.0-100.0); Mean Platelet Volume 8.1; Monocytes # (A) 0.2 k/uL (0-1.0); Monocytes % (A) 4 %; Neutrophils # (A) 2.9 k/uL (1.3-7.7); Neutrophils % (A) 79 %; Platelet Count 110 k/uL (150-450); Poikilocytosis Slight; RBC 3.09 m/uL (3.80-5.40); RDW 18.6 % (11.5-15.5); WBC 3.6 k/uL (3.8-10.6)
[2018-11-15 08:02] LABS: Albumin 3.6 g/dL (3.5-5.0); Calcium 8.2 mg/dL (8.4-10.2); Potassium 4.3 mmol/L (3.5-5.1); Total Bilirubin 0.9 mg/dL (0.2-1.3); Total Protein 6.3 g/dL (6.3-8.2)
[2018-11-15] MEDS: CITALOPRAM HYDROBROMIDE 10 MG TAB PO SCH (09:12)
[2018-11-15] MEDS: HEPARIN SODIUM,PORCINE 5,000 UNIT/ML 1 ML VIAL SQ SCH ×2 (09:12→22:58)
[2018-11-15] MEDS: METOPROLOL TARTRATE 25 MG TAB PO SCH ×2 (09:12→22:59)
[2018-11-15] MEDS: NEOMYCIN-BACITRACIN-POLY OINT 14 GM TUBE TOPICAL SCH ×2 (09:13→23:16)
[2018-11-15] MEDS: PANTOPRAZOLE 40 MG/10 ML VIAL IVP SCH (09:13)
--- NOTE | 2018-11-15 11:42 | P.PN ---
<Betsy Jenkins A - Last Filed: 11/15/18 11:38> Subjective Progress Note Date: 11/15/18 CHIEF COMPLAINT: Abdominal pain HISTORY OF PRESENT ILLNESS: Patient seen and examined this morning at the bedside with Dr. Butt. Patient reports having a bowel movement on Thursday. She states she was passing flatus yesterday but has not passed flatus yet this morning. She reports mild abdominal tenderness but states it is improved since coming to the hospital. Tolerating full liquid diet. Denies nausea or vomiting. PHYSICAL EXAM: VITAL SIGNS: Currently stable. GENERAL: Well-developed in no acute distress. HEENT: No sclera icterus. Extraocular movements grossly intact. Moist buccal mucosa. Head is atraumatic, normocephalic. Hears conversational speech. No nasal drainage. NECK: Supple without lymphadenopathy. CHEST: Non-labored respirations and equal bilateral excursions. CARDIOVASCULAR: Regular rate with regular rhythm. Palpable 2+ radial pulses. ABDOMEN: Soft. Mild distention. Nontender. Positive bowel sounds. MUSCULOSKELETAL: No clubbing, cyanosis or edema. NEUROLOGIC: No focal or lateralizing signs. Cranial nerves II through XII grossly intact. PSYCH: Appropriate affect. Alert and oriented to person, place and time. SKIN: Well perfused. Good skin turgor. ASSESSMENT: 1. Small bowel obstruction 2. History of breast cancer with metastasis to bone PLAN: 1. Continue full liquid diet. Advance as tolerated 2. Patient encouraged to increase activity as tolerated 3. No surgical intervention recommended Nurse practitioner note has been reviewed by physician. Signing provider agrees with the documented findings, assessment, and plan of care. Objective - Vital Signs Vital signs: Vital Signs Temp 98.5 F 11/15/18 05:00 Pulse 67 11/15/18 05:00 Resp 16 11/15/18 05:00 BP 107/65 11/15/18 05:00 Pulse Ox 96 11/15/18 05:00 Intake & Output 11/14/18 11/15/18 11/15/18 18:59 06:59 18:59 Intake Total 1150 Output Total 2 Balance 1150 -2 Weight 74 kg Intake: Oral 1150 Output: Urine 2 Other: Voiding Method Toilet Toilet Toilet # Voids 2 2 - Labs CBC & Chem 7: 11/15/18 06:51 11/15/18 06:51 Labs: Abnormal Lab Results - Last 24 Hours (Table) 11/15/18 11/15/18 Range/Units 06:51 06:51 WBC 3.6 L (3.8-10.6) k/uL RBC 3.09 L (3.80-5.40) m/uL Hgb 9.4 L (11.4-16.0) gm/dL Hct 28.5 L (34.0-46.0) % RDW 18.6 H (11.5-15.5) % Plt Count 110 L (150-450) k/uL Lymphocytes # 0.5 L (1.0-4.8) k/uL Chloride 108 H (98-107) mmol/L Calcium 8.2 L (8.4-10.2) mg/dL Assessment and Plan (1) Bowel obstruction Current Visit: Yes Status: Acute Code(s): K56.609 - UNSP INTESTNL OBST, UNSP TO PARTIAL VERSUS COMPLETE OBST SNOMED Code(s): 08137509 (2) Metastatic breast cancer Current Visit: Yes Status: Acute Priority: High Code(s): C50.919 - MALIGNANT NEOPLASM OF UNSP SITE OF UNSPECIFIED FEMALE BREAST SNOMED Code(s): 974903584 <Olimpia Butt N - Last Filed: 11/15/18 19:33> Subjective Patient has partial small bowel obstruction that is resolving. Objective - Vital Signs Vital signs: Vital Signs Temp 98.6 F 11/15/18 11:46 Pulse 66 11/15/18 11:46 Resp 16 11/15/18 11:46 BP 103/66 11/15/18 11:46 Pulse Ox 96 11/15/18 11:46 Intake & Output 11/15/18 11/15/18 11/16/18 06:59 18:59 06:59 Intake Total 600 Output Total 2 Balance -2 600 Weight 74 kg Intake: Oral 600 Output: Urine 2 Other: Voiding Method Toilet Toilet # Voids 2 - Labs CBC & Chem 7: 11/15/18 06:51 11/15/18 06:51 Labs: Abnormal Lab Results - Last 24 Hours (Table) 11/15/18 11/15/18 Range/Units 06:51 06:51 WBC 3.6 L (3.8-10.6) k/uL RBC 3.09 L (3.80-5.40) m/uL Hgb 9.4 L (11.4-16.0) gm/dL Hct 28.5 L (34.0-46.0) % RDW 18.6 H (11.5-15.5) % Plt Count 110 L (150-450) k/uL Lymphocytes # 0.5 L (1.0-4.8) k/uL Chloride 108 H (98-107) mmol/L Calcium 8.2 L (8.4-10.2) mg/dL Assessment and Plan (1) History of appendectomy Current Visit: Yes Status: Acute Code(s): Z90.49 - ACQUIRED ABSENCE OF OTHER SPECIFIED PARTS OF DIGESTIVE TRACT SNOMED Code(s): 824030196 (2) Bowel obstruction Current Visit: Yes Status: Acute Code(s): K56.609 - UNSP INTESTNL OBST, UNSP TO PARTIAL VERSUS COMPLETE OBST SNOMED Code(s): 81461099 (3) Dehydration Current Visit: Yes Status: Acute Code(s): E86.0 - DEHYDRATION SNOMED Code(s): 93529663 (4) Metastatic breast cancer Current Visit: Yes Status: Acute Priority: High Code(s): C50.919 - MALIGNANT NEOPLASM OF UNSP SITE OF UNSPECIFIED FEMALE BREAST SNOMED Code(s): 287777982 (5) Antineoplastic chemotherapy induced anemia Current Visit: No Status: Acute Priority: High Code(s): D64.81 - ANEMIA DUE TO ANTINEOPLASTIC CHEMOTHERAPY; T45.1X5A - ADVERSE EFFECT OF ANTINEOPLASTIC AND IMMUNOSUP DRUGS, INIT SNOMED Code(s): 611329072
--- NOTE | 2018-11-15 12:23 | CDI ---
Documentation Clarification Form Date: 11/15/2018 11:46:54 AM From: Suze Huitron RN, CCDS Admit Date: 11/12/2018 9:09:00 PM Patient Name: Omaira Strong Visit Number: [id number] Discharge Date: ATTENTION: The Clinical Documentation Specialists (CDI) and [facility] Coding Staff appreciate your assistance in clarifying documentation. Please respond to the clarification below the line at the bottom and electronically sign. The CDI & [facility] Coding staff will review the response and follow-up if needed. Please note: Queries are made part of the Legal Health Record. If you have any questions, please contact the author of this message via ITS. Dr. Olimpia Butt The patient presented with generalized abdominal pain, nausea and vomiting. History/Risk Factors: Metastatic breast cancer to the bone, Anemia Clinical Indicators: 68-year old female with onset of nausea and vomiting, confusion. Family reports that she has abdominal distention which is new. CT of her abdomen and pelvis: The bowel bas pattern is abnormal; with dilate fluid-filled loops of ileum and jejunum down to the distal ileum where the transition point fails to demonstrate and etiology. Therefore, the etiology is most likely adhesions. Vital signs: 112/54 84 16 98.2 98 % Treatment: Serial Abdomen x-ray's per orders Clear liquid diet (advance as tolerated Zofran IVP PRN Protonix 40 IVP Daily Dilaudid IVP PRN In your professional opinion, can you please clarify if the small bowel obstruction is? Complete Partial Incomplete Other, please specify Unable to determine (Last Revision: August 2017) Partial small bowel obstruction per note, 11/15/2018 MTDD
--- NOTE | 2018-11-15 13:57 | P.PN ---
Subjective Progress Note Date: 11/15/18 this is a [id number] old lady patient of Dr. Valadez. She has underlying history of breast cancer, with metastases to the bone, receiving chemotherapy, was diagnosed to have breast cancer in 1984. She also has history of atrial fibrillation, chronic constipation, and is not on any anticoagulation long-term. Presented to the ER secondary to increasing abdominal distention, with nausea and vomiting 3 days to 4 days prior to admission. she is on chronic or pH, and is on Taxol for breast cancer, no brain metastases. Patient has liquid stools, without any fever and chills. Patient's abdominal distention has gotten worse, and was subsequently seen in the emergency room in the emergency room, CAT scan of the abdomen and pelvis was done,lung bases shows mild pleural thickening, atelectasis,coronary calcifications, bowel gas pattern is abnormal with dilated fluid filled loops of ileum and jejunum down to the distal ileum, were the transition point fails to demonstrate any etiology. Therefore etiology most likely are related to adhesions, no bowel wall thickening or mesenteric adenomatous change, no pneumatosis or pneumoperitoneum, colon is not dilated. Small bowel obstruction in moderate degree, is suspected with widespread skeletal metastatic disease, consult was made with general surgery, Dr. Butt. Patient is not on any NG tube, clear liquid diet has been initiated, no laxatives were ordered from general surgery, medical management is expected, no surgical plans at this time 11/14, patient still has abdominal distention, and abnormal masses in the abdomen, no flatus yet, patient has abdominal pain, I attest been increased, the soft diet, however patient would not tolerate these as the patient has more abdominal pain, we'll going to still stay on full liquid diet, patient would have repeat x-ray abdomen today. Request ambulation, unable to restart linzess secondary to obstructive processes, mainly in the small bowel area x-ray requested today cardiac function tests normal potassium replacement today 11/15: Patient is currently on a full liquid diet and tolerating without any nausea or vomiting.. She states she did pass some gas last evening but none today. She has walked in the hallway and encouraged to increase this. She states she is feeling hungry. She has been afebrile, heart rate 66, blood pressure 103/66, pulse ox 96% on room air. WBC 3.6, hemoglobin 9.4, platelet count 110. Chloride 108, creatinine 0.87. Abdominal x-ray from yesterday a fternoon revealed nonobstructive bowel gas pattern. Scattered air fluid levels throughout air filled colon and with some central small bowel loops. Correlate for generalized ileus were findings of resolving small bowel obstruction. No free air. Patient may resume lLinzess which will be brought from home. Objective - Vital Signs Vital signs: Vital Signs Temp 98.6 F 11/15/18 11:46 Pulse 66 11/15/18 11:46 Resp 16 11/15/18 11:46 BP 103/66 11/15/18 11:46 Pulse Ox 96 11/15/18 11:46 Intake & Output 11/14/18 11/15/18 11/15/18 18:59 06:59 18:59 Intake Total 1150 600 Output Total 2 Balance 1150 -2 600 Weight 74 kg Intake: Oral 1150 600 Output: Urine 2 Other: Voiding Method Toilet Toilet Toilet # Voids 2 2 - Exam Review Of Systems: Constitutional: No fever, no chills, no night sweats. No weight change. No weakness, fatigue or lethargy. No daytime sleepiness. EENT: No headache. No blurred vision or double vision, no loss of vision. No loss of Hearing, no ringing in the ears, no dizziness. No nasal drainage or congestion. No epistaxis. No sore throat. Lungs: No shortness of breath, cough, no sputum production. No wheezing. Cardiovascular: No chest pain, no lower extremity edema. No palpitations. No paroxysmal nocturnal dyspnea. No orthopnea. No lightheadedness or dizziness. No syncopal episodes. Abdominal: No nausea, vomiting. No bowel movement. Reports hunger. Denies flatus. No loss of appetite. Genitourinary: No dysuria, increased frequency, urgency. No urinary retention. Musculoskeletal: No myalgias. No muscle weakness, no gait dysfunction, no frequent falls. No back pain. No neck pain. Integumentary: No wounds, no lesions. No rash or pruritus. No unusual bruising. No change in hair or nails. Neurologic: No aphasia. No facial droop. No change in mentation. No head injury. No headache. No paralysis. No paresthesia. Psychiatric: No depression. No anxiety. No mood swings. Endocrine: No abnormal blood sugars. No weight change. No excessive sweating or thirst. No cold intolerance. Physical exam: - Constitutional General appearance: Present: cooperative, no acute distress - EENT Eyes: Present: anicteric sclerae, EOMI, PERRLA, dentition normal, normal appearance ENT: Present: NA/AT, normal oropharynx - Neck Neck: Present: normal ROM - Respiratory Respiratory: bilateral: CTA, negative: diminished, dullness, rales - Cardiovascular Rhythm: regular Heart sounds: normal: S1, S2 Abnormal Heart Sounds: Absent: systolic murmur, diastolic murmur, rub, S3 Gallop, S4 Gallop, click, other - Gastrointestinal General gastrointestinal: Present: decreased bowel sounds (Abdomen hard masses multi-areas of the abdomen), soft - Integumentary Integumentary: Present: decreased turgor, normal - Neurologic Neurologic: Present: CNII-XII intact - Musculoskeletal Musculoskeletal: Present: gait normal, strength equal bilaterally - Labs CBC & Chem 7: 11/15/18 06:51 11/15/18 06:51 Labs: Abnormal Lab Results - Last 24 Hours (Table) 11/15/18 11/15/18 Range/Units 06:51 06:51 WBC 3.6 L (3.8-10.6) k/uL RBC 3.09 L (3.80-5.40) m/uL Hgb 9.4 L (11.4-16.0) gm/dL Hct 28.5 L (34.0-46.0) % RDW 18.6 H (11.5-15.5) % Plt Count 110 L (150-450) k/uL Lymphocytes # 0.5 L (1.0-4.8) k/uL Chloride 108 H (98-107) mmol/L Calcium 8.2 L (8.4-10.2) mg/dL Assessment and Plan Plan: 1. Small bowel obstruction, from distal ileum to jejunum without any significant transition point, adhesions are suspected, patient was seen by general surgery, clear liquid diet has been recommended, patient does not require an NG tube at this time, no laxatives or enemas were prescribed for the patient at this time, colon is not dilated. No bowel perforation noted. Full liquid diet today and advance per surgery. 2. Stage IV breast cancer metastasis to the bone currently undergoing chemotherapy. Consult with Dr. Vega. 3. Anemia of chronic disease. Recheck CBC. 4. History of paroxysmal atrial fibrillation off anticoagulation. Patient is on aspirin only which will be placed on hold. restart Lopressor 25 mg twice daily. 5. Chronic pain secondary to metastatic cancer. Continue fentanyl patch, Wheeler, Elavil, Wheeler. 6. Chronic constipation, refill linzess, hold Elavil secondary to constipation checked TSH normal 6. Recurrent depression. Continue Celexa 10 mg daily.continue Xanax 7. DVT prophylaxis. Heparin subcu 8. GI prophylaxis. Pepcid Discharge plan: Home most likely tomorrow Impression and plan of care have been directed as dictated by the signing physician. Susan Reese nurse practitioner acting as scribe for signing physician.
[2018-11-15] MEDS: LATANOPROST 0.005% OPHTH DROPS 2.5 ML BTL BOTH EYES SCH (22:58)
[2018-11-15] MEDS: MELATONIN 3 MG TABLET PO SCH (22:59)
[2018-11-16] MEDS: METOPROLOL TARTRATE 25 MG TAB PO SCH ×2 (07:34→21:11)
[2018-11-16] MEDS: CITALOPRAM HYDROBROMIDE 10 MG TAB PO SCH (07:35)
[2018-11-16] MEDS: PANTOPRAZOLE 40 MG TABLET PO SCH (07:35)
[2018-11-16] MEDS: HYDROmorphone 0.5 MG/0.5 ML SYRINGE IVP PRN ×4 (07:35→22:56)
[2018-11-16] MEDS: HEPARIN SODIUM,PORCINE 5,000 UNIT/ML 1 ML VIAL SQ SCH ×2 (07:35→21:09)
[2018-11-16 07:37] LABS: Anisocytosis Slight; Basophils % (A) 0 %; Eosinophils # (A) 0.1 k/uL (0-0.7); Eosinophils % (A) 2 %; HCT 29.3 % (34.0-46.0); HGB 9.8 gm/dL (11.4-16.0); Hypochromasia Slight; Lymphocytes # (A) 0.6 k/uL (1.0-4.8); Lymphocytes % (A) 15 %; MCH 30.5 pg (25.0-35.0); MCHC 33.4 g/dL (31.0-37.0); MCV 91.5 fL (80.0-100.0); Mean Platelet Volume 7.4; Monocytes # (A) 0.2 k/uL (0-1.0); Monocytes % (A) 4 %; Neutrophils # (A) 3.1 k/uL (1.3-7.7); Neutrophils % (A) 77 %; Platelet Count 128 k/uL (150-450); Poikilocytosis Slight; RDW 17.9 % (11.5-15.5); WBC 4.1 k/uL (3.8-10.6)
[2018-11-16] MEDS: ONDANSETRON 4 MG/2 ML VIAL IVP PRN (07:41)
[2018-11-16] MEDS: NEOMYCIN-BACITRACIN-POLY OINT 14 GM TUBE TOPICAL SCH ×2 (07:45→21:12)
[2018-11-16 07:48] LABS: Albumin 3.5 g/dL (3.5-5.0); Calcium 8.2 mg/dL (8.4-10.2); Potassium 3.7 mmol/L (3.5-5.1); Total Bilirubin 0.9 mg/dL (0.2-1.3); Total Protein 6.3 g/dL (6.3-8.2)
--- NOTE | 2018-11-16 12:04 | P.PN ---
<Betsy Jenkins - Last Filed: 11/16/18 12:00> Subjective Progress Note Date: 11/16/18 CHIEF COMPLAINT: Abdominal pain HISTORY OF PRESENT ILLNESS: Patient seen and examined this morning at the bedside this morning. She reports last BM was Thursday. Passing flatus occasionally. She denies abdominal pain. Tolerating diet. Denies nausea or vomiting. WBC 4.1. Hemoglobin 9.8. PHYSICAL EXAM: VITAL SIGNS: Currently stable. GENERAL: Well-developed in no acute distress. HEENT: No sclera icterus. Extraocular movements grossly intact. Moist buccal mucosa. Head is atraumatic, normocephalic. Hears conversational speech. No nasal drainage. NECK: Supple without lymphadenopathy. CHEST: Non-labored respirations and equal bilateral excursions. CARDIOVASCULAR: Regular rate with regular rhythm. Palpable 2+ radial pulses. ABDOMEN: Soft. Nondistended. Nontender. Positive bowel sounds. MUSCULOSKELETAL: No clubbing, cyanosis or edema. NEUROLOGIC: No focal or lateralizing signs. Cranial nerves II through XII grossly intact. PSYCH: Appropriate affect. Alert and oriented to person, place and time. SKIN: Well perfused. Good skin turgor. ASSESSMENT: 1. Small bowel obstruction 2. History of breast cancer with metastasis to bone PLAN: 1. Continue full liquid diet 2. Patient encouraged to increase activity as tolerated 3. Obtain upper GI with small bowel follow-through Nurse practitioner note has been reviewed by physician. Signing provider agrees with the documented findings, assessment, and plan of care. Objective - Vital Signs Vital signs: Vital Signs Temp 98.5 F 11/16/18 11:49 Pulse 67 11/16/18 11:49 Resp 20 11/16/18 11:49 BP 118/57 11/16/18 11:49 Pulse Ox 98 11/16/18 11:49 Intake & Output 11/15/18 11/16/18 11/16/18 18:59 06:59 18:59 Intake Total 600 Balance 600 Intake: Oral 600 Other: Voiding Method Toilet Toilet # Voids 2 - Labs CBC & Chem 7: 11/16/18 07:12 11/16/18 07:12 Labs: Abnormal Lab Results - Last 24 Hours (Table) 11/16/18 11/16/18 Range/Units 07:12 07:12 RBC 3.20 L (3.80-5.40) m/uL Hgb 9.8 L (11.4-16.0) gm/dL Hct 29.3 L (34.0-46.0) % RDW 17.9 H (11.5-15.5) % Plt Count 128 L (150-450) k/uL Lymphocytes # 0.6 L (1.0-4.8) k/uL Glucose 101 H (74-99) mg/dL Calcium 8.2 L (8.4-10.2) mg/dL Assessment and Plan (1) Bowel obstruction Current Visit: Yes Status: Acute Code(s): K56.609 - UNSP INTESTNL OBST, UNSP TO PARTIAL VERSUS COMPLETE OBST SNOMED Code(s): 92859438 (2) Metastatic breast cancer Current Visit: Yes Status: Acute Priority: High Code(s): C50.919 - MALIGNANT NEOPLASM OF UNSP SITE OF UNSPECIFIED FEMALE BREAST SNOMED Code(s): 816817269 <Olimpia Butt N - Last Filed: 11/16/18 16:54> Subjective Follow up on small bowel follow through confirms no complete bowel obstruction. Patient still reports moderate pain along the right lower quadrant at prior open appendectomy site. Prior surgery makes her symptoms high correlate for peritoneal adhesions. As her symptoms have not completely resolved, I discussed benefits and risks for robotic lysis of adhesions for overall improvement. As her WBC, Hgb, and platelet is fair, may proceed with surgical intervention. She wished to proceed. With her history of recent chemotherapy, she is at elevated luana-operative risks. Objective - Vital Signs Vital signs: Vital Signs Temp 98.5 F 11/16/18 11:49 Pulse 67 11/16/18 11:49 Resp 20 11/16/18 11:49 BP 118/57 11/16/18 11:49 Pulse Ox 98 11/16/18 11:49 Intake & Output 11/15/18 11/16/18 11/16/18 18:59 06:59 18:59 Intake Total 600 Balance 600 Intake: Oral 600 Other: Voiding Method Toilet Toilet Toilet # Voids 2 - Labs CBC & Chem 7: 11/16/18 07:12 11/16/18 07:12 Labs: Abnormal Lab Results - Last 24 Hours (Table) 11/16/18 11/16/18 Range/Units 07:12 07:12 RBC 3.20 L (3.80-5.40) m/uL Hgb 9.8 L (11.4-16.0) gm/dL Hct 29.3 L (34.0-46.0) % RDW 17.9 H (11.5-15.5) % Plt Count 128 L (150-450) k/uL Lymphocytes # 0.6 L (1.0-4.8) k/uL Glucose 101 H (74-99) mg/dL Calcium 8.2 L (8.4-10.2) mg/dL Assessment and Plan (1) History of appendectomy Current Visit: Yes Status: Acute Code(s): Z90.49 - ACQUIRED ABSENCE OF OTHER SPECIFIED PARTS OF DIGESTIVE TRACT SNOMED Code(s): 280264097 (2) Bowel obstruction Current Visit: Yes Status: Acute Code(s): K56.609 - UNSP INTESTNL OBST, UNSP TO PARTIAL VERSUS COMPLETE OBST SNOMED Code(s): 61459335 (3) Dehydration Current Visit: Yes Status: Acute Code(s): E86.0 - DEHYDRATION SNOMED Code(s): 02542203 (4) Metastatic breast cancer Current Visit: Yes Status: Acute Priority: High Code(s): C50.919 - MALIGNANT NEOPLASM OF UNSP SITE OF UNSPECIFIED FEMALE BREAST SNOMED Code(s): 294959750 (5) Antineoplastic chemotherapy induced anemia Current Visit: No Status: Acute Priority: High Code(s): D64.81 - ANEMIA DUE TO ANTINEOPLASTIC CHEMOTHERAPY; T45.1X5A - ADVERSE EFFECT OF ANTINEOPLASTIC AND IMMUNOSUP DRUGS, INIT SNOMED Code(s): 238243572
--- NOTE | 2018-11-16 12:06 | XR ---
EXAMINATION TYPE: XR abdomen 2V DATE OF EXAM: 11/16/2018 COMPARISON: 11/14/2018 HISTORY: Bowel obstruction TECHNIQUE: One view abdominal series FINDINGS: The osseous structures are intact. The bowel gas pattern is nonspecific. Air-fluid levels are seen a nd there is a prominent small bowel loops. Hypertrophic and degenerative change of the spine. Cathete r seen overlying the right heart border. Bilateral lower lobe consolidation and small effusion or ple ural thickening suspected. Severe arthropathy right hip and postsurgical change left hip. Surgical cl ips seen in the right paraspinal line. Air is seen in the rectum. Abnormal appearance of the osseous structures. IMPRESSION: 1. Nonspecific pattern partial obstruction in the differential diagnosis. 2. Markedly abnormal appearance to the osseous structures.
--- NOTE | 2018-11-16 13:33 | FL ---
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 Total Fluoroscopy Time: 2 minutes 33 seconds. Total images: 44. FINDINGS: The esophagus has a normal course and mucosa. There are moderate tertiary peristaltic contractions re sulting in delayed clearance of contrast from the esophagus. No hiatal hernia is identified. The patient had limited mobility and could not roll fully for optimal coating of the stomach. Allowing for this limitation, the stomach and duodenum are free of any persistent filling defect and demonstrate a normal mucosal pattern. Following administration of barium, serial films were carried out to 2 hours and 35 minutes. Barium i s seen to reach the colon. Loops of jejunum and ileum are compressed and examined under fluoroscopy. A couple scattered loops within both the proximal and mid small bowel are mildly dilated measuring up to 3.8 cm. For the most part, small bowel loops are normal caliber. Mucosal pattern is within normal limits. The terminal ileum is visualized and appears normal on spot images. IMPRESSION: 1. Moderate tertiary peristaltic contractions in and delayed clearance suggests presbyesophagus. 2. No specific abnormality of the stomach or duodenum allowing for limitations from limited barium co ating. 3. Small bowel transit time of 2 hours and 35 minutes is within the normal range. A couple scattered loops of small bowel are dilated up to 3.8 cm but for the most part, the loops are normal caliber. Fi ndings probably reflect sequela of recently relieved/resolved small bowel obstruction.
--- NOTE | 2018-11-16 16:55 | P.PN ---
Progress Note - Text Progress Note Date: 11/16/18 Follow up on small bowel follow through confirms no complete bowel obstruction. Patient still reports moderate pain along the right lower quadrant at prior open appendectomy site. Prior surgery makes her symptoms high correlate for peritoneal adhesions. As her symptoms have not completely resolved, I discussed benefits and risks for robotic lysis of adhesions for overall improvement. As her WBC, Hgb, and platelet is fair, may proceed with surgical intervention. She wished to proceed. With her history of recent chemotherapy, she is at elevated luana-operative risks.
[2018-11-16] MEDS: MELATONIN 3 MG TABLET PO SCH (21:10)
[2018-11-16] MEDS: LATANOPROST 0.005% OPHTH DROPS 2.5 ML BTL BOTH EYES SCH (21:11)
[2018-11-17] MEDS: HYDROmorphone 0.5 MG/0.5 ML SYRINGE IVP PRN ×4 (05:49→20:47)
[2018-11-17] MEDS: METOPROLOL TARTRATE 25 MG TAB PO SCH ×2 (08:01→20:32)
[2018-11-17] MEDS ORDERED: ceFAZolin IN SWFI 2 GM/20 ML SYRINGE IVP ONE (10:00)
[2018-11-17] MEDS: NEOMYCIN-BACITRACIN-POLY OINT 14 GM TUBE TOPICAL SCH ×2 (12:22→20:33)
[2018-11-17 12:28] LABS: Anisocytosis Slight; HCT 30.1 % (34.0-46.0); HGB 9.8 gm/dL (11.4-16.0); Hypochromasia Moderate; MCHC 32.6 g/dL (31.0-37.0); Macrocytosis Slight; Mean Platelet Volume 7.9; Platelet Count 144 k/uL (150-450); Poikilocytosis Slight; RBC 3.17 m/uL (3.80-5.40); RDW 19.1 % (11.5-15.5); WBC 4.1 k/uL (3.8-10.6)
[2018-11-17 12:41] LABS: ALT 23 U/L (9-52); AST 28 U/L (14-36); African American GFR (CKD) >90 (>60 ml/min/1.73 sqM); Albumin 3.7 g/dL (3.5-5.0); Alkaline Phosphatase 71 U/L (38-126); Anion Gap 10 mmol/L; Blood Urea Nitrogen 7 mg/dL (7-17); Calcium 8.3 mg/dL (8.4-10.2); Carbon Dioxide 26 mmol/L (22-30); Chloride 106 mmol/L (98-107); Glucose 82 mg/dL (74-99); Potassium 4.2 mmol/L (3.5-5.1); Sodium 142 mmol/L (137-145); Total Bilirubin 0.8 mg/dL (0.2-1.3); Total Protein 6.5 g/dL (6.3-8.2)
--- NOTE | 2018-11-17 13:04 | P.PN ---
Subjective Progress Note Date: 11/17/18 Principal diagnosis: Nausea and vomiting, SBO Improving clinically. Still with complaints of pain at prior surgical site. Objective - Vital Signs Vital signs: Vital Signs Temp 98.2 F 11/17/18 12:28 Pulse 59 L 11/17/18 12:28 Resp 16 11/17/18 12:28 BP 119/70 11/17/18 12:28 Pulse Ox 96 11/17/18 12:28 Intake & Output 11/16/18 11/17/18 11/17/18 18:59 06:59 18:59 Intake Total 1070 Balance 1070 Intake: Oral 1070 Other: Voiding Method Toilet Toilet Toilet # Voids 2 1 - Exam General: Alert and Oriented x3, No Acute Distress Head: Normocytic, Atraumatic Neck: Supple Mouth: No Lesions, No Thrush Eyes: Non-sclerotic No Palpable cervical, supraclavicular, axillary adenopathy Heart: Regular Rate, Regular Rhythm Lungs: Clear to Ausculations, No Wheeze, No Rhonchi, Diminishe bilateral lower lobes, No increased respiratory effort noted Abdomen: Evidence of surgery, diminished +tenderness Extremities: No Edema, Equal Strength Neurological: No Focal Defects: No sensory or motor deficits noted Psych: Calm and cooperative - Labs CBC & Chem 7: 11/17/18 11:43 11/17/18 11:43 Labs: Abnormal Lab Results - Last 24 Hours (Table) 11/17/18 11/17/18 Range/Units 11:43 11:43 RBC 3.17 L (3.80-5.40) m/uL Hgb 9.8 L (11.4-16.0) gm/dL Hct 30.1 L (34.0-46.0) % RDW 19.1 H (11.5-15.5) % Plt Count 144 L (150-450) k/uL Calcium 8.3 L (8.4-10.2) mg/dL Assessment and Plan Plan: Chest x-ray: report reviewed CT scan - abdomen: report reviewed CT Scan - head: report reviewed CT scan - pelvis: report reviewed Assessment and Plan N/V/AP due to constipation and moderate SBO: - Surgery is following - No surgical intervention, self resolve - Small Bowel Follow-trough without evidence of complete obstruction - Vomiting has resolved, passing occassion flatus, tolerating liquids - POssible Lap with lysis of adhesions today Metastatic Breast cancer - Bone on chemotherapy with Taxol: - Chemotherapy to remain on hold until acute issues resolved - May follow-up with Dr. Weems after discharge for clearance to resume chemotherapy Chemotherapy induced bicytopenia (anemia and thrombocytopenia): - Currently blood counts are within safe ranges and continue to show improvement - No intervention needed at this time - Continue to monitor Bone mets on Xgeva
[2018-11-17] MEDS: HEPARIN SODIUM,PORCINE 5,000 UNIT/ML 1 ML VIAL SQ SCH ×2 (13:31→20:32)
[2018-11-17] MEDS: SODIUM CHLORIDE 0.9% 500 ML 500 ML in EMPTY BAG 1 BAG IV PRN (13:50)
[2018-11-17] MEDS ORDERED: HEPARIN SODIUM,PORCINE 5,000 UNIT/ML 1 ML VIAL SQ ONE (14:08)
--- NOTE | 2018-11-17 14:17 | P.PN ---
Subjective Progress Note Date: 11/17/18 this is a [id number] old lady patient of Dr. Valadez. She has underlying history of breast cancer, with metastases to the bone, receiving chemotherapy, was diagnosed to have breast cancer in 1984. She also has history of atrial fibrillation, chronic constipation, and is not on any anticoagulation long-term. Presented to the ER secondary to increasing abdominal distention, with nausea and vomiting 3 days to 4 days prior to admission. she is on chronic or pH, and is on Taxol for breast cancer, no brain metastases. Patient has liquid stools, without any fever and chills. Patient's abdominal distention has gotten worse, and was subsequently seen in the emergency room in the emergency room, CAT scan of the abdomen and pelvis was done,lung bases shows mild pleural thickening, atelectasis,coronary calcifications, bowel gas pattern is abnormal with dilated fluid filled loops of ileum and jejunum down to the distal ileum, were the transition point fails to demonstrate any etiology. Therefore etiology most likely are related to adhesions, no bowel wall thickening or mesenteric adenomatous change, no pneumatosis or pneumoperitoneum, colon is not dilated. Small bowel obstruction in moderate degree, is suspected with widespread skeletal metastatic disease, consult was made with general surgery, Dr. Butt. Patient is not on any NG tube, clear liquid diet has been initiated, no laxatives were ordered from general surgery, medical management is expected, no surgical plans at this time 11/14, patient still has abdominal distention, and abnormal masses in the abdomen, no flatus yet, patient has abdominal pain, I attest been increased, the soft diet, however patient would not tolerate these as the patient has more abdominal pain, we'll going to still stay on full liquid diet, patient would have repeat x-ray abdomen today. Request ambulation, unable to restart linzess secondary to obstructive processes, mainly in the small bowel area x-ray requested today cardiac function tests normal potassium replacement today 11/15: Patient is currently on a full liquid diet and tolerating without any nausea or vomiting.. She states she did pass some gas last evening but none today. She has walked in the hallway and encouraged to increase this. She states she is feeling hungry. She has been afebrile, heart rate 66, blood pressure 103/66, pulse ox 96% on room air. WBC 3.6, hemoglobin 9.4, platelet count 110. Chloride 108, creatinine 0.87. Abdominal x-ray from yesterday a fternoon revealed nonobstructive bowel gas pattern. Scattered air fluid levels throughout air filled colon and with some central small bowel loops. Correlate for generalized ileus were findings of resolving small bowel obstruction. No free air. Patient may resume lLinzess which will be brought from home. 11/17: Abdominal x-ray shows nonspecific pattern of partial obstruction in the differential diagnosis. Markedly abnormal appearance to the osseous structures. Upper GI with small bowel follow-through completed yesterday revealed moderate tertiary peristaltic contractions in and delayed clearance suggest presbyesophagus. No specific abnormality of the stomach or duodenum allowing for limitations from limited barium coating. Small bowel transit time normal. A couple scattered loops of small bowel were dilated up to 3.8 cm but for the most part loops are normal caliber. Findings probably reflect sequelae of recently resolved small bowel obstruction. The patient continues to have lower abdominal pain in the right lower quadrant. She states she had a small bowel movement yesterday. Vomiting has resolved. She is followed by general surgery with plan to proceed with robotic lysis of adhesions in the OR today. Patient is also followed by oncology. Patient has been afebrile, heart rate 77, blood pressure 125/62, pulse ox 96% on room air. Repeat lab work reveals white count 4.1, hemoglobin 9.8, platelet count 144. Electrolytes within normal limits, creatinine 0.77. Liver function tests within normal limits. Objective - Vital Signs Vital signs: Vital Signs Temp 98.6 F 11/17/18 04:38 Pulse 71 11/17/18 04:38 Resp 17 11/17/18 07:48 BP 122/74 11/17/18 04:38 Pulse Ox 95 11/17/18 04:38 Intake & Output 11/16/18 11/17/18 11/17/18 18:59 06:59 18:59 Intake Total 1070 Balance 1070 Intake: Oral 1070 Other: Voiding Method Toilet Toilet Toilet # Voids 2 1 - Exam Review Of Systems: Constitutional: No fever, no chills, no night sweats. No weight change. No weakness, fatigue or lethargy. No daytime sleepiness. EENT: No headache. No blurred vision or double vision, no loss of vision. No loss of Hearing, no ringing in the ears, no dizziness. No nasal drainage or congestion. No epistaxis. No sore throat. Lungs: No shortness of breath, cough, no sputum production. No wheezing. Cardiovascular: No chest pain, no lower extremity edema. No palpitations. No paroxysmal nocturnal dyspnea. No orthopnea. No lightheadedness or dizziness. No syncopal episodes. Abdominal: No nausea, vomiting resolved. Reports bowel movement. Reports hunger. Reports loss of appetite. Reports abdominal pain Genitourinary: No dysuria, increased frequency, urgency. No urinary retention. Musculoskeletal: No myalgias. No muscle weakness, no gait dysfunction, no frequent falls. No back pain. No neck pain. Integumentary: No wounds, no lesions. No rash or pruritus. No unusual bruising. No change in hair or nails. Neurologic: No aphasia. No facial droop. No change in mentation. No head injury. No headache. No paralysis. No paresthesia. Psychiatric: No depression. No anxiety. No mood swings. Endocrine: No abnormal blood sugars. No weight change. No excessive sweating or thirst. No cold intolerance. Physical exam: - Constitutional General appearance: Present: cooperative, no acute distress - EENT Eyes: Present: anicteric sclerae, EOMI, PERRLA, dentition normal, normal appearance ENT: Present: NA/AT, normal oropharynx - Neck Neck: Present: normal ROM - Respiratory Respiratory: bilateral: CTA, negative: diminished, dullness, rales - Cardiovascular Rhythm: regular Heart sounds: normal: S1, S2 Abnormal Heart Sounds: Absent: systolic murmur, diastolic murmur, rub, S3 Gallop, S4 Gallop, click, other - Gastrointestinal General gastrointestinal: Present: decreased bowel sounds (Abdomen hard masses multi-areas of the abdomen), soft, right lower quadrant tenderness - Integumentary Integumentary: Present: decreased turgor, normal - Neurologic Neurologic: Present: CNII-XII intact - Musculoskeletal Musculoskeletal: Present: gait normal, strength equal bilaterally - Labs CBC & Chem 7: 11/17/18 11:43 11/17/18 11:43 Assessment and Plan Plan: 1. Small bowel obstruction, from distal ileum to jejunum without any significant transition point, adhesions are suspected, patient was seen by general surgery, clear liquid diet has been recommended, patient does not require an NG tube at this time, no laxatives or enemas were prescribed for the patient at this time, colon is not dilated. No bowel perforation noted. Patient going to order for robotic lysis of adhesions. 2. Stage IV breast cancer metastasis to the bone currently undergoing chemotherapy. Consult with Dr. Gary snyder. 3. Anemia of chronic disease. Recheck CBC. 4. History of paroxysmal atrial fibrillation off anticoagulation. Patient is on aspirin only which will be placed on hold. restart Lopressor 25 mg twice daily. 5. Chronic pain secondary to metastatic cancer. Continue fentanyl patch, Norc o, Elavil, [place]. 6. Chronic constipation, refill linzess, hold Elavil secondary to constipation checked TSH normal 6. Recurrent depression. Continue Celexa 10 mg daily.continue Xanax 7. DVT prophylaxis. Heparin subcu 8. GI prophylaxis. Pepcid Discharge plan: Home most likely Impression and plan of care have been directed as dictated by the signing physician. Susan Reese nurse practitioner acting as scribe for signing physician.
[2018-11-17] MEDS ORDERED: ROCURONIUM BROMIDE 10 MG/ML 10 ML VIAL IV ONE (14:31)
[2018-11-17] MEDS ORDERED: PHENYLEPHRINE-0.9% NACL SYG 1 MG/10 ML SYRINGE ONE (14:31)
[2018-11-17] MEDS ORDERED: GLYCOPYRROLATE 0.2 MG/ML 2 ML VIAL ONE (14:31)
[2018-11-17] MEDS ORDERED: SUCCINYLCHOLINE CHLORIDE 100 MG/5 ML SYR IV ONE (14:31)
[2018-11-17] MEDS ORDERED: NEOSTIGMINE 1 MG/ML 10 ML VIAL ONE (14:31)
[2018-11-17] MEDS ORDERED: PROPOFOL 10 MG/ML 20 ML VIAL IV ONE (14:31)
[2018-11-17] MEDS ORDERED: MIDAZOLAM 2 MG/2 ML VIAL ONE (14:31)
[2018-11-17] MEDS ORDERED: fentaNYL (PF) 50 MCG/ML 2 ML AMP ONE (14:31)
[2018-11-17] MEDS ORDERED: BUPIVACAIN-EPI 0.5%-1:200,000 30 ML VIAL SQ ONE (14:58)
[2018-11-17] MEDS ORDERED: LACTATED RINGERS 1,000 ML IV ONE (15:30)
[2018-11-17] MEDS: HYDROmorphone 1 MG/ML 1 ML SYRINGE IVP ONE ×4 (16:32→17:03)
--- NOTE | 2018-11-17 16:32 | P.OP ---
Date of Procedure: 11/17/18 Description of Procedure: SURGEON: MICHELLE MATTHEWS MD PREOPERATIVE DIAGNOSES: 1. Recurrent small bowel obstruction 2. Right lower quadrant abdominal pain 3. History of appendectomy 4. Breast cancer with bone metastases 5. Chemotherapy-induced anemia 6. Chronic bone pain 7. Hypertensive heart disease 8. Depressive disorder 9. Generalized anxiety disorder 10. Chronic constipation 11. History of atrial flutter POSTOPERATIVE DIAGNOSES: 1. Recurrent small bowel obstruction 2. Right lower quadrant abdominal pain 3. History of appendectomy 4. Breast cancer with bone metastases 5. Chemotherapy-induced anemia 6. Chronic bone pain 7. Hypertensive heart disease 8. Depressive disorder 9. Generalized anxiety disorder 10. Chronic constipation 11. History of atrial flutter 12. Incarcerated incisional hernia right lower quadrant prior appendectomy 13. Peritoneal adhesions right lower quadrant Procedure(s) Performed: Robotic-assisted laparoscopic lysis of adhesions over 30 minutes Robotic-assisted laparoscopic reduction and repair of initial right lower quadrant incisional hernia 4 x 5 cm with mesh 11.[address] mesh Anesthesia: GETA Estimated Blood Loss (ml): 5 Pathology: none sent Condition: stable Disposition: floor Operative Findings: 1. Right lower quadrant incarcerated incisional hernia 4 x 5 cm from prior open appendectomy 2. Adhesions of the right lower quadrant with wide defects consistent with internal hernia all lysed. 3. Small bowel unremarkable 4. No peritoneal studding or metastatic peritoneal disease COMPLICATIONS: None. INDICATIONS: The patient is a 68-year-old female who presents with small bowel obstruction. Surgical intervention with laparoscopic versus robotic and open techniques were reviewed. Benefits and risks were thoroughly described. Informed consent was obtained. DESCRIPTION OF PROCEDURE: The patient was brought into the operating room and laid in supine position. After general induction, the abdomen had been prepped and draped in standard sterile fashion. Ioban draping was also placed. Prior to incision, a timeout protocol was confirmed with surgical team regarding the patient's name including procedures to be performed. The robot was primed prior to the procedure. A field block using local anesthetic was placed along hernia site including the proposed port sites. Initial incision was made with an #11 blade along the left upper quadrant. A 0 degree 5 mm laparoscopic trocar entry was performed and insufflated. An 8 mm port was placed along the right upper quadrant and another at the epigastrium under direct localization. Placements of the ports were 15 cm from the target anatomy and 10 cm apart. The da Zelda Xi robot was previously primed, prepped and draped then docked along the left side of the patient. I then sat at the robot Da Zelda Xi console where working arms of the robot included Bovie cautery connected to robotic scissors, vessel sealer, needle telephone directory distributor driver, and graspers were placed by the psychiatric nursing assistant. Fascial defect of 4 x 5 cm of the right lower quadrant was identified after cleaning the peritoneal adhesions of the abdominal wall and reducing an incarcerated omentum for over 30 minutes. The incarcerated contents was reduced as the peritoneal fat was cleaned from the abdominal wall. Next, hemostasis was checked with cautery. The hernia defect was oversewn using #1 Stratafix. Next, ventralight ST mesh 11.4 cm was placed with the rough side towards the abdominal wall. 2-0 VLOC 9 inch sutures were used to fixate the mesh. A final endoscopic imaging was obtained. The da Zelda Xi robot was undocked from the patient. I re-scrubbed into the case for closure of incisions. The left upper quadrant port was exchanged for a 12-mm trocar for removal needles and sponges. All instruments and pneumoperitoneum were evacuated from the abdominal cavity. The fascia of the 12-mm port was probed and less than 8-mm in size. The incisions were reapproximated using 4-0 Monocryl in an interrupted subcuticular fashion. Liquid glue was applied to the skin after cleansing the skin with normal saline and dilute hydrogen peroxide. An abdominal binder was placed. At the end of the procedure, needle, sponge, and instrument count had been verified correct by orthophotography technician. The patient was taken to the postanesthesia care unit in stable condition.
[2018-11-17] MEDS: CITALOPRAM HYDROBROMIDE 10 MG TAB PO SCH (17:13)
[2018-11-17] MEDS: PANTOPRAZOLE 40 MG TABLET PO SCH (17:13)
[2018-11-17] MEDS: ONDANSETRON 4 MG/2 ML VIAL IVP PRN (17:30)
[2018-11-17] MEDS: LATANOPROST 0.005% OPHTH DROPS 2.5 ML BTL BOTH EYES SCH (20:32)
[2018-11-17] MEDS: MELATONIN 3 MG TABLET PO SCH (20:32)
[2018-11-18] MEDS: HYDROmorphone 0.5 MG/0.5 ML SYRINGE IVP PRN ×6 (00:37→22:09)
[2018-11-18] MEDS: ACETAMINOPHEN TAB 325 MG TAB PO PRN ×2 (03:00→11:33)
[2018-11-18] MEDS: ONDANSETRON 4 MG/2 ML VIAL IVP PRN (03:37)
[2018-11-18] MEDS ORDERED: ceFAZolin IN SWFI 2 GM/20 ML SYRINGE IVP STA (04:47)
[2018-11-18] MEDS: SODIUM CHLORIDE 0.9% 1,000 ML IV SCH ×3 (05:06→22:19)
[2018-11-18] MEDS: SIMETHICONE 40 MG/0.6 ML DROPS 2,000 MG/30 ML BOTTLE PO SCH ×5 (05:07→22:11)
[2018-11-18 08:01] LABS: ALT 22 U/L (9-52); AST 30 U/L (14-36); African American GFR (CKD) >90 (>60 ml/min/1.73 sqM); Albumin 3.7 g/dL (3.5-5.0); Alkaline Phosphatase 73 U/L (38-126); Anion Gap 12 mmol/L; Blood Urea Nitrogen 8 mg/dL (7-17); Calcium 8.2 mg/dL (8.4-10.2); Carbon Dioxide 22 mmol/L (22-30); Chloride 104 mmol/L (98-107); Glucose 86 mg/dL (74-99); Potassium 4.3 mmol/L (3.5-5.1); Sodium 138 mmol/L (137-145); Total Bilirubin 0.8 mg/dL (0.2-1.3); Total Protein 6.4 g/dL (6.3-8.2)
[2018-11-18 08:11] LABS: Anisocytosis Slight; HCT 29.3 % (34.0-46.0); HGB 9.7 gm/dL (11.4-16.0); Hypochromasia Slight; MCH 30.4 pg (25.0-35.0); MCV 92.3 fL (80.0-100.0); Platelet Count 150 k/uL (150-450); Poikilocytosis Slight; RBC 3.18 m/uL (3.80-5.40); WBC 5.3 k/uL (3.8-10.6)
[2018-11-18] MEDS: PANTOPRAZOLE 40 MG TABLET PO SCH (08:45)
[2018-11-18] MEDS: METOPROLOL TARTRATE 25 MG TAB PO SCH ×2 (08:45→22:18)
[2018-11-18] MEDS: HEPARIN SODIUM,PORCINE 5,000 UNIT/ML 1 ML VIAL SQ SCH ×2 (08:45→22:11)
[2018-11-18] MEDS: CITALOPRAM HYDROBROMIDE 10 MG TAB PO SCH (08:45)
[2018-11-18] MEDS: NEOMYCIN-BACITRACIN-POLY OINT 14 GM TUBE TOPICAL SCH ×2 (08:46→22:18)
--- NOTE | 2018-11-18 10:19 | P.PN ---
<Betsy Jenkins A - Last Filed: 11/18/18 13:16> Subjective Progress Note Date: 11/18/18 CHIEF COMPLAINT: Abdominal pain HISTORY OF PRESENT ILLNESS: Patient seen and examined this morning at the bedside this morning. She is s/p robotic laparoscopic reduction and repair of right lower quadrant incisional hernia and lysis of adhesions. POD #1. Patient reports she is feeling well this morning. Pain is tolerable. She is passing flatus. Tolerating diet. Patient was febrile overnight with a tmax of 101.8. This morning she is 99.8. Patient reports using her incentive spirometry. PHYSICAL EXAM: VITAL SIGNS: Currently stable. GENERAL: Well-developed in no acute distress. HEENT: No sclera icterus. Extraocular movements grossly intact. Moist buccal mucosa. Head is atraumatic, normocephalic. Hears conversational speech. No nasal drainage. NECK: Supple without lymphadenopathy. CHEST: Non-labored respirations and equal bilateral excursions. CARDIOVASCULAR: Regular rate with regular rhythm. Palpable 2+ radial pulses. ABDOMEN: Soft. Nondistended. Minimal tenderness. Positive bowel sounds. Surgical incision sites clean dry and intact without drainage or signs of infection. MUSCULOSKELETAL: No clubbing, cyanosis or edema. NEUROLOGIC: No focal or lateralizing signs. Cranial nerves II through XII grossly intact. PSYCH: Appropriate affect. Alert and oriented to person, place and time. SKIN: Well perfused. Good skin turgor. ASSESSMENT: 1. Small bowel obstruction 2. History of breast cancer with metastasis to bone PLAN: 1. Continue current diet 2. Patient encouraged to increase activity as tolerated. PT/OT consult 3. Incentive spirometry 10 times an hour 4. Pain control. Dilaudid PRN for breakthrough pain. Resume patients home dose of [place] and Fentanyl patch 5. Continue antibiotics due to chemotherapy status Nurse practitioner note has been reviewed by physician. Signing provider agrees with the documented findings, assessment, and plan of care. Objective - Vital Signs Vital signs: Vital Signs Temp 99.8 F H 11/18/18 08:39 Pulse 86 11/18/18 04:00 Resp 18 11/18/18 04:00 BP 151/74 11/18/18 04:00 Pulse Ox 94 L 11/18/18 04:00 Intake & Output 11/17/18 11/18/18 11/18/18 18:59 06:59 18:59 Intake Total 1440 Output Total 5 Balance 1435 Intake: IV 1440 ns@20 140 Output: Estimated Blood Loss 5 Other: Voiding Method Toilet Toilet # Voids 1 3 - Labs CBC & Chem 7: 11/18/18 06:38 11/18/18 06:38 Labs: Abnormal Lab Results - Last 24 Hours (Table) 11/17/18 11/17/18 11/18/18 Range/Units 11:43 11:43 06:38 RBC 3.17 L 3.18 L (3.80-5.40) m/uL Hgb 9.8 L 9.7 L (11.4-16.0) gm/dL Hct 30.1 L 29.3 L (34.0-46.0) % RDW 19.1 H 18.0 H (11.5-15.5) % Plt Count 144 L (150-450) k/uL Calcium 8.3 L (8.4-10.2) mg/dL 11/18/18 Range/Units 06:38 RBC (3.80-5.40) m/uL Hgb (11.4-16.0) gm/dL Hct (34.0-46.0) % RDW (11.5-15.5) % Plt Count (150-450) k/uL Calcium 8.2 L (8.4-10.2) mg/dL Assessment and Plan (1) Bowel obstruction Current Visit: Yes Status: Acute Code(s): K56.609 - UNSP INTESTNL OBST, UNSP TO PARTIAL VERSUS COMPLETE OBST SNOMED Code(s): 43946643 (2) Metastatic breast cancer Current Visit: Yes Status: Acute Priority: High Code(s): C50.919 - MALIGNANT NEOPLASM OF UNSP SITE OF UNSPECIFIED FEMALE BREAST SNOMED Code(s): 206343784 <Olimpia Butt N - Last Filed: 11/18/18 18:38> Subjective As above. Incentive spirometry teaching reinforced at bedside. Continue antibiotics with recent history of chemotherapy. Also recommend scheduled toradol as antipyretic. Objective - Vital Signs Vital signs: Vital Signs Temp 97.7 F 11/18/18 14:15 Pulse 60 11/18/18 11:27 Resp 15 11/18/18 11:27 BP 121/60 11/18/18 11:27 Pulse Ox 93 L 11/18/18 11:27 Intake & Output 11/17/18 11/18/18 11/18/18 18:59 06:59 18:59 Intake Total 1440 Output Total 5 Balance 1435 Intake: IV 1440 ns@20 140 Output: Estimated Blood Loss 5 Other: Voiding Method Toilet Toilet Toilet # Voids 1 3 2 - Labs CBC & Chem 7: 11/18/18 06:38 11/18/18 06:38 Labs: Abnormal Lab Results - Last 24 Hours (Table) 11/18/18 11/18/18 Range/Units 06:38 06:38 RBC 3.18 L (3.80-5.40) m/uL Hgb 9.7 L (11.4-16.0) gm/dL Hct 29.3 L (34.0-46.0) % RDW 18.0 H (11.5-15.5) % Calcium 8.2 L (8.4-10.2) mg/dL Assessment and Plan (1) History of appendectomy Current Visit: Yes Status: Acute Code(s): Z90.49 - ACQUIRED ABSENCE OF OTHER SPECIFIED PARTS OF DIGESTIVE TRACT SNOMED Code(s): 287414739 (2) Bowel obstruction Current Visit: Yes Status: Acute Code(s): K56.609 - UNSP INTESTNL OBST, UNSP TO PARTIAL VERSUS COMPLETE OBST SNOMED Code(s): 26011250 (3) Dehydration Current Visit: Yes Status: Acute Code(s): E86.0 - DEHYDRATION SNOMED Code(s): 99263277 (4) Metastatic breast cancer Current Visit: Yes Status: Acute Priority: High Code(s): C50.919 - MALIGNANT NEOPLASM OF UNSP SITE OF UNSPECIFIED FEMALE BREAST SNOMED Code(s): 369206587 (5) Antineoplastic chemotherapy induced anemia Current Visit: No Status: Acute Priority: High Code(s): D64.81 - ANEMIA DUE TO ANTINEOPLASTIC CHEMOTHERAPY; T45.1X5A - ADVERSE EFFECT OF ANTINEOPLASTIC AND IMMUNOSUP DRUGS, INIT SNOMED Code(s): 309229138
[2018-11-18] MEDS: HYDROcodone/APAP 7.5-325MG 1 EACH TAB PO PRN (10:50)
--- NOTE | 2018-11-18 12:09 | P.PN ---
Subjective this is a [id number] old lady patient of Dr. Valadez. She has underlying history of breast cancer, with metastases to the bone, receiving chemotherapy, was diagnosed to have breast cancer in 1984. She also has history of atrial fibrillation, chronic constipation, and is not on any anticoagulation long-term. Presented to the ER secondary to increasing abdominal distention, with nausea and vomiting 3 days to 4 days prior to admission. she is on chronic or pH, and is on Taxol for breast cancer, no brain metastases. Patient has liquid stools, without any fever and chills. Patient's abdominal distention has gotten worse, and was subsequently seen in the emergency room in the emergency room, CAT scan of the abdomen and pelvis was done,lung bases shows mild pleural thickening, atelectasis,coronary calcifications, bowel gas pattern is abnormal with dilated fluid filled loops of ileum and jejunum down to the distal ileum, were the transition point fails to demonstrate any etiology. Therefore etiology most likely are related to adhesions, no bowel wall thickening or mesenteric adenomatous change, no pneumatosis or pneumoperitoneum, colon is not dilated. Small bowel obstruction in moderate degree, is suspected with widespread skeletal metastatic disease, consult was made with general surgery, Dr. Butt. Patient is not on any NG tube, clear liquid diet has been initiated, no laxatives were ordered from general surgery, medical management is expected, no surgical plans at this time 11/14, patient still has abdominal distention, and abnormal masses in the abdomen, no flatus yet, patient has abdominal pain, I attest been increased, the soft diet, however patient would not tolerate these as the patient has more abd ominal pain, we'll going to still stay on full liquid diet, patient would have repeat x-ray abdomen today. Request ambulation, unable to restart linzess secondary to obstructive processes, mainly in the small bowel area x-ray requested today cardiac function tests normal potassium replacement today 11/15: Patient is currently on a full liquid diet and tolerating without any nausea or vomiting.. She states she did pass some gas last evening but none today. She has walked in the hallway and encouraged to increase this. She states she is feeling hungry. She has been afebrile, heart rate 66, blood pressure 103/66, pulse ox 96% on room air. WBC 3.6, hemoglobin 9.4, platelet count 110. Chloride 108, creatinine 0.87. Abdominal x-ray from yesterday afternoon revealed nonobstructive bowel gas pattern. Scattered air fluid levels throughout air filled colon and with some central small bowel loops. Correlate for generalized ileus were findings of resolving small bowel obstruction. No free air. Patient may resume lLinzess which will be brought from home. 11/17: Abdominal x-ray shows nonspecific pattern of partial obstruction in the differential diagnosis. Markedly abnormal appearance to the osseous structures. Upper GI with small bowel follow-through completed yesterday revealed moderate tertiary peristaltic contractions in and delayed clearance suggest presbyesophagus. No specific abnormality of the stomach or duodenum allowing for limitations from limited barium coating. Small bowel transit time normal. A couple scattered loops of small bowel were dilated up to 3.8 cm but for the most part loops are normal caliber. Findings probably reflect sequelae of recently resolved small bowel obstruction. The patient continues to have lower abdominal pain in the right lower quadrant. She states she had a small bowel movement yesterday. Vomiting has resolved. She is followed by general surgery with plan to proceed with robotic lysis of adhesions in the OR today. Patient is also followed by oncology. Patient has been afebrile, heart rate 77, blood pressure 125/62, pulse ox 96% on room air. Repeat lab work reveals white count 4.1, hemoglobin 9.8, platelet count 144. Electrolytes within normal limits, creatinine 0.77. Liver function tests within normal limits. 11/18, patient underwent release of incarcerated incisional hernia 4 x 5 cm withlysis of adhesions right lower quadrantthrough Robotic assistance, there is no peritoneal studding or metastatic peritoneal disease found during laparoscopic surgery,on 12/04/2018 patient does not have any bowel movements, no nausea, no flatness, no chest pain shortness of breath, no NG tube currently clear liquid diet Objective - Vital Signs Vital signs: Vital Signs Temp 101.1 F H 11/18/18 11:27 Pulse 60 11/18/18 11:27 Resp 15 11/18/18 11:27 BP 121/60 11/18/18 11:27 Pulse Ox 93 L 11/18/18 11:27 Intake & Output 11/17/18 11/18/18 11/18/18 18:59 06:59 18:59 Intake Total 1440 Output Total 5 Balance 1435 Intake: IV 1440 ns@20 140 Output: Estimated Blood Loss 5 Other: Voiding Method Toilet Toilet Toilet # Voids 1 3 - Constitutional General appearance: Present: cooperative, no acute distress, obese - EENT Eyes: Present: EOMI, PERRLA, normal appearance ENT: Present: NA/AT, normal oropharynx - Neck Neck: Present: normal ROM - Respiratory Respiratory: right: wheezing, bilateral: CTA, negative: diminished, dullness, rales - Cardiovascular Rhythm: regular - Gastrointestinal General gastrointestinal: Present: absent bowel sounds, soft - Integumentary Integumentary: Present: normal - Neurologic Neurologic: Present: CNII-XII intact - Musculoskeletal Musculoskeletal: Present: gait normal, strength equal bilaterally - Psychiatric Psychiatric: Present: A&O x's 3, appropriate affect, intact judgment & insight - Labs CBC & Chem 7: 11/18/18 06:38 11/18/18 06:38 Labs: Abnormal Lab Results - Last 24 Hours (Table) 11/17/18 11/17/18 11/18/18 Range/Units 11:43 11:43 06:38 RBC 3.17 L 3.18 L (3.80-5.40) m/uL Hgb 9.8 L 9.7 L (11.4-16.0) gm/dL Hct 30.1 L 29.3 L (34.0-46.0) % RDW 19.1 H 18.0 H (11.5-15.5) % Plt Count 144 L (150-450) k/uL Calcium 8.3 L (8.4-10.2) mg/dL 11/18/18 Range/Units 06:38 RBC (3.80-5.40) m/uL Hgb (11.4-16.0) gm/dL Hct (34.0-46.0) % RDW (11.5-15.5) % Plt Count (150-450) k/uL Calcium 8.2 L (8.4-10.2) mg/dL Assessment and Plan Plan: 1. incarcerated incisional hernia status post laparoscopic robotic surgery on 11/17/2018 for release of incarcerated hernia and lysis of adhesions.Small bowel obstructionhas resolved, as per previous CT imaging from distal ileum to jejunum without any significant transition point, adhesions are suspected, patient was seen by general surgery, IV cefazolin 2 g every 8 hours 2. Stage IV breast cancer metastasis to the bone currently undergoing chemotherapy. Consult with Dr. Vega appreciated. 3. Anemia of chronic disease. Recheck CBC. 4. History of paroxysmal atrial fibrillation off anticoagulation. Patient is on aspirin only which will be placed on hold. restart Lopressor 25 mg twice daily. 5. Chronic pain secondary to metastatic cancer. Continue fentanyl patch, [place], Elavil, [place]. 6. Chronic constipation, hold linzessstatus post laparoscopic bowel surgery, hold Elavil secondary to constipation checked TSH normal 6. Recurrent depression. Continue Celexa 10 mg daily.continue Xanax 7. DVT prophylaxis. Heparin subcu 8. GI prophylaxis. Pepcid Discharge plan: Home most likely
[2018-11-18] MEDS: ceFAZolin IN SWFI 2 GM/20 ML SYRINGE IVP SCH ×2 (13:36→22:10)
[2018-11-18] MEDS: KETOROLAC 30 MG/ML 1 ML VIAL IVP SCH (18:54)
[2018-11-18] MEDS: LATANOPROST 0.005% OPHTH DROPS 2.5 ML BTL BOTH EYES SCH (22:11)
[2018-11-18] MEDS: MELATONIN 3 MG TABLET PO SCH (22:12)
[2018-11-19] MEDS: KETOROLAC 30 MG/ML 1 ML VIAL IVP SCH ×5 (01:13→23:14)
[2018-11-19] MEDS: HYDROmorphone 0.5 MG/0.5 ML SYRINGE IVP PRN ×3 (04:48→16:56)
[2018-11-19] MEDS: ceFAZolin IN SWFI 2 GM/20 ML SYRINGE IVP SCH ×3 (05:21→21:52)
[2018-11-19] MEDS: SODIUM CHLORIDE 0.9% 1,000 ML IV SCH ×2 (09:10→18:34)
[2018-11-19] MEDS: HYDROcodone/APAP 7.5-325MG 1 EACH TAB PO PRN (09:11)
[2018-11-19] MEDS: NEOMYCIN-BACITRACIN-POLY OINT 14 GM TUBE TOPICAL SCH ×2 (10:32→21:53)
[2018-11-19] MEDS: CITALOPRAM HYDROBROMIDE 10 MG TAB PO SCH (10:32)
[2018-11-19] MEDS: METOPROLOL TARTRATE 25 MG TAB PO SCH ×2 (10:32→21:52)
[2018-11-19] MEDS: HEPARIN SODIUM,PORCINE 5,000 UNIT/ML 1 ML VIAL SQ SCH ×2 (10:32→21:52)
[2018-11-19] MEDS: PANTOPRAZOLE 40 MG TABLET PO SCH (10:33)
[2018-11-19] MEDS: SIMETHICONE 40 MG/0.6 ML DROPS 2,000 MG/30 ML BOTTLE PO SCH ×4 (10:33→21:53)
--- NOTE | 2018-11-19 11:04 | P.PN ---
Subjective Progress Note Date: 11/19/18 this is a [id number] old lady patient of Dr. Valadez. She has underlying history of breast cancer, with metastases to the bone, receiving chemotherapy, was diagnosed to have breast cancer in 1984. She also has history of atrial fibrillation, chronic constipation, and is not on any anticoagulation long-term. Presented to the ER secondary to increasing abdominal distention, with nausea and vomiting 3 days to 4 days prior to admission. she is on chronic or pH, and is on Taxol for breast cancer, no brain metastases. Patient has liquid stools, without any fever and chills. Patient's abdominal distention has gotten worse, and was subsequently seen in the emergency room in the emergency room, CAT scan of the abdomen and pelvis was done,lung bases shows mild pleural thickening, atelectasis,coronary calcifications, bowel gas pattern is abnormal with dilated fluid filled loops of ileum and jejunum down to the distal ileum, were the transition point fails to demonstrate any etiology. Therefore etiology most likely are related to adhesions, no bowel wall thickening or mesenteric adenomatous change, no pneumatosis or pneumoperitoneum, colon is not dilated. Small bowel obstruction in moderate degree, is suspected with widespread skeletal metastatic disease, consult was made with general surgery, Dr. Butt. Patient is not on any NG tube, clear liquid diet has been initiated, no laxatives were ordered from general surgery, medical management is expected, no surgical plans at this time 11/14, patient still has abdominal distention, and abnormal masses in the abdomen, no flatus yet, patient has abdominal pain, I attest been increased, the soft diet, however patient would not tolerate these as the patient has more abdominal pain, we'll going to still stay on full liquid diet, patient would have repeat x-ray abdomen today. Request ambulation, unable to restart linzess secondary to obstructive processes, mainly in the small bowel area x-ray requested today cardiac function tests normal potassium replacement today 11/15: Patient is currently on a full liquid diet and tolerating without any nausea or vomiting.. She states she did pass some gas last evening but none today. She has walked in the hallway and encouraged to increase this. She states she is feeling hungry. She has been afebrile, heart rate 66, blood pressure 103/66, pulse ox 96% on room air. WBC 3.6, hemoglobin 9.4, platelet count 110. Chloride 108, creatinine 0.87. Abdominal x-ray from yesterday a fternoon revealed nonobstructive bowel gas pattern. Scattered air fluid levels throughout air filled colon and with some central small bowel loops. Correlate for generalized ileus were findings of resolving small bowel obstruction. No free air. Patient may resume lLinzess which will be brought from home. 11/17: Abdominal x-ray shows nonspecific pattern of partial obstruction in the differential diagnosis. Markedly abnormal appearance to the osseous structures. Upper GI with small bowel follow-through completed yesterday revealed moderate tertiary peristaltic contractions in and delayed clearance suggest presbyesophagus. No specific abnormality of the stomach or duodenum allowing for limitations from limited barium coating. Small bowel transit time normal. A couple scattered loops of small bowel were dilated up to 3.8 cm but for the most part loops are normal caliber. Findings probably reflect sequelae of recently resolved small bowel obstruction. The patient continues to have lower abdominal pain in the right lower quadrant. She states she had a small bowel movement yesterday. Vomiting has resolved. She is followed by general surgery with plan to proceed with robotic lysis of adhesions in the OR today. Patient is also followed by oncology. Patient has been afebrile, heart rate 77, blood pressure 125/62, pulse ox 96% on room air. Repeat lab work reveals white count 4.1, hemoglobin 9.8, platelet count 144. Electrolytes within normal limits, creatinine 0.77. Liver function tests within normal limits. 11/18, patient underwent release of incarcerated incisional hernia 4 x 5 cm withlysis of adhesions right lower quadrantthrough Robotic assistance, there is no peritoneal studding or metastatic peritoneal disease found during laparoscopic surgery,on 12/04/2018 patient does not have any bowel movements, no nausea, no flatness, no chest pain shortness of breath, no NG tube currently clear liquid diet 11/19: The patient is currently tolerating a regular diet. She states her pain is a 78. She states she is passing gas and has had a bowel movement. Temperature max 101.1 and urinalysis with urine culture ordered. Patient is on. Patient denies fever or chills this morning. She is using her incentive spirometry every hour. Anticipate probable discharge tomorrow. Objective - Vital Signs Vital signs: Vital Signs Temp 98.3 F 11/19/18 05:00 Pulse 75 07/05/19 05:00 Resp 18 11/19/18 05:00 BP 95/52 11/19/18 05:00 Pulse Ox 94 L 11/19/18 05:00 Intake & Output 11/18/18 11/19/18 11/19/18 18:59 06:59 18:59 Intake Total 3040 Balance 3040 Intake: Intake, IV Titration 1200 Amount Sodium Chloride 0.9% 1, 1200 000 ml @ 100 mls/hr IV . Q10H [facility] Rx#:[id number] Oral 1840 Other: Voiding Method Toilet Toilet # Voids 2 2 - Exam Review Of Systems: Constitutional: Reports fever, no chills, no night sweats. No weight change. No weakness, fatigue or lethargy. No daytime sleepiness. EENT: No headache. No blurred vision or double vision, no loss of vision. No loss of Hearing, no ringing in the ears, no dizziness. No nasal drainage or congestion. No epistaxis. No sore throat. Lungs: No shortness of breath, cough, no sputum production. No wheezing. Cardiovascular: No chest pain, no lower extremity edema. No palpitations. No paroxysmal nocturnal dyspnea. No orthopnea. No lightheadedness or dizziness. No syncopal episodes. Abdominal: No nausea, vomiting resolved. Reports bowel movement. Reports hunger. Reports loss of appetite. Reports abdominal pain Genitourinary: No dysuria, increased frequency, urgency. No urinary retention. Musculoskeletal: No myalgias. No muscle weakness, no gait dysfunction, no frequent falls. No back pain. No neck pain. Integumentary: No wounds, no lesions. No rash or pruritus. No unusual bruising. No change in hair or nails. Neurologic: No aphasia. No facial droop. No change in mentation. No head injury. No headache. No paralysis. No paresthesia. Psychiatric: No depression. No anxiety. No mood swings. Endocrine: No abnormal blood sugars. No weight change. No excessive sweating or thirst. No cold intolerance. Physical exam: - Constitutional General appearance: Present: cooperative, no acute distress - EENT Eyes: Present: anicteric sclerae, EOMI, PERRLA, dentition normal, normal appearance ENT: Present: NA/AT, normal oropharynx - Neck Neck: Present: normal ROM - Respiratory Respiratory: bilateral: CTA, negative: diminished, dullness, rales - Cardiovascular Rhythm: regular Heart sounds: normal: S1, S2 Abnormal Heart Sounds: Absent: systolic murmur, diastolic murmur, rub, S3 Gallop, S4 Gallop, click, other - Gastrointestinal General gastrointestinal: Present: decreased bowel sounds (Abdomen hard masses multi-areas of the abdomen), soft, right lower quadrant tenderness - Integumentary Integumentary: Present: decreased turgor, normal - Neurologic Neurologic: Present: CNII-XII intact - Musculoskeletal Musculoskeletal: Present: gait normal, strength equal bilaterally - Labs CBC & Chem 7: 11/18/18 06:38 11/18/18 06:38 Assessment and Plan Plan: 1. Small bowel obstruction, from distal ileum to jejunum without any significant transition point status post robotic lysis of adhesions. Patient is tolerating diet. Fever yesterday. Continue IV antibiotics, urinalysis. 2. Stage IV breast cancer metastasis to the bone currently undergoing chemotherapy. Consult with Dr. Gary snyder. 3. Anemia of chronic disease. Recheck CBC. 4. History of paroxysmal atrial fibrillation off anticoagulation. Patient is on aspirin only which will be placed on hold. restart Lopressor 25 mg twice daily. 5. Chronic pain secondary to metastatic cancer. Continue fentanyl patch, [place], Elavil, [place]. 6. Chronic constipation, refill linzess, hold Elavil secondary to constipation checked TSH normal 6. Recurrent depression. Continue Celexa 10 mg daily.continue Xanax 7. DVT prophylaxis. Heparin subcu 8. GI prophylaxis. Pepcid Discharge plan: Home most likely on Thursday Impression and plan of care have been directed as dictated by the signing physician. Susan Reese nurse practitioner acting as scribe for signing physician.
--- NOTE | 2018-11-19 11:50 | P.PN ---
<Betsy Jenkins A - Last Filed: 11/19/18 11:48> Subjective Progress Note Date: 11/19/18 CHIEF COMPLAINT: Abdominal pain HISTORY OF PRESENT ILLNESS: Patient seen and examined this morning at the bedside this morning. She is s/p robotic laparoscopic reduction and repair of right lower quadrant incisional hernia and lysis of adhesions. POD #2. Patient reports she is feeling well this morning. Pain is tolerable. She is passing flatus. She reports two bowel movements this morning. Tolerating diet. Afebrile this morning. PHYSICAL EXAM: VITAL SIGNS: Currently stable. GENERAL: Well-developed in no acute distress. HEENT: No sclera icterus. Extraocular movements grossly intact. Moist buccal mucosa. Head is atraumatic, normocephalic. Hears conversational speech. No nasal drainage. NECK: Supple without lymphadenopathy. CHEST: Non-labored respirations and equal bilateral excursions. CARDIOVASCULAR: Regular rate with regular rhythm. Palpable 2+ radial pulses. ABDOMEN: Soft. Nondistended. Nontender. Positive bowel sounds. Surgical incision sites clean dry and intact without drainage or signs of infection. MUSCULOSKELETAL: No clubbing, cyanosis or edema. NEUROLOGIC: No focal or lateralizing signs. Cranial nerves II through XII grossly intact. PSYCH: Appropriate affect. Alert and oriented to person, place and time. SKIN: Well perfused. Good skin turgor. ASSESSMENT: 1. Small bowel obstruction 2. History of breast cancer with metastasis to bone PLAN: 1. Continue current diet 2. Patient encouraged to increase activity as tolerated. PT/OT consult 3. Incentive spirometry 10 times an hour 4. Pain control. Dilaudid PRN for breakthrough pain. Continue patients home dose of [place] and Fentanyl patch 5. Continue antibiotics due to chemotherapy status 6. Anticipate discharge home in 24-48 hours Nurse practitioner note has been reviewed by physician. Signing provider agrees with the documented findings, assessment, and plan of care. Objective - Vital Signs Vital signs: Vital Signs Temp 98.3 F 11/19/18 05:00 Pulse 75 11/19/18 05:00 Resp 18 11/19/18 05:00 BP 95/52 11/19/18 05:00 Pulse Ox 94 L 11/19/18 05:00 Intake & Output 11/18/18 11/19/18 11/19/18 18:59 06:59 18:59 Intake Total 3040 Balance 3040 Intake: Intake, IV Titration 1200 Amount Sodium Chloride 0.9% 1, 1200 000 ml @ 100 mls/hr IV . Q10H [facility] Rx#:[id number] Oral 1840 Other: Voiding Method Toilet Toilet Toilet # Voids 2 2 1 # Bowel Movements 1 - Labs CBC & Chem 7: 11/18/18 06:38 11/18/18 06:38 Assessment and Plan (1) Bowel obstruction Current Visit: Yes Status: Acute Code(s): K56.609 - UNSP INTESTNL OBST, UNSP TO PARTIAL VERSUS COMPLETE OBST SNOMED Code(s): 43328674 (2) Metastatic breast cancer Current Visit: Yes Status: Acute Priority: High Code(s): C50.919 - MALIGNANT NEOPLASM OF UNSP SITE OF UNSPECIFIED FEMALE BREAST SNOMED Code(s): 774376504 <Olimpia Butt N - Last Filed: 11/19/18 16:33> Subjective Patient reports having multiple bowel movements and passing flatus. She is tolerating regular diet. Patient is clear from a surgical standpoint for discharge when medically stable. Objective - Vital Signs Vital signs: Vital Signs Temp 99.5 F 11/19/18 13:42 Pulse 73 11/19/18 13:42 Resp 18 11/19/18 13:42 BP 98/56 11/19/18 13:42 Pulse Ox 94 L 11/19/18 13:42 Intake & Output 11/18/18 11/19/18 11/19/18 18:59 06:59 18:59 Intake Total 3040 Balance 3040 Weight 74 kg Intake: Intake, IV Titration 1200 Amount Sodium Chloride 0.9% 1, 1200 000 ml @ 100 mls/hr IV . Q10H [facility] Rx#:[id number] Oral 1840 Other: Voiding Method Toilet Toilet Toilet # Voids 2 2 1 # Bowel Movements 1 - Labs CBC & Chem 7: 11/18/18 06:38 11/18/18 06:38 Labs: Abnormal Lab Results - Last 24 Hours (Table) 11/19/18 Range/Units 13:13 Urine Ketones 1+ H (Negative) Ur Leukocyte Esterase Small H (Negative) Urine WBC 7 H (0-5) /hpf Urine Mucus Rare H (None) /hpf Assessment and Plan (1) History of appendectomy Current Visit: Yes Status: Acute Code(s): Z90.49 - ACQUIRED ABSENCE OF OTHER SPECIFIED PARTS OF DIGESTIVE TRACT SNOMED Code(s): 138306023 (2) Bowel obstruction Current Visit: Yes Status: Acute Code(s): K56.609 - UNSP INTESTNL OBST, UNSP TO PARTIAL VERSUS COMPLETE OBST SNOMED Code(s): 65889055 (3) Dehydration Current Visit: Yes Status: Acute Code(s): E86.0 - DEHYDRATION SNOMED C ode(s): 24578448 (4) Metastatic breast cancer Current Visit: Yes Status: Acute Priority: High Code(s): C50.919 - MALIGNANT NEOPLASM OF UNSP SITE OF UNSPECIFIED FEMALE BREAST SNOMED Code(s): 015220239 (5) Antineoplastic chemotherapy induced anemia Current Visit: No Status: Acute Priority: High Code(s): D64.81 - ANEMIA DUE TO ANTINEOPLASTIC CHEMOTHERAPY; T45.1X5A - ADVERSE EFFECT OF ANTINEOPLASTIC AND IMMUNOSUP DRUGS, INIT SNOMED Code(s): 813618513
[2018-11-19 13:39] LABS: Appearance,Urine Clear (Clear); Bilirubin,Urine Negative (Negative); Blood,Urine Negative (Negative); Color,Urine Yellow; Glucose,Urine (UA) Negative (Negative); Ketones,Urine 1+ (Negative); Leukocyte Esterase,Urine Small (Negative); Mucus,Urine Rare /hpf; Nitrite,Urine Negative (Negative); PH, Urine 5.5 (5.0-8.0); Protein,Urine Negative (Negative); RBC,Urine <1 /hpf (0-5); Urobilinogen,Urine <2.0 mg/dL (<2.0)
[2018-11-19 14:57] VITALS: BMI 26.3
[2018-11-19] MEDS: ACETAMINOPHEN TAB 325 MG TAB PO PRN ×2 (16:54→23:21)
[2018-11-19] MEDS: LINZESS 145 MG PO SCH (17:25)
[2018-11-19 21:14] VITALS: RESP 16
[2018-11-19] MEDS: MELATONIN 3 MG TABLET PO SCH (21:51)
[2018-11-19] MEDS: LATANOPROST 0.005% OPHTH DROPS 2.5 ML BTL BOTH EYES SCH (21:51)
[2018-11-20] MEDS: HYDROcodone/APAP 7.5-325MG 1 EACH TAB PO PRN ×3 (01:29→16:13)
[2018-11-20] MEDS: KETOROLAC 30 MG/ML 1 ML VIAL IVP SCH ×2 (05:12→14:27)
[2018-11-20] MEDS: ceFAZolin IN SWFI 2 GM/20 ML SYRINGE IVP SCH (05:13)
[2018-11-20] MEDS: ONDANSETRON 4 MG/2 ML VIAL IVP PRN (06:07)
[2018-11-20] MEDS: SODIUM CHLORIDE 0.9% 1,000 ML IV SCH (06:28)
[2018-11-20] MEDS: METOPROLOL TARTRATE 25 MG TAB PO SCH (07:50)
[2018-11-20] MEDS: HEPARIN SODIUM,PORCINE 5,000 UNIT/ML 1 ML VIAL SQ SCH (07:50)
[2018-11-20] MEDS: PANTOPRAZOLE 40 MG TABLET PO SCH (07:50)
[2018-11-20] MEDS: NEOMYCIN-BACITRACIN-POLY OINT 14 GM TUBE TOPICAL SCH (07:51)
[2018-11-20] MEDS: SIMETHICONE 40 MG/0.6 ML DROPS 2,000 MG/30 ML BOTTLE PO SCH ×2 (07:52→14:27)
[2018-11-20] MEDS: CITALOPRAM HYDROBROMIDE 10 MG TAB PO SCH (07:52)
[2018-11-20] MEDS: LINZESS 145 MG PO SCH ×2 (07:54→09:54)
--- NOTE | 2018-11-20 08:50 | P.PN ---
Subjective Progress Note Date: 11/20/18 CHIEF COMPLAINT: Incarcerated incisional hernia with obstruction. HISTORY OF PRESENT ILLNESS: The patient is a 68 year old with history of metastatic breast cancer to the bones. She is status post incisional hernia repair. No reports of temperatures over 100.0. She is tolerating diet. She reports soreness, which is appropriate of hernia surgery. She is tolerating diet. PHYSICAL EXAM: VITALS: Reviewed CONSTITUTIONAL: Well developed and in no acute distress. EYES: Conjuctivae without sclera icterus. Pupils are equally round and reactive to light. Extraocular movements grossly intact. HEAD, EARS, NOSE, THROAT: Moist buccal mucosa. Head is atraumatic, normocephalic. Hears conversational speech. No nasal drainage. NECK: Supple. No JV distention. No thyroidomegaly. RESPIRATORY: Non-labored respirations and equal bilateral excursions. No gross wheezes. CARDIOVASCULAR: Regular rate and rhythm. Palpable 2+ radial pulses. ABDOMEN: Soft, nontender, obese. No peritonitis. Appropriate mild incisional tenderness at right lower quadrant. MUSCULOSKELETAL: Nail and fingers with good capillary refill. SKIN: Warm and well perfused with good skin turgor. NEUROLOGIC: Cranial nerves I through XII grossly intact. Sensation upper and extremities intact. No focal or lateralizing signs. PSYCH: Appropriate affect. Alert and oriented to person, place and time. Displays appropriate insight. CLINCAL LABS: Reviewed. WBC count normal. Hemoglobin stable at 9.8 ASSESSMENT: 1. Incarcerated incisional hernia, s/p repair 2. History of recent chemotherapy for metastatic breast cancer to bones. PLAN: 1. I reviewed that hernia repair surgery will generally be sore for at least 1 to 2 weeks. 2. No lifting over 4 pounds for 4 weeks, until December 18. 3. Clear from a surgical standpoint for discharge when medically stable. Objective - Vital Signs Vital signs: Vital Signs Temp 98.2 F 11/20/18 05:00 Pulse 62 11/20/18 05:00 Resp 16 11/20/18 05:00 BP 107/53 11/20/18 05:00 Pulse Ox 92 L 11/20/18 05:00 Intake & Output 11/19/18 11/20/18 11/20/18 18:59 06:59 18:59 Intake Total 1600 Balance 1600 Weight 74 kg Intake: Intake, IV Titration 1600 Amount Sodium Chloride 0.9% 1, 1600 000 ml @ 100 mls/hr IV . Q10H [facility] Rx#:[id number] Other: Voiding Method Toilet Toilet # Voids 2 2 # Bowel Movements 1 - Labs CBC & Chem 7: 11/18/18 06:38 11/18/18 06:38 Labs: Abnormal Lab Results - Last 24 Hours (Table) 11/19/18 Range/Units 13:13 Urine Ketones 1+ H (Negative) Ur Leukocyte Esterase Small H (Negative) Urine WBC 7 H (0-5) /hpf Urine Mucus Rare H (None) /hpf Assessment and Plan (1) History of appendectomy Current Visit: Yes Status: Acute Code(s): Z90.49 - ACQUIRED ABSENCE OF OTHER SPECIFIED PARTS OF DIGESTIVE TRACT SNOMED Code(s): 857875057 (2) Bowel obstruction Current Visit: Yes Status: Acute Code(s): K56.609 - UNSP INTESTNL OBST, UNSP TO PARTIAL VERSUS COMPLETE OBST SNOMED Code(s): 36481401 (3) Dehydration Current Visit: Yes Status: Acute Code(s): E86.0 - DEHYDRATION SNOMED Code(s): 59367463 (4) Metastatic breast cancer Current Visit: Yes Status: Acute Priority: High Code(s): C50.919 - MALIGNANT NEOPLASM OF UNSP SITE OF UNSPECIFIED FEMALE BREAST SNOMED Code(s): 878501141 (5) Antineoplastic chemotherapy induced anemia Current Visit: No Status: Acute Priority: High Code(s): D64.81 - ANEMIA DUE TO ANTINEOPLASTIC CHEMOTHERAPY; T45.1X5A - ADVERSE EFFECT OF ANTINEOPLASTIC AND IMMUNOSUP DRUGS, INIT SNOMED Code(s): 882223142
[2018-11-20 12:56] VITALS: BP 100/61; PULSE 68; TEMP 98.1
--- NOTE | 2018-11-20 16:45 | P.DS ---
Providers Date of admission: 11/12/18 21:09 Attending physician: Cary Reddy Consults: 11/12/18 20:22 Consult Physician Stat Consulting Provider: Amol Weems Consult Reason/Comments: Breast ca, mets, anemia Do you want consulting provider notified?: Yes Consult Physician Stat Consulting Provider: Olimpia Butt Consult Reason/Comments: Bowel obstruction Do you want consulting provider notified?: Yes Primary care physician: Dino Valadez [place] [facility] Course: this is a [id number] old lady patient of Dr. Valadez. She has underlying history of breast cancer, with metastases to the bone, receiving chemotherapy, was diagnosed to have breast cancer in 1984. She also has history of atrial fibrillation, chronic constipation, and is not on any anticoagulation long-term. Presented to the ER secondary to increasing abdominal distention, with nausea and vomiting 3 days to 4 days prior to admission. she is on chronic or pH, and is on Taxol for breast cancer, no brain metastases. Patient has liquid stools, without any fever and chills. Patient's abdominal distention has gotten worse, and was subsequently seen in the emergency room in the emergency room, CAT scan of the abdomen and pelvis was done,lung bases shows mild pleural thickening, atelectasis,coronary calcifications, bowel gas pattern is abnormal with dilated fluid filled loops of ileum and jejunum down to the distal ileum, were the transition point fails to demonstrate any etiology. Therefore etiology most likely are related to adhesions, no bowel wall thickening or mesenteric adenomatous change, no pneumatosis or pneumoperitoneum, colon is not dilated. Small bowel obstruction in moderate degree, is suspected with widespread skeletal metastatic disease, consult was made with general surgery, Dr. Butt. Patient is not on any NG tube, clear liquid diet has been initiated, no laxatives were ordered from general surgery, medical management is expected, no surgical plans at this time 11/14, patient still has abdominal distention, and abnormal masses in the abdomen, no flatus yet, patient has abdominal pain, I attest been increased, the soft diet, however patient would not tolerate these as the patient has more abdominal pain, we'll going to still stay on full liquid diet, patient would have repeat x-ray abdomen today. Request ambulation, unable to restart linzess secondary to obstructive processes, mainly in the small bowel area x-ray requested today cardiac function tests normal potassium replacement today 11/15: Patient is currently on a full liquid diet and tolerating without any nausea or vomiting.. She states she did pass some gas last evening but none today. She has walked in the hallway and encouraged to increase this. She states she is feeling hungry. She has been afebrile, heart rate 66, blood pressure 103/66, pulse ox 96% on room air. WBC 3.6, hemoglobin 9.4, platelet count 110. Chloride 108, creatinine 0.87. Abdominal x-ray from yesterday afternoon revealed nonobstructive bowel gas pattern. Scattered air fluid levels throughout air filled colon and with some central small bowel loops. Correlate for generalized ileus were findings of resolving small bowel obstruction. No free air. Patient may resume lLinzess which will be brought from home. 11/17: Abdominal x-ray shows nonspecific pattern of partial obstruction in the differential diagnosis. Markedly abnormal appearance to the osseous structures. Upper GI with small bowel follow-through completed yesterday revealed moderate tertiary peristaltic contractions in and delayed clearance suggest presbyesophagus. No specific abnormality of the stomach or duodenum allowing for limitations from limited barium coating. Small bowel transit time normal. A couple scattered loops of small bowel were dilated up to 3.8 cm but for the most part loops are normal caliber. Findings probably reflect sequelae of recently resolved small bowel obstruction. The patient continues to have lower abdominal pain in the right lower quadrant. She states she had a small bowel movement yesterday. Vomiting has resolved. She is followed by general surgery with plan to proceed with robotic lysis of adhesions in the OR today. Patient is also followed by oncology. Patient has been afebrile, heart rate 77, blood pressure 125/62, pulse ox 96% on room air. Repeat lab work reveals white count 4.1, hemoglobin 9.8, platelet count 144. Electrolytes within normal limits, creatinine 0.77. Liver function tests within normal limits. 11/18, patient underwent release of incarcerated incisional hernia 4 x 5 cm withlysis of adhesions right lower quadrantthrough Robotic assistance, there is no peritoneal studding or metastatic peritoneal disease found during laparoscopic surgery,on 12/04/2018 patient does not have any bowel movements, no nausea, no flatness, no chest pain shortness of breath, no NG tube currently clear liquid diet 11/19: The patient is currently tolerating a regular diet. She states her pain is a 78. She states she is passing gas and has had a bowel movement. Temperature max 101.1 and urinalysis with urine culture ordered. Patient is on. Patient denies fever or chills this morning. She is using her incentive spirometry every hour. Anticipate probable discharge tomorrow. 11/20 patient denies any fever or chills, abdominal pain. She still feels abdomen is distended and is passing flatus. Patient is surgically cleared. She is on linzess at home and will resume the medication when she gets home.patient recommended to continue linzess along with senna Colace and MiraLAX discharge diagnoses 1. Small bowel obstruction, from distal ileum to jejunum without any significant transition point status post robotic lysis of adhesions. 2. Stage IV breast cancer metastasis to the bone currently undergoing chemotherapy. 3. Anemia of chronic disease. 4. History of paroxysmal atrial fibrillation off anticoagulation. 5. Chronic pain secondary to metastatic cancer. 6. Chronic constipation, refill linzess, 6. Recurrent depression. disposition home with self-care Patient Condition at Discharge: Good Plan - Discharge Summary New Discharge Prescriptions: New Cephalexin [Keflex] 250 mg PO Q8HR #6 capsule Cacurvme-Uismmacyeh-Voki Oint [Triple Antibiotic Ointment] 1 applic TOPICAL BID #1 each Continue Linaclotide [Linzess] 145 mcg PO DAILY Latanoprost [Xalatan 0.005%] 1 drop BOTH EYES HS Amitriptyline HCl [Elavil] 50 mg PO HS Citalopram Hydrobromide [CeleXA] 10 mg PO DAILY fentaNYL 25MCG/HR PATCH [Duragesic 25MCG/HR] 1 patch TRANSDERM Q72H #5 patch Aspirin 325 mg PO DAILY Metoprolol Tartrate [Lopressor] 25 mg PO BID Melatonin 3 mg PO HS ALPRAZolam [Xanax] 0.25 mg PO BID Hydrocodone/Acetaminophen [[place] 7.5-325] 1 tab PO Q8H PRN PRN Reason: Pain Calcium Carbonate/Vitamin D3 [Calcium 600-Vit D3 400 Tablet] 1 tab PO DAILY Rosuvastatin Calcium [Crestor] 5 mg PO HS Discharge Medication List Amitriptyline HCl [Elavil] 50 mg PO HS 07/18/17 [History] Citalopram Hydrobromide [CeleXA] 10 mg PO DAILY 07/18/17 [History] Latanoprost [Xalatan 0.005%] 1 drop BOTH EYES HS 07/18/17 [History] Linaclotide [Linzess] 145 mcg PO DAILY 07/18/17 [History] fentaNYL 25MCG/HR PATCH [Duragesic 25MCG/HR] 1 patch TRANSDERM Q72H #5 patch 07/30/17 [Rx] ALPRAZolam [Xanax] 0.25 mg PO BID 08/31/18 [History] Aspirin 325 mg PO DAILY 08/31/18 [History] Calcium Carbonate/Vitamin D3 [Calcium 600-Vit D3 400 Tablet] 1 tab PO DAILY 0 08/31/18 [History] Hydrocodone/Acetaminophen [[place] 7.5-325] 1 tab PO Q8H PRN 08/31/18 [History] Melatonin 3 mg PO HS 08/31/18 [History] Metoprolol Tartrate [Lopressor] 25 mg PO BID 08/31/18 [History] Rosuvastatin Calcium [Crestor] 5 mg PO HS 11/12/18 [History] Cephalexin [Keflex] 250 mg PO Q8HR #6 capsule 11/20/18 [Rx] Tpvtbsnx-Qiquyaahxp-Poxg Oint [Triple Antibiotic Ointment] 1 applic TOPICAL BID #1 each 11/20/18 [Rx] Follow up Appointment(s)/Referral(s): Dino Valadez MD [Primary Care Provider] - 1-2 days Olimpia Butt MD [STAFF PHYSICIAN] - 11/30/18 (Please call to confirm time) Patient Instructions/Handouts: Cephalexin (By mouth), Bacitracin/Neomycin/Polymyxin B (On the skin), Lysis of Abdominal Adhesions (DC), Abdominal Binder (GEN), Ventral Hernia Repair (DC) Activity/Diet/Wound Care/Special Instructions: No lifting over 4 pounds in 4 weeks, 12/20/2018. May shower. No bath tub soaks until 11/27/2018. Wear abdominal support for comfort Discharge Disposition: HOME SELF-CARE
== END 2018-11-20 17:50 | disposition home or self-care (01) | DRG 336 ==
LOC: EC 13:53 → 3NMEDONC 21:09
PROVIDERS: ADMIT Family Medicine; ATTEND Family Medicine
PROC: 8E0W4CZ Robotic Assisted Procedure of Trunk Region, Percutaneous Endoscopic Approach (ICD-10-PCS; principal; 2018-11-17 11:45)
PROC: 0WUF4JZ Supplement Abdominal Wall with Synthetic Substitute, Percutaneous Endoscopic Approach (ICD-10-PCS; principal; 2018-11-17 11:45)
PROC: 30233N1 Transfusion of Nonautologous Red Blood Cells into Peripheral Vein, Percutaneous Approach (ICD-10-PCS; principal; 2018-11-17 11:45)
PROC: 0DNW4ZZ Release Peritoneum, Percutaneous Endoscopic Approach (ICD-10-PCS; principal; 2018-11-17 11:45)
DX: K56.51 Intestinal adhesions [bands], with partial obstruction (principal); C79.51 Secondary malignant neoplasm of bone; F33.9 Major depressive disorder, recurrent, unspecified; J98.11 Atelectasis; K43.0 Incisional hernia with obstruction, without gangrene; N17.9 Acute kidney failure, unspecified; R47.01 Aphasia; C50.919 Malignant neoplasm of unspecified site of unspecified female breast; D64.81 Anemia due to antineoplastic chemotherapy; D69.59 Other secondary thrombocytopenia; E86.0 Dehydration; G89.3 Neoplasm related pain (acute) (chronic); D63.8 Anemia in other chronic diseases classified elsewhere; D70.1 Agranulocytosis secondary to cancer chemotherapy; E66.9 Obesity, unspecified; F41.1 Generalized anxiety disorder; I11.9 Hypertensive heart disease without heart failure; I25.10 Atherosclerotic heart disease of native coronary artery without angina pectoris; I48.0 Paroxysmal atrial fibrillation; M27.2 Inflammatory conditions of jaws; Z96.642 Presence of left artificial hip joint; T45.1X5A Adverse effect of antineoplastic and immunosuppressive drugs, initial encounter; Z17.0 Estrogen receptor positive status [ER+]; Z79.82 Long term (current) use of aspirin; Z79.899 Other long term (current) drug therapy; Z82.49 Family history of ischemic heart disease and other diseases of the circulatory system; Z90.13 Acquired absence of bilateral breasts and nipples; Z90.49 Acquired absence of other specified parts of digestive tract; Z85.3 Personal history of malignant neoplasm of breast; Z88.5 Allergy status to narcotic agent
CPT/HCPCS: 36415; 36430; 70450; 71046; 74019; 74177; 74245; 80053; 81001; 81003; 83880; 84443; 84484; 85025; 85027; 85610; 85730; 86850; 86900; 86901; 86920; 93005; 96361; 96374; 96375; 99285

== ENCOUNTER 2019-01-11 09:04 | Inpatient (IN) | payer MEDICARE, OTHER ==
--- NOTE | 2019-01-11 10:42 | XR ---
EXAMINATION TYPE: XR KUB DATE OF EXAM: 01/11/2019 10:31 AM CLINICAL HISTORY: Abdominal pain and constipation. TECHNIQUE: Single supine KUB image of the abdomen is obtained. COMPARISON: CT abdomen and pelvis November 12, 2018. Abdominal x-ray November 16, 2018. FINDINGS: Scattered gas is seen in non-distended slightly prominent small bowel loops. Gas and fecal material is seen in non-distended and slightly prominent colonic loops and rectum. No abnormal dilate d small or large bowel loops clearly seen. Metallic hardware from left hip surgery is partially image d. Moderate narrowing and spurring right hip joint again seen.. Bony metastatic disease seen better o n recent CT involving right hip and thoracic spine. Surgical clips superior to right sacroiliac joint are redemonstrated IMPRESSION: Overall nonspecific but felt to be nonobstructive bowel gas pattern.
[2019-01-11 11:13] LABS: Albumin 3.7 g/dL (3.5-5.0); Calcium 9.3 mg/dL (8.4-10.2); Total Bilirubin 0.6 mg/dL (0.2-1.3); Total Protein 7.1 g/dL (6.3-8.2)
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
[2019-01-11 11:16] LABS: Anisocytosis Moderate; HCT 21.7 % (34.0-46.0); Hypochromasia Moderate; MCHC 32.2 g/dL (31.0-37.0); MCV 96.2 fL (80.0-100.0); Macrocytosis Slight; Mean Platelet Volume 8.6; Platelet Count 175 k/uL (150-450); Poikilocytosis Moderate; RBC 2.26 m/uL (3.80-5.40); RDW 20.1 % (11.5-15.5)
[2019-01-11 11:29] LABS: INR 0.9 (<1.2); Prothrombin Time 10.2 sec (9.0-12.0)
[2019-01-11 11:37] LABS: Partial Thromboplastin Time 17.6 sec (22.0-30.0)
[2019-01-11 11:37] LABS: Appearance,Urine Clear (Clear); Bacteria,Urine Occasional /hpf; Bilirubin,Urine Negative (Negative); Blood,Urine Negative (Negative); Color,Urine Yellow; Glucose,Urine (UA) Negative (Negative); Ketones,Urine Negative (Negative); Leukocyte Esterase,Urine Large (Negative); Mucus,Urine Rare /hpf; Nitrite,Urine Negative (Negative); Protein,Urine Trace (Negative); RBC,Urine 1 /hpf (0-5); Specific Gravity,Urine 1.019 (1.001-1.035); Squamous Epithelial Cell,Urine 4 /hpf (0-4); Urobilinogen,Urine <2.0 mg/dL (<2.0)
[2019-01-11] MEDS ORDERED: cefTRIAXone IN SWFI 1,000 MG/10 ML SYRINGE IVP STA (11:43)
[2019-01-11] MEDS ORDERED: SODIUM CHLORIDE 0.9% 500 ML 500 ML IV ONE ×2 (11:43→20:24)
[2019-01-11] MEDS ORDERED: SODIUM CHLORIDE 0.9% 1,000 ML IV ONE (11:43)
[2019-01-11 11:54] LABS: Eosinophils # (M) 0.15 k/uL (0-0.7); Lymphocytes # (M) 0.91 k/uL (1.0-4.8); Monocytes # (M) 0.27 k/uL (0-1.0); Neutrophils % (M) 65 %; Nucleated Red Blood Cells 3 /100 WBC (0-0); Total Cells Counted 100; WBC 3.8 k/uL (3.8-10.6)
[2019-01-11 11:55] LABS: Polychromasia Present
[2019-01-11] MEDS ORDERED: ONDANSETRON 4 MG/2 ML VIAL IVP PRN (12:06)
[2019-01-11] MEDS: PANTOPRAZOLE 40 MG/10 ML VIAL IV SCH (14:35)
[2019-01-11] MEDS: HYDROcodone/APAP 7.5-325MG 1 EACH TAB PO PRN (14:43)
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
[2019-01-11 14:56] VITALS: BMI 28.3
[2019-01-11] MEDS ORDERED: BISACODYL 10 MG SUPP RECTAL STA (15:18)
[2019-01-11] MEDS ORDERED: IOPAMIDOL-300 CONTRAST 30 ML VIAL (ORAL USE) PO PRN ×2 (15:18→15:27)
[2019-01-11] MEDS: SODIUM CHLORIDE 0.9% 1,000 ML IV SCH (16:17)
[2019-01-11] MEDS: LACTULOSE 20 GM/30 ML CUP PO SCH ×2 (16:17→22:38)
[2019-01-11] MEDS: MELATONIN 3 MG TABLET PO SCH (22:35)
[2019-01-11] MEDS: ATORVASTATIN 10 MG TAB PO SCH (22:36)
[2019-01-11] MEDS: LATANOPROST 0.005% OPHTH DROPS 2.5 ML BTL BOTH EYES SCH (22:36)
[2019-01-11] MEDS: ALPRAZolam 0.25 MG TAB PO SCH (22:38)
[2019-01-11] MEDS: METOPROLOL TARTRATE 25 MG TAB PO SCH (22:38)
[2019-01-11] MEDS: AMITRIPTYLINE HCL 50 MG TAB PO SCH (22:39)
--- NOTE | 2019-01-11 22:58 | CT ---
EXAMINATION TYPE: CT abdomen pelvis w con DATE OF EXAM: 01/11/2019 COMPARISON: 11/12/2018 HISTORY: Abdomen pain near belly button, anemia. Hx bone mets, breast ca CT DLP: 812.60 mGycm Automated exposure control for dose reduction was used. TECHNIQUE: Helical acquisition of images was performed from the lung bases through the pelvis. CONTRAST: Performed with Oral Contrast and with IV Contrast, patient injected with 80 mL of Isovue 300. FINDINGS: LUNG BASES: No significant abnormality is appreciated. LIVER/GB: No significant abnormality is appreciated. PANCREAS: No significant abnormality is seen. SPLEEN: No significant abnormality is seen. ADRENALS: No significant abnormality is seen. KIDNEYS: No significant abnormality is seen. FREE AIR: No free air is visualized. RETROPERITONEAL ADENOPATHY: None visualized REPRODUCTIVE ORGANS: No significant abnormality is seen URINARY BLADDER: No significant abnormality is seen. PELVIC ADENOPATHY: None visualized. OSSEOUS STRUCTURES: The previously seen in numerable bony lesions are redemonstrated. BOWEL: The previously seen small bowel obstruction has resolved. OTHER: Just deep to the umbilicus, to the right of midline, there is a subtle reticulonodular pattern which is too subtle on its own to radiologically diagnose omental carcinomatosis, but is mentioned b ecause of the specific clinical information submitted. IMPRESSION: NO DEFINITE ACUTE PROCESS.
[2019-01-12] MEDS ORDERED: ONDANSETRON 4 MG/2 ML VIAL ONE (04:20)
[2019-01-12] MEDS ORDERED: HYDROcodone/APAP 7.5-325MG 1 EACH TAB ONE (04:20)
[2019-01-12 06:15] LABS: Albumin 3.1 g/dL (3.5-5.0); Calcium 8.4 mg/dL (8.4-10.2); Potassium 3.9 mmol/L (3.5-5.1); Total Bilirubin 0.5 mg/dL (0.2-1.3)
[2019-01-12 06:52] LABS: Anisocytosis Moderate; Basophils % (A) 0 %; Eosinophils # (A) 0.1 k/uL (0-0.7); Eosinophils % (A) 3 %; HGB 7.2 gm/dL (11.4-16.0); Hypochromasia Moderate; Lymphocytes # (A) 0.7 k/uL (1.0-4.8); Lymphocytes % (A) 17 %; MCH 30.4 pg (25.0-35.0); MCHC 32.5 g/dL (31.0-37.0); MCV 93.4 fL (80.0-100.0); Macrocytosis Slight; Mean Platelet Volume 7.6; Monocytes # (A) 0.3 k/uL (0-1.0); Monocytes % (A) 7 %; Neutrophils # (A) 2.9 k/uL (1.3-7.7); Neutrophils % (A) 71 %; Platelet Count 114 k/uL (150-450); Poikilocytosis Moderate; RBC 2.36 m/uL (3.80-5.40); RDW 20.4 % (11.5-15.5)
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
[2019-01-12] MEDS: PANTOPRAZOLE 40 MG/10 ML VIAL IV SCH (09:21)
[2019-01-12] MEDS: ALPRAZolam 0.25 MG TAB PO SCH ×2 (09:22→21:43)
[2019-01-12] MEDS: CITALOPRAM HYDROBROMIDE 10 MG TAB PO SCH (09:22)
[2019-01-12] MEDS: LACTULOSE 20 GM/30 ML CUP PO SCH ×3 (09:22→21:43)
[2019-01-12] MEDS: CALCIUM CARB-VIT D 500MG-200UN 1 EACH TAB PO SCH (09:22)
[2019-01-12] MEDS: METOPROLOL TARTRATE 25 MG TAB PO SCH ×2 (09:22→22:01)
[2019-01-12] MEDS: SODIUM CHLORIDE 0.9% 1,000 ML IV SCH ×3 (09:24→21:45)
[2019-01-12] MEDS: NON-FORMULARY DRUG (Linaclotide [Linzess] 145 MCG) PO SCH (09:39)
[2019-01-12] MEDS ORDERED: IPRATROPIUM-ALBUTEROL 3 ML NEB INHALATION PRN (11:30)
[2019-01-12 13:17] LABS: Reticulocyte % 1.8 % (0.5-2.0)
--- NOTE | 2019-01-12 15:59 | P.PN ---
Subjective Progress Note Date: 01/12/19 this is a [id number] old lady patient of Dr. Valadez. She has underlying history of breast cancer, with metastases to the bone, receiving chemotherapy, was diagnosed to have breast cancer in 1984. She also has history of atrial fibrillation, chronic constipation, and is not on any anticoagulation long-term. She has chronic constipation She underwent recently last November for 41T [address] Butt release of incarcerated incisional hernia 4 x 5 cm with lysis of the lesions, right lower quadrant, through robotic assistance, there is no peritoneal studding nor metastatic peritoneal disease. Patient presents to the emergency room secondary to abdominal pain and severe constipation, hard round stools, difficulty of evacuating stools, x-ray of the abdomen KUB shows nonspecific felt to be nonobstructive bowel gas pattern, has prominent colonic loops and the rectum with gas and fecal material seen in an nondistended: No abnormal dilated small bowel seen in x-rays. Presented to the ER secondary to abdominal pain, x-rays were performed as above, hemoglobin has dropped from 9.7-7.4 on admission, INR 0.9, creatinine of 1.04 lipase of 21, WBC use in 20, large, negative for nitrites occult stool negative scan of the abdomen and pelvis was done, we'll going to request for abdominal CT, IV antibiotics for the pyuria, await cultures 01/12: CT of the abdomen and pelvis with contrast revealed no definite acute process but there is noted reticulonodular pattern/omental carcinomatosis. The patient has had episodes of low blood pressure and IV fluid boluses have been given. Orthostatic vital signs will be checked. Patient has had also episodes of weakness getting to the bathroom and back possibly related to orthostatic changes. She has had a bowel movement today. She is on lactulose and denies any constipation. Patient has been seen and followed by oncology. The patient is to follow-up with Dr. Weems this Thursday to review results and treatment plan. Bicytopenia most likely secondary to progressive cancer and bone marrow involvement versus acute infection. Patient is status post 1 unit of packed RBCs. Patient remains afebrile, heart rate 107, blood pressure 122/70, pulse ox 95% on room air. Repeat lactic acid 1.4, white count is 4, hemoglobin 7.2 and platelet count 114. Electrolytes, renal function, liver function within normal limits. Albumin 3.1 and protein 6. Stool for occult blood was negative. Pro- calcitonin 0.17. Objective - Vital Signs Vital signs: Vital Signs Temp 99.2 F 01/12/19 05:00 Pulse 107 H 01/12/19 05:00 Resp 16 01/12/19 08:28 BP 122/70 01/12/19 05:00 Pulse Ox 95 01/12/19 05:00 Intake & Output 01/11/19 01/12/19 01/12/19 18:59 06:59 18:59 Intake Total 660 1650 Balance 660 1650 Weight 77.111 kg Intake: Intake, IV Titration 1650 Amount Sodium Chloride 0.9% 1, 800 000 ml @ 100 mls/hr IV . Q10H [facility] Rx#:[id number] Sodium Chloride 0.9% 500 500 ml 500 ml @ 999 mls/hr IV .Q31M ONE Rx#:[id number] cefTRIAXone 1 gm In 350 Sodium Chloride 0.9% 50 ml @ 100 mls/hr IVPB Q24HR [facility] Rx#:[id number] Oral 350 Blood Product 310 Rc As-1 Unit 310 [id number] Other: Voiding Method Toilet Toilet # Voids 1 - Exam Review Of Systems: Constitutional: No fever, no chills, no night sweats. No weight change. Reports weakness, reports fatigue. No daytime sleepiness. EENT: No headache. No blurred vision or double vision, no loss of vision. No loss of Hearing, no ringing in the ears, no dizziness. No nasal drainage or congestion. No epistaxis. No sore throat. Lungs: No shortness of breath, cough, no sputum production. No wheezing. Cardiovascular: No chest pain, no lower extremity edema. No palpitations. No paroxysmal nocturnal dyspnea. No orthopnea. No lightheadedness or dizziness. No syncopal episodes. Abdominal: Reports abdominal pain. No nausea, vomiting. No diarrhea. Reports constipation. No bloody or tarry stools. Genitourinary: No dysuria, increased frequency, urgency. No urinary retention. Musculoskeletal: No myalgias. Reports muscle weakness, no gait dysfunction, no frequent falls. No back pain. No neck pain. Integumentary: No wounds, no lesions. No rash or pruritus. No unusual bruising. No change in hair or nails. Neurologic: No aphasia. No facial droop. No change in mentation. No head injury. No headache. No paralysis. No paresthesia. Psychiatric: No depression. No anxiety. No mood swings. Endocrine: No abnormal blood sugars. No weight change. No excessive sweating or thirst. No cold intolerance. - Constitutional General appearance: cooperative, no acute distress - EENT Eyes: anicteric sclerae, EOMI, PERRLA, dentition normal, normal appearance ENT: NA/AT, normal oropharynx - Neck Neck: normal ROM - Respiratory Respiratory: bilateral: CTA, negative: diminished - Cardiovascular Rhythm: regular Heart sounds: normal: S1, S2 Abnormal Heart Sounds: no systolic murmur, no diastolic murmur, no rub, no S3 Gallop, no S4 Gallop, no click, no other - Gastrointestinal General gastrointestinal: distended (Patient always has chronic abdominal distention), normal bowel sounds, soft (With areas of firm abdomen) - Integumentary Integumentary: decreased turgor, normal - Neurologic Neurologic: CNII-XII intact - Musculoskeletal Musculoskeletal: gait normal, strength equal bilaterally - Psychiatric Psychiatric: A&O x's 3, appropriate affect, intact judgment & insight - Labs CBC & Chem 7: 01/12/19 05:20 01/12/19 05:20 Labs: Abnormal Lab Results - Last 24 Hours (Table) 01/11/19 01/11/19 01/11/19 Range/Units 10:45 10:45 10:45 RBC 2.26 L (3.80-5.40) m/uL Hgb 7.0 L D (11.4-16.0) gm/dL Hct 21.7 L (34.0-46.0) % RDW 20.1 H (11.5-15.5) % Plt Count (150-450) k/uL Lymphocytes # (1.0-4.8) k/uL Lymphocytes # (Manual) 0.91 L (1.0-4.8) k/uL Nucleated RBCs 3 H (0-0) /100 WBC APTT (22.0-30.0) sec Plasma Lactic Acid Lorenzo 2.3 H* (0.7-2.0) mmol/L Total Protein (6.3-8.2) g/dL Albumin (3.5-5.0) g/dL Lipase 21 L (23-300) U/L Procalcitonin (0.02-0.09) ng/mL Urine Protein (Negative) Ur Leukocyte Esterase (Negative) Urine WBC (0-5) /hpf Urine Bacteria (None) /hpf Urine Mucus (None) /hpf Crossmatch 01/11/19 01/11/19 01/11/19 Range/Units 10:45 10:45 10:45 RBC (3.80-5.40) m/uL Hgb (11.4-16.0) gm/dL Hct (34.0-46.0) % RDW (11.5-15.5) % Plt Count (150-450) k/uL Lymphocytes # (1.0-4.8) k/uL Lymphocytes # (Manual) (1.0-4.8) k/uL Nucleated RBCs (0-0) /100 WBC APTT 17.6 L (22.0-30.0) sec Plasma Lactic Acid Lorenzo (0.7-2.0) mmol/L Total Protein (6.3-8.2) g/dL Albumin (3.5-5.0) g/dL Lipase (23-300) U/L Procalcitonin 0.17 H (0.02-0.09) ng/mL Urine Protein (Negative) Ur Leukocyte Esterase (Negative) Urine WBC (0-5) /hpf Urine Bacteria (None) /hpf Urine Mucus (None) /hpf Crossmatch See Detail 01/11/19 01/11/19 01/11/19 Range/Units 10:58 14:31 18:45 RBC (3.80-5.40) m/uL Hgb (11.4-16.0) gm/dL Hct (34.0-46.0) % RDW (11.5-15.5) % Plt Count (150-450) k/uL Lymphocytes # (1.0-4.8) k/uL Lymphocytes # (Manual) (1.0-4.8) k/uL Nucleated RBCs (0-0) /100 WBC APTT (22.0-30.0) sec Plasma Lactic Acid Lorenzo 2.5 H* 2.7 H* (0.7-2.0) mmol/L Total Protein (6.3-8.2) g/dL Albumin (3.5-5.0) g/dL Lipase (23-300) U/L Procalcitonin (0.02-0.09) ng/mL Urine Protein Trace H (Negative) Ur Leukocyte Esterase Large H (Negative) Urine WBC 40 H (0-5) /hpf Urine Bacteria Occasional H (None) /hpf Urine Mucus Rare H (None) /hpf Crossmatch 01/12/19 01/12/19 Range/Units 05:20 05:20 RBC 2.36 L (3.80-5.40) m/uL Hgb 7.2 L (11.4-16.0) gm/dL Hct 22.0 L (34.0-46.0) % RDW 20.4 H (11.5-15.5) % Plt Count 114 L (150-450) k/uL Lymphocytes # 0.7 L (1.0-4.8) k/uL Lymphocytes # (Manual) (1.0-4.8) k/uL Nucleated RBCs (0-0) /100 WBC APTT (22.0-30.0) sec Plasma Lactic Acid Lorenzo (0.7-2.0) mmol/L Total Protein 6.0 L (6.3-8.2) g/dL Albumin 3.1 L (3.5-5.0) g/dL Lipase (23-300) U/L Procalcitonin (0.02-0.09) ng/mL Urine Protein (Negative) Ur Leukocyte Esterase (Negative) Urine WBC (0-5) /hpf Urine Bacteria (None) /hpf Urine Mucus (None) /hpf Crossmatch Microbiology - Last 24 Hours (Table) 01/11/19 10:58 Urine Culture - Preliminary Urine,Voided Assessment and Plan Plan: 1. Acute anemia without blood loss. Possibly related to cancer and suppression of bone marrow. Oncology consult appreciated. Patient is status post 1 unit packed RBCs. Continue to monitor hemoglobin 2. Pyuria, with abdominal pain, and dysuria, IV Rocephin, cultures to be done, 3. Abdomen pain with severe constipation, patient will be given Dulcolax suppository, and lactulose continue on Amitiza patient might need soapsuds enema or milk of molasses enema,, patient might need further investigation to include CAT scan of the abdomen and pelvis, currently nonobstructive pattern, general surgeon on standby for consult if needed 4. Stage IV breast cancer metastasis to the bone currently undergoing chemotherapy. Consult with Dr. Vega. Patient to follow-up with Dr. Weems on Thursday to review studies and plan 5. Anemia of chronic disease. Recheck CBC. 6. History of paroxysmal atrial fibrillation off anticoagulation. Patient is on aspirin only which will be placed on hold. restart Lopressor 25 mg twice daily. 7. Chronic pain secondary to metastatic cancer. Continue fentanyl patch, Southmayd, Elavil, Southmayd. 8. Chronic constipation, refill linzess, hold Elavil secondary to constipation checked TSH normal 9. Recurrent depression. Continue Celexa 10 mg daily.continue Xanax 10. DVT prophylaxis. Heparin subcu 11. GI prophylaxis. Pepcid 12. Bicytopenia. Oncology consult appreciated. Discharge plan: To be determined. PT OT in place. Impression and plan of care have been directed as dictated by the signing physician. Susan Reese nurse practitioner acting as scribe for signing physician.
[2019-01-12] MEDS: HYDROcodone/APAP 7.5-325MG 1 EACH TAB PO PRN (18:11)
[2019-01-12 18:38] LABS: Iron Saturation 19.51 (12.00-45.00)
[2019-01-12 18:46] LABS: Folate, Serum 7.6 ng/mL
[2019-01-12] MEDS: ATORVASTATIN 10 MG TAB PO SCH (21:43)
[2019-01-12] MEDS: MELATONIN 3 MG TABLET PO SCH (21:43)
[2019-01-12] MEDS: LATANOPROST 0.005% OPHTH DROPS 2.5 ML BTL BOTH EYES SCH (21:44)
[2019-01-12] MEDS: AMITRIPTYLINE HCL 50 MG TAB PO SCH (21:44)
[2019-01-13] MEDS: PANTOPRAZOLE 40 MG/10 ML VIAL IV SCH (08:27)
[2019-01-13] MEDS: ALPRAZolam 0.25 MG TAB PO SCH ×2 (08:27→21:52)
[2019-01-13] MEDS: SODIUM CHLORIDE 0.9% 1,000 ML IV SCH ×3 (08:28→21:53)
[2019-01-13] MEDS: CALCIUM CARB-VIT D 500MG-200UN 1 EACH TAB PO SCH (08:28)
[2019-01-13] MEDS: LACTULOSE 20 GM/30 ML CUP PO SCH (08:28)
[2019-01-13] MEDS: METOPROLOL TARTRATE 25 MG TAB PO SCH ×2 (08:28→21:52)
[2019-01-13] MEDS: CITALOPRAM HYDROBROMIDE 10 MG TAB PO SCH (08:28)
[2019-01-13 09:27] LABS: Anisocytosis Moderate; HCT 20.7 % (34.0-46.0); Hypochromasia Moderate; MCH 30.6 pg (25.0-35.0); MCHC 32.4 g/dL (31.0-37.0); MCV 94.3 fL (80.0-100.0); Macrocytosis Slight; Mean Platelet Volume 7.6; Platelet Count 104 k/uL (150-450); Poikilocytosis Moderate; RDW 20.2 % (11.5-15.5); WBC 3.2 k/uL (3.8-10.6)
[2019-01-13 09:33] LABS: HGB 6.7 gm/dL (11.4-16.0)
[2019-01-13] MEDS: NON-FORMULARY DRUG (Linaclotide [Linzess] 145 MCG) PO SCH (09:40)
[2019-01-13] MEDS: HYDROcodone/APAP 7.5-325MG 1 EACH TAB PO PRN ×2 (11:10→19:25)
--- NOTE | 2019-01-13 13:54 | P.PN ---
Subjective Progress Note Date: 01/13/19 Principal diagnosis: Progressive cancer Hemoglobin 6.7 Objective - Vital Signs Vital signs: Vital Signs Temp 98.5 F 01/13/19 12:44 Pulse 82 01/13/19 12:44 Resp 16 01/13/19 12:44 BP 110/48 01/13/19 12:44 Pulse Ox 93 L 01/13/19 12:44 Intake & Output 01/12/19 01/13/19 01/13/19 18:59 06:59 18:59 Intake Total 1450 2320 0 Balance 1450 2320 0 Intake: Intake, IV Titration 800 600 Amount Sodium Chloride 0.9% 1, 600 000 ml @ 100 mls/hr IV . Q10H [facility] Rx#:[id number] cefTRIAXone 1 gm In 800 Sodium Chloride 0.9% 50 ml @ 100 mls/hr IVPB Q24HR [facility] Rx#:[id number] Oral 650 1720 Blood Product 0 Rc Pheresis As-3 Unit 0 [id number] Other: Voiding Method Toilet Toilet Toilet # Voids 3 2 # Bowel Movements 2 - Exam General: Alert and Oriented x3, No Acute Distress Head: Normocytic, Atraumatic Neck: Supple Mouth: No Lesions, No Thrush Eyes: Non-sclerotic No Palpable cervical, supraclavicular, axillary adenopathy Heart: Regular Rate, Regular Rhythm Lungs: Clear to Ausculations, No Wheeze, No Rhonchi, Diminishe bilateral lower lobes, No increased respiratory effort noted Abdomen: Tender to palpate Extremities: No Edema, Equal Strength Neurological: No Focal Defects: No sensory or motor deficits noted Psych: Calm and cooperative - Labs CBC & Chem 7: 01/13/19 07:45 01/12/19 05:20 Labs: Abnormal Lab Results - Last 24 Hours (Table) 01/11/19 01/12/19 01/13/19 Range/Units 10:45 12:52 07:45 WBC 3.2 L (3.8-10.6) k/uL RBC 2.20 L (3.80-5.40) m/uL Hgb 6.7 L* (11.4-16.0) gm/dL Hct 20.7 L (34.0-46.0) % RDW 20.2 H (11.5-15.5) % Plt Count 104 L (150-450) k/uL Iron 48 L (50-170) ug/dL Ferritin 558.8 H (10.0-291.0) ng/mL Crossmatch See Detail Microbiology - Last 24 Hours (Table) 01/11/19 10:58 Urine Culture - Final Urine,Voided Assessment and Plan Plan: Assessment and Recommendations: Metastatic Breast cancer - Bone: - Recent restaging exams revealed progressive disease on Taxol, therefore this was discontinued and further testing for BRCA and Gaurdiant 360 was ordered and completed. Plan was to proceed with PArp inhibitor if BRCA component and Gemzar if no molecular cell specific treatment is found. - Chemotherapy to remain on hold until follow-up with Dr. Mckinney this Thursday to review results of above - Recently treated with Xgeva as well - BRCA negative - Probable plan for treatment with Gemzar PLus/Mnus Faslodex, and continuing Xgeva after discharge, to be discussed and determined at followup with Primary oncologist Dr. Mckinney after discharge Recent SBO with Incarcerated Hernia: - Underwent surgical intervention in November 2018 Abdominal Pain: - CT abdomen pelvis reviewed and no definite process identified - Progressive disease with ?carcinamatosis Bicytopenia (anemia and thrombocytopenia): - Has not received treatment since 12.16.18, therfore drop in CBC etiology is at question - Likely secondary to progressive cancer and Bone Marrow involvement vversus acute infection/inflammatory process - Currently blood counts are within safe ranges and continue to show improvement -Monitor CBC daily - Anemia work-up ordered - Hemoglobin 6.7 today and one unit PRBC has been order DEVIN Rao Plan: - Will reschedule appointment with Dr. Mckinney for next week
[2019-01-13] MEDS: MIDODRINE 5 MG TAB PO SCH ×3 (15:13→21:53)
--- NOTE | 2019-01-13 16:09 | P.PN ---
Subjective Progress Note Date: 01/13/19 this is a [id number] old lady patient of Dr. Valadez. She has underlying history of breast cancer, with metastases to the bone, receiving chemotherapy, was diagnosed to have breast cancer in 1984. She also has history of atrial fibrillation, chronic constipation, and is not on any anticoagulation long-term. She has chronic constipation She underwent recently last November for 41T [address] Butt release of incarcerated incisional hernia 4 x 5 cm with lysis of the lesions, right lower quadrant, through robotic assistance, there is no peritoneal studding nor metastatic peritoneal disease. Patient presents to the emergency room secondary to abdominal pain and severe constipation, hard round stools, difficulty of evacuating stools, x-ray of the abdomen KUB shows nonspecific felt to be nonobstructive bowel gas pattern, has prominent colonic loops and the rectum with gas and fecal material seen in an nondistended: No abnormal dilated small bowel seen in x-rays. Presented to the ER secondary to abdominal pain, x-rays were performed as above, hemoglobin has dropped from 9.7-7.4 on admission, INR 0.9, creatinine of 1.04 lipase of 21, WBC use in 20, large, negative for nitrites occult stool negative scan of the abdomen and pelvis was done, we'll going to request for abdominal CT, IV antibiotics for the pyuria, await cultures 01/12: CT of the abdomen and pelvis with contrast revealed no definite acute process but there is noted reticulonodular pattern/omental carcinomatosis. The patient has had episodes of low blood pressure and IV fluid boluses have been given. Orthostatic vital signs will be checked. Patient has had also episodes of weakness getting to the bathroom and back possibly related to orthostatic changes. She has had a bowel movement today. She is on lactulose and denies any constipation. Patient has been seen and followed by oncology. The patient is to follow-up with Dr. Weems this Thursday to review results and treatment plan. Bicytopenia most likely secondary to progressive cancer and bone marrow involvement versus acute infection. Patient is status post 1 unit of packed RBCs. Patient remains afebrile, heart rate 107, blood pressure 122/70, pulse ox 95% on room air. Repeat lactic acid 1.4, white count is 4, hemoglobin 7.2 and platelet count 114. Electrolytes, renal function, liver function within normal limits. Albumin 3.1 and protein 6. Stool for occult blood was negative. Pro- calcitonin 0.17. 01/13: Patient has been afebrile, heart rate 77-80, blood pressure 108/69, pulse ox 93% on room air. Repeat lab work reveals white count 3.2, hemoglobin 6.7, platelet count 104. D-dimer was 7.28. Folate 7.6, vitamin B12 430, LDH 505. Recheck count 1.8, iron 48 TIBC 246, iron saturation 19.51, ferritin 558.8. Patient has been ordered for 1 unit of packed RBCs today. Patient states that she is very tired today. She is having diarrhea for which lactulose was discontinued. Discussed discharge planning with the patient and daughter at the bedside. Daughter at the bedside is not the legal guardian. Patient does wish to go home but does not want to return to the hospital and palliative care to be initiated. Objective - Vital Signs Vital signs: Vital Signs Temp 98.5 F 01/13/19 05:00 Pulse 77 01/13/19 05:00 Resp 16 01/13/19 05:00 BP 108/69 01/13/19 05:00 Pulse Ox 93 L 01/13/19 05:00 Intake & Output 01/12/19 01/13/19 01/13/19 18:59 06:59 18:59 Intake Total 1450 2320 Balance 1450 2320 Intake: Intake, IV Titration 800 600 Amount Sodium Chloride 0.9% 1, 600 000 ml @ 100 mls/hr IV . Q10H [facility] Rx#:[id number] cefTRIAXone 1 gm In 800 Sodium Chloride 0.9% 50 ml @ 100 mls/hr IVPB Q24HR [facility] Rx#:[id number] Oral 650 1720 Other: Voiding Method Toilet Toilet Toilet # Voids 3 2 # Bowel Movements 2 - Exam Review Of Systems: Constitutional: No fever, no chills, no night sweats. No weight change. Reports weakness, reports fatigue. reports daytime sleepiness. EENT: No headache. No blurred vision or double vision, no loss of vision. No loss of Hearing, no ringing in the ears, no dizziness. No nasal drainage or congestion. No epistaxis. No sore throat. Lungs: No shortness of breath, cough, no sputum production. No wheezing. Cardiovascular: No chest pain, no lower extremity edema. No palpitations. No paroxysmal nocturnal dyspnea. No orthopnea. No lightheadedness or dizziness. No syncopal episodes. Abdominal: Reports abdominal pain. No nausea, vomiting. No diarrhea. Reports constipation. No bloody or tarry stools. Genitourinary: No dysuria, increased frequency, urgency. No urinary retention. Musculoskeletal: No myalgias. Reports muscle weakness, no gait dysfunction, no frequent falls. No back pain. No neck pain. Integumentary: No wounds, no lesions. No rash or pruritus. No unusual bruising. No change in hair or nails. Neurologic: No aphasia. No facial droop. No change in mentation. No head injury. No headache. No paralysis. No paresthesia. Psychiatric: No depression. No anxiety. No mood swings. Endocrine: No abnormal blood sugars. No weight change. No excessive sweating or thirst. No cold intolerance. - Constitutional General appearance: cooperative, no acute distress, daughter at bedside - EENT Eyes: anicteric sclerae, EOMI, PERRLA, dentition normal, normal appearance ENT: NA/AT, normal oropharynx - Neck Neck: normal ROM - Respiratory Respiratory: bilateral: CTA, negative: diminished - Cardiovascular Rhythm: regular Heart sounds: normal: S1, S2 Abnormal Heart Sounds: no systolic murmur, no diastolic murmur, no rub, no S3 Gallop, no S4 Gallop, no click, no other - Gastrointestinal General gastrointestinal: distended (Patient always has chronic abdominal distention), normal bowel sounds, soft (With areas of firm abdomen) - Integumentary Integumentary: decreased turgor, normal - Neurologic Neurologic: CNII-XII intact - Musculoskeletal Musculoskeletal: gait normal, strength equal bilaterally - Psychiatric Psychiatric: A&O x's 3, appropriate affect, intact judgment & insight - Labs CBC & Chem 7: 01/13/19 07:45 01/12/19 05:20 Labs: Abnormal Lab Results - Last 24 Hours (Table) 01/11/19 01/12/19 01/12/19 Range/Units 10:45 12:52 12:52 WBC (3.8-10.6) k/uL RBC (3.80-5.40) m/uL Hgb (11.4-16.0) gm/dL Hct (34.0-46.0) % RDW (11.5-15.5) % Plt Count (150-450) k/uL D-Dimer 7.28 H (<0.60) mg/L FEU Iron 48 L (50-170) ug/dL Ferritin 558.8 H (10.0-291.0) ng/mL Crossmatch See Detail 01/13/19 Range/Units 07:45 WBC 3.2 L (3.8-10.6) k/uL RBC 2.20 L (3.80-5.40) m/uL Hgb 6.7 L* (11.4-16.0) gm/dL Hct 20.7 L (34.0-46.0) % RDW 20.2 H (11.5-15.5) % Plt Count 104 L (150-450) k/uL D-Dimer (<0.60) mg/L FEU Iron (50-170) ug/dL Ferritin (10.0-291.0) ng/mL Crossmatch Microbiology - Last 24 Hours (Table) 01/11/19 10:58 Urine Culture - Final Urine,Voided Assessment and Plan Plan: 1. Acute anemia without blood loss. Possibly related to cancer and suppression of bone marrow. Oncology consult appreciated. Patient is status post 1 unit packed RBCs and second unit ordered for today. Continue to monitor hemoglobin 2. Pyuria, with abdominal pain, and dysuria, IV Rocephin, cultures to be done, 3. Abdomen pain with severe constipation, patient will be given Dulcolax suppository, and lactulose continue on Amitiza patient might need soapsuds enema or milk of molasses enema,, patient might need further investigation to include CAT scan of the abdomen and pelvis, currently nonobstructive pattern, general surgeon on standby for consult if needed 4. Stage IV breast cancer metastasis to the bone currently undergoing chemotherapy. Consult with Dr. Vega. Patient to follow-up with Dr. Weems on Thursday to review studies and plan 5. Anemia of chronic disease. Recheck CBC. 6. History of paroxysmal atrial fibrillation off anticoagulation. Patient is on aspirin only which will be placed on hold. restart Lopressor 25 mg twice daily. 7. Chronic pain secondary to metastatic cancer. Continue fentanyl patch, [place], Elavil, [place]. 8. Chronic constipation, refill linzess, hold Elavil secondary to constipation checked TSH normal 9. Recurrent depression. Continue Celexa 10 mg daily.continue Xanax 10. DVT prophylaxis. Heparin subcu 11. GI prophylaxis. Pepcid 12. Bicytopenia. Oncology consult appreciated. Discharge plan: Home with palliative care. Impression and plan of care have been directed as dictated by the signing physician. Susan Reese nurse practitioner acting as scribe for signing physician.
[2019-01-13] MEDS: MELATONIN 3 MG TABLET PO SCH (21:51)
[2019-01-13] MEDS: ATORVASTATIN 10 MG TAB PO SCH (21:51)
[2019-01-13] MEDS: AMITRIPTYLINE HCL 50 MG TAB PO SCH (21:53)
[2019-01-13] MEDS: LATANOPROST 0.005% OPHTH DROPS 2.5 ML BTL BOTH EYES SCH (21:53)
[2019-01-14] MEDS: NON-FORMULARY DRUG (Linaclotide [Linzess] 145 MCG) PO SCH (10:01)
[2019-01-14] MEDS: PANTOPRAZOLE 40 MG TABLET PO SCH (10:03)
[2019-01-14] MEDS: ALPRAZolam 0.25 MG TAB PO SCH ×2 (10:03→20:17)
[2019-01-14] MEDS: CALCIUM CARB-VIT D 500MG-200UN 1 EACH TAB PO SCH (10:04)
[2019-01-14] MEDS: METOPROLOL TARTRATE 25 MG TAB PO SCH ×2 (10:04→20:17)
[2019-01-14] MEDS: CITALOPRAM HYDROBROMIDE 10 MG TAB PO SCH (10:04)
[2019-01-14] MEDS: HYDROcodone/APAP 7.5-325MG 1 EACH TAB PO PRN ×2 (11:04→20:21)
[2019-01-14 11:45] LABS: African American GFR (CKD) >90 (>60 ml/min/1.73 sqM); Anion Gap 7 mmol/L; Blood Urea Nitrogen 9 mg/dL (7-17); Calcium 8.2 mg/dL (8.4-10.2); Carbon Dioxide 22 mmol/L (22-30); Chloride 111 mmol/L (98-107); Glucose 111 mg/dL (74-99); Potassium 3.7 mmol/L (3.5-5.1); Sodium 140 mmol/L (137-145)
[2019-01-14 11:47] LABS: Anisocytosis Moderate; Basophils % (A) 1 %; Eosinophils # (A) 0.2 k/uL (0-0.7); Eosinophils % (A) 5 %; HCT 25.1 % (34.0-46.0); Hypochromasia Slight; Lymphocytes # (A) 0.7 k/uL (1.0-4.8); Lymphocytes % (A) 16 %; MCH 30.7 pg (25.0-35.0); MCHC 33.3 g/dL (31.0-37.0); MCV 92.3 fL (80.0-100.0); Macrocytosis Slight; Mean Platelet Volume 7.7; Monocytes # (A) 0.3 k/uL (0-1.0); Monocytes % (A) 7 %; Neutrophils # (A) 2.9 k/uL (1.3-7.7); Neutrophils % (A) 69 %; Platelet Count 103 k/uL (150-450); Poikilocytosis Moderate; RBC 2.72 m/uL (3.80-5.40); RDW 20.6 % (11.5-15.5); WBC 4.3 k/uL (3.8-10.6)
[2019-01-14] MEDS ORDERED: HYDROmorphone 0.5 MG/0.5 ML SYRINGE IVP STA (11:48)
[2019-01-14 11:56] LABS: HGB 8.4 gm/dL (11.4-16.0)
[2019-01-14] MEDS ORDERED: HYDROmorphone 1 MG/ML 1 ML SYRINGE IVP PRN (12:28)
[2019-01-14 12:43] LABS: Polychromasia Present
[2019-01-14] MEDS: MIDODRINE 5 MG TAB PO SCH ×2 (13:12→18:27)
--- NOTE | 2019-01-14 13:47 | P.PN ---
Subjective Progress Note Date: 01/14/19 this is a -cjfe-xgu old lady patient of Dr. Valadez. She has underlying history of breast cancer, with metastases to the bone, receiving chemotherapy, was diagnosed to have breast cancer in 1984. She also has history of atrial fibrillation, chronic constipation, and is not on any anticoagulation long-term. She has chronic constipation She underwent recently last November for 41T [address] Butt release of incarcerated incisional hernia 4 x 5 cm with lysis of the lesions, right lower quadrant, through robotic assistance, there is no peritoneal studding nor metastatic peritoneal disease. Patient presents to the emergency room secondary to abdominal pain and severe constipation, hard round stools, difficulty of evacuating stools, x-ray of the abdomen KUB shows nonspecific felt to be nonobstructive bowel gas pattern, has prominent colonic loops and the rectum with gas and fecal material seen in an nondistended: No abnormal dilated small bowel seen in x-rays. Presented to the ER secondary to abdominal pain, x-rays were performed as above, hemoglobin has dropped from 9.7-7.4 on admission, INR 0.9, creatinine of 1.04 lipase of 21, WBC use in 20, large, negative for nitrites occult stool negative scan of the abdomen and pelvis was done, we'll going to request for abdominal CT, IV antibiotics for the pyuria, await cultures 01/12: CT of the abdomen and pelvis with contrast revealed no definite acute process but there is noted reticulonodular pattern/omental carcinomatosis. The patient has had episodes of low blood pressure and IV fluid boluses have been given. Orthostatic vital signs will be checked. Patient has had also episodes of weakness getting to the bathroom and back possibly related to orthostatic changes. She has had a bowel movement today. She is on lactulose and denies any constipation. Patient has been seen and followed by oncology. The patient is to follow-up with Dr. Weems this Thursday to review results and treatment plan. Bicytopenia most likely secondary to progressive cancer and bone marrow involvement versus acute infection. Patient is status post 1 unit of packed RBCs. Patient remains afebrile, heart rate 107, blood pressure 122/70, pulse ox 95% on room air. Repeat lactic acid 1.4, white count is 4, hemoglobin 7.2 and platelet count 114. Electrolytes, renal function, liver function within normal limits. Albumin 3.1 and protein 6. Stool for occult blood was negative. Pro- calcitonin 0.17. 01/13: Patient has been afebrile, heart rate 77-80, blood pressure 108/69, pulse ox 93% on room air. Repeat lab work reveals white count 3.2, hemoglobin 6.7, platelet count 104. D-dimer was 7.28. Folate 7.6, vitamin B12 430, LDH 505. Recheck count 1.8, iron 48 TIBC 246, iron saturation 19.51, ferritin 558.8. Patient has been ordered for 1 unit of packed RBCs today. Patient states that she is very tired today. She is having diarrhea for which lactulose was discontinued. Discussed discharge planning with the patient and daughter at the bedside. Daughter at the bedside is not the legal guardian. Patient does wish to go home but does not want to return to the hospital and palliative care to be initiated. 01/14: Patient was found to be in severe pain today much worse from yesterday. We have increased the fentanyl patch to 50 g per hour and also added in Dilaudid 1 mg IV push every 4 hours as needed. Patient does have a morphine ALLERGY which causes nausea and vomiting. Daughter is at the bedside and states that daughter/guardian will be seen Dr. Weems today to determine further plan. If patient is not candidate for any chemotherapy, plan will be for her to start hospice care. Most likely patient will be ready for discharge tomorrow once pain is controlled. Objective - Vital Signs Vital signs: Vital Signs Temp 98.3 F 01/14/19 12:02 Pulse 66 01/14/19 12:02 Resp 17 01/14/19 12:02 BP 108/52 01/14/19 12:02 Pulse Ox 95 01/14/19 12:02 Intake & Output 01/13/19 01/14/19 01/14/19 18:59 06:59 18:59 Intake Total 620 1680 Balance 620 1680 Intake: Intake, IV Titration 600 Amount Sodium Chloride 0.9% 1, 600 000 ml @ 100 mls/hr IV . Q10H [facility] Rx#:[id number] Oral 1080 Blood Product 620 Rc Pheresis As-3 Unit 310 [id number] Other: Voiding Method Toilet Toilet Toilet # Voids 3 # Bowel Movements 1 - Exam Review Of Systems: Constitutional: No fever, no chills, no night sweats. No weight change. Reports weakness, reports fatigue. reports daytime sleepiness. EENT: No headache. No blurred vision or double vision, no loss of vision. No loss of Hearing, no ringing in the ears, no dizziness. No nasal drainage or congestion. No epistaxis. No sore throat. Lungs: No shortness of breath, cough, no sputum production. No wheezing. Cardiovascular: No chest pain, no lower extremity edema. No palpitations. No paroxysmal nocturnal dyspnea. No orthopnea. No lightheadedness or dizziness. No syncopal episodes. Abdominal: Reports abdominal pain. No nausea, vomiting. No diarrhea. Reports constipation. No bloody or tarry stools. Genitourinary: No dysuria, increased frequency, urgency. No urinary retention. Musculoskeletal: No myalgias. Reports muscle weakness, no gait dysfunction, no frequent falls. Reports severe back pain. No neck pain. Integumentary: No wounds, no lesions. No rash or pruritus. No unusual bruising. No change in hair or nails. Neurologic: No aphasia. No facial droop. No change in mentation. No head injury. No headache. No paralysis. No paresthesia. Psychiatric: No depression. No anxiety. No mood swings. Endocrine: No abnormal blood sugars. No weight change. No excessive sweating or thirst. No cold intolerance. - Constitutional General appearance: cooperative, moderate acute distress secondary to pain, daughter at bedside - EENT Eyes: anicteric sclerae, EOMI, PERRLA, dentition normal, normal appearance ENT: NA/AT, normal oropharynx - Neck Neck: normal ROM - Respiratory Respiratory: bilateral: CTA, negative: diminished - Cardiovascular Rhythm: regular Heart sounds: normal: S1, S2 Abnormal Heart Sounds: no systolic murmur, no diastolic murmur, no rub, no S3 Gallop, no S4 Gallop, no click, no other - Gastrointestinal General gastrointestinal: distended (Patient always has chronic abdominal distention), normal bowel sounds, soft (With areas of firm abdomen) - Integumentary Integumentary: decreased turgor, normal - Neurologic Neurologic: CNII-XII intact - Musculoskeletal Musculoskeletal: gait normal, strength equal bilaterally - Psychiatric Psychiatric: A&O x's 3, appropriate affect, intact judgment & insight - Labs CBC & Chem 7: 01/14/19 10:49 01/14/19 10:49 Labs: Abnormal Lab Results - Last 24 Hours (Table) 01/11/19 01/14/19 01/14/19 Range/Units 10:45 10:49 10:49 RBC 2.72 L (3.80-5.40) m/uL Hgb 8.4 L D (11.4-16.0) gm/dL Hct 25.1 L (34.0-46.0) % RDW 20.6 H (11.5-15.5) % Plt Count 103 L (150-450) k/uL Chloride 111 H (98-107) mmol/L Glucose 111 H (74-99) mg/dL Calcium 8.2 L (8.4-10.2) mg/dL Crossmatch See Detail Assessment and Plan Plan: 1. Acute anemia without blood loss. Possibly related to cancer and suppression of bone marrow. Oncology consult appreciated. Patient is status post 2 unit packed RBCs. 2. Pyuria, with abdominal pain, and dysuria, IV Rocephin discontinued. No growth on urine culture. 3. Abdomen pain with severe constipation, patient will be given Dulcolax suppository, and lactulose continue on Amitiza patient might need soapsuds enema or milk of molasses enema. 4. Stage IV breast cancer metastasis to the bone. Consult with Dr. Vega. Daughter is to follow-up with Dr. Weems on Thursday to review studies and plan. If patient is not candidate for chemotherapy, hospice care will be recommended. Fentanyl patch increased to 50 g per hour and Dilaudid 1 mg IV push every 4 hours added as needed 5. Anemia of chronic disease. Recheck CBC. 6. History of paroxysmal atrial fibrillation off anticoagulation. Patient is on aspirin only which will be placed on hold. restart Lopressor 25 mg twice daily. 7. Chronic pain secondary to metastatic cancer. Continue fentanyl patch, [place], Elavil, [place]. 8. Chronic constipation, continue linzess. 9. Recurrent depression. Continue Celexa 10 mg daily.continue Xanax 10. DVT prophylaxis. Heparin subcu 11. GI prophylaxis. Pepcid 12. Bicytopenia. Oncology consult appreciated. Discharge plan: Home with palliative care or hospice care on Thursday. Impression and plan of care have been directed as dictated by the signing physician. Susan Reese nurse practitioner acting as scribe for signing physician.
--- NOTE | 2019-01-14 14:04 | P.PN ---
<Katherine Carrillo - Last Filed: 01/14/19 14:02> Subjective Progress Note Date: 01/14/19 Principal diagnosis: Progressive cancer labs improved after transfusion Objective - Vital Signs Vital signs: Vital Signs Temp 98.3 F 01/14/19 12:02 Pulse 66 01/14/19 12:02 Resp 17 01/14/19 12:02 BP 108/52 01/14/19 12:02 Pulse Ox 95 01/14/19 12:02 Intake & Output 01/13/19 01/14/19 01/14/19 18:59 06:59 18:59 Intake Total 620 1680 Balance 620 1680 Intake: Intake, IV Titration 600 Amount Sodium Chloride 0.9% 1, 600 000 ml @ 100 mls/hr IV . Q10H [facility] Rx#:[id number] Oral 1080 Blood Product 620 Rc Pheresis As-3 Unit 310 [id number] Other: Voiding Method Toilet Toilet Toilet # Voids 3 # Bowel Movements 1 - Exam General: Alert and Oriented x3, No Acute Distress Head: Normocytic, Atraumatic Neck: Supple Mouth: No Lesions, No Thrush Eyes: Non-sclerotic No Palpable cervical, supraclavicular, axillary adenopathy Heart: Regular Rate, Regular Rhythm Lungs: Clear to Ausculations, No Wheeze, No Rhonchi, Diminishe bilateral lower lobes, No increased respiratory effort noted Abdomen: Tender to palpate Extremities: No Edema, Equal Strength Neurological: No Focal Defects: No sensory or motor deficits noted Psych: Calm and cooperative - Labs CBC & Chem 7: 01/14/19 10:49 01/14/19 10:49 Labs: Abnormal Lab Results - Last 24 Hours (Table) 01/11/19 01/14/19 01/14/19 Range/Units 10:45 10:49 10:49 RBC 2.72 L (3.80-5.40) m/uL Hgb 8.4 L D (11.4-16.0) gm/dL Hct 25.1 L (34.0-46.0) % RDW 20.6 H (11.5-15.5) % Plt Count 103 L (150-450) k/uL Lymphocytes # 0.7 L (1.0-4.8) k/uL Chloride 111 H (98-107) mmol/L Glucose 111 H (74-99) mg/dL Calcium 8.2 L (8.4-10.2) mg/dL Crossmatch See Detail Assessment and Plan Plan: Assessment and Recommendations: Metastatic Breast cancer - Bone: - Recent restaging exams revealed progressive disease on Taxol, therefore this was discontinued and further testing for BRCA and Gaurdiant 360 was ordered and completed. Plan was to proceed with PArp inhibitor if BRCA component and Gemzar if no molecular cell specific treatment is found. - Chemotherapy to remain on hold until follow-up with Dr. Weems this Thursday to review results of above - Recently treated with Xgeva as well - BRCA negative - Probable plan for treatment with Gemzar PLus/Mnus Faslodex, and continuing Xgeva after discharge, to be discussed and determined at followup with Primary oncologist Dr. Weems after discharge Recent SBO with Incarcerated Hernia: - Underwent surgical intervention in November 2018 Abdominal Pain: - CT abdomen pelvis reviewed and no definite process identified - Progressive disease with ?carcinamatosis Bicytopenia (anemia and thrombocytopenia): - Has not received treatment since 12.16.18, therfore drop in CBC etiology is at question - Likely secondary to progressive cancer and Bone Marrow involvement vversus acute infection/inflammatory process - Currently blood counts are within safe ranges and continue to show improvement -Monitor CBC daily - PLAN: - Reschedule patients appointment with Dr. Weems - Can offer further palliative treatme\nt with Gemzar, defer to Dr. Weems - DISPO per primary team DEVIN Rao <Telly Vega - Last Filed: 01/14/19 17:14> Objective - Vital Signs Vital signs: Vital Signs Temp 98.3 F 01/14/19 12:02 Pulse 66 01/14/19 12:02 Resp 17 01/14/19 12:02 BP 108/52 01/14/19 12:02 Pulse Ox 95 01/14/19 12:02 Intake & Output 01/13/19 01/14/19 01/14/19 18:59 06:59 18:59 Intake Total 620 1680 400 Balance 620 1680 400 Intake: Intake, IV Titration 600 400 Amount Sodium Chloride 0.9% 1, 600 400 000 ml @ 100 mls/hr IV . Q10H [facility] Rx#:[id number] Oral 1080 Blood Product 620 Rc Pheresis As-3 Unit 310 [id number] Other: Voiding Method Toilet Toilet Toilet # Voids 3 2 # Bowel Movements 1 2 - Labs CBC & Chem 7: 01/14/19 10:49 01/14/19 10:49 Labs: Abnormal Lab Results - Last 24 Hours (Table) 01/14/19 01/14/19 Range/Units 10:49 10:49 RBC 2.72 L (3.80-5.40) m/uL Hgb 8.4 L D (11.4-16.0) gm/dL Hct 25.1 L (34.0-46.0) % RDW 20.6 H (11.5-15.5) % Plt Count 103 L (150-450) k/uL Lymphocytes # 0.7 L (1.0-4.8) k/uL Chloride 111 H (98-107) mmol/L Glucose 111 H (74-99) mg/dL Calcium 8.2 L (8.4-10.2) mg/dL Assessment and Plan Plan: As above. 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 Therefore she would be a candidate for targeted oral therapy in combination with hormonal manipulation with fulvestrant. Case was discussed with Dr. Weems, and subsequently with the patient and her daughter. The patient's feeling better with adjustment of pain medications and is looking forward to discharge tomorrow. She'll follow-up in the office to begin her new therapy
[2019-01-14] MEDS: SODIUM CHLORIDE 0.9% 1,000 ML IV SCH ×2 (14:48→18:30)
[2019-01-14] MEDS: AMITRIPTYLINE HCL 50 MG TAB PO SCH (20:16)
[2019-01-14] MEDS: MELATONIN 3 MG TABLET PO SCH (20:17)
[2019-01-14] MEDS: ATORVASTATIN 10 MG TAB PO SCH (20:17)
[2019-01-14] MEDS: LATANOPROST 0.005% OPHTH DROPS 2.5 ML BTL BOTH EYES SCH (23:08)
[2019-01-15] MEDS: HYDROcodone/APAP 7.5-325MG 1 EACH TAB PO PRN (07:35)
[2019-01-15] MEDS: CITALOPRAM HYDROBROMIDE 10 MG TAB PO SCH (07:36)
[2019-01-15] MEDS: METOPROLOL TARTRATE 25 MG TAB PO SCH (07:36)
[2019-01-15] MEDS: MIDODRINE 5 MG TAB PO SCH ×2 (07:36→12:50)
[2019-01-15] MEDS: ALPRAZolam 0.25 MG TAB PO SCH (07:36)
[2019-01-15] MEDS: CALCIUM CARB-VIT D 500MG-200UN 1 EACH TAB PO SCH (07:36)
[2019-01-15] MEDS: PANTOPRAZOLE 40 MG TABLET PO SCH (07:36)
[2019-01-15] MEDS: NON-FORMULARY DRUG (Linaclotide [Linzess] 145 MCG) PO SCH (07:37)
[2019-01-15] MEDS: SODIUM CHLORIDE 0.9% 1,000 ML IV SCH (12:51)
[2019-01-15 14:23] VITALS: BP 106/60; PULSE 98; RESP 15; TEMP 98.5
[2019-01-15 15:48] LABS: Anisocytosis Slight; HCT 25.1 % (34.0-46.0); HGB 8.1 gm/dL (11.4-16.0); Hypochromasia Moderate; MCH 29.6 pg (25.0-35.0); MCHC 32.1 g/dL (31.0-37.0); Mean Platelet Volume 7.7; Poikilocytosis Moderate; RBC 2.73 m/uL (3.80-5.40); RDW 19.5 % (11.5-15.5)
[2019-01-15 15:49] LABS: Platelet Count 87 k/uL (150-450)
--- NOTE | 2019-01-15 15:56 | P.DS ---
Providers Date of admission: 01/11/19 12:22 Attending physician: Dino Valadez Consults: 01/11/19 13:01 Consult Physician Routine Consulting Provider: Amol Weems Consult Reason/Comments: Established patient, anemia, breast cancer Do you want consulting provider notified?: Yes Primary care physician: Dino Valadez [facility] Course: this is a [id number] old lady patient of Dr. Valadez. She has underlying history of breast cancer, with metastases to the bone, receiving chemotherapy, was diagnosed to have breast cancer in 1984. She also has history of atrial fibrillation, chronic constipation, and is not on any anticoagulation long-term. She has chronic constipation She underwent recently last November for 41T [address] Butt release of incarcerated incisional hernia 4 x 5 cm with lysis of the lesions, right lower quadrant, through robotic assistance, there is no peritoneal studding nor metastatic peritoneal disease. Patient presents to the emergency room secondary to abdominal pain and severe constipation, hard round stools, difficulty of evacuating stools, x-ray of the abdomen KUB shows nonspecific felt to be nonobstructive bowel gas pattern, has prominent colonic loops and the rectum with gas and fecal material seen in an nondistended: No abnormal dilated small bowel seen in x-rays. Presented to the ER secondary to abdominal pain, x-rays were performed as above, hemoglobin has dropped from 9.7-7.4 on admission, INR 0.9, creatinine of 1.04 lipase of 21, WBC use in 20, large, negative for nitrites occult stool negative scan of the abdomen and pelvis was done, we'll going to request for abdominal CT, IV antibiotics for the pyuria, await cultures 01/12: CT of the abdomen and pelvis with contrast revealed no definite acute process but there is noted reticulonodular pattern/omental carcinomatosis. The patient has had episodes of low blood pressure and IV fluid boluses have been given. Orthostatic vital signs will be checked. Patient has had also episodes of weakness getting to the bathroom and back possibly related to orthostatic changes. She has had a bowel movement today. She is on lactulose and denies any constipation. Patient has been seen and followed by oncology. The patient is to follow-up with Dr. Weems this Thursday to review results and treatment plan. Bicytopenia most likely secondary to progressive cancer and bone marrow involvement versus acute infection. Patient is status post 1 unit of packed RBCs. Patient remains afebrile, heart rate 107, blood pressure 122/70, pulse ox 95% on room air. Repeat lactic acid 1.4, white count is 4, hemoglobin 7.2 and platelet count 114. Electrolytes, renal function, liver function within normal limits. Albumin 3.1 and protein 6. Stool for occult blood was negative. Pro- calcitonin 0.17. 01/13: Patient has been afebrile, heart rate 77-80, blood pressure 108/69, pulse ox 93% on room air. Repeat lab work reveals white count 3.2, hemoglobin 6.7, platelet count 104. D-dimer was 7.28. Folate 7.6, vitamin B12 430, LDH 505. Recheck count 1.8, iron 48 TIBC 246, iron saturation 19.51, ferritin 558.8. Patient has been ordered for 1 unit of packed RBCs today. Patient states that she is very tired today. She is having diarrhea for which lactulose was discontinued. Discussed discharge planning with the patient and daughter at the bedside. Daughter at the bedside is not the legal guardian. Patient does wish to go home but does not want to return to the hospital and palliative care to be initiated. 01/14: Patient was found to be in severe pain today much worse from yesterday. We have increased the fentanyl patch to 50 g per hour and also added in Dilaudid 1 mg IV push every 4 hours as needed. Patient does have a morphine ALLERGY which causes nausea and vomiting. Daughter is at the bedside and states that daughter/guardian will be seen Dr. Weems today to determine further plan. If patient is not candidate for any chemotherapy, plan will be for her to start hospice care. Most likely patient will be ready for discharge tomorrow once pain is controlled. patient pain is better controlled once the fentanyl was increased to 50. Patient denies any need of blood noted. Her hemoglobin stable at 8.1 patient is doing well denies any chest pain or shortness of breath. Patient is ready to be discharged today Discharge diagnoses 1. Acute anemia without blood loss. Possibly related to cancer and suppression of bone marrow 2. Pyuria,No growth on urine culture. 3. Abdomen pain with severe constipation 4. Stage IV breast cancer metastasis to the bone. 5. Anemia of chronic disease. 6. History of paroxysmal atrial fibrillation off anticoagulation. 7. Chronic pain secondary to metastatic cancer. 8. Chronic constipation 9. Recurrent depression. Prognosis is guarded Patient is probably going to switch to hospice if she fails chemotherapy with Dr. Weems. Disposition to home Patient Condition at Discharge: Fair Plan - Discharge Summary Discharge Rx Participant: Yes New Discharge Prescriptions: Continue Linaclotide [Linzess] 145 mcg PO DAILY Latanoprost [Xalatan 0.005%] 1 drop BOTH EYES HS Amitriptyline HCl [Elavil] 50 mg PO HS Citalopram Hydrobromide [CeleXA] 10 mg PO DAILY Aspirin 325 mg PO DAILY Metoprolol Tartrate [Lopressor] 25 mg PO BID Melatonin 3 mg PO HS ALPRAZolam [Xanax] 0.25 mg PO BID Hydrocodone/Acetaminophen [[place] 7.5-325] 1 tab PO Q8H PRN PRN Reason: Pain Calcium Carbonate/Vitamin D3 [Calcium 600-Vit D3 400 Tablet] 1 tab PO DAILY Rosuvastatin Calcium [Crestor] 5 mg PO HS Ucavjadj-Vihsupdvhg-Hxon Oint [Triple Antibiotic Ointment] 1 applic TOPICAL BID #1 each Changed fentaNYL 25MCG/HR PATCH [Duragesic 25MCG/HR] 2 patch TRANSDERM Q72H #5 patch Discharge Medication List Amitriptyline HCl [Elavil] 50 mg PO HS 07/18/17 [History] Citalopram Hydrobromide [CeleXA] 10 mg PO DAILY 07/18/17 [History] Latanoprost [Xalatan 0.005%] 1 drop BOTH EYES HS 07/18/17 [History] Linaclotide [Linzess] 145 mcg PO DAILY 07/18/17 [History] ALPRAZolam [Xanax] 0.25 mg PO BID 08/31/18 [History] Aspirin 325 mg PO DAILY 08/31/18 [History] Calcium Carbonate/Vitamin D3 [Calcium 600-Vit D3 400 Tablet] 1 tab PO DAILY 08/31/18 [History] Hydrocodone/Acetaminophen [[place] 7.5-325] 1 tab PO Q8H PRN 08/31/18 [History] Melatonin 3 mg PO HS 08/31/18 [History] Metoprolol Tartrate [Lopressor] 25 mg PO BID 08/31/18 [History] Rosuvastatin Calcium [Crestor] 5 mg PO HS 11/12/18 [History] Hxutfqiv-Ozdknzqimm-Rchi Oint [Triple Antibiotic Ointment] 1 applic TOPICAL BID #1 each 11/20/18 [Rx] fentaNYL 25MCG/HR PATCH [Duragesic 25MCG/HR] 2 patch TRANSDERM Q72H #5 patch 01/15/19 [Rx] Follow up Appointment(s)/Referral(s): Dino Valadez MD [Primary Care Provider] - 1-2 days [facility], [NON-STAFF] - 1-2 Days Amol Weems MD [STAFF PHYSICIAN] - 1 Week Patient Instructions/Handouts: Anemia (DC) Activity/Diet/Wound Care/Special Instructions: diet as tolerated activity limited until seen by Dr. Givens Disposition: HOME SELF-CARE
[2019-01-15 16:18] LABS: Anisocytosis (M) Present; Band Neutrophils % 2 %; Eosinophils # (M) 0.23 k/uL (0-0.7); Metamyelocytes # (M) 0.04 k/uL (0); Metamyelocytes % 1 %; Monocytes # (M) 0.27 k/uL (0-1.0); Neutrophils % (M) 69 %; Nucleated Red Blood Cells 3 /100 WBC (0-0); Polychromasia Present; Total Cells Counted 200; WBC 3.9 k/uL (3.8-10.6)
== END 2019-01-15 18:25 | disposition home health service (06) | DRG 543 ==
LOC: EC 09:04 → 3NMEDONC 12:22
PROVIDERS: ADMIT Internal Medicine; ATTEND Internal Medicine
PROC: 30230N1 Transfusion of Nonautologous Red Blood Cells into Peripheral Vein, Open Approach (ICD-10-PCS; principal; 2019-01-11)
DX: C79.51 Secondary malignant neoplasm of bone (principal); F33.9 Major depressive disorder, recurrent, unspecified; I48.0 Paroxysmal atrial fibrillation; D69.6 Thrombocytopenia, unspecified; E86.0 Dehydration; D63.0 Anemia in neoplastic disease; D63.8 Anemia in other chronic diseases classified elsewhere; F41.9 Anxiety disorder, unspecified; G89.3 Neoplasm related pain (acute) (chronic); M21.372 Foot drop, left foot; K59.09 Other constipation; Z79.82 Long term (current) use of aspirin; Z79.899 Other long term (current) drug therapy; Z85.3 Personal history of malignant neoplasm of breast; Z88.5 Allergy status to narcotic agent; Z90.13 Acquired absence of bilateral breasts and nipples; Z96.642 Presence of left artificial hip joint; Z90.49 Acquired absence of other specified parts of digestive tract; Z98.51 Tubal ligation status; Z17.0 Estrogen receptor positive status [ER+]; Z82.49 Family history of ischemic heart disease and other diseases of the circulatory system; Z80.9 Family history of malignant neoplasm, unspecified
CPT/HCPCS: 36415; 74018; 74177; 80048; 80053; 81001; 82150; 82272; 82607; 82728; 82746; 83540; 83550; 83605; 83615; 83690; 84145; 85025; 85027; 85045; 85379; 85610; 85730; 86850; 86900; 86901; 86920; 87086; 99285

== ENCOUNTER 2019-02-21 01:23 | Inpatient (IN) | payer MEDICARE, OTHER ==
[2019-02-21] MEDS ORDERED: METOCLOPRAMIDE 5 MG/ML 2 ML VIAL IVP STA (01:56)
[2019-02-21] MEDS ORDERED: SODIUM CHLORIDE 0.9% 1,000 ML IV STA (01:56)
[2019-02-21] MEDS ORDERED: diphenhydrAMINE 50 MG/ML 1 ML VIAL IVP STA (01:56)
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
[2019-02-21] MEDS ORDERED: HYDROmorphone 1 MG/ML 1 ML SYRINGE IVP STA (02:42)
[2019-02-21 03:14] LABS: Anisocytosis Slight; Basophils # (A) 0.1 k/uL (0-0.2); Basophils % (A) 1 %; Eosinophils # (A) 0.3 k/uL (0-0.7); Eosinophils % (A) 4 %; HCT 24.8 % (34.0-46.0); HGB 8.5 gm/dL (11.4-16.0); Hypochromasia Slight; Lymphocytes # (A) 1.3 k/uL (1.0-4.8); Lymphocytes % (A) 16 %; MCH 30.4 pg (25.0-35.0); MCHC 34.3 g/dL (31.0-37.0); MCV 88.8 fL (80.0-100.0); Mean Platelet Volume 6.1; Monocytes # (A) 0.5 k/uL (0-1.0); Monocytes % (A) 6 %; Neutrophils # (A) 5.7 k/uL (1.3-7.7); Neutrophils % (A) 70 %; Platelet Count 126 k/uL (150-450); Poikilocytosis Moderate; RBC 2.79 m/uL (3.80-5.40)
[2019-02-21 03:26] LABS: ALT 29 U/L (9-52); AST 30 U/L (14-36); African American GFR (CKD) 45 (>60 ml/min/1.73 sqM); Albumin 4.3 g/dL (3.5-5.0); Alkaline Phosphatase 187 U/L (38-126); Amylase 41 U/L (30-110); Anion Gap 14 mmol/L; Blood Urea Nitrogen 21 mg/dL (7-17); Calcium 10.4 mg/dL (8.4-10.2); Carbon Dioxide 28 mmol/L (22-30); Chloride 94 mmol/L (98-107); Glucose 277 mg/dL (74-99); Potassium 4.1 mmol/L (3.5-5.1); Sodium 136 mmol/L (137-145); Total Bilirubin 0.8 mg/dL (0.2-1.3); Total Protein 7.9 g/dL (6.3-8.2)
--- NOTE | 2019-02-21 04:05 | CT ---
EXAMINATION TYPE: CT abdomen pelvis wo con DATE OF EXAM: 02/21/2019 COMPARISON: 01/11/2019 HISTORY: Diarrhea and nausea CT DLP: 546.2 mGycm Automated exposure control for dose reduction was used. TECHNIQUE: Helical acquisition of images was performed from the lung bases through the pelvis. FINDINGS: There is mild atelectasis right posterior lung base. There is small right pleural effusion. Heart siz e is normal. There is no pericardial effusion. Liver has normal size. Spleen is intact. There is no pancreatic mass. Gallbladder has normal size and contour. There is some heterogeneity in the liver with poorly marginated 3 cm hypodense area anterio r right lobe of the liver. There are are areas of osteoblastic and osteolytic change in the thoracic spine and involving multipl e contiguous vertebra from T12 to T5. There are small osteoblastic foci in the bony pelvis. Changes a lso seen in the proximal right femur. There is no adrenal mass. Bile ducts are not dilated. Kidneys have normal size. There is no hydroneph rosis. There is 3 mm low-density calcification posterior left kidney. There is no hydronephrosis. Ure ters are not dilated. There is no retroperitoneal adenopathy. There are clips apparently from appende ctomy. Appendix is not seen. There is small amount of fluid in the pelvis. Bladder distends smoothly. There is metal artifact from left hip prosthesis. There is no pelvic mass. There is no inguinal hernia.There are small bowel loops dilated up to 3.5 cm. Transition point is not seen. There are large bowel fluid levels that could relate to diarrhea. Distal small bowel is not dilated. There is no sign of free air. There is no mesenteric edema. IMPRESSION: DILATED SMALL BOWEL WITH FLUID LEVELS CONSISTENT WITH ILEUS OR PARTIAL MECHANICAL OBSTRUCTION. IMPROV ED COMPARED TO LAST EXAM . NO FREE AIR. 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 UNCHANGED. HETEROGENEITY IN THE LIVER SUGGESTIVE OF HEPATIC METASTATIC DISEASE. BONY CHANGES IN THE SPINE AND PELVIS AND RIGHT FEMUR SUGGESTIVE OF METASTATIC DISEASE. UNCHANGED.
[2019-02-21 04:15] LABS: Appearance,Urine Clear (Clear); Bilirubin,Urine Negative (Negative); Blood,Urine Negative (Negative); Color,Urine Light Yellow; Glucose,Urine (UA) Negative (Negative); Ketones,Urine Negative (Negative); Leukocyte Esterase,Urine Negative (Negative); Nitrite,Urine Negative (Negative); Protein,Urine Negative (Negative); Specific Gravity,Urine 1.007 (1.001-1.035); Urobilinogen,Urine <2.0 mg/dL (<2.0)
[2019-02-21] MEDS ORDERED: PROMETHAZINE 25 MG TAB PO PRN (07:09)
[2019-02-21] MEDS ORDERED: ONDANSETRON 4 MG/2 ML VIAL IVP PRN ×2 (07:09→12:41)
[2019-02-21] MEDS ORDERED: ACETAMINOPHEN TAB 325 MG TAB PO PRN (07:09)
[2019-02-21] MEDS ORDERED: NALOXONE 0.4 MG/ML 1 ML VIAL IV PRN (07:09)
[2019-02-21] MEDS ORDERED: SODIUM CHLORIDE 0.9% 1,000 ML IV SCH (07:15)
[2019-02-21] MEDS ORDERED: NON FORMULARY DRUG (Linaclotide [Linzess] 145 MCG) PO SCH (09:00)
[2019-02-21] MEDS ORDERED: FAMOTIDINE 20 MG TAB PO SCH (09:00)
[2019-02-21] MEDS: CALCIUM CARB-VIT D 500MG-200UN 1 EACH TAB PO SCH (09:01)
[2019-02-21] MEDS: ALPRAZolam 0.25 MG TAB PO SCH ×2 (09:01→21:19)
[2019-02-21] MEDS: METOPROLOL TARTRATE 25 MG TAB PO SCH ×2 (09:02→21:20)
[2019-02-21] MEDS: ASPIRIN 325 MG TAB PO SCH (09:02)
[2019-02-21] MEDS: HYDROcodone/APAP 7.5-325MG 1 EACH TAB PO PRN ×2 (09:02→15:55)
[2019-02-21] MEDS: NEOMYCIN-BACITRACIN-POLY OINT 14 GM TUBE TOPICAL SCH ×2 (09:05→21:21)
[2019-02-21] MEDS: CITALOPRAM HYDROBROMIDE 10 MG TAB PO SCH (09:05)
[2019-02-21] MEDS: HEPARIN SODIUM,PORCINE 5,000 UNIT/ML 1 ML VIAL SQ SCH ×2 (09:05→21:19)
[2019-02-21 11:47] LABS: Glucose,Whole Blood 165 mg/dL (75-99)
[2019-02-21] MEDS: INSULIN ASPART (NovoLOG) 100 UNIT/ML VIAL SQ SCH ×3 (11:55→21:19)
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
[2019-02-21 13:31] VITALS: BMI 26.1
[2019-02-21] MEDS ORDERED: LOPERAMIDE 2 MG CAP PO STA (15:01)
[2019-02-21] MEDS ORDERED: LOPERAMIDE 2 MG CAP PO PRN (15:01)
[2019-02-21] MEDS: SODIUM CHLORIDE 0.9% 1,000 ML IV SCH (15:55)
[2019-02-21 16:53] LABS: Glucose,Whole Blood 139 mg/dL (75-99)
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
[2019-02-21 20:32] LABS: Glucose,Whole Blood 102 mg/dL (75-99)
[2019-02-21] MEDS: AMITRIPTYLINE HCL 50 MG TAB PO SCH (21:19)
[2019-02-21] MEDS: ATORVASTATIN 10 MG TAB PO SCH (21:19)
[2019-02-21] MEDS: LATANOPROST 0.005% OPHTH DROPS 2.5 ML BTL BOTH EYES SCH (21:19)
[2019-02-21] MEDS: MELATONIN 3 MG TABLET PO SCH (21:20)
[2019-02-21 23:09] LABS: Hemoglobin A1C 6.6 % (4.0-6.0)
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
[2019-02-22] MEDS: ONDANSETRON 4 MG/2 ML VIAL IVP SCH ×4 (01:06→23:32)
[2019-02-22] MEDS: SODIUM CHLORIDE 0.9% 1,000 ML IV SCH (03:24)
[2019-02-22 07:17] LABS: Glucose,Whole Blood 93 mg/dL (75-99)
[2019-02-22] MEDS: INSULIN ASPART (NovoLOG) 100 UNIT/ML VIAL SQ SCH ×4 (07:29→21:30)
[2019-02-22 08:16] LABS: Anisocytosis Slight; HCT 21.5 % (34.0-46.0); HGB 7.1 gm/dL (11.4-16.0); Hypochromasia Moderate; MCH 30.7 pg (25.0-35.0); MCV 93.1 fL (80.0-100.0); Platelet Count 126 k/uL (150-450); Poikilocytosis Moderate; RBC 2.31 m/uL (3.80-5.40); RDW 19.3 % (11.5-15.5); WBC 4.2 k/uL (3.8-10.6)
[2019-02-22] MEDS: HEPARIN SODIUM,PORCINE 5,000 UNIT/ML 1 ML VIAL SQ SCH ×2 (08:30→21:30)
[2019-02-22] MEDS: ALPRAZolam 0.25 MG TAB PO SCH ×2 (08:31→21:29)
[2019-02-22] MEDS: NEOMYCIN-BACITRACIN-POLY OINT 14 GM TUBE TOPICAL SCH ×2 (08:31→21:31)
[2019-02-22] MEDS: CITALOPRAM HYDROBROMIDE 10 MG TAB PO SCH (08:31)
[2019-02-22] MEDS: FAMOTIDINE 20 MG TAB PO SCH ×2 (08:31→21:29)
[2019-02-22] MEDS: ASPIRIN 325 MG TAB PO SCH (08:31)
[2019-02-22] MEDS: METOPROLOL TARTRATE 25 MG TAB PO SCH ×2 (08:31→21:30)
[2019-02-22] MEDS: CALCIUM CARB-VIT D 500MG-200UN 1 EACH TAB PO SCH (08:31)
[2019-02-22] MEDS ORDERED: FAMOTIDINE 20 MG TAB PO SCH (09:00)
[2019-02-22 09:33] LABS: Albumin 3.5 g/dL (3.5-5.0); Potassium 3.7 mmol/L (3.5-5.1); Total Bilirubin 0.7 mg/dL (0.2-1.3); Total Protein 6.9 g/dL (6.3-8.2)
[2019-02-22 12:11] LABS: Glucose,Whole Blood 98 mg/dL (75-99)
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
--- NOTE | 2019-02-22 15:03 | P.PN ---
Subjective Progress Note Date: 02/22/19 Principal diagnosis: N,V,D, abd pain In follow-up today patient states she is passing gas, no bowel movement since yesterday, she does not have abdominal pain just sitting but she has pain on exam. Last time she vomited once last night, none since but, she has not ate any solid foods, she has only drank water. She is currently denying any other pain, shortness of breath, cough, bleeding, mild weakness. Objective - Vital Signs Vital signs: Vital Signs Temp 98.6 F 02/22/19 06:59 Pulse 67 02/22/19 08:00 Resp 15 02/22/19 08:00 BP 88/53 02/22/19 06:59 Pulse Ox 93 L 02/22/19 06:59 Intake & Output 02/21/19 02/22/19 02/22/19 18:59 06:59 18:59 Intake Total 900 1100 Balance 900 1100 Weight 71.214 kg Intake: Intake, IV Titration 900 600 Amount Sodium Chloride 0.9% 1, 900 600 000 ml @ 75 mls/hr IV . [id number] [facility] Rx#:[id number] Oral 500 Other: Voiding Method Toilet Toilet # Voids 1 1 2 - Constitutional General appearance: Present: average body habitus, cooperative, no acute distress - EENT Eyes: Present: anicteric sclerae, edentulous, EOMI ENT: Present: normal oropharynx - Respiratory Respiratory: bilateral: CTA - Cardiovascular Heart sounds: normal: S1, S2 Abnormal Heart Sounds: Absent: systolic murmur, diastolic murmur, rub, S3 Gallop, S4 Gallop, click, other - Peripheral edema leg Peripheral Edema: bilateral: None - Gastrointestinal General gastrointestinal: Present: soft, tenderness Localized gastrointestinal: tender: RUQ, LUQ, epigastric periumbilical - Integumentary Integumentary: Present: pale - Neurologic Neurologic: Present: CNII-XII intact - Musculoskeletal Musculoskeletal: Present: generalized weakness, strength equal bilaterally - Psychiatric Psychiatric: Present: A&O x's 3, appropriate affect, intact judgment & insight - Labs CBC & Chem 7: 02/22/19 07:16 02/22/19 07:16 Labs: Abnormal Lab Results - Last 24 Hours (Table) 02/21/19 02/21/19 02/21/19 Range/Units 02:37 16:34 20:30 RBC (3.80-5.40) m/uL Hgb (11.4-16.0) gm/dL Hct (34.0-46.0) % RDW (11.5-15.5) % Plt Count (150-450) k/uL Chloride (98-107) mmol/L Carbon Dioxide (22-30) mmol/L Creatinine (0.52-1.04) mg/dL POC Glucose (mg/dL) 139 H 102 H (75-99) mg/dL Hemoglobin A1c 6.6 H (4.0-6.0) % Alkaline Phosphatase (38-126) U/L 02/22/19 02/22/19 Range/Units 07:16 07:16 RBC 2.31 L (3.80-5.40) m/uL Hgb 7.1 L (11.4-16.0) gm/dL Hct 21.5 L (34.0-46.0) % RDW 19.3 H (11.5-15.5) % Plt Count 126 L (150-450) k/uL Chloride 109 H (98-107) mmol/L Carbon Dioxide 21 L (22-30) mmol/L Creatinine 1.29 H (0.52-1.04) mg/dL POC Glucose (mg/dL) (75-99) mg/dL Hemoglobin A1c (4.0-6.0) % Alkaline Phosphatase 160 H (38-126) U/L Microbiology - Last 24 Hours (Table) 02/21/19 02:37 Blood Culture - Preliminary Blood No Growth after 24 hours - Imaging and Cardiology CT scan - abdomen: report reviewed CT scan - pelvis: report reviewed Assessment and Plan (1) Dehydration Narrative/Plan: Secondary to intractable nausea and diarrhea. IV hydration, supportive meds for symptoms. Patient is not tolerating adequate oral intake at this time Current Visit: Yes Status: Acute Priority: High Code(s): E86.0 - DEHYDRATION SNOMED Code(s): 92590597 (2) Hypercalcemia Narrative/Plan: Suspect elevated calcium level was more related to dehydration as the level is 9 today with no intervention other than hydration. Current Visit: Yes Status: Acute Priority: High Code(s): E83.52 - HYPERCALCEMIA SNOMED Code(s): 22651720 (3) Metastatic breast cancer Narrative/Plan: Hold piqray for now for uncontrolled symptoms will check if dose reduction is needed Reviewed CTAP with Dr. Vega. When compared to previous scan report from December there was no discussion of obstruction or ileus "no acute process" so, the current CT is showing ileus/partial obstruction. Surgery consulted for exam, evaluation. The suspicious area in the liver will be rechecked on follow up imaging. Current Visit: Yes Status: Chronic Priority: High Code(s): C50.919 - MALIGNANT NEOPLASM OF UNSP SITE OF UNSPECIFIED FEMALE BREAST SNOMED Code(s): 937352954 (4) Anemia Narrative/Plan: Multifactorial including chemotherapy as well as a history of iron deficiency. Last iron studies were done in December. It is reasonable to check them again to make sure that patient is being supplemented appropriately. Current Visit: Yes Status: Chronic Priority: Medium Code(s): D64.9 - ANEMIA, UNSPECIFIED SNOMED Code(s): 928208881 Plan: Doctor attests: I performed a history and physical examination of this patient, developed impression and plan of care, discussed with dictator. I agree with dictators note, documented as a scribe.
[2019-02-22 17:15] LABS: Glucose,Whole Blood 115 mg/dL (75-99)
[2019-02-22] MEDS: HYDROcodone/APAP 7.5-325MG 1 EACH TAB PO PRN (19:18)
[2019-02-22 21:12] LABS: Glucose,Whole Blood 134 mg/dL (75-99)
[2019-02-22] MEDS: AMITRIPTYLINE HCL 50 MG TAB PO SCH (21:29)
[2019-02-22] MEDS: ATORVASTATIN 10 MG TAB PO SCH (21:29)
[2019-02-22] MEDS: LATANOPROST 0.005% OPHTH DROPS 2.5 ML BTL BOTH EYES SCH (21:30)
[2019-02-22] MEDS: MELATONIN 3 MG TABLET PO SCH (21:30)
[2019-02-23 07:06] LABS: Glucose,Whole Blood 121 mg/dL (75-99)
[2019-02-23 08:06] LABS: Albumin 3.1 g/dL (3.5-5.0); Calcium 8.4 mg/dL (8.4-10.2); Potassium 3.3 mmol/L (3.5-5.1); Total Bilirubin 0.5 mg/dL (0.2-1.3); Total Protein 6.1 g/dL (6.3-8.2)
[2019-02-23 08:12] LABS: Anisocytosis Slight; Hypochromasia Moderate; MCH 30.2 pg (25.0-35.0); MCHC 32.1 g/dL (31.0-37.0); MCV 94.1 fL (80.0-100.0); Macrocytosis Slight; Mean Platelet Volume 6.2; Platelet Count 122 k/uL (150-450); Poikilocytosis Moderate; RBC 2.01 m/uL (3.80-5.40); RDW 19.2 % (11.5-15.5)
[2019-02-23 08:24] LABS: HGB 6.1 gm/dL (11.4-16.0)
[2019-02-23] MEDS ORDERED: Potassium Replacement Protocol 1 EACH MISC MISCELLANE PRN (08:45)
[2019-02-23 09:14] LABS: Band Neutrophils % 1 %; Myelocytes # (M) 0.04 k/uL (0); Myelocytes % 1 %; Neutrophils % (M) 59 %; Nucleated Red Blood Cells 5 /100 WBC (0-0); Total Cells Counted 100
[2019-02-23 09:15] LABS: Eosinophils # (M) 0.11 k/uL (0-0.7); Lymphocytes # (M) 1.07 k/uL (1.0-4.8); Monocytes # (M) 0.26 k/uL (0-1.0); WBC 3.7 k/uL (3.8-10.6)
[2019-02-23 09:16] LABS: Tear Drop Cells Present
[2019-02-23 09:17] LABS: Polychromasia Present
[2019-02-23] MEDS: INSULIN ASPART (NovoLOG) 100 UNIT/ML VIAL SQ SCH ×4 (09:53→20:53)
[2019-02-23] MEDS: ONDANSETRON 4 MG/2 ML VIAL IVP SCH ×3 (09:53→23:40)
[2019-02-23] MEDS: CITALOPRAM HYDROBROMIDE 10 MG TAB PO SCH (09:54)
[2019-02-23] MEDS: ALPRAZolam 0.25 MG TAB PO SCH ×2 (09:54→21:11)
[2019-02-23] MEDS: CALCIUM CARB-VIT D 500MG-200UN 1 EACH TAB PO SCH (09:54)
[2019-02-23] MEDS: ASPIRIN 325 MG TAB PO SCH (09:54)
[2019-02-23] MEDS: FAMOTIDINE 20 MG TAB PO SCH (09:54)
[2019-02-23] MEDS: HEPARIN SODIUM,PORCINE 5,000 UNIT/ML 1 ML VIAL SQ SCH ×2 (09:55→21:11)
[2019-02-23] MEDS: METOPROLOL TARTRATE 25 MG TAB PO SCH ×2 (09:55→21:11)
[2019-02-23] MEDS: NEOMYCIN-BACITRACIN-POLY OINT 14 GM TUBE TOPICAL SCH ×2 (09:55→23:40)
[2019-02-23] MEDS: HYDROcodone/APAP 7.5-325MG 1 EACH TAB PO PRN ×2 (11:46→23:39)
[2019-02-23 11:58] LABS: Glucose,Whole Blood 133 mg/dL (75-99)
[2019-02-23 12:05] LABS: Ferritin 1054.7 ng/mL (10.0-291.0)
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
[2019-02-23] MEDS ORDERED: POTASSIUM CHLORIDE ER 20 MEQ TAB.ER PO STA ×2 (14:32)
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
[2019-02-23] MEDS: POTASSIUM CHLORIDE 20 MEQ in WATER FOR INJECTION 1 100ML.BAG IVPB SCH ×2 (14:53→14:54)
--- NOTE | 2019-02-23 16:53 | P.PN ---
Subjective Progress Note Date: 02/23/19 Principal diagnosis: N,V,D, abd pain In follow-up today patient states she is passing gas, she had BM today, brown water, her abd is still bloated and tender upper quadrants. No fever, vomiting, tolerating fluids, some solid food. Denies bleeding Objective - Vital Signs Vital signs: Vital Signs Temp 98.7 F 02/23/19 15:05 Pulse 74 02/23/19 16:00 Resp 16 02/23/19 16:00 BP 131/67 02/23/19 15:05 Pulse Ox 97 02/23/19 14:38 Intake & Output 02/22/19 02/23/19 02/23/19 18:59 06:59 18:59 Intake Total 1100 180 460 Balance 1100 180 460 Intake: Intake, IV Titration 600 Amount Sodium Chloride 0.9% 1, 600 000 ml @ 75 mls/hr IV . [id number] [facility] Rx#:[id number] Oral 500 180 150 Blood Product 310 Rc Irr As1 Unit 310 [id number] Other: Voiding Method Toilet Toilet Toilet # Voids 2 1 2 - Constitutional General appearance: Present: cooperative, no acute distress, obese - EENT Eyes: Present: anicteric sclerae, EOMI ENT: Present: hearing grossly normal - Respiratory Respiratory: bilateral: CTA - Cardiovascular Heart sounds: normal: S1, S2 Abnormal Heart Sounds: Absent: systolic murmur, diastolic murmur, rub, S3 Gallop, S4 Gallop, click, other - Peripheral edema leg Peripheral Edema: bilateral: None - Gastrointestinal General gastrointestinal: Present: hyperactive bowel sounds, soft, tenderness Localized gastrointestinal: tender: RUQ, LUQ, epigastric periumbilical - Integumentary Integumentary: Present: pale - Neurologic Neurologic: Present: CNII-XII intact - Musculoskeletal Musculoskeletal: Present: generalized weakness, strength equal bilaterally - Psychiatric Psychiatric: Present: A&O x's 3, appropriate affect, intact judgment & insight - Labs CBC & Chem 7: 02/23/19 07:16 02/23/19 07:16 Labs: Abnormal Lab Results - Last 24 Hours (Table) 02/22/19 02/22/19 02/23/19 Range/Units 17:03 21:10 07:05 WBC (3.8-10.6) k/uL RBC (3.80-5.40) m/uL Hgb (11.4-16.0) gm/dL Hct (34.0-46.0) % RDW (11.5-15.5) % Plt Count (150-450) k/uL Myelocytes # (Manual) (0) k/uL Nucleated RBCs (0-0) /100 WBC Potassium (3.5-5.1) mmol/L Chloride (98-107) mmol/L Carbon Dioxide (22-30) mmol/L Creatinine (0.52-1.04) mg/dL Glucose (74-99) mg/dL POC Glucose (mg/dL) 115 H 134 H 121 H (75-99) mg/dL TIBC (228-460) ug/dL Ferritin (10.0-291.0) ng/mL Alkaline Phosphatase (38-126) U/L Total Protein (6.3-8.2) g/dL Albumin (3.5-5.0) g/dL Crossmatch 02/23/19 02/23/19 02/23/19 Range/Units 07:16 07:16 07:16 WBC 3.7 L (3.8-10.6) k/uL RBC 2.01 L (3.80-5.40) m/uL Hgb 6.1 L* (11.4-16.0) gm/dL Hct 19.0 L* (34.0-46.0) % RDW 19.2 H (11.5-15.5) % Plt Count 122 L (150-450) k/uL Myelocytes # (Manual) 0.04 H (0) k/uL Nucleated RBCs 5 H (0-0) /100 WBC Potassium 3.3 L (3.5-5.1) mmol/L Chloride 108 H (98-107) mmol/L Carbon Dioxide 21 L (22-30) mmol/L Creatinine 1.14 H (0.52-1.04) mg/dL Glucose 111 H (74-99) mg/dL POC Glucose (mg/dL) (75-99) mg/dL TIBC 204 L (228-460) ug/dL Ferritin 1054.7 H (10.0-291.0) ng/mL Alkaline Phosphatase 155 H (38-126) U/L Total Protein 6.1 L (6.3-8.2) g/dL Albumin 3.1 L (3.5-5.0) g/dL Crossmatch 02/23/19 02/23/19 Range/Units 09:20 11:56 WBC (3.8-10.6) k/uL RBC (3.80-5.40) m/uL Hgb (11.4-16.0) gm/dL Hct (34.0-46.0) % RDW (11.5-15.5) % Plt Count (150-450) k/uL Myelocytes # (Manual) (0) k/uL Nucleated RBCs (0-0) /100 WBC Potassium (3.5-5.1) mmol/L Chloride (98-107) mmol/L Carbon Dioxide (22-30) mmol/L Creatinine (0.52-1.04) mg/dL Glucose (74-99) mg/dL POC Glucose (mg/dL) 133 H (75-99) mg/dL TIBC (228-460) ug/dL Ferritin (10.0-291.0) ng/mL Alkaline Phosphatase (38-126) U/L Total Protein (6.3-8.2) g/dL Albumin (3.5-5.0) g/dL Crossmatch See Detail Microbiology - Last 24 Hours (Table) 02/21/19 02:37 Blood Culture - Preliminary Blood No Growth after 48 hours Assessment and Plan (1) Dehydration Current Visit: Yes Status: Resolved Priority: High Code(s): E86.0 - DEHYDRATION SNOMED Code(s): 44667464 (2) Hypercalcemia Current Visit: Yes Status: Resolved Priority: High Code(s): E83.52 - HYPERCALCEMIA SNOMED Code(s): 46606920 (3) Metastatic breast cancer Narrative/Plan: Hold piqray until f/u with Dr. Weems. Her faslodex will be rescheduled by Dr. Chan RN and pt will be contacted with new appt date and time. Current Visit: Yes Status: Chronic Priority: High Code(s): C50.919 - MALIGNANT NEOPLASM OF UNSP SITE OF UNSPECIFIED FEMALE BREAST SNOMED Code(s): 908317617 (4) Anemia Narrative/Plan: Multifactorial including chemotherapy as well as a history of iron deficiency. Last iron studies were done in December. It is reasonable to check them again to make sure that patient is being supplemented appropriately. 1 unit PRBCs for Hgb 6.1 Current Visit: Yes Status: Chronic Priority: Medium Code(s): D64.9 - A NEMIA, UNSPECIFIED SNOMED Code(s): 832171801 Plan: RN requested potassium replacement protocol for K+ 3.3-ordered The suspicious area in the liver will be rechecked on follow up imaging. Appreciate Surgery eval and recommendations Discussed with Attending team. Pt abd recheck in AM and then discharge.
[2019-02-23 17:12] LABS: Glucose,Whole Blood 110 mg/dL (75-99)
[2019-02-23 20:41] LABS: Glucose,Whole Blood 115 mg/dL (75-99)
[2019-02-23] MEDS: MELATONIN 3 MG TABLET PO SCH (21:11)
[2019-02-23] MEDS: ATORVASTATIN 10 MG TAB PO SCH (21:11)
[2019-02-23] MEDS: LATANOPROST 0.005% OPHTH DROPS 2.5 ML BTL BOTH EYES SCH (21:11)
[2019-02-23] MEDS: AMITRIPTYLINE HCL 50 MG TAB PO SCH (21:11)
[2019-02-23] MEDS ORDERED: DIPHENOX-ATROP 2.5-0.025 MG 1 EACH TAB PO PRN (21:27)
--- NOTE | 2019-02-23 21:34 | P.PN ---
Subjective Progress Note Date: 02/23/19 Principal diagnosis: Nausea, vomiting, diarrhea Patient is seen lying in bed reporting that she is tolerating the diet provided although she still has poor oral intake. No abdominal pain reported. No nausea or vomiting. Reports for loose bowel movements today and 5 loose bowel movements yesterday. Objective - Vital Signs Vital signs: Vital Signs Temp 98.7 F 02/23/19 15:05 Pulse 74 02/23/19 16:00 Resp 16 02/23/19 16:00 BP 131/67 02/23/19 15:05 Pulse Ox 97 02/23/19 14:38 Intake & Output 02/23/19 02/23/19 02/24/19 06:59 18:59 06:59 Intake Total 180 460 Balance 180 460 Intake: Oral 180 150 Blood Product 310 Rc Irr As1 Unit 310 [id number] Other: Voiding Method Toilet Toilet # Voids 1 2 - Exam On physical examination, patient appears comfortable in no apparent distress. HEAD: Normocephalic, atraumatic. EYES: No scleral icterus. No conjunctival injection. MOUTH: No lesions, tongue midline. NECK: Trachea midline, no gross abnormalities. ABDOMEN: Soft, obese. Bowel sounds are positive. No organomegaly. No guarding or rigidity. EXTREMITIES: No pedal edema. SKIN: No rashes, no jaundice. NEUROLOGIC: Alert and oriented x3. No focal deficits. - Labs CBC & Chem 7: 02/23/19 07:16 02/23/19 07:16 Labs: Abnormal Lab Results - Last 24 Hours (Table) 02/23/19 02/23/19 02/23/19 Range/Units 07:05 07:16 07:16 WBC 3.7 L (3.8-10.6) k/uL RBC 2.01 L (3.80-5.40) m/uL Hgb 6.1 L* (11.4-16.0) gm/dL Hct 19.0 L* (34.0-46.0) % RDW 19.2 H (11.5-15.5) % Plt Count 122 L (150-450) k/uL Myelocytes # (Manual) 0.04 H (0) k/uL Nucleated RBCs 5 H (0-0) /100 WBC Potassium (3.5-5.1) mmol/L Chloride (98-107) mmol/L Carbon Dioxide (22-30) mmol/L Creatinine (0.52-1.04) mg/dL Glucose (74-99) mg/dL POC Glucose (mg/dL) 121 H (75-99) mg/dL TIBC 204 L (228-460) ug/dL Ferritin 1054.7 H (10.0-291.0) ng/mL Alkaline Phosphatase (38-126) U/L Total Protein (6.3-8.2) g/dL Albumin (3.5-5.0) g/dL Crossmatch 02/23/19 02/23/19 02/23/19 Range/Units 07:16 09:20 11:56 WBC (3.8-10.6) k/uL RBC (3.80-5.40) m/uL Hgb (11.4-16.0) gm/dL Hct (34.0-46.0) % RDW (11.5-15.5) % Plt Count (150-450) k/uL Myelocytes # (Manual) (0) k/uL Nucleated RBCs (0-0) /100 WBC Potassium 3.3 L (3.5-5.1) mmol/L Chloride 108 H (98-107) mmol/L Carbon Dioxide 21 L (22-30) mmol/L Creatinine 1.14 H (0.52-1.04) mg/dL Glucose 111 H (74-99) mg/dL POC Glucose (mg/dL) 133 H (75-99) mg/dL TIBC (228-460) ug/dL Ferritin (10.0-291.0) ng/mL Alkaline Phosphatase 155 H (38-126) U/L Total Protein 6.1 L (6.3-8.2) g/dL Albumin 3.1 L (3.5-5.0) g/dL Crossmatch See Detail 02/23/19 02/23/19 Range/Units 17:11 20:38 WBC (3.8-10.6) k/uL RBC (3.80-5.40) m/uL Hgb (11.4-16.0) gm/dL Hct (34.0-46.0) % RDW (11.5-15.5) % Plt Count (150-450) k/uL Myelocytes # (Manual) (0) k/uL Nucleated RBCs (0-0) /100 WBC Potassium (3.5-5.1) mmol/L Chloride (98-107) mmol/L Carbon Dioxide (22-30) mmol/L Creatinine (0.52-1.04) mg/dL Glucose (74-99) mg/dL POC Glucose (mg/dL) 110 H 115 H (75-99) mg/dL TIBC (228-460) ug/dL Ferritin (10.0-291.0) ng/mL Alkaline Phosphatase (38-126) U/L Total Protein (6.3-8.2) g/dL Albumin (3.5-5.0) g/dL Crossmatch Microbiology - Last 24 Hours (Table) 02/21/19 02:37 Blood Culture - Preliminary Blood No Growth after 48 hours Assessment and Plan (1) Nausea vomiting and diarrhea Narrative/Plan: Very pleasant 68-year-old female with a known history of breast cancer metastatic to the bones and liver who presents with complaints of nausea, vomiting, diarrhea and abdominal pain. She reports frequent loose watery, nonbloody bowel movements, vomiting and decreased oral intake. She was initiated on a new medication for treatment of her underlying malignancy approximately 1 month ago and was informed that side effects did include diarrhea. She reports initially doing well however developed symptoms over the past 5 days. Unclear if symptoms are secondary to an acute viral or bacterial gastroenteritis, with the patient denying any antibiotic therapy or sick contacts, medication related, or other etiology. Current Visit: Yes Status: Acute Code(s): R11.2 - NAUSEA WITH VOMITING, UNSPECIFIED; R19.7 - DIARRHEA, UNSPECIFIED SNOMED Code(s): 2298110 (2) Metastatic breast cancer Current Visit: Yes Status: Chronic Priority: High Code(s): C50.919 - MALIGNANT NEOPLASM OF UNSP SITE OF UNSPECIFIED FEMALE BREAST SNOMED Code(s): 165004877 (3) Abdominal pain Current Visit: No Status: Acute Code(s): R10.9 - UNSPECIFIED ABDOMINAL PAIN SNOMED Code(s): 07507727 Plan: Supportive care Okay for diet as tolerated Zofran ATC Continue Pepcid Continue other antiemetics as needed for breakthrough symptoms Lomotil added as needed for diarrhea No plans for endoscopic evaluation at this time Thank you for allowing us to participate in the care of this patient we will continue to follow
--- NOTE | 2019-02-24 06:50 | CDI ---
Documentation Clarification Form Date: 02/24/2019 6:39:59 AM From: Ruth Avila RN, CCDS Admit Date: 02/23/2019 10:36:00 AM Patient Name: Omaira Strong Visit Number: [id number] ATTENTION: The Clinical Documentation Specialists (CDI) and [facility] Coding Staff appreciate your assistance in clarifying documentation. Please respond to the clarification below the line at the bottom and electronically sign. The CDI & [facility] Coding staff will review the response and follow-up if needed. Please note: Queries are made part of the Legal Health Record. If you have any questions, please contact the author of this message via ITS. Dr. Adelfo Herman History/Risk Factors: Stage 4 breast Ca w chronic diarrhea x 3 months, anxiety, depression Clinical Indicators: Labs: BUN 21/11, Creatinine 1.41/1.14, total protein 6.1, albumin 3.1 Current BMI: 26.1 Insufficient energy intake: nausea, vomiting, abdominal pain, and dehydration secondary to chemotherapy Weight Loss: over last 3 months Treatment: Dietary Consult: Completed 02/21 Supplements: recommendations from dietary for a commercial beverage and magic cups when diet advanced Lab monitoring: AM Daily In your professional opinion, can you please clarify if these findings signify one of the following conditions? Mild Protein-Calorie Malnutrition Moderate Protein-Calorie Malnutrition Severe Protein-Calorie Malnutrition Other condition, please specify Unable to determine (Last Revision: November 2018) MTDD
[2019-02-24 07:00] LABS: Glucose,Whole Blood 154 mg/dL (75-99)
[2019-02-24 07:44] VITALS: RESP 16
[2019-02-24 08:51] LABS: Magnesium 1.5 mg/dL (1.6-2.3); Potassium 4.3 mmol/L (3.5-5.1)
[2019-02-24] MEDS: HYDROcodone/APAP 7.5-325MG 1 EACH TAB PO PRN (08:56)
[2019-02-24] MEDS: CALCIUM CARB-VIT D 500MG-200UN 1 EACH TAB PO SCH (08:56)
[2019-02-24] MEDS: ASPIRIN 325 MG TAB PO SCH (08:56)
[2019-02-24] MEDS: METOPROLOL TARTRATE 25 MG TAB PO SCH (08:57)
[2019-02-24] MEDS: ALPRAZolam 0.25 MG TAB PO SCH (08:57)
[2019-02-24] MEDS: ONDANSETRON 4 MG/2 ML VIAL IVP SCH ×2 (08:57→16:55)
[2019-02-24] MEDS: HEPARIN SODIUM,PORCINE 5,000 UNIT/ML 1 ML VIAL SQ SCH (08:57)
[2019-02-24] MEDS: CITALOPRAM HYDROBROMIDE 10 MG TAB PO SCH (08:57)
[2019-02-24] MEDS ORDERED: FAMOTIDINE 20 MG TAB PO SCH (09:00)
[2019-02-24] MEDS: INSULIN ASPART (NovoLOG) 100 UNIT/ML VIAL SQ SCH ×3 (09:01→16:55)
[2019-02-24] MEDS: NEOMYCIN-BACITRACIN-POLY OINT 14 GM TUBE TOPICAL SCH (09:01)
[2019-02-24 09:09] LABS: Anisocytosis Slight; HCT 24.9 % (34.0-46.0); Hypochromasia Slight; MCH 30.3 pg (25.0-35.0); MCHC 33.5 g/dL (31.0-37.0); MCV 90.5 fL (80.0-100.0); Mean Platelet Volume 6.4; Platelet Count 116 k/uL (150-450); Poikilocytosis Moderate; RBC 2.75 m/uL (3.80-5.40); RDW 19.1 % (11.5-15.5)
[2019-02-24 09:26] LABS: HGB 8.3 gm/dL (11.4-16.0)
[2019-02-24 10:50] LABS: Band Neutrophils % 4 %; Eosinophils # (M) 0.15 k/uL (0-0.7); Lymphocytes # (M) 0.81 k/uL (1.0-4.8); Monocytes # (M) 0.22 k/uL (0-1.0); Myelocytes # (M) 0.07 k/uL (0); Myelocytes % 2 %; Neutrophils % (M) 64 %; Nucleated Red Blood Cells 8 /100 WBC (0-0); Total Cells Counted 200; WBC 3.7 k/uL (3.8-10.6)
[2019-02-24 10:51] LABS: Polychromasia Present
--- NOTE | 2019-02-24 11:16 | P.PN ---
Subjective Progress Note Date: 02/24/19 Principal diagnosis: N,V,D, abd pain In follow-up today patient is in a good mood, she states that she is still having brown watery stool but has noticed some bits of hard stool in it, not complaining of abdominal pain today, denies any other symptoms, in general feels good Objective - Vital Signs Vital signs: Vital Signs Temp 98.8 F 02/24/19 07:00 Pulse 89 02/24/19 08:00 Resp 16 02/24/19 08:00 BP 97/62 02/24/19 07:00 Pulse Ox 96 02/24/19 07:00 Intake & Output 02/23/19 02/24/19 02/24/19 18:59 06:59 18:59 Intake Total 460 100 361 Balance 460 100 361 Intake: Oral 150 100 361 Blood Product 310 Rc Irr As1 Unit 310 [id number] Other: Voiding Method Toilet Toilet Toilet # Voids 2 0 # Bowel Movements 3 - Constitutional General appearance: Present: average body habitus, cooperative, no acute distress - EENT Eyes: Present: anicteric sclerae, edentulous, EOMI - Respiratory Details: Respirations even and unlabored - Cardiovascular Details: Skin warm and dry to the touch - Gastrointestinal Gastrointestinal Comment(s): Significantly less tenderness in the upper quadrants and periumbilical area, the abdomen visually looks less distended General gastrointestinal: Present: soft - Integumentary Integumentary: Present: pale - Neurologic Neurologic: Present: CNII-XII intact - Musculoskeletal Musculoskeletal: Present: strength equal bilaterally - Psychiatric Psychiatric: Present: A&O x's 3, appropriate affect, intact judgment & insight - Labs CBC & Chem 7: 02/24/19 07:31 02/24/19 07:31 Labs: Abnormal Lab Results - Last 24 Hours (Table) 02/23/19 02/23/19 02/23/19 Range/Units 07:16 07:16 09:20 WBC (3.8-10.6) k/uL RBC (3.80-5.40) m/uL Hgb 6.1 L* (11.4-16.0) gm/dL Hct 19.0 L* (34.0-46.0) % RDW (11.5-15.5) % Plt Count (150-450) k/uL Lymphocytes # (Manual) (1.0-4.8) k/uL Myelocytes # (Manual) (0) k/uL Nucleated RBCs (0-0) /100 WBC POC Glucose (mg/dL) (75-99) mg/dL Magnesium (1.6-2.3) mg/dL TIBC 204 L (228-460) ug/dL Ferritin 1054.7 H (10.0-291.0) ng/mL Crossmatch See Detail 02/23/19 02/23/19 02/23/19 Range/Units 11:56 17:11 20:38 WBC (3.8-10.6) k/uL RBC (3.80-5.40) m/uL Hgb (11.4-16.0) gm/dL Hct (34.0-46.0) % RDW (11.5-15.5) % Plt Count (150-450) k/uL Lymphocytes # (Manual) (1.0-4.8) k/uL Myelocytes # (Manual) (0) k/uL Nucleated RBCs (0-0) /100 WBC POC Glucose (mg/dL) 133 H 110 H 115 H (75-99) mg/dL Magnesium (1.6-2.3) mg/dL TIBC (228-460) ug/dL Ferritin (10.0-291.0) ng/mL Crossmatch 02/24/19 02/24/19 02/24/19 Range/Units 06:48 07:31 07:31 WBC 3.7 L (3.8-10.6) k/uL RBC 2.75 L (3.80-5.40) m/uL Hgb 8.3 L D (11.4-16.0) gm/dL Hct 24.9 L (34.0-46.0) % RDW 19.1 H (11.5-15.5) % Plt Count 116 L (150-450) k/uL Lymphocytes # (Manual) 0.81 L (1.0-4.8) k/uL Myelocytes # (Manual) 0.07 H (0) k/uL Nucleated RBCs 8 H (0-0) /100 WBC POC Glucose (mg/dL) 154 H (75-99) mg/dL Magnesium 1.5 L (1.6-2.3) mg/dL TIBC (228-460) ug/dL Ferritin (10.0-291.0) ng/mL Crossmatch Microbiology - Last 24 Hours (Table) 02/21/19 02:37 Blood Culture - Preliminary Blood No Growth after 72 hours Assessment and Plan (1) Dehydration Current Visit: Yes Status: Resolved Priority: High Code(s): E86.0 - DEHYDRATION SNOMED Code(s): 70513582 (2) Hypercalcemia Current Visit: Yes Status: Resolved Priority: High Code(s): E83.52 - HYPE RCALCEMIA SNOMED Code(s): 08230752 (3) Metastatic breast cancer Narrative/Plan: Hold piqray until f/u with Dr. Weems. Her faslodex will be given at her follow-up appointment next week Current Visit: Yes Status: Chronic Priority: High Code(s): C50.919 - MALIGNANT NEOPLASM OF UNSP SITE OF UNSPECIFIED FEMALE BREAST SNOMED Code(s): 932467310 (4) Anemia Narrative/Plan: Status post 1 unit of packed red blood cells. Her hemoglobin is stable today at 8.3. Current Visit: Yes Status: Chronic Priority: Medium Code(s): D64.9 - ANEMIA, UNSPECIFIED SNOMED Code(s): 487402493 Plan: Patient's abdominal discomfort is significantly improve this a.m. 2 view abdominal x-ray has been ordered to be done prior to discharge. Discussed with Attending team. Patient was instructed not to resume Piqray until she has been seen in the office. She is leaving for a vacation on the . She verbalized understanding. Appointment date and time is in the discharge instructions
[2019-02-24 11:51] LABS: Glucose,Whole Blood 113 mg/dL (75-99)
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
--- NOTE | 2019-02-24 14:16 | XR ---
EXAMINATION TYPE: XR abdomen 2V DATE OF EXAM: 02/24/2019 CLINICAL HISTORY: Partial small bowel obstruction TECHNIQUE: Supine and upright views of the abdomen are obtained. COMPARISON: CT abdomen and pelvis 3 days ago FINDINGS: Gas prominent stomach with air-fluid level now present. Gas prominent small bowel loops thr oughout the left abdomen redemonstrated with scattered air-fluid levels and gas is seen in nondistend ed colon along the periphery. Surgical clips near right L5 transverse process level redemonstrated. M ultilevel spurring in the spine. Central line terminates in the right atrium is partially imaged. Met allic artifact from left hip surgery partially imaged. Moderate narrowing right hip joint with diffus e sclerosis consistent with metastatic disease redemonstrated. IMPRESSION: Overall nonspecific bowel gas pattern. Cannot exclude worsening small bowel obstruction. Correlate clinically. Consider nasogastric tube placement. Follow-up imaging advised.
--- NOTE | 2019-02-24 14:18 | P.PN ---
<Betsy Jenkins A - Last Filed: 02/24/19 14:12> Subjective Progress Note Date: 02/24/19 CHIEF COMPLAINT: ileus HISTORY OF PRESENT ILLNESS: Patient examined at the bedside this morning with Dr. Butt. She continues to report abdominal pain across her upper abdomen but states it is about the same as yesterday. She is having loose bowel movements. Denies nausea or vomiting. Tolerating diet. PHYSICAL EXAM: VITAL SIGNS: Reviewed GENERAL: Well-developed in no acute distress. HEENT: No sclera icterus. Extraocular movements grossly intact. Moist buccal mucosa. Head is atraumatic, normocephalic. Hears conversational speech. No nasal drainage. NECK: Supple without lymphadenopathy. CHEST: Non-labored respirations and equal bilateral excursions. CARDIOVASCULAR: Regular rate with regular rhythm. Palpable 2+ radial pulses. ABDOMEN: Soft. Mild Bloating. Tenderness with palpation of upper mid abdomen. MUSCULOSKELETAL: No clubbing, cyanosis or edema. NEUROLOGIC: No focal or lateralizing signs. Cranial nerves II through XII grossly intact. PSYCH: Appropriate affect. Alert and oriented to person, place and time. SKIN: Well perfused. Good skin turgor. ASSESSMENT: 1. Nausea, vomiting, diarrhea possibly secondary to recent medication, improved 2. Stage IV breast cancer with mets to liver and bone 3. History of chronic constipation 4. Recent robotic-assisted laparoscopic lysis of adhesions and reduction repair of right lower quadrant incisional hernia, November 2018 PLAN: Obtain 2V abdominal xray. If no acute process, patient may be discharged home from a surgical standpoint. Continue diet as tolerated. Patient may follow up with Dr. Butt outpatient as needed. Nurse practitioner note has been reviewed by physician. Signing provider agrees with the documented findings, assessment, and plan of care. Objective - Vital Signs Vital signs: Vital Signs Temp 98.8 F 02/24/19 07:00 Pulse 89 02/24/19 08:00 Resp 16 02/24/19 08:00 BP 97/62 02/24/19 07:00 Pulse Ox 96 02/24/19 07:00 Intake & Output 02/23/19 02/24/19 02/24/19 18:59 06:59 18:59 Intake Total 460 100 361 Balance 460 100 361 Intake: Oral 150 100 361 Blood Product 310 Rc Irr As1 Unit 310 [id number] Other: Voiding Method Toilet Toilet Toilet # Voids 2 0 # Bowel Movements 3 - Labs CBC & Chem 7: 02/24/19 07:31 02/24/19 07:31 Labs: Abnormal Lab Results - Last 24 Hours (Table) 02/23/19 02/23/19 02/23/19 Range/Units 09:20 17:11 20:38 WBC (3.8-10.6) k/uL RBC (3.80-5.40) m/uL Hgb (11.4-16.0) gm/dL Hct (34.0-46.0) % RDW (11.5-15.5) % Plt Count (150-450) k/uL Lymphocytes # (Manual) (1.0-4.8) k/uL Myelocytes # (Manual) (0) k/uL Nucleated RBCs (0-0) /100 WBC POC Glucose (mg/dL) 110 H 115 H (75-99) mg/dL Magnesium (1.6-2.3) mg/dL Crossmatch See Detail 02/24/19 02/24/19 02/24/19 Range/Units 06:48 07:31 07:31 WBC 3.7 L (3.8-10.6) k/uL RBC 2.75 L (3.80-5.40) m/uL Hgb 8.3 L D (11.4-16.0) gm/dL Hct 24.9 L (34.0-46.0) % RDW 19.1 H (11.5-15.5) % Plt Count 116 L (150-450) k/uL Lymphocytes # (Manual) 0.81 L (1.0-4.8) k/uL Myelocytes # (Manual) 0.07 H (0) k/uL Nucleated RBCs 8 H (0-0) /100 WBC POC Glucose (mg/dL) 154 H (75-99) mg/dL Magnesium 1.5 L (1.6-2.3) mg/dL Crossmatch 02/24/19 Range/Units 11:40 WBC (3.8-10.6) k/uL RBC (3.80-5.40) m/uL Hgb (11.4-16.0) gm/dL Hct (34.0-46.0) % RDW (11.5-15.5) % Plt Count (150-450) k/uL Lymphocytes # (Manual) (1.0-4.8) k/uL Myelocytes # (Manual) (0) k/uL Nucleated RBCs (0-0) /100 WBC POC Glucose (mg/dL) 113 H (75-99) mg/dL Magnesium (1.6-2.3) mg/dL Crossmatch Microbiology - Last 24 Hours (Table) 02/21/19 02:37 Blood Culture - Preliminary Blood No Growth after 72 hours Assessment and Plan (1) Nausea vomiting and diarrhea Status: Acute Code(s): R11.2 - NAUSEA WITH VOMITING, UNSPECIFIED; R19.7 - DIARRHEA, UNSPECIFIED SNOMED Code(s): 2382353 (2) Metastatic breast cancer Status: Chronic Priority: High Code(s): C50.919 - MALIGNANT NEOPLASM OF UNSP SITE OF UNSPECIFIED FEMALE BREAST SNOMED Code(s): 407252716 (3) Abdominal pain Status: Acute Code(s): R10.9 - UNSPECIFIED ABDOMINAL PAIN SNOMED Code(s): 12669233 <Olimpia Butt N - Last Filed: 02/24/19 18:05> Subjective Abdominal x-ray reviewed. No increase dilatation of small bowel identified. Diffuse small bowel gas pattern. Findings were consistent with ileus. Patient may follow up as outpatient. Objective - Vital Signs Vital signs: Vital Signs Temp 98.5 F 02/24/19 14:41 Pulse 75 02/24/19 14:41 Resp 16 02/24/19 14:41 BP 103/64 02/24/19 14:41 Pulse Ox 95 02/24/19 14:41 Intake & Output 02/23/19 02/24/19 02/24/19 18:59 06:59 18:59 Intake Total 460 100 597 Balance 460 100 597 Weight 71.214 kg Intake: Oral 150 100 597 Blood Product 310 Rc Irr As1 Unit 310 [id number] Other: Voiding Method Toilet Toilet Toilet # Voids 2 0 3 # Bowel Movements 3 - Labs CBC & Chem 7: 02/24/19 07:31 02/24/19 07:31 Labs: Abnormal Lab Results - Last 24 Hours (Table) 02/23/19 02/24/19 02/24/19 Range/Units 20:38 06:48 07:31 WBC (3.8-10.6) k/uL RBC (3.80-5.40) m/uL Hgb (11.4-16.0) gm/dL Hct (34.0-46.0) % RDW (11.5-15.5) % Plt Count (150-450) k/uL Lymphocytes # (Manual) (1.0-4.8) k/uL Myelocytes # (Manual) (0) k/uL Nucleated RBCs (0-0) /100 WBC POC Glucose (mg/dL) 115 H 154 H (75-99) mg/dL Magnesium 1.5 L (1.6-2.3) mg/dL 02/24/19 02/24/19 Range/Units 07:31 11:40 WBC 3.7 L (3.8-10.6) k/uL RBC 2.75 L (3.80-5.40) m/uL Hgb 8.3 L D (11.4-16.0) gm/dL Hct 24.9 L (34.0-46.0) % RDW 19.1 H (11.5-15.5) % Plt Count 116 L (150-450) k/uL Lymphocytes # (Manual) 0.81 L (1.0-4.8) k/uL Myelocytes # (Manual) 0.07 H (0) k/uL Nucleated RBCs 8 H (0-0) /100 WBC POC Glucose (mg/dL) 113 H (75-99) mg/dL Magnesium (1.6-2.3) mg/dL Microbiology - Last 24 Hours (Table) 02/21/19 02:37 Blood Culture - Preliminary Blood No Growth after 72 hours
[2019-02-24 14:42] VITALS: BP 103/64; PULSE 75; TEMP 98.5
[2019-02-24 17:01] LABS: Glucose,Whole Blood 95 mg/dL (75-99)
== END 2019-02-24 17:29 | disposition home health service (06) | DRG 393 ==
LOC: EC 01:23 → 4SSUR 07:09 → OBSVTOIN 02-23 10:36
PROVIDERS: ADMIT Internal Medicine; ATTEND Internal Medicine
PROC: 30233N1 Transfusion of Nonautologous Red Blood Cells into Peripheral Vein, Percutaneous Approach (ICD-10-PCS; principal; 2019-02-23)
DX: K52.1 Toxic gastroenteritis and colitis (principal); E43 Unspecified severe protein-calorie malnutrition; C78.7 Secondary malignant neoplasm of liver and intrahepatic bile duct; C79.51 Secondary malignant neoplasm of bone; F33.9 Major depressive disorder, recurrent, unspecified; K56.7 Ileus, unspecified; N17.9 Acute kidney failure, unspecified; N18.4 Chronic kidney disease, stage 4 (severe); D69.59 Other secondary thrombocytopenia; I48.0 Paroxysmal atrial fibrillation; D64.81 Anemia due to antineoplastic chemotherapy; E83.52 Hypercalcemia; C50.919 Malignant neoplasm of unspecified site of unspecified female breast; T45.1X5A Adverse effect of antineoplastic and immunosuppressive drugs, initial encounter; D63.0 Anemia in neoplastic disease; D50.9 Iron deficiency anemia, unspecified; E86.0 Dehydration; F41.9 Anxiety disorder, unspecified; G89.3 Neoplasm related pain (acute) (chronic); G89.4 Chronic pain syndrome; R73.9 Hyperglycemia, unspecified; K59.09 Other constipation; Z68.26 Body mass index [BMI] 26.0-26.9, adult; Z79.82 Long term (current) use of aspirin; Z79.899 Other long term (current) drug therapy; Z88.5 Allergy status to narcotic agent; Z96.642 Presence of left artificial hip joint; Z90.13 Acquired absence of bilateral breasts and nipples; Z90.49 Acquired absence of other specified parts of digestive tract; Z98.51 Tubal ligation status; Z80.3 Family history of malignant neoplasm of breast; Z80.6 Family history of leukemia; Z82.49 Family history of ischemic heart disease and other diseases of the circulatory system; Z83.6 Family history of other diseases of the respiratory system
CPT/HCPCS: 36415; 51702; 74019; 74176; 80053; 81003; 82150; 82728; 83036; 83540; 83550; 83605; 83690; 83735; 84132; 84484; 85025; 85027; 86850; 86900; 86901; 86920; 87040; 87324; 93005; 96361; 96374; 96375; 99285

== ENCOUNTER → 2019-04-13 | Outpatient (CLI) | payer MEDICARE, OTHER ==
--- NOTE | 2019-04-13 11:17 | XR ---
EXAMINATION TYPE: XR Hip Complete LT DATE OF EXAM: 04/13/2019 CLINICAL HISTORY: Pain from fall injury. TECHNIQUE: AP and frogleg views of the left hip are obtained. COMPARISON: CT abdomen and pelvis February 21, 2019. FINDINGS: There is no acute fracture/dislocation evident in the left hip. Prosthetic position is sta ble. Abnormal sclerosis corresponds to bony lesions in the thoracic spine and bilateral femurs on CT suspicious for metastatic disease particularly near lesser trochanter. IMPRESSION: As above.
== END | disposition home or self-care (01) ==
LOC: RADXRMAIN 10:42
PROVIDERS: ATTEND Internal Medicine Hematology & Oncology
DX: C50.111 Malignant neoplasm of central portion of right female breast (principal); C79.51 Secondary malignant neoplasm of bone; Z17.0 Estrogen receptor positive status [ER+]; Z96.642 Presence of left artificial hip joint
CPT/HCPCS: 73502

== ENCOUNTER 2019-05-27 22:19 | Inpatient (IN) | payer MEDICARE, OTHER ==
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
[2019-05-27] MEDS ORDERED: SODIUM CHLORIDE 0.9% 500 ML 500 ML IV STA (22:30)
[2019-05-27] MEDS ORDERED: ONDANSETRON 4 MG/2 ML VIAL IVP STA (22:39)
[2019-05-27] MEDS ORDERED: fentaNYL (PF) 50 MCG/ML 2 ML AMP IVP PRN (22:39)
--- NOTE | 2019-05-27 22:56 | XR ---
EXAMINATION TYPE: XR abdomen 1V DATE OF EXAM: 05/27/2019 COMPARISON: 02/24/2019 HISTORY: Abdominal pain TECHNIQUE: Single view FINDINGS: There are some distended gas-filled loops of small bowel in the mid abdomen. There is no si gn of free air. There is gas distended stomach. There are chest leads. There is left hip prosthesis. IMPRESSION: Distended small bowel consistent with ileus or partial mechanical obstruction that is imp roved compared to old exam.
[2019-05-27 23:28] LABS: ALT 12 U/L (4-34); African American GFR (CKD) 45 (>60 ml/min/1.73 sqM); Albumin 4.5 g/dL (3.5-5.0); Anion Gap 18 mmol/L; Blood Urea Nitrogen 19 mg/dL (7-17); Calcium 10.7 mg/dL (8.4-10.2); Carbon Dioxide 21 mmol/L (22-30); Chloride 100 mmol/L (98-107); Glucose 194 mg/dL (74-99); Non-African American GFR(CKD) 39 (>60 ml/min/1.73 sqM); Sodium 139 mmol/L (137-145); Total Bilirubin 0.8 mg/dL (0.2-1.3); Total Protein 8.8 g/dL (6.3-8.2)
[2019-05-27 23:33] LABS: AST 33 U/L (14-36); Alkaline Phosphatase 146 U/L (38-126); Potassium 4.3 mmol/L (3.5-5.1)
[2019-05-27 23:38] LABS: Anisocytosis Slight; Hypochromasia Slight; MCH 31.6 pg (25.0-35.0); MCHC 32.2 g/dL (31.0-37.0); MCV 98.2 fL (80.0-100.0); Macrocytosis Slight; Mean Platelet Volume 8.4; Platelet Count 145 k/uL (150-450); Poikilocytosis Slight; RBC 3.47 m/uL (3.80-5.40); RDW 18.4 % (11.5-15.5)
[2019-05-27] MEDS ORDERED: SODIUM CHLORIDE 0.9% 1,000 ML IV ONE (23:53)
[2019-05-28 00:01] LABS: Band Neutrophils % 5 %; Eosinophils # (M) 0.22 k/uL (0-0.7); Lymphocytes # (M) 1.24 k/uL (1.0-4.8); Monocytes # (M) 0.66 k/uL (0-1.0); Neutrophils % (M) 66 %; Nucleated Red Blood Cells 2 /100 WBC (0-0); Total Cells Counted 200; WBC 7.3 k/uL (3.8-10.6)
[2019-05-28 00:03] LABS: Anisocytosis (M) Present; Crenated RBC Present; Poikilocytosis (M) Present; Polychromasia Present
--- NOTE | 2019-05-28 00:57 | CT ---
EXAMINATION TYPE: CT abdomen pelvis w con DATE OF EXAM: 05/28/2019 COMPARISON: 02/21/2019 HISTORY: Abdominal pain. Possible bowel obstruction. CT DLP: mGycm Automated exposure control for dose reduction was used. CONTRAST: The contrast was Isovue 80 mL. FINDINGS: Exam performed from the diaphragm to the floor the pelvis with IV contrast. There is mild right pleural effusion. Heart size is normal. There is no pericardial effusion. Exam is limited by arms in the [id number]. There is some patchy heterogeneity in the anterior liver. Sple en is intact. There is no evidence of pancreatic mass. Stomach is distended with fluid and gas. Bile ducts are not dilated. Gallbladder appears normal. There is no adrenal mass. Kidneys show satisfactory contrast opacification. There is no hydronephrosi s. There is subcutaneous edema over the lumbar spine. There are multiple mildly dilated fluid-filled loops of small bowel. There is left hip prosthesis. Ut erus is anteverted. There is small amount of free fluid in the pelvis. Small bowel is dilated up to 3 .5 cm. There is small bowel distention to the distal ileum. There is fluid in the right colon. I see no definite transition point. There are multiple osteolytic and osteoblastic changes in the lower thoracic visualized vertebra. IMPRESSION: Dilated small bowel with fluid. Dilation is increased compared to old CT scan 02/21/2019. Terminal ile um is not significantly dilated. This appearance could relate to significant ileus or partial mechani benjamín obstruction. No free air. Ileus is more likely in view of the fluid in the right colon without di lation. Extensive osteolytic and osteoblastic changes in the ribs and thoracic spine suggestive of metastatic disease unchanged. Limited evaluation of the liver due to artifact. Hepatic metastatic disease is possible. There is ple ural thickening and fluid at the right lung base unchanged.
[2019-05-28] MEDS ORDERED: NALOXONE 0.4 MG/ML 1 ML VIAL IV PRN (02:44)
[2019-05-28] MEDS ORDERED: fentaNYL (PF) 50 MCG/ML 2 ML AMP IVP PRN ×2 (02:47→06:47)
[2019-05-28] MEDS: ONDANSETRON 4 MG/2 ML VIAL IVP PRN (02:56)
[2019-05-28] MEDS: SODIUM CHLORIDE 0.9% 1,000 ML IV SCH ×2 (02:59→21:38)
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
[2019-05-28] MEDS ORDERED: ALPRAZolam 0.25 MG TAB PO SCH (10:00)
[2019-05-28] MEDS ORDERED: CITALOPRAM HYDROBROMIDE 10 MG TAB PO SCH (10:15)
--- NOTE | 2019-05-28 10:35 | XR ---
EXAMINATION TYPE: XR abdomen 2V , 3 VIEWS DATE OF EXAM ORDERED: 05/28/2019 HISTORY: abd pain. COMPARISON: Previous study dated 05/27/2019. FINDINGS: There is contrast within the bladder from a previous CT scan. There is a left hip hemiarth roplasty in place. There is a Mediport in place on the left with its tip in the right atrium. Lungs are otherwise clear. Heart size upper limits of normal. Within the abdomen, there is worsening small bowel dilatation. There is some air within the colon. Th ere are surgical clips in the right lower quadrant. There is no evidence of free air. There is contra st within the bladder previous enhanced CT of the abdomen and pelvis. IMPRESSION: WORSENING SMALL BOWEL DILATATION MAY REPRESENT INCOMPLETE SMALL BOWEL OBSTRUCTION. LESS LIKELY WOULD BE ILEUS.
[2019-05-28 10:51] VITALS: BMI 23.6
[2019-05-28] MEDS: METOPROLOL TARTRATE 25 MG TAB PO SCH ×2 (11:24→21:37)
[2019-05-28] MEDS: NEOMYCIN-BACITRACIN-POLY OINT 14 GM TUBE TOPICAL SCH ×2 (11:25→21:37)
[2019-05-28] MEDS: HYDROmorphone 1 MG/ML 1 ML SYRINGE IVP PRN (11:49)
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
[2019-05-28] MEDS: ENOXAPARIN 40 MG/0.4 ML SYRINGE SQ SCH (15:48)
[2019-05-28] MEDS: PANTOPRAZOLE 40 MG/10 ML VIAL IVP SCH (15:49)
[2019-05-28] MEDS ORDERED: SODIUM CHLORIDE 0.9% 500 ML 500 ML IV ONE (20:16)
[2019-05-28] MEDS: MELATONIN 3 MG TABLET PO SCH (21:37)
[2019-05-28] MEDS: LATANOPROST 0.005% OPHTH DROPS 2.5 ML BTL BOTH EYES SCH (21:38)
[2019-05-29] MEDS: SODIUM CHLORIDE 0.9% 1,000 ML IV SCH ×2 (05:10→21:32)
--- NOTE | 2019-05-29 06:48 | XR ---
EXAMINATION TYPE: XR abdomen 2V , 3 VIEWS DATE OF EXAM ORDERED: 05/29/2019 HISTORY: Follow-up bowel obstruction. COMPARISON: Previous study dated 05/28/2019. FINDINGS: A Port-A-Cath is partially visualized in the lower left chest. Lung bases are otherwise cl ear. Within the abdomen, the abdominal gas pattern is returned to normal. There is no significant obstruct ion or free air. There is contrast within the bladder from a previous contrast CT scan. There is a le ft hip hemiarthroplasty in place. There are clips in the right lower quadrant. IMPRESSION: MARKED IMPROVEMENT IN THE APPEARANCE OF THE ABDOMEN.
[2019-05-29] MEDS: PANTOPRAZOLE 40 MG/10 ML VIAL IVP SCH (08:20)
[2019-05-29] MEDS: ENOXAPARIN 40 MG/0.4 ML SYRINGE SQ SCH (08:21)
[2019-05-29] MEDS: NEOMYCIN-BACITRACIN-POLY OINT 14 GM TUBE TOPICAL SCH ×2 (08:21→21:31)
[2019-05-29] MEDS: METOPROLOL TARTRATE 25 MG TAB PO SCH ×2 (08:21→21:31)
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
[2019-05-29] MEDS: HYDROmorphone 1 MG/ML 1 ML SYRINGE IVP PRN ×3 (10:04→17:37)
--- NOTE | 2019-05-29 14:36 | P.PN ---
Subjective Progress Note Date: 05/29/19 Principal diagnosis: Small bowel obstruction Patient feels much better today. She has continued to have some bowel movements. No nausea or vomiting. Denies pain at this time. Today's x-ray show marked improvement with no bowel dilatation. Objective - Vital Signs Vital signs: Vital Signs Temp 98.5 F 05/29/19 11:54 Pulse 67 05/29/19 11:54 Resp 16 05/29/19 11:54 BP 94/57 05/29/19 11:54 Pulse Ox 96 05/29/19 11:54 Intake & Output 05/28/19 05/29/19 05/29/19 18:59 06:59 18:59 Intake Total 525 900 Output Total 1 Balance 525 899 Weight 64.41 kg Intake: Intake, IV Titration 525 900 Amount Sodium Chloride 0.9% 1, 525 900 000 ml @ 75 mls/hr IV . [id number] [facility] Rx#:[id number] Output: Stool 1 Other: # Voids 1 - Exam Abdomen: Soft, nontender, nondistended - Labs CBC & Chem 7: 05/27/19 22:35 05/27/19 22:35 Assessment and Plan (1) Bowel obstruction Narrative/Plan: Patient's bowel obstruction or ileus seemed to be improving. Will advance diet. Ambulate. Current Visit: Yes Status: Acute Code(s): K56.609 - UNSP INTESTNL OBST, UNSP TO PARTIAL VERSUS COMPLETE OBST SNOMED Code(s): 58238741
[2019-05-29] MEDS: LATANOPROST 0.005% OPHTH DROPS 2.5 ML BTL BOTH EYES SCH (21:31)
[2019-05-29] MEDS: MELATONIN 3 MG TABLET PO SCH (21:31)
[2019-05-30] MEDS: HYDROmorphone 1 MG/ML 1 ML SYRINGE IVP PRN ×4 (00:07→20:11)
[2019-05-30] MEDS: METOPROLOL TARTRATE 25 MG TAB PO SCH ×2 (07:12→20:21)
[2019-05-30] MEDS: PANTOPRAZOLE 40 MG/10 ML VIAL IVP SCH (07:12)
[2019-05-30] MEDS: ENOXAPARIN 40 MG/0.4 ML SYRINGE SQ SCH (07:14)
[2019-05-30] MEDS: NEOMYCIN-BACITRACIN-POLY OINT 14 GM TUBE TOPICAL SCH ×2 (07:14→20:14)
[2019-05-30] MEDS: SENNOSIDES-DOCUSATE SODIUM 1 EACH TAB PO SCH ×2 (10:07→20:21)
--- NOTE | 2019-05-30 11:01 | P.PN ---
Subjective Progress Note Date: 05/30/19 CHIEF COMPLAINT: SBO HISTORY OF PRESENT ILLNESS: Patient examined this morning at the bedside with Dr. Butt. She reports mild right sided abdominal pain. Tolerating liquid diet. Denies nausea or vomiting. Passing flatus. Denies BM. She is requesting to have her diet advanced. PHYSICAL EXAM: VITAL SIGNS: Currently stable. GENERAL: Well-developed in no acute distress. HEENT: No sclera icterus. Extraocular movements grossly intact. Moist buccal mucosa. Head is atraumatic, normocephalic. Hears conversational speech. No nasal drai nage. NECK: Supple without lymphadenopathy. CHEST: Non-labored respirations and equal bilateral excursions. CARDIOVASCULAR: Regular rate with regular rhythm. Palpable 2+ radial pulses. ABDOMEN: Soft. Nondistended. Tenderness upon palpation of right lower quadrant. MUSCULOSKELETAL: No clubbing, cyanosis or edema. NEUROLOGIC: No focal or lateralizing signs. Cranial nerves II through XII gr ossly intact. PSYCH: Appropriate affect. Alert and oriented to person, place and time. SKIN: Well perfused. Good skin turgor. ASSESSMENT: 1. Ileus 2. History of constipation PLAN: Patient prescribed [place] on an outpatient basis. She is also prescribed Linzess. Dr. Monae recommends Senokot-S and Lactulose to prevent constipation. This should continue at the time of discharge Advance diet Nurse practitioner note has been reviewed by physician. Signing provider agrees with the documented findings, assessment, and plan of care. Objective - Vital Signs Vital signs: Vital Signs Temp 99.5 F 05/30/19 05:21 Pulse 68 05/30/19 04:09 Resp 16 05/30/19 04:09 BP 104/53 05/30/19 04:09 Pulse Ox 96 05/30/19 04:09 Intake & Output 05/29/19 05/30/19 05/30/19 18:59 06:59 18:59 Intake Total 600 900 Balance 600 900 Intake: Intake, IV Titration 600 900 Amount Sodium Chloride 0.9% 1, 600 900 000 ml @ 75 mls/hr IV . [id number] [facility] Rx#:[id number] Other: Voiding Method Diaper # Voids 1 1 - Labs CBC & Chem 7: 05/27/19 22:35 05/27/19 22:35
[2019-05-30] MEDS ORDERED: LEVOFLOXACIN 500MG-D5W PMX 500 MG in DEXTROSE/WATER 1 100ML.BAG IVPB SCH (12:00)
[2019-05-30] MEDS: ONDANSETRON 4 MG/2 ML VIAL IVP PRN (13:08)
--- NOTE | 2019-05-30 13:19 | US ---
EXAMINATION TYPE: US venous doppler duplex LE DATE OF EXAM: 05/30/2019 12:41 PM COMPARISON: US 04/22/2018 CLINICAL HISTORY: edema. SIDE PERFORMED: Bilateral TECHNIQUE: The lower extremity deep venous system is examined utilizing real time linear array sonog jigar with graded compression, doppler sonography and color-flow sonography. VESSELS IMAGED: External Iliac Vein (EIV) Common Femoral Vein Deep Femoral Vein Greater Saphenous Vein * Femoral Vein Popliteal Vein Small Saphenous Vein * Proximal Calf Veins (* superficial vessels) Grayscale, color doppler, spectral doppler imaging performed of the deep veins of the lower extremiti es. There is normal flow, compressibility, vascular waveforms. Right Leg: Negative for DVT Left Leg: Negative for DVT IMPRESSION: No sonographic evidence of deep venous thrombosis within the visualized bilateral lower extremities.
[2019-05-30] MEDS: metroNIDAZOLE-NS PMX 500 MG in SALINE 1 100ML.BAG IVPB SCH ×2 (14:41→20:21)
[2019-05-30] MEDS: SODIUM CHLORIDE 0.9% 1,000 ML IV SCH ×2 (14:49→22:25)
[2019-05-30] MEDS: HYDROcodone/APAP 10-325MG 1 EACH TAB PO PRN (14:49)
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
[2019-05-30 16:35] LABS: Appearance,Urine Clear (Clear); Bacteria,Urine Rare /hpf; Bilirubin,Urine Negative (Negative); Blood,Urine Negative (Negative); Color,Urine Light Yellow; Glucose,Urine (UA) Negative (Negative); Ketones,Urine Negative (Negative); Leukocyte Esterase,Urine Moderate (Negative); Mucus,Urine Rare /hpf; Nitrite,Urine Negative (Negative); Protein,Urine Negative (Negative); RBC,Urine 1 /hpf (0-5); Specific Gravity,Urine 1.007 (1.001-1.035); Squamous Epithelial Cell,Urine <1 /hpf (0-4); Urobilinogen,Urine <2.0 mg/dL (<2.0); WBC,Urine 13 /hpf (0-5)
[2019-05-30] MEDS: LACTULOSE 20 GM/30 ML CUP PO SCH ×2 (16:41→22:24)
[2019-05-30] MEDS: LATANOPROST 0.005% OPHTH DROPS 2.5 ML BTL BOTH EYES SCH (20:13)
[2019-05-30] MEDS: MELATONIN 3 MG TABLET PO SCH (20:21)
[2019-05-31] MEDS: metroNIDAZOLE-NS PMX 500 MG in SALINE 1 100ML.BAG IVPB SCH ×2 (04:58→11:25)
[2019-05-31] MEDS: LACTULOSE 20 GM/30 ML CUP PO SCH ×3 (08:10→21:17)
[2019-05-31] MEDS: ENOXAPARIN 40 MG/0.4 ML SYRINGE SQ SCH (08:12)
[2019-05-31] MEDS: CALCIUM CARB-VIT D 500MG-200UN 1 EACH TAB PO SCH (08:12)
[2019-05-31] MEDS: MAGNESIUM OXIDE 400 MG TAB PO SCH (08:12)
[2019-05-31] MEDS: SENNOSIDES-DOCUSATE SODIUM 1 EACH TAB PO SCH ×2 (08:12→21:17)
[2019-05-31] MEDS: METOPROLOL TARTRATE 25 MG TAB PO SCH ×2 (08:12→21:17)
[2019-05-31] MEDS: PANTOPRAZOLE 40 MG TABLET PO SCH (08:12)
[2019-05-31] MEDS: NEOMYCIN-BACITRACIN-POLY OINT 14 GM TUBE TOPICAL SCH ×2 (08:16→21:16)
[2019-05-31] MEDS: SODIUM CHLORIDE 0.9% 1,000 ML IV SCH (08:17)
[2019-05-31] MEDS: HYDROcodone/APAP 10-325MG 1 EACH TAB PO PRN ×3 (08:21→21:17)
[2019-05-31 08:29] LABS: Albumin 3.3 g/dL (3.5-5.0); Calcium 9.4 mg/dL (8.4-10.2); Total Bilirubin 0.5 mg/dL (0.2-1.3); Total Protein 6.9 g/dL (6.3-8.2)
[2019-05-31 08:32] LABS: Anisocytosis Slight; HCT 25.1 % (34.0-46.0); Hypochromasia Moderate; MCHC 32.6 g/dL (31.0-37.0); MCV 101.4 fL (80.0-100.0); Macrocytosis Moderate; Mean Platelet Volume 8.5; Platelet Count 109 k/uL (150-450); Poikilocytosis Slight; RBC 2.48 m/uL (3.80-5.40); RDW 18.3 % (11.5-15.5); WBC 4.2 k/uL (3.8-10.6)
[2019-05-31 08:44] LABS: HGB 8.2 gm/dL (11.4-16.0)
[2019-05-31] MEDS: POTASSIUM CHLORIDE ER 20 MEQ TAB.ER PO SCH ×2 (11:22→12:50)
--- NOTE | 2019-05-31 14:31 | P.PN ---
Subjective Progress Note Date: 05/31/19 CHIEF COMPLAINT: SBO HISTORY OF PRESENT ILLNESS: Patient examined this morning at the bedside. Denies abdominal pain. Denies nausea or vomiting. Tolerating diet. Passing flatus. No BM yet today. PHYSICAL EXAM: VITAL SIGNS: Currently stable. GENERAL: Well-developed in no acute distress. HEENT: No sclera icterus. Extraocular movements grossly intact. Moist buccal mucosa. Head is atraumatic, normocephalic. Hears conversational speech. No nasal drainage. NECK: Supple without lymphadenopathy. CHEST: Non-labored respirations and equal bilateral excursions. CARDIOVASCULAR: Regular rate with regular rhythm. Palpable 2+ radial pulses. ABDOMEN: Soft. Nondistended. Nontender. MUSCULOSKELETAL: No clubbing, cyanosis or edema. NEUROLOGIC: No focal or lateralizing signs. Cranial nerves II through XII grossly intact. PSYCH: Appropriate affect. Alert and oriented to person, place and time. SKIN: Well perfused. Good skin turgor. ASSESSMENT: 1. Ileus 2. History of constipation PLAN: Continue diet as tolerated Dr. Monae recommends Senokot-S and Lactulose to prevent constipation. This should continue at the time of discharge Stable for discharge from a surgical standpoint when cleared by internal medicine Nurse practitioner note has been reviewed by physician. Signing provider agrees with the documented findings, assessment, and plan of care. Objective - Vital Signs Vital signs: Vital Signs Temp 98.8 F 05/31/19 12:18 Pulse 77 05/31/19 12:18 Resp 16 05/31/19 12:18 BP 111/62 05/31/19 12:18 Pulse Ox 96 05/31/19 12:18 Intake & Output 05/30/19 05/31/19 05/31/19 18:59 06:59 18:59 Intake Total 800 1200 625 Balance 800 1200 625 Weight 64.41 kg Intake: Intake, IV Titration 800 1200 625 Amount Levofloxacin 500Mg-D5w 100 Pmx 500 mg In Dextrose/ Water 1 100ml.bag @ 100 mls/hr IVPB Q24H [facility] Rx#: [id number] Sodium Chloride 0.9% 1, 600 900 525 000 ml @ 75 mls/hr IV . [id number] [facility] Rx#:[id number]-NS PMX 500 100 300 100 mg In Saline 1 100ml.bag @ 100 mls/hr IVPB Q8H [facility] Rx#:[id number] Other: Voiding Method Bedpan Bedpan Bedpan Diaper Diaper Diaper # Voids 3 2 - Labs CBC & Chem 7: 05/31/19 07:29 05/31/19 07:29 Labs: Abnormal Lab Results - Last 24 Hours (Table) 05/30/19 05/31/19 05/31/19 Range/Units 16:12 07:29 07:29 RBC 2.48 L (3.80-5.40) m/uL Hgb 8.2 L D (11.4-16.0) gm/dL Hct 25.1 L (34.0-46.0) % MCV 101.4 H (80.0-100.0) fL RDW 18.3 H (11.5-15.5) % Plt Count 109 L (150-450) k/uL Potassium 3.0 L (3.5-5.1) mmol/L Chloride 108 H (98-107) mmol/L BUN 5 L (7-17) mg/dL Albumin 3.3 L (3.5-5.0) g/dL Ur Leukocyte Esterase Moderate H (Negative) Urine WBC 13 H (0-5) /hpf Urine Bacteria Rare H (None) /hpf Urine Mucus Rare H (None) /hpf Microbiology - Last 24 Hours (Table) 05/30/19 16:12 Urine Culture - Preliminary Urine,Clean Catch
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
[2019-05-31] MEDS: CHLORHEXIDINE GLUCONATE 15 ML CUP MUCOUS MEM SCH ×2 (16:32→21:15)
[2019-05-31] MEDS: LATANOPROST 0.005% OPHTH DROPS 2.5 ML BTL BOTH EYES SCH (21:16)
[2019-05-31] MEDS: MELATONIN 3 MG TABLET PO SCH (21:17)
[2019-05-31] MEDS: metroNIDAZOLE 500 MG TAB PO SCH (21:21)
[2019-06-01] MEDS: SODIUM CHLORIDE 0.9% 1,000 ML IV SCH (01:00)
[2019-06-01] MEDS: metroNIDAZOLE 500 MG TAB PO SCH ×2 (03:54→09:59)
[2019-06-01 08:42] LABS: ALT 9 U/L (4-34); AST 27 U/L (14-36); African American GFR (CKD) >90 (>60 ml/min/1.73 sqM); Albumin 3.4 g/dL (3.5-5.0); Alkaline Phosphatase 110 U/L (38-126); Anion Gap 8 mmol/L; Blood Urea Nitrogen 5 mg/dL (7-17); Carbon Dioxide 22 mmol/L (22-30); Chloride 110 mmol/L (98-107); Glucose 102 mg/dL (74-99); Non-African American GFR(CKD) 78 (>60 ml/min/1.73 sqM); Potassium 3.7 mmol/L (3.5-5.1); Sodium 140 mmol/L (137-145); Total Bilirubin 0.5 mg/dL (0.2-1.3)
[2019-06-01] MEDS: CHLORHEXIDINE GLUCONATE 15 ML CUP MUCOUS MEM SCH (09:51)
[2019-06-01] MEDS: ENOXAPARIN 40 MG/0.4 ML SYRINGE SQ SCH (09:51)
[2019-06-01] MEDS: NEOMYCIN-BACITRACIN-POLY OINT 14 GM TUBE TOPICAL SCH (09:52)
[2019-06-01] MEDS: LACTULOSE 20 GM/30 ML CUP PO SCH (09:52)
[2019-06-01] MEDS: METOPROLOL TARTRATE 25 MG TAB PO SCH (09:59)
[2019-06-01] MEDS: PANTOPRAZOLE 40 MG TABLET PO SCH (09:59)
[2019-06-01] MEDS: CALCIUM CARB-VIT D 500MG-200UN 1 EACH TAB PO SCH (09:59)
[2019-06-01] MEDS: MAGNESIUM OXIDE 400 MG TAB PO SCH (09:59)
[2019-06-01] MEDS: HYDROcodone/APAP 10-325MG 1 EACH TAB PO PRN (10:00)
[2019-06-01] MEDS: SENNOSIDES-DOCUSATE SODIUM 1 EACH TAB PO SCH (10:01)
--- NOTE | 2019-06-01 10:41 | P.PN ---
Subjective Progress Note Date: 06/01/19 CHIEF COMPLAINT: SBO HISTORY OF PRESENT ILLNESS: Patient examined this morning at the bedside. Denies abdominal pain. Denies nausea or vomiting. Tolerating diet. Passing flatus. Reports having bowel movements. She is hoping to be discharged home today. PHYSICAL EXAM: VITAL SIGNS: Currently stable. GENERAL: Well-developed in no acute distress. HEENT: No sclera icterus. Extraocular movements grossly intact. Moist buccal mucosa. Head is atraumatic, normocephalic. Hears conversational speech. No nasal drainage. NECK: Supple without lymphadenopathy. CHEST: Non-labored respirations and equal bilateral excursions. CARDIOVASCULAR: Regular rate with regular rhythm. Palpable 2+ radial pulses. ABDOMEN: Soft. Nondistended. Nontender. MUSCULOSKELETAL: No clubbing, cyanosis or edema. NEUROLOGIC: No focal or lateralizing signs. Cranial nerves II through XII grossly intact. PSYCH: Appropriate affect. Alert and oriented to person, place and time. SKIN: Well perfused. Good skin turgor. ASSESSMENT: 1. Ileus 2. History of constipation PLAN: Continue diet as tolerated Dr. Monae recommends Senokot-S and Lactulose to prevent constipation. This should continue at the time of discharge Stable for discharge from a surgical standpoint when cleared by internal medicine Nurse practitioner note has been reviewed by physician. Signing provider agrees with the documented findings, assessment, and plan of care. Objective - Vital Signs Vital signs: Vital Signs Temp 98.4 F 06/01/19 05:00 Pulse 70 06/01/19 05:00 Resp 16 06/01/19 05:00 BP 108/54 06/01/19 05:00 Pulse Ox 95 06/01/19 05:00 Intake & Output 05/31/19 06/01/19 06/01/19 18:59 06:59 18:59 Intake Total 625 950 Balance 625 950 Weight 64.41 kg Intake: Intake, IV Titration 625 950 Amount Sodium Chloride 0.9% 1, 525 750 000 ml @ 75 mls/hr IV . [id number] [facility] Rx#:[id number] metroNIDAZOLE-NS PMX 500 100 200 mg In Saline 1 100ml.bag @ 100 mls/hr IVPB Q8H [facility] Rx#:[id number] Other: Voiding Method Bedpan Bedside Commode Diaper Diaper # Voids 1 2 # Bowel Movements 1 1 2 - Labs CBC & Chem 7: 05/31/19 07:29 06/01/19 07:51 Labs: Abnormal Lab Results - Last 24 Hours (Table) 06/01/19 Range/Units 07:51 Chloride 110 H (98-107) mmol/L BUN 5 L (7-17) mg/dL Glucose 102 H (74-99) mg/dL Albumin 3.4 L (3.5-5.0) g/dL Microbiology - Last 24 Hours (Table) 05/30/19 16:12 Urine Culture - Final Urine,Clean Catch
[2019-06-01 11:55] VITALS: BP 134/55; PULSE 84; RESP 17; TEMP 97.8
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
== END 2019-06-01 14:15 | disposition home health service (06) | DRG 389 ==
LOC: EC 22:19 → 5NMEDONC 05-28 02:44
PROVIDERS: ADMIT Family Medicine; ATTEND Family Medicine
DX: K56.600 Partial intestinal obstruction, unspecified as to cause (principal); C78.7 Secondary malignant neoplasm of liver and intrahepatic bile duct; N17.9 Acute kidney failure, unspecified; C79.51 Secondary malignant neoplasm of bone; E87.2 Acidosis; F33.9 Major depressive disorder, recurrent, unspecified; I48.92 Unspecified atrial flutter; N18.4 Chronic kidney disease, stage 4 (severe); K57.92 Diverticulitis of intestine, part unspecified, without perforation or abscess without bleeding; D69.59 Other secondary thrombocytopenia; I48.0 Paroxysmal atrial fibrillation; G89.4 Chronic pain syndrome; Z51.5 Encounter for palliative care; K59.09 Other constipation; M21.372 Foot drop, left foot; D63.0 Anemia in neoplastic disease; D64.81 Anemia due to antineoplastic chemotherapy; F41.9 Anxiety disorder, unspecified; G89.3 Neoplasm related pain (acute) (chronic); G47.00 Insomnia, unspecified; E87.6 Hypokalemia; R73.9 Hyperglycemia, unspecified; R60.0 Localized edema; T45.1X5A Adverse effect of antineoplastic and immunosuppressive drugs, initial encounter; Z71.3 Dietary counseling and surveillance; Z79.899 Other long term (current) drug therapy; Z79.82 Long term (current) use of aspirin; Z85.3 Personal history of malignant neoplasm of breast; Z98.890 Other specified postprocedural states; Z92.21 Personal history of antineoplastic chemotherapy; Z96.642 Presence of left artificial hip joint; Z90.13 Acquired absence of bilateral breasts and nipples; Z95.828 Presence of other vascular implants and grafts; Z90.49 Acquired absence of other specified parts of digestive tract; Z98.51 Tubal ligation status; Z88.5 Allergy status to narcotic agent; Z82.49 Family history of ischemic heart disease and other diseases of the circulatory system; Z80.9 Family history of malignant neoplasm, unspecified; Z83.6 Family history of other diseases of the respiratory system
CPT/HCPCS: 36415; 74018; 74019; 74177; 80053; 81001; 83605; 83690; 85025; 85027; 86850; 86870; 86880; 86900; 86901; 87086; 87324; 87502; 93970; 96361; 96374; 96375; 96376; 99285

== ENCOUNTER → 2019-08-19 | Outpatient (CLI) | payer MEDICARE ==
--- NOTE | 2019-08-22 10:05 | PE ---
EXAMINATION TYPE: PET CT fusion skull to thigh DATE OF EXAM: 08/19/2019 COMPARISON: CT abdomen pelvis 05/28/2019 Prior PET/CT: None at this location. No outside films are presented. [place] or films however are not reported or are presented for comparison. An Order for Pet is evident in hi story physical note as part of plan, but no indication when or where or if it was performed. HISTORY: Breast cancer TECHNIQUE: Following the intravenous administration of 12.17 mCi of F-18 FDG, whole body images are performed from the skull base to the midthigh. Images are reviewed on the computer in the coronal, a xial, and sagittal planes. Reconstructed rotating images are created on independent workstation and reviewed on the computer. A localization and attenuation correction CT is performed in conjunction with the PET scan. DLP: 298.14 mGycm SCAN: Subsequent. Blood glucose: 198 mg/dL Average Mediastinum SUV: 1.9 Average Liver SUV: 2.7 FINDINGS: NECK: No abnormal uptake THORAX: No abnormal uptake ABDOMEN: On Three-D reconstructed images there is some faint focal nodular uptake within the inferior right tip of the liver and near the ligamentum teres liver 2 sites. This is less apparent on the loc alization CT but is faintly evident on the diffusion images. On the axial fusion images in there is i ntense radiotracer throughout the liver making discrete observation of metastases difficult. This cou ld be very infiltrated. Note overall the SUV value of the liver is increased. Three-D reconstructed i mages best demonstrate the more focal metastatic lesions. Right tip liver. Image 128, SUV 3.74 Medial right lobe liver. Image 107, SUV 3.35. Left lobe liver, image 104, SUV value 2.89. PELVIS: No abnormal uptake OSSEOUS STRUCTURES: There is increased uptake within the proximal humeri diaphysis bilaterally extend ing into the humeral heads. Increased uptake is in the region of T11. Some increase uptake may be pre sent within the lower cervical spine vertebral body. There is increased uptake within the left glenoi d. Uptake appears to be within ribs bilaterally is increased uptake in left acetabulum. There is incr eased uptake within the right proximal diaphyseal femur. LOCALIZATION CT: Ascending thoracic aorta at the level the main pulmonary artery is 4.1 cm. The main pulmonary artery at the bifurcation is 3.2 cm. Coronary artery calcification is present. There is a p ersistent 2.0 x 2.3 cm triangular density in the posterior lateral right lung base. Series 3 image 96 , SUV value 1.63 which can be in the inflammatory range. COMPARISON: Ascending thoracic aortic aneurysm is 1 mm greater which may be measurement error. There is persistent density in the lateral right lung base. Liver windows better visualize the suspicious a reas within the liver. IMPRESSION: 1. There appear to be at least 3 foci of radiotracer within the liver. Findings are very subtle but appear suspicious for metastasis, better visualized on liver windows localization CT. 2. Scattered multiple areas of radiotracer within osseous structures compatible with osseous metastas is. 3. Ascending thoracic aortic aneurysm measuring 4.1 cm. This is slightly larger than the 4.[address] or may be measurement error
== END | disposition home or self-care (01) ==
LOC: RADPETMAIN 09:30
PROVIDERS: ATTEND Internal Medicine Hematology & Oncology
DX: C50.111 Malignant neoplasm of central portion of right female breast (principal); I71.2 Thoracic aortic aneurysm, without rupture
CPT/HCPCS: 78815 ×2; A9552

== ENCOUNTER → 2019-09-07 | Outpatient (CLI) | payer MEDICARE, OTHER ==
--- NOTE | 2019-09-07 13:16 | CT ---
EXAMINATION TYPE: CT ChestAbdPelvis w con DATE OF EXAM: 09/07/2019 COMPARISON: PET CT August 19, 2019. Most recent CT abdomen and pelvis May 28, 2019 and older CTs HISTORY: Follow up for breast and bone CA CT DLP: 577.3 mGycm. Automated Exposure Control for Dose Reduction was Utilized. CONTRAST: CT scan of the thorax, abdomen and pelvis is performed with IV Contrast, patient injected with 80 mL of Isovue 300. FINDINGS: LUNGS: Background of mild to moderate underlying emphysematous change with elevated right hemidiaphra gm along with tiny right pleural effusion or thickening and right basilar linear scarring are all red emonstrated. No new suspicious nodules or masses. MEDIASTINUM: There are no greater than 1 cm hilar or mediastinal lymph nodes. No cardiomegaly or pe ricardial effusion is seen. Ascending aorta measures up to 3.8 cm in diameter axial image 24 not sig nificantly changed from prior study. Adjacent main pulmonary artery measures 2.9 cm in diameter. OTHER: Stable left internal jugular Mediport catheter. Right breast surgically absent with fat replac ed atrophic overlying pectoralis major muscle noted. LIVER/GB: There are better visualize multiple new heterogeneous hypodense lesions consistent with met astatic disease when comparing with most recent PET/CT and older CTs. There is progression in size an d number of lesions. Largest lesion anterior left hepatic lobe measures 3.4 cm long axis axial image 40. I identify roughly 20 distinct lesions on this exam. For reference inferior right hepatic lobe le kathy axial image 54 measures 1.8 cm long axis. PANCREAS: No significant abnormality is seen. SPLEEN: No significant abnormality is seen. ADRENALS: No significant abnormality is seen. KIDNEYS: No significant abnormality is seen. BOWEL: Oral contrast only reaches proximal ileal loops in the right abdomen. There is increasing calc ific density posterior in the gastric fundus axial image 48 of uncertain etiology as was present on r ecent PET/CT and increased in size not present on May 28, 2019 CT and older CTs. Air-fluid level and slightly distended stomach on current study. No suspicious dilatation of duodenal sweep. No suspi cious proximal to mid jejunal dilatation. Contrast-filled small bowel loops in the lower abdomen and upper pelvis show increased prominence with gradual transition into fluid-filled prominent small sergio l loops in the right abdomen with several air-fluid levels. Terminal ileum and adjacent distal ileal loops are not suspiciously distended. Surgical clips in the right lower quadrant/upper pelvis coronal image 37 noted near this level. Fecal material is seen in nondistended colon. Appendix likely within normal limits lateral aspect of the right lower quadrant/upper pelvis. Moderate fecal prominence in the rectum. GENITAL ORGANS: Anteverted uterus projects to right of midline. Mild to moderate surrounding ascites noted does not completely layer dependently. No enlarged ovaries. Calcification right pelvis axial im age 89 aren't uncertain etiology. LYMPH NODES: No greater than 1cm abdominal or pelvic lymph nodes are appreciated. OSSEOUS STRUCTURES: Calculi were from left hip arthroplasty causes streak artifact limiting evaluatio n of pelvic structures. Diffuse osseous metastatic disease noted with multiple sclerotic foci in both shoulders including scapula throughout the visualized spine greatest at thoracic levels and signific ant involvement in the proximal right femur and to lesser degree acetabulum. Multiple rib lesions are present. No obvious pathologic fracture. OTHER: No significant additional abnormality is seen. IMPRESSION: 1. Redemonstration of known diffuse osseous metastatic disease. Confirmation of new hepatic metastat ic disease more prominent than suspected on recent PET/CT. 2. Overall nonspecific bowel gas pattern. Cannot exclude partial distal small bowel obstruction with transition point right lower quadrant mid to distal ileal level. Unusual curvilinear calcification po sterior gastric fundus could reflect retained foreign body, cannot exclude wall base calcific mass. C onsider direct visualization. 3. Mild to borderline moderate nonsimple pelvic ascites of uncertain etiology. Consider pelvic ultras ound follow-up.
== END | disposition home or self-care (01) ==
LOC: RADCTMAIN 10:33
PROVIDERS: ATTEND Internal Medicine Hematology & Oncology
DX: C78.7 Secondary malignant neoplasm of liver and intrahepatic bile duct (principal); C50.111 Malignant neoplasm of central portion of right female breast
CPT/HCPCS: 82565; 84520; 71260; 74177; 36415; Q9967